=== PATIENT | male | born 1945 | race Caucasian/White ===

== ENCOUNTER → 2017-06-12 08:53 | Outpatient (POV) | payer MEDICARE, BC, SELFPAY | PROVIDERS: Family Provider Nurse Practitioner Family; Visit Provider Internal Medicine | DX: Z00.00 Encounter for general adult medical examination without abnormal findings (principal) ==

== ENCOUNTER → 2017-06-21 14:01 | Outpatient (CLI) | payer MEDICARE, BC, SELFPAY ==
--- NOTE | 2017-06-21 14:13 | CT_ITS ---
CT lung screening EXAM: CT LUNG LOW DOSE WO CONTRAST COMPARISON: 05/31/2016 HISTORY: 72-year-old male with 100 pack-year smoking history asymptomatic ITS.REASON: FORMER SMOKER ORDERING PHYSICIAN: Johnny Hernadez MD PATIENT AGE: 72 years TECHNIQUE: The exam was performed on a GE Light Speed [address] scanner using 2.9 mGy CTDI. A low dose helical CT CHEST was performed on a multi-detector scanner. All CT scans at the facility use one or more dose reduction, viz: automated exposure control; ma/kV adjustment per patient size (including targeted exams where dose is matched to indication; i.e. head); or iterative reconstruction technique. The LDCT was performed in a facility that meets the criteria for the screening program. Data regarding this exam was submitted to ACR which is an approved registry. The order for this exam indicates that it came as a result of a lung cancer screening counseling shard decision-making visit that included all the elements required of such a visit including smoking cessation. The radiologist interpreting this exam meets the CMS criteria for the LDCT lung cancer screening program. The exam is reported using the Lung-RADS classification scale and reported to the ACR registry. NOTE: This study was performed for the specific purposes of lung cancer screening and is not an alternative to diagnostic chest CT. RADIATION DOSE: CTDI vol(CT dose Index-volume) = 2.9mG DLP (Dose Length Product) = 114.11 mGcm FINDINGS: Moderate centrilobular emphysematous changes with scattered fibrotic changes. 6 mm irregular opacity in the right mid lung linear in nature and may be due to areas of scarring stable. It is at or near the minor fissure. Calcified granuloma right middle lobe. Scarring in the lung bases. 5 mm noncalcified nodule right upper lobe laterally unchanged. Mild bronchial thickening with hyperinflation. 7 mm noncalcified nodule left lower lobe centrally unchanged. No new nodules are evident. OTHER FINDINGS: Coronary artery calcifications IMPRESSION: 1. Lung RADS Category: 2, benign. Pulmonary nodules are stable and less than 8 mm. 2. Other findings: Old granulomatous disease. Centrilobular emphysema with COPD Coronary artery disease RECOMMENDATIONS: 12 month LDCT follow-up
== END ==
PROVIDERS: Family Provider Nurse Practitioner Family; PCP Family Medicine; Visit Provider Internal Medicine
DX: Z87.891 Personal history of nicotine dependence (principal); Z12.2 Encounter for screening for malignant neoplasm of respiratory organs

== ENCOUNTER → 2017-11-07 12:51 | Outpatient (CLI) | payer MEDICARE, BC, SELFPAY ==
[2017-11-07 14:00] VITALS: PULSE 74; PULSE 79
== END ==
PROVIDERS: Family Provider Nurse Practitioner Family; PCP Family Medicine; Visit Provider Internal Medicine
DX: J43.9 Emphysema, unspecified (principal)
CPT/HCPCS: 94060; 94640; 94726; 94729

== ENCOUNTER → 2017-12-18 11:28 | Outpatient (POV) | payer MEDICARE, BC, SELFPAY | PROVIDERS: Family Provider Nurse Practitioner Family; PCP Family Medicine; Visit Provider Internal Medicine | DX: Z00.00 Encounter for general adult medical examination without abnormal findings (principal) ==

== ENCOUNTER → 2018-05-21 13:47 | Outpatient (POV) | payer MEDICARE, BC, SELFPAY | PROVIDERS: Visit Provider Dermatology | DX: Z00.00 Encounter for general adult medical examination without abnormal findings (principal) ==

== ENCOUNTER → 2018-06-12 12:38 | Outpatient (CLI) | payer MEDICARE, BC, SELFPAY ==
--- NOTE | 2018-06-12 12:40 | CT_ITS ---
CT lung screening EXAM: CT LUNG LOW DOSE WO CONTRAST HISTORY: 80 pack-year smoking history, asymptomatic for lung cancer ITS.REASON: COPD, FORMER SMOKER ORDERING PHYSICIAN: Johnny Hernadez MD PATIENT AGE: 73 years COMPARISON: 06/21/2017 TECHNIQUE: The exam was performed on a GE Light Speed [address] scanner using 2.90 mGy CTDI. A low dose helical CT CHEST was performed on a multi-detector scanner. All CT scans at the facility use one or more dose reduction, viz: automated exposure control, ma/kV adjustment per patient size (including targeted exams where dose is matched to indication, i.e. head), or iterative reconstruction technique. The LDCT was performed in a facility that meets the criteria for the screening program. Data regarding this exam was submitted to ACR which is an approved registry. The order for this exam indicates that it came as a result of a lung cancer screening counseling shard decision-making visit that included all the elements required of such a visit including smoking cessation. The radiologist interpreting this exam meets the CMS criteria for the LDCT lung cancer screening program. The exam is reported using the Lung-RADS classification scale and reported to the ACR registry. NOTE: This study was performed for the specific purposes of lung cancer screening and is not an alternative to diagnostic chest CT. RADIATION DOSE: CTDI vol(CT dose Index-volume) = 2.90mG DLP (Dose Length Product) = 119.59 mGcm FINDINGS: Changes of COPD and centrilobular emphysema 7 mm parenchymal opacity in the right middle lobe unchanged and may be due to an area of scarring. There is a calcified granuloma in the right middle lobe medially and inferiorly. Chronic interstitial changes are present. Calcified nodule left lower lobe unchanged. There is a subpleural nodular opacity in the right upper lobe anteriorly approximately 4 mm. Coronary artery calcifications IMPRESSION: 1. Lung RADS Category: 2, benign 2. Other findings: COPD, centrilobular emphysema, interstitial disease, coronary artery calcification RECOMMENDATIONS: 12 month LDCT follow-up
== END ==
PROVIDERS: PCP Internal Medicine; Visit Provider Internal Medicine
DX: Z12.2 Encounter for screening for malignant neoplasm of respiratory organs (principal); Z87.891 Personal history of nicotine dependence; J44.9 Chronic obstructive pulmonary disease, unspecified

== ENCOUNTER → 2018-06-25 08:54 | Outpatient (POV) | payer MEDICARE, BC, SELFPAY | PROVIDERS: Visit Provider Internal Medicine | DX: Z00.00 Encounter for general adult medical examination without abnormal findings (principal) ==

== ENCOUNTER → 2018-07-25 09:13 | Outpatient (CLI) | payer MEDICARE, BC, SELFPAY ==
--- NOTE | 2018-07-25 09:16 | CI_ITS ---
Cerebrovascular Exam Indications: 433.10 Occlusion/stenosis of carotid artery without cerebral infarction. IMPRESSIONS 1. The bilateral vertebral arteries are patent with normal antegrade flow. 2. Study suggests less than 20% stenosis involving the left internal carotid artery. No change from the study of 08-Feb-2015. 3. Study suggests 50-69% stenosis involving the right internal carotid artery. Disease progression from the study of 08-Feb-2015. History: Coronary artery disease. Risk factors: Hypertension. Labs, prior tests, procedures, and surgery: Left endarterectomy (2009). Labs, prior tests, procedures, and surgery: Left endarterectomy (2009). Carotid duplex study. Complete study and Doppler flow study including spectral analysis, color and randolph scale imaging. Location: Vascular laboratory. Patient status: Outpatient. Tables: Arterial flow: + +--------+--------+ Location V sys V ed + +--------+--------+ Right CCA - proximal 114cm/s 23.6cm/s + +--------+--------+ Right CCA - distal 99.8cm/s 22cm/s + +--------+--------+ Right ECA 149cm/s -------- + +--------+--------+ Right ICA - proximal 187cm/s 46.2cm/s + +--------+--------+ Right ICA - mid 173cm/s 29.5cm/s + +--------+--------+ Right ICA - distal 80.1cm/s 24.4cm/s + +--------+--------+ Right vertebral 66cm/s -------- + +--------+--------+ Left CCA - proximal 127cm/s 33cm/s + +--------+--------+ Left CCA - distal 95.1cm/s 22.8cm/s + +--------+--------+ Left ECA 126cm/s -------- + +--------+--------+ Left ICA - proximal 79.6cm/s 25.1cm/s + +--------+--------+ Left ICA - mid 99.2cm/s 34.2cm/s + +--------+--------+ Left ICA - distal 93.6cm/s 30cm/s + +--------+--------+ Left vertebral 48.2cm/s -------- + +--------+--------+ Velocity ratios: + + + + + + Right, V sys Right, V ed Left, V sys Left, V ed + + + + + + Max ICA/dist CCA 1.87 2.1 1.04 1.5 + + + + + + (Report amended ) Electronically signed by: Cassius Morrow [id number]
== END ==
PROVIDERS: PCP Family Medicine; Visit Provider Family Medicine
DX: I65.21 Occlusion and stenosis of right carotid artery (principal); R51 Headache; H53.9 Unspecified visual disturbance; Z98.890 Other specified postprocedural states
CPT/HCPCS: 93880

== ENCOUNTER → 2018-11-01 09:38 | Outpatient (CLI) | payer MEDICARE, BC, SELFPAY ==
[2018-11-01 09:54] LABS: Blood Urea Nitrogen 17 mg/dL (7-18); Creatinine,Serum 0.85 mg/dL (0.70-1.30); Estimated Glomerular Filt Rate 88 ml/min (>60); GFR (African American) 107 ML/MIN (>60)
--- NOTE | 2018-11-01 10:13 | MR_ITS ---
PROCEDURE: MR HEAD/BRAIN WO/W CON CLINICAL INDICATION: CHRONIC INTRACTABLE HEADACHE Headache with dizziness, blurred vision COMPARISON: No exams were available for comparison TECHNIQUE: Routine multiplanar multi echo sequences are performed without and with gadolinium enhancement. FINDINGS: No midline shift mass effect intracranial hemorrhage or acute infarction is evident. There are some nonspecific T2 white matter hyperintensities within the central aspect of the stiven and the periventricular region. There is a small area of increased T2 signal in the left superior cerebellar hemispheres centrally. This shows contrast enhancement measuring approximately 6 mm. No other enhancing abnormalities are evident. The cerebellopontine angle, cerebellum, and brainstem are unremarkable. The pituitary, optic chiasm and craniocervical junction are unremarkable. No mastoid effusion or sinus air-fluid level. IMPRESSION: There is a small enhancing lesion in the superior cerebellar area on the left. This is nonspecific. No other enhancing lesions are evident. This does show some increased T2 signal. Etiology is indeterminate. One cannot exclude the possibility of a small neoplasm such as a metastatic focus. 6-8 week follow-up is suggested to confirm short term stability. Does the patient have primary neoplasm? No other lesions are evident and there is no edema or other significant anomaly apparent. Periventricular ischemic gliotic changes are noted. Dictated by: Cassius Morrow MD 11/02/2018 19:32 Signed by: <Electronically signed by Cassius Morrow MD in [place]> 11/02/2018 19:32
== END ==
PROVIDERS: PCP Family Medicine; Visit Provider Family Medicine
DX: R51 Headache (principal)
CPT/HCPCS: 36415; 70553; 82565; 84520; A9576

== ENCOUNTER → 2019-01-13 09:47 | Outpatient (CLI) | payer MEDICARE, BC, SELFPAY ==
--- NOTE | 2019-01-13 09:59 | MR_ITS ---
PROCEDURE: MR HEAD/BRAIN WO/W CON CLINICAL INDICATION: ABNORMAL BRAIN MRI Chronic intractable headache with dizziness and blurred vision, follow-up abnormal MRI with an enhancing lesion in the left cerebellar area COMPARISON: MR HEAD/BRAIN WO/W CON from 11/01/2018 TECHNIQUE: Routine multiplanar multi echo sequences are performed without gadolinium enhancement. Routine multiplanar multi echo sequences are performed without and with gadolinium enhancement. FINDINGS: Previous exam demonstrated a small area of enhancement in the left superior cerebellar region. No midline shift, mass effect, intracranial hemorrhage, or hydrocephalus is evident. The cerebellopontine angle, cerebellum, and brainstem are unremarkable. There is some increased T2 signal within the stiven and periventricular white matter consistent with ischemic gliotic change from microvascular disease. The previously noted small focus of enhancement in the left superior cerebellar region is no longer apparent. This was present on both the axial and coronal post enhanced images but is not identified on today's study. No enhancing lesions are apparent. The pituitary, optic chiasm, corpus callosum, and craniocervical junction have an unremarkable appearance. No mastoid effusion or sinus air-fluid level. IMPRESSION: 1. Previously noted small area of enhancement in the left superior cerebellar region is not demonstrated on today's exam. No abnormal area of enhancement apparent. 2. Involutional changes of age with mild atrophy and periventricular ischemic gliotic change. 3. No acute intracranial findings Dictated by: Cassius Morrow MD 01/13/2019 15:52 Electronically signed by Cassius Morrow MD in [place] 01/14/2019 10:50
[2019-01-13 10:06] LABS: Blood Urea Nitrogen 12 mg/dL (7-18); Creatinine,Serum 0.79 mg/dL (0.70-1.30); Estimated Glomerular Filt Rate 96 ml/min (>60); GFR (African American) 116 ML/MIN (>60)
--- NOTE | 2019-01-13 10:43 | HMH.ITSHM ---
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 []SIMVASTATIN BABY ASPIRIN
== END ==
PROVIDERS: PCP Family Medicine; Visit Provider Family Medicine
DX: R51 Headache (principal); R90.89 Other abnormal findings on diagnostic imaging of central nervous system
CPT/HCPCS: 36415; 70553; 82565; 84520; A9576

== ENCOUNTER 2019-09-02 20:03 | Observation (INO) | payer MEDICARE, BC, SELFPAY ==
[2019-09-02] VITALS (14 sets, daily range): BP systolic 125–176; BP diastolic 54–83; PULSE 90–107; RESP 18–28; TEMP 36.8–37.2; O2SAT 92–96; BMI 24.4; BMI 25.4
--- NOTE | 2019-09-02 20:00 | ECG_ITS ---
APPROVED REPORT Exam: Resting ECG HR:108 bpm ECG Measurements Heart Rate 108 AXES LA 162 P QRSd 64 QRS 74 QT 306 T 83 QTc 410 <Conclusion> Sinus tachycardia Nonspecific ST abnormality Abnormal ECG Electronically signed by : Loc Martinez, 09/08/2019 17:16:29
--- NOTE | 2019-09-02 20:19 | XR_ITS ---
PROCEDURE: XR CHEST PORTABLE CLINICAL HISTORY: SOA Shortness of breath COMPARISON: CXR CHEST(2 VIEWS-NOT PORTABLE) from 02/17/[address] [facility] [address] CHEST W/O CONTRAST from 05/31/2016 CXR CHEST(2 VIEWS-NOT PORTABLE) from 01/08/2017 CXR2V XR chest 2V from 07/12/2017 FINDINGS: Mild cardiomegaly without failure. Changes of COPD with eventration of the hemidiaphragm on the right. No lobar consolidation or collapse. No acute bony abnormalities. IMPRESSION: Cardiomegaly with COPD. No change Dictated by: Cassius Morrow MD 09/03/2019 07:55 Electronically signed by Cassius Morrow MD in [place] 09/03/2019 07:55
[2019-09-02 20:23] LABS: ABG Base Excess 5.5 mmol/L (-2.4-2.3); ABG HCO3 29.6 mmhg (22.0-26.0); ABG Oxygen Saturation 91 % (90-100); ABG PCO2 43.6 mmhg (35.0-45.0); ABG PH 7.45 mmol/L (7.35-7.45); ABG TCO2 30.9 mmhg (23-27); Allen's Test Y; Oxygen 2 %
[2019-09-02 20:24] LABS: Source R/R
[2019-09-02 20:27] LABS: Basophils % 0.4 % (0.1-2.0); Eosinophils # 0.3 K/mm3 (0.0-0.4); Eosinophils % 2.4 % (0.1-12.0); Hematocrit 45.8 % (42.0-52.0); Hemoglobin 14.9 g/dL (14.1-18.0); Lymphocytes % 9.6 % (10-50); Mean Corpuscular HGB Conc 32.4 g/dL (31.8-35.4); Mean Corpuscular Hemoglobin 31.3 pg (27.0-31.2); Mean Corpuscular Volume 96.4 fl (80-94); Mean Platelet Volume 7.1 fl (7.4-10.4); Monocytes # 0.6 K/mm3 (0.1-1.0); Neutrophils % 82.6 % (37.0-80.0); Platelet Count 228 K/mm3 (142-424); Red Blood Count 4.75 M/mm3 (4.60-6.20); White Blood Count 10.9 K/mm3 (4.8-10.8)
[2019-09-02 20:29] LABS: Chloride 97 mmol/L (98-107); Potassium 4.3 mmoL/L (3.5-5.1); Sodium 139 mmol/L (136-145)
[2019-09-02 20:31] LABS: Alanine Aminotransferase 21 U/L (12-78); Alkaline Phosphatase 80 U/L (38-126); Aspartate Amino Transferase 38 U/L (17-59); Bilirubin,Total 0.6 mg/dl (0.2-1.3); Blood Urea Nitrogen 22 mg/dl (9-20); Creatinine Clearance Estimated 72 mL/min (50-200); Estimated Glomerular Filt Rate 110 ml/min (>60); GFR (African American) 133 ML/MIN (>60)
[2019-09-02 20:32] LABS: Albumin Level 4.3 g/dl (3.5-5.0); Albumin/Globulin Ratio 1.3 (1.1-1.8); Anion Gap 9.3 mEq/L (5-15); Calcium 9.3 mg/dl (8.4-10.2); Carbon Dioxide 37 mmol/L (22.0-30.0); Globulin 3.4 g/dL (1.3-3.2); Glucose 110 mg/dl (74-100); Total Protein,Serum 7.7 g/dl (6.3-8.2)
[2019-09-02 20:39] LABS: C-Reactive Protein 12.9 mg/L (0-4)
--- NOTE | 2019-09-02 20:46 | HMH.EDSOB ---
ED Disposition Clinical Impression: Acute exacerbation of chronic obstructive airways disease, SIRS (systemic inflammatory response syndrome) Disposition: Admitted as Observation Condition on Discharge: Good Referrals: Loc Sandoval MD [Primary Care Provider] - - Critical Care Critical Care Time: No Attestation: On 09/02/19, the high probability of a clinically significant, sudden or life threatening deterioration of the following system(s) required my full and direct attention, intervention and personal management. The time I documented below is in addition to time spent performing reported procedures but includes the following listed in this critical care notation. Medical Decision Making - Medical Records Medical records reviewed: Yes: I reviewed the patient's medical records. - [place] Inquiry Pt receiving controlled substance: No Vital Signs: 09/02/19 20:09 09/02/19 20:16 09/02/19 20:38 Temperature 99.0 F Temperature Source Oral Pulse Rate 90 Pulse Rate [Left Radial] 103 H Pulse Rate [Left] 107 H Respiratory Rate 28 H 28 H Blood Pressure [Right Arm] 176/63 H 176/83 H Blood Pressure Mean [Right Arm] 100 114 02 Sat by Pulse Oximetry 95 94 L Oxygen Delivery Method Nasal Cannula Nasal Cannula Oxygen Flow Rate (LPM) 2 2 09/02/19 20:39 09/02/19 20:42 09/02/19 21:05 Temperature Temperature Source Pulse Rate 91 H Pulse Rate [Left Radial] 107 H 101 H Pulse Rate [Left] Respiratory Rate 22 24 Blood Pressure [Right Arm] 167/78 H 158/62 H Blood Pressure Mean [Right Arm] 107 94 02 Sat by Pulse Oximetry 92 L 95 Oxygen Delivery Method Nasal Cannula Nasal Cannula Oxygen Flow Rate (LPM) 3 3 09/02/19 21:17 09/02/19 21:44 09/02/19 22:07 Temperature Temperature Source Pulse Rate Pulse Rate [Left Radial] 102 H 105 H 104 H Pulse Rate [Left] Respiratory Rate 22 20 18 Blood Pressure [Right Arm] 133/58 L 144/70 H 148/69 H Blood Pressure Mean [Right Arm] 83 94 95 02 Sat by Pulse Oximetry 94 L 93 L 94 L Oxygen Delivery Method Nasal Cannula Nasal Cannula Nasal Cannula Oxygen Flow Rate (LPM) 3 3 2 09/02/19 22:31 Temperature Temperature Source Pulse Rate Pulse Rate [Left Radial] 101 H Pulse Rate [Left] Respiratory Rate 18 Blood Pressure [Right Arm] 125/54 L Blood Pressure Mean [Right Arm] 77 02 Sat by Pulse Oximetry 93 L Oxygen Delivery Method Nasal Cannula Oxygen Flow Rate (LPM) 3 - Lab Data Lab results reviewed: Yes: I reviewed the patient's lab results. Lab Results 09/02/19 19:40: WBC 10.9 H, RBC 4.75, Hgb 14.9, Hct 45.8, MCV 96.4 H, MCH 31.3 H, MCHC 32.4, RDW 14.0, Plt Count 228, MPV 7.1 L, Neut % (Auto) 82.6 H, Lymph % (Auto) 9.6 L, [place] % (Auto) 5.0, Eos % (Auto) 2.4, Baso % (Auto) 0.4, Neut # (Auto) 9.0 H, Lymph # (Auto) 1.0, [place] # (Auto) 0.6, Eos # (Auto) 0.3, Baso # (Auto) 0.0 09/02/19 19:40: Sodium 139, Potassium 4.3, Chloride 97 L, Carbon Dioxide 37 H, Anion Gap 9.3, BUN 22 H, Creatinine 0.70, Estimated Creat Clear 72, Estimated GFR 110, Est GFR ( Amer) 133, Glucose 110 H, Calcium 9.3, Total Bilirubin 0.6, AST 38, ALT 21, Alkaline Phosphatase 80, Troponin I < 0.01, C-Reactive Protein 12.9 H, Total Protein 7.7, Albumin 4.3, Globulin 3.4 H, Albumin/Globulin Ratio 1.3 09/02/19 19:40: ESR 40 H 09/02/19 19:40: SARS-CoV-2 IgG Ab (Rapid) Negative, SARS-CoV-2 IgM Ab (Rapid) Negative 09/02/19 20:22: Specimen Source R/r, O2 % 2, ABG pH 7.45, ABG pCO2 43.6, ABG pO2 56.0 L, ABG HCO3 29.6 H, ABG Total CO2 30.9 H, ABG O2 Saturation 91, ABG Base Excess 5.5 H, Cassius Test Y 09/02/19 20:34: Lactate 1.3 09/02/19 20:53: Chlamy pneumoniae PCR Not detected, Adenovirus (PCR) Not detected, B. pertussis DNA (PCR) Not detected, Coronavirus OC43 (PCR) Not detected, Coronavirus HKU1 (PCR) Not detected, Coronavirus 229E (PCR) Not detected, COVID-19 PCR Not detected, Coronavirus NL63 (PCR) Not detected, Human Metapneumovir PCR Not detected, Influenza A (H1) PCR Not detected,
[2019-09-02 20:52] LABS: Lactic Acid 1.3 mmol/L (0.7-2.1)
[2019-09-02 20:53] LABS: Troponin I < 0.01 ng/ml (0.00-0.034)
[2019-09-02 20:56] LABS: Erythrocyte Sedimentation Rate 40 mm/hr (0-20)
--- NOTE | 2019-09-02 20:56 | PC.NURSE ---
lab at the bedside for covid swab
[2019-09-02 21:02] LABS: Adenovirus,PCR Not Detected (NotDetected); Bordetella Pertussis Not Detected (NotDetected); Chlamydophila Pneumoniae, PCR Not Detected (NotDetected); Coronavirus 19, PCR Not Detected (NotDetected); Coronavirus 229E Not Detected (NotDetected); Coronavirus NL63 Not Detected (NotDetected); Coronavirus OC43 Not Detected (NotDetected); Coronovirus HKU1,PCR Not Detected (NotDetected); Human Metapneumovirus Not Detected (NotDetected); Influenza A, PCR Not Detected (NotDetected); Influenza AH1, 2009 Not Detected (NotDetected); Influenza AH1, PCR Not Detected (NotDetected); Influenza AH3,PCR Not Detected (NotDetected); Influenza B, PCR Not Detected (NotDetected); Mycoplasma Pneumoniae, PCR Not Detected (NotDected); Parainfluenza 1, PCR Not Detected (NotDetected); Parainfluenza 2, PCR Not Detected (NotDetected); Parainfluenza 3, PCR Not Detected (NotDetected); Parainfluenza 4, PCR Not Detected (NotDetected); Respiratory Syncytial Virus Not Detected (NotDetected); Rhinovirus/Enterovirus Not Detected (NotDetected)
[2019-09-02 21:24] LABS: Coronavirus 19 IgG Antibody Negative (Negative); Coronavirus 19 IgM Antibody Negative (Negative)
--- NOTE | 2019-09-02 23:42 | PC.NURSE ---
PT ARRIVED TO THE FLOOR VIA STRETCHER FROM ED @ [phone].
[2019-09-02 23:53] LABS: Troponin I 0.02 ng/ml (0.00-0.034)
[2019-09-03 00:03] VITALS: PULSE 100
[2019-09-03 03:32] LABS: Troponin I 0.01 ng/ml (0.00-0.034)
[2019-09-03 04:00] VITALS: BP 130/69; PULSE 70; RESP 18; TEMP 36.6; O2SAT 97
[2019-09-03 05:10] VITALS: BMI 25.4
--- NOTE | 2019-09-03 05:20 | PC.NURSE ---
Pt is A&Ox4 and has ambulated to the BR 1x and tolerated well. Pt has denied any pain, N/V/D, or dyspnea. Pt does still c/o a little SOB that worsens with activity. NSR noted on tele. Pt troponins were <0.01, 0.02, and 0.01. Pt denies any chest pain, numbness/tingling. Pt is on 3LMP of O2 via NC, sats 94-97% thus far. Pt is home dependent on O2 at 2LMP. Dressing and luer tubing changed this shift, 20g peripheral IV to LAC. VSS, call light within reach and will continue to monitor pt condition.
[2019-09-03 06:59] LABS: Chloride 105 mmol/L (98-107); Potassium 4.4 mmoL/L (3.5-5.1); Sodium 138 mmol/L (136-145)
[2019-09-03 07:02] LABS: Anion Gap 8.4 mEq/L (5-15); Blood Urea Nitrogen 15 mg/dl (9-20); Carbon Dioxide 29 mmol/L (22.0-30.0); Creatinine Clearance Estimated 74 mL/min (50-200); Estimated Glomerular Filt Rate 131 ml/min (>60); GFR (African American) 159 ML/MIN (>60); Glucose 195 mg/dl (74-100)
[2019-09-03 07:06] LABS: Basophils % 0.1 % (0.1-2.0); Hematocrit 39.9 % (42.0-52.0); Lymphocytes # 0.4 K/mm3 (0.7-4.5); Lymphocytes % 4.3 % (10-50); Mean Corpuscular HGB Conc 32.3 g/dL (31.8-35.4); Mean Corpuscular Hemoglobin 31.6 pg (27.0-31.2); Mean Corpuscular Volume 97.7 fl (80-94); Monocytes # 0.2 K/mm3 (0.1-1.0); Monocytes % 1.7 % (1.7-9.3); Neutrophils # 9.6 K/mm3 (1.8-7.8); Neutrophils % 93.9 % (37.0-80.0); Platelet Count 165 K/mm3 (142-424); Red Blood Count 4.08 M/mm3 (4.60-6.20); Red Cell Distribution Width 13.8 % (11.5-17.5); White Blood Count 10.2 K/mm3 (4.8-10.8)
[2019-09-03 07:08] LABS: MANUAL DIFFERENTIAL MANUAL DIFFERENTIAL (MANUAL DIFF)
--- NOTE | 2019-09-03 07:21 | P.CONPHA_ITS ---
[facility] Pharmacy VTE Monitoring - Patient Demographics Admission date: 09/02/19 Report Date: 09/03/19 Time: 07:21 Allergies/Adverse Reactions: Patient Allergies No Known Allergies Allergy (Verified 07/12/17 10:35) Height: 1.8 m Weight: 82.355 kg Patient Problems: Current Active Problems Acute exacerbation of chronic obstructive airways disease (Acute) SIRS (systemic inflammatory response syndrome) (Acute) - VTE Risk Labs: VTE Related Lab Results Hgb 14.9 g/dL (14.1-18.0) 09/02/19 19:40 Hct 39.9 % (42.0-52.0) L 09/03/19 06:12 Plt Count 165 K/mm3 (142-424) D 09/03/19 06:12 BUN 15 mg/dl (9-20) D 09/03/19 06:12 Creatinine 0.60 mg/dl (0.66-1.25) L 09/03/19 06:12 Estimated Creat Clear 74 mL/min (50-200) 09/03/19 06:12 VTE Score: 4 VTE Risk Level: Low Risk Clinical Trial Participant: No - Prophylaxis VTE Prophylaxis Ordered?: Yes Types of VTE Prophylaxis: TEDS Knee High
--- NOTE | 2019-09-03 07:25 | HMH.HPDC ---
General - General Admission date:: 09/02/19 Discharge date: 09/03/19 *Admission Date: 09/02/19 *Chief complaint: Shortness of breath *History of present illness: 74-year-old male with 2-day history of progressively increasing shortness of breath, low-grade fevers, cough with yellow sputum production presented to the emergency department due to his worsening symptoms. Patient has medical history significant for COPD and atrial fibrillation status post cardiac ablation. Work-up in the emergency department revealed hypoxemia with mild tachycardia. Patient's breath sounds are distant at baseline but patient was having increasing difficulty breathing. Patient uses oxygen at home when needed and required increased use of supplemental oxygen and increase in flow rate. Patient was given aerosols and steroids in the emergency department and admitted overnight for observation. [facility] History I have reviewed the patient's past medical history: Yes Medical History: Reports:: Atrial Fibrillation, Cancer (Skin cancer), Hyperlipidemia Denies:: Diabetes Mellitus Type 1, Diabetes Mellitus Type 2, Internal Pacemaker *Have you ever received a pneumonia vaccine?: Yes *Have you received a flu vaccine this season?: Yes Other Medical History: Reports: Cataracts Laterality Cases: Bilateral: Cataract Other Surgeries: No: Pacemaker Amputation: No Fractures: Yes (Fingers and Rib) - *Social History Smoking Status: Former smoker Tobacco Type: cigarettes # Packs/Day (cigarettes): 2 #Yrs smoked (if former smoker): 40 Smoking End Date: 03/05/2008 Alcohol Intake: former *Occupational Status:: retired Housing: house Household Members: spouse, caregiver *Travel in the last 8 weeks: None Family Hx:: No significant family history Review of Systems - Constitutional Reports lack of energy, Denies body ache(s), Denies chills - *Cardiovascular Denies chest pain, Denies chest pain at rest - *Respiratory Reports change in phlegm color, Reports chest congestion, Reports cough, Reports shortness of breath, Reports shortness of breath with activity - *Gastrointestinal Denies abdominal pain, Denies belching - *Genitourinary Denies difficulty urinating - *Neurologic Denies localized weakness, Denies seizure-like activity Exam Vital signs and Labs for Last 24 Hours: Temp Pulse Resp BP Pulse Ox 97.8 F 70 18 130/69 97 09/03/19 04:00 09/03/19 04:00 09/03/19 04:00 09/03/19 04:00 09/03/19 04:00 Laboratory Results - last 24 hr 09/02/19 19:40: WBC 10.9 H, RBC 4.75, Hgb 14.9, Hct 45.8, MCV 96.4 H, MCH 31.3 H, MCHC 32.4, RDW 14.0, Plt Count 228, MPV 7.1 L, Neut % (Auto) 82.6 H, Lymph % (Auto) 9.6 L, [place] % (Auto) 5.0, Eos % (Auto) 2.4, Baso % (Auto) 0.4, Neut # (Auto) 9.0 H, Lymph # (Auto) 1.0, [place] # (Auto) 0.6, Eos # (Auto) 0.3, Baso # (Auto) 0.0 09/02/19 19:40: Sodium 139, Potassium 4.3, Chloride 97 L, Carbon Dioxide 37 H, Anion Gap 9.3, BUN 22 H, Creatinine 0.70, Estimated Creat Clear 72, Estimated GFR 110, Est GFR ( Amer) 133, Glucose 110 H, Calcium 9.3, Total Bilirubin 0.6, AST 38, ALT 21, Alkaline Phosphatase 80, Troponin I < 0.01, C-Reactive Protein 12.9 H, Total Protein 7.7, Albumin 4.3, Globulin 3.4 H, Albumin/Globulin Ratio 1.3 09/02/19 19:40: ESR 40 H 09/02/19 19:40: SARS-CoV-2 IgG Ab (Rapid) Negative, SARS-CoV-2 IgM Ab (Rapid) Negative 09/02/19 20:22: Specimen Source R/r, O2 % 2, ABG pH 7.45, ABG pCO2 43.6, ABG pO2 56.0 L, ABG HCO3 29.6 H, ABG Total CO2 30.9 H, ABG O2 Saturation 91, ABG Base Excess 5.5 H, Cassius Test Y 09/02/19 20:34: Lactate 1.3 09/02/19 20:53: Chlamy pneumoniae PCR Not detected, Adenovirus (PCR) Not detected, B. pertussis DNA (PCR) Not detected, Coronavirus OC43 (PCR) Not detected, Coronavirus HKU1 (PCR) Not detected, Coronavirus 229E (PCR) Not detected, COVID-19 PCR Not detected, Coronavirus NL63 (PCR) Not detected, Human Metapneumovir PCR Not detected, Influenza A (H1) PCR Not detected, Influ A (H1N1/09) PCR Not detected,
[2019-09-03 07:59] LABS: Calcium 8.3 mg/dl (8.4-10.2)
[2019-09-03 08:00] VITALS: BP 158/82; PULSE 60; PULSE 73; RESP 18; TEMP 36.6; O2SAT 96
--- NOTE | 2019-09-03 09:25 | HMH.PHAINT ---
PATIENT WAS COUNSELED ON NEW MEDICATIONS: AUGMENTIN AND PREDNISONE. ALL NORMAL HOME MEDICATIONS WILL BE CONTINUED. THE PATIENT DID NOT HAVE ANY QUESTIONS.
[2019-09-03 09:53] VITALS: PULSE 72; PULSE 75
[2019-09-03 09:59] LABS: Lymphocytes % 1 % (10-50); Monocytes % 2 % (2-9); Neutrophils % 97 % (42-76); Platelet Estimate Normal; RBC Morphology Normal; Total Cells Counted 100
== END 2019-09-03 15:59 | disposition home or self-care (01) ==
LOC: ER 21:06 → 2ND 23:09
PROVIDERS: Admitting Provider Internal Medicine Adolescent Medicine; Emergency Provider Emergency Medicine; PCP Family Medicine; Visit Provider Family Medicine
DX: J44.1 Chronic obstructive pulmonary disease with (acute) exacerbation (principal); Z99.81 Dependence on supplemental oxygen; R65.10 Systemic inflammatory response syndrome (SIRS) of non-infectious origin without acute organ dysfunction; I10 Essential (primary) hypertension; Z87.891 Personal history of nicotine dependence; Z79.899 Other long term (current) drug therapy
CPT/HCPCS: 36415; 71045; 80048; 80053; 82803; 83605; 83735; 84484; 85007; 85025; 85651; 86140; 86328; 87040; 87070; 87205; 87581; 87633; 87798; 93005; 94640; 96365; 96366; 96367; 96375; 99285; G0378; J0456; J2405

== ENCOUNTER → 2019-09-30 14:17 | Outpatient (POV) | payer MEDICARE, BC, SELFPAY | PROVIDERS: PCP Family Medicine; Visit Provider Dermatology | DX: Z00.00 Encounter for general adult medical examination without abnormal findings (principal) ==

== ENCOUNTER → 2019-11-10 09:55 | Outpatient (CLI) | payer MEDICARE, BC, SELFPAY ==
[2019-11-10 12:11] LABS: Coronavirus 19 IgG Antibody Negative (Negative); Coronavirus 19 IgM Antibody Negative (Negative)
== END ==
PROVIDERS: Visit Provider Ophthalmology
DX: Z01.818 Encounter for other preprocedural examination (principal)
CPT/HCPCS: 36415; 86328

== ENCOUNTER 2019-11-11 08:51 | Day surgery (SDC) | payer MEDICARE, BC, SELFPAY ==
[2019-11-05 12:49] VITALS: BMI 24.4
[2019-11-11 09:07] VITALS: BP 146/64; PULSE 66; RESP 18; TEMP 36.1; O2SAT 94
[2019-11-11 10:04] VITALS: BP 155/74; PULSE 54; RESP 20; TEMP 36.1; O2SAT 100
== END 2019-11-11 10:20 | disposition home or self-care (01) ==
LOC: OUTP 08:53
PROVIDERS: PCP Family Medicine; Visit Provider Ophthalmology
PROC: (CPT 66821; principal; 2019-11-11 09:00)
DX: H26.493 Other secondary cataract, bilateral (principal); H02.839 Dermatochalasis of unspecified eye, unspecified eyelid; Z96.1 Presence of intraocular lens; J44.9 Chronic obstructive pulmonary disease, unspecified; K21.9 Gastro-esophageal reflux disease without esophagitis; Z79.82 Long term (current) use of aspirin; Z79.899 Other long term (current) drug therapy; Z86.79 Personal history of other diseases of the circulatory system; I10 Essential (primary) hypertension; I27.81 Cor pulmonale (chronic)
CPT/HCPCS: 66821

== ENCOUNTER → 2020-07-28 10:13 | Outpatient (CLI) | payer MEDICARE, BC, SELFPAY ==
--- NOTE | 2020-07-28 10:19 | XR_ITS ---
PROCEDURE: XR CERVICAL SPINE 5V CLINICAL INDICATION: CERVICALGIA COMPARISON: No exams were available for comparison FINDINGS: There is normal alignment. No acute fracture or dislocation is evident. The disc spaces are well preserved. C7 is not well delineated on the lateral view. There is a faint outline of the body of C7 on the swimmer's view which is normal and alignment. Surgical clips are present in the left neck. Carotid artery calcifications noted right. IMPRESSION: Unremarkable cervical spine Dictated by: Cassius Morrow MD 07/28/2020 12:17 Cassius Morrow MD in [place] 07/28/2020 12:17
== END ==
PROVIDERS: PCP Family Medicine; Visit Provider Nurse Practitioner Family
DX: M54.2 Cervicalgia (principal)
CPT/HCPCS: 72050

== ENCOUNTER → 2020-08-17 08:08 | Outpatient (POV) | payer MEDICARE, BC, SELFPAY | PROVIDERS: Visit Provider Dermatology | DX: Z00.00 Encounter for general adult medical examination without abnormal findings (principal) ==

== ENCOUNTER → 2020-09-24 10:14 | Outpatient (CLI) | payer MEDICARE, BC, SELFPAY | PROVIDERS: Visit Provider Internal Medicine Gastroenterology | DX: Z01.812 Encounter for preprocedural laboratory examination (principal); Z20.822 Contact with and (suspected) exposure to COVID-19; Z12.11 Encounter for screening for malignant neoplasm of colon | CPT/HCPCS: U0003 ==

== ENCOUNTER 2020-09-27 07:33 | Day surgery (SDC) | payer MEDICARE, BC, SELFPAY ==
[2020-09-22 09:17] VITALS: BMI 24.4
[2020-09-27 07:54] VITALS: BP 159/79; PULSE 80; RESP 18; TEMP 36.2; O2SAT 96
--- NOTE | 2020-09-27 08:08 | P.PN_ITS ---
[facility] Anesthesia Checklist - Patient Identification Patient Identification: Arm Band - Structural Data Admitted From: Home Planned Operative Procedure/s: colonoscopy Consent for Planned Operative Procedure(s) Verified: Yes Verified Documents: Surgical Consent, History and Physical - NPO Status Verified Time NPO: 00:00 - Additional verifications Anesthesia Reactions: No - Airway Assessment C-Spine Mobility Assessed: Yes (mp2) TMJ Mobility Assessed: Yes Dentition: Dentures-good fit - Neurological Assessment Level of Consciousness: Awake, Alert - Anesthesia Plan Anesthesia Risk discussed: Yes Anesthesia Plan: Verified ASA Class: III Anesthesia Type: MAC [facility] History I have reviewed the patient's past medical history: Yes Medical History: Reports:: Atrial Fibrillation, Chronic Obstructive Pulmonary Disease (COPD), Hyperlipidemia, Hypertension Denies:: Cancer, Diabetes Mellitus Type 1, Diabetes Mellitus Type 2, Internal Pacemaker, MRSA, Seizures *Have you ever received a pneumonia vaccine?: Yes *Have you received a flu vaccine this season?: Yes Other Medical History: Reports: Cataracts Anesthesia experience/problems:: nac Other Surgeries: Yes: Other. No: Pacemaker Amputation: No Fractures: Yes (Fingers and Rib) - *Social History Last grade of school completed: High school graduate Smoking Status: Never smoker Tobacco Type: cigarettes # Packs/Day (cigarettes): 2 #Yrs smoked (if former smoker): 40 Alcohol Intake: never Substance Use Type: denies use *Occupational Status:: retired Housing: house Household Members: spouse, caregiver *Travel in the last 8 weeks: None Family Hx:: No significant family history
--- NOTE | 2020-09-27 08:18 | HMH.PROC ---
[facility] Procedure Note Procedure Note:: Colonoscopy Procedure Report: Colonoscopy with cold snare polypectomy Endoscopist: Salinas Sanchez II, MD Referring physician: ENRIQUE Messina Date of Procedure: September 27, 2020 Equipment: Olympus 190 variable stiffness pediatric colonoscope Sedation: MAC sedation Indication: Mr. Miller is a 75-year-old gentleman who is here for follow-up surveillance colonoscopy secondary to a personal history of colon polyps and a family history of colon cancer. His last colonoscopy was in 2013 at which time adenomatous colon polyps were removed. He does state that his sister had colon cancer in her late 70s and had a colostomy. The patient does get some occasional lower abdominal discomfort and occasional constipation. He reports no rectal bleeding or weight loss. Procedure: Prior to the procedure, a history and physical exam was performed, and patient's medications and allergies were reviewed. The risks, benefits and alternatives of the sedation and procedure were discussed with the patient. All questions were answered and informed consent was obtained. The patient was brought to the procedure room. Patient identification and proposed procedure were verified by the physician and the nurse. The patient was placed in a left lateral decubitus position and the scope was passed under direct vision. Throughout the procedure, the patient's blood pressure, pulse, and oxygen saturations were monitored continuously. The colonoscopy was accomplished without difficulty. The patient tolerated the procedure well. Findings: On digital rectal examination there was normal rectal tone. There were no external hemorrhoids. The colonoscope was introduced through the anal canal to the rectum and advanced to the cecum. The ileocecal valve and appendiceal orifice were identified. The scope was advanced a short distance into the ileum which appeared grossly normal. The scope was then withdrawn into the colon. There were a total of 5 colon polyps (cecum x1 (14 mm), ileocecal valve x1 (25 mm), transverse x1 (5 mm), descending x1 (6 mm) and rectosigmoid x1 (22 mm)). The 2 larger polyps were removed in piecemeal and were large flat granular adenomatous polyps. The 2 largest appeared to be advanced adenomatous polyps. At the hepatic flexure there appeared to be a submucosal large 3 cm lesion that was submucosal and possible lipoma. There were scattered diverticuli throughout the descending and sigmoid colon (LEFT colon). The rectum itself was normal. Upon retroflexion within the rectum there were grade 2 internal hemorrhoids. The preparation was excellent throughout with [place] Preparation Score of 9. The cecal time was 12 minutes. Impression: 1. Colonic polyps x5 and 2 of these polyps were large and advanced adenomatous polyps 2. Hepatic flexure submucosal lesion?probable lipoma 3. Left-sided diverticulosis 4. Grade 2 internal hemorrhoids Plan: Based upon the size and advanced adenomatous nature of these polyps, I would recommend repeat surveillance colonoscopy again in 3-6 months to ensure that there is complete excision and removal and no residual or recurrence. I will follow up the polyp histology to ensure no high-grade dysplasia or advancement into adenocarcinoma. I would encourage a fiber bowel regimen.
[2020-09-27 08:53] VITALS: BP 93/48; PULSE 66; RESP 18; TEMP 36.2; O2SAT 94
[2020-09-27 09:03] VITALS: BP 108/59; PULSE 69; RESP 18; O2SAT 96
[2020-09-27 09:13] VITALS: BP 132/90; PULSE 61; RESP 18; O2SAT 98
[2020-09-27 09:32] VITALS: BP 151/67; PULSE 64; RESP 18; O2SAT 97; O2SAT 99
--- NOTE | 2020-09-27 09:50 | SUR.PHASEII ---
UPON REACHING CAR AND HELPING PT IN IT, THIS RN NOTED THAT PT'S BACK OF R HAND WAS BRUISED AND SLIGHTLY SWOLLEN. 2X2'S AND COBAN APPLIED FIRMLY AT THE TIME IV WAS REMOVED. INSTRUCTED PT TO APPLY PRESSURE ON THE WAY HOME. PT STATED THAT HE BRUISES VERY EASILY AND IT SPREADS UNDER SKIN. HE SAYS THIS HAPPENS OFTEN. PT WAS PLEASANT WITH NO C/O AT THIS TIME.
== END 2020-09-27 09:38 | disposition home or self-care (01) ==
LOC: OUTP 07:40
PROVIDERS: PCP Family Medicine; Visit Provider Internal Medicine Gastroenterology
PROC: 0DJD8ZZ Inspection of Lower Intestinal Tract, Via Natural or Artificial Opening Endoscopic (ICD-10-PCS; CPT 45378; principal; 2020-09-27 08:30)
DX: Z12.11 Encounter for screening for malignant neoplasm of colon (principal); Z86.010 Personal history of colon polyps; K57.30 Diverticulosis of large intestine without perforation or abscess without bleeding; K64.1 Second degree hemorrhoids; K63.5 Polyp of colon; E78.5 Hyperlipidemia, unspecified; I48.91 Unspecified atrial fibrillation; J44.9 Chronic obstructive pulmonary disease, unspecified; I10 Essential (primary) hypertension; Z79.82 Long term (current) use of aspirin; Z79.899 Other long term (current) drug therapy
CPT/HCPCS: 45385; 88305

== ENCOUNTER → 2020-11-22 12:53 | Outpatient (CLI) | payer MEDICARE, BC, SELFPAY ==
--- NOTE | 2020-11-22 13:40 | PC.NURSE ---
Addendum entered by Luzmaria Orozco, RT 11/22/20 14:18: Pt currently wears 2 LPM continuously and needed to wear it in between breathing maneuvers during PFT. SPO2 96% while on 2 LPM. Original Note: Pt seen for PFT and 6Minute Walk Test. Pt was able to complete FVC and SVC, attempted DLCO Pt became dizzy, lightheaded and very anxious. Also SPO2 dropped to 79% without oxygen for approximately 60 seconds. Albuterol treatment given via HHN and post FVC completed, Pt tolerated tx well. Pt arrived in a wheel chair and states he is unable to walk for any amount of time due to oxygen dropping and becoming very dizzy. 6 minute walk test not attempted.
--- NOTE | 2020-11-22 14:12 | CT_ITS ---
PROCEDURE: CT LUNG SCREENING CLINICAL INDICATION: lung cancer screening COMPARISON: CT LUNGSCREEN CT lung screening from 06/12/2018 TECHNIQUE: The exam was performed on a GE Light Speed [address] scanner using 2.90 mGy CTDI. A low dose helical CT CHEST was performed on a multi-detector scanner. All CT scans at the facility use one or more dose reduction, viz: automated exposure control, ma/kV adjustment per patient size (including targeted exams where dose is matched to indication, i.e. head), or iterative reconstruction technique. The LDCT was performed in a facility that meets the criteria for the screening program. Data regarding this exam was submitted to ACR which is an approved registry. The order for this exam indicates that it came as a result of a lung cancer screening counseling shard decision-making visit that included all the elements required of such a visit including smoking cessation. The radiologist interpreting this exam meets the [facility] criteria for the LDCT lung cancer screening program. The exam is reported using the Lung-RADS classification scale and reported to the ACR registry. NOTE: This study was performed for the specific purposes of lung cancer screening and is not an alternative to diagnostic chest CT. RADIATION DOSE: CTDI vol(CT dose Index-volume) = 2.90mG DLP (Dose Length Product) = 109.42 mGcm FINDINGS: COPD changes with centrilobular emphysema and scattered areas of scarring with prominence of the interstitium there is a 6 mm nodule along the minor fissure which is stable. No new nodules are evident. There is evidence of old granulomatous disease. OTHER FINDINGS: Coronary artery calcification noted. IMPRESSION: Lung-RADS Category 2 Benign Appearance or Behavior Follow-up: Continue annual screening with LDCT in 12 months Dictated by: Cassius Morrow MD 12/04/2020 15:19 Cassius Morrow MD in [place] 12/04/2020 15:19
== END ==
PROVIDERS: PCP Family Medicine; Visit Provider Internal Medicine Pulmonary Disease
DX: Z87.891 Personal history of nicotine dependence (principal); Z12.2 Encounter for screening for malignant neoplasm of respiratory organs; R06.02 Shortness of breath
CPT/HCPCS: 71271; 94060

== ENCOUNTER → 2021-01-28 10:58 | Outpatient (CLI) | payer MEDICARE, BC, SELFPAY ==
--- NOTE | 2021-01-28 11:03 | CA_ITS ---
APPROVED REPORT Computer Numeric Control Setter: Marge Hoang RVT Laterality: Bilateral Study Quality: Good Indications: RAHUL Risk Factors Hypertension: Surgery/Intervention Endarterectomy: left Doppler Spectral Velocity Analysis ECA (R) 149.00/13.90 cm/s ECA (L) 120.00/12.00 cm/s dICA (R) 126.70/25.10 cm/s dICA (L) 99.00/25.50 cm/s Tonny (R) 221.50/36.20 cm/s [place] (L) 81.00/12.00 cm/s pICA (R) 279.10/61.50 cm/s pICA (L) 91.50/19.50 cm/s dCCA (R) 92.00/21.40 cm/s dCCA (L) 91.50/18.00 cm/s pCCA (R) 69.50/11.80 cm/s pCCA (L) 88.50/12.00 cm/s Vert (R) 71.00/12.50 cm/s Vert (L) 357.10/79.10 cm/s ICA/CCA 3.04 ICA/CCA 1.08 Findings 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 Study suggests less than 20% stenosis of the left internal cartoid artery. Antegrade flow seen bilateral vertebral arteries. Evidence of stenosis of the left verterbal artery. 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 Study suggests less than 20% stenosis of the left internal cartoid artery. Antegrade flow seen bilateral vertebral arteries. Evidence of stenosis of the left verterbal artery. Electronically signed by : Cassius Morrow MD 01/28/2021 14:42:39
== END ==
PROVIDERS: PCP Family Medicine; Visit Provider Family Medicine
DX: I65.22 Occlusion and stenosis of left carotid artery (principal); R42 Dizziness and giddiness; E78.00 Pure hypercholesterolemia, unspecified
CPT/HCPCS: 93880

== ENCOUNTER 2021-02-22 22:28 | Observation (INO) | payer MEDICARE, BC, SELFPAY ==
[2021-02-22 22:29] VITALS: BP 154/82; PULSE 115; RESP 20; TEMP 39.7; O2SAT 90; BMI 23.7
[2021-02-22 22:32] LABS: ABG Base Excess 3.6 mmol/L (-2.4-2.3); ABG HCO3 28.1 mmhg (22.0-26.0); ABG Oxygen Saturation 92 % (90-100); ABG PH 7.41 mmol/L (7.35-7.45); ABG PO2 58.4 mmhg (80-100); ABG TCO2 29.5 mmhg (23-27)
[2021-02-22 22:33] LABS: Allen's Test Acceptable; Oxygen 3LPM %; Source Right Radial
--- NOTE | 2021-02-22 22:36 | ECG_ITS ---
APPROVED REPORT Exam: Resting ECG HR:112 bpm ECG Measurements Heart Rate 112 AXES LA 136 P 71 QRSd 70 QRS 57 QT 316 T 79 QTc 431 Conclusion Sinus tachycardia Nonspecific ST abnormality Abnormal ECG Electronically signed by : Loc Martinez MD 02/23/2021 20:37:09
--- NOTE | 2021-02-22 22:42 | XR_ITS ---
PROCEDURE INFORMATION: Exam: XR Chest Exam date and time: 02/22/2021 10:42 PM Age: 76 years old Clinical indication: Cough and shortness of breath; Additional info: Shortness of air, cough TECHNIQUE: Imaging protocol: XR of the chest. Views: 1 view. COMPARISON: CR XR CHEST PORTABLE 09/02/2019 8:33 PM FINDINGS: Lungs: COPD. Coarse interstitial lung markings likely chronic. No consolidation. Granulomatous change. Pleural spaces: Pleural scarring in the lung bases. No pleural effusion. No pneumothorax. Heart/Mediastinum: Cardiomegaly. Bones/joints: Unremarkable. IMPRESSION: No acute findings.
[2021-02-22 22:56] LABS: Coronavirus 19, PCR Not Detected (NotDetected); Influenza A, PCR Not Detected (NotDetected); Influenza B, PCR Not Detected (NotDetected)
[2021-02-22 23:00] VITALS: BP 125/62; PULSE 117; RESP 12; O2SAT 93
[2021-02-22 23:00] LABS: Basophils % 0.3 % (0.1-2.0); Eosinophils # 0.2 K/mm3 (0.0-0.4); Eosinophils % 1.3 % (0.1-12.0); Hematocrit 43.2 % (42.0-52.0); Hemoglobin 14.1 g/dL (14.1-18.0); Lymphocytes # 0.9 K/mm3 (0.7-4.5); Lymphocytes % 6.5 % (10-50); Mean Corpuscular HGB Conc 32.6 g/dL (31.8-35.4); Mean Corpuscular Hemoglobin 31.4 pg (27.0-31.2); Mean Corpuscular Volume 96.1 fl (80-94); Mean Platelet Volume 6.6 fl (7.4-10.4); Monocytes # 0.6 K/mm3 (0.1-1.0); Monocytes % 4.3 % (1.7-9.3); Neutrophils # 11.9 K/mm3 (1.8-7.8); Neutrophils % 87.6 % (37.0-80.0); Platelet Count 295 K/mm3 (142-424); Red Blood Count 4.49 M/mm3 (4.60-6.20); Red Cell Distribution Width 13.2 % (11.5-17.5); White Blood Count 13.6 K/mm3 (4.8-10.8)
[2021-02-22 23:04] LABS: Alanine Aminotransferase 20 U/L (12-78); Albumin Level 4.1 g/dl (3.5-5.0); Albumin/Globulin Ratio 1.4 (1.1-1.8); Alkaline Phosphatase 89 U/L (38-126); Anion Gap 8.3 mEq/L (5-15); Aspartate Amino Transferase 32 U/L (17-59); Bilirubin,Total 0.4 mg/dl (0.2-1.3); Blood Urea Nitrogen 17 mg/dl (9-20); Calcium 9.1 mg/dl (8.4-10.2); Carbon Dioxide 36 mmol/L (22.0-30.0); Chloride 98 mmol/L (98-107); Creatinine Clearance Estimated 67 mL/min (50-200); Estimated Glomerular Filt Rate 131 ml/min (>60); GFR (African American) 158 ML/MIN (>60); Globulin 2.9 g/dL (1.3-3.2); Glucose 117 mg/dl (74-100); Potassium 4.3 mmoL/L (3.5-5.1); Sodium 138 mmol/L (136-145)
[2021-02-22 23:05] LABS: MANUAL DIFFERENTIAL MANUAL DIFFERENTIAL (MANUAL DIFF)
[2021-02-22 23:06] LABS: Lactic Acid 1.3 mmol/L (0.7-2.1)
--- NOTE | 2021-02-22 23:06 | HMH.EDSOB ---
ED Disposition Clinical Impression: Acute exacerbation of chronic obstructive airways disease, SIRS (systemic inflammatory response syndrome) Disposition: Admitted As Inpatient Condition on Discharge: Good Instructions: DI for Chronic Obstructive Pulmonary Disease Referrals: Loc Sandoval MD [Primary Care Provider] - - Critical Care Critical Care Time: No Attestation: On 02/22/21, the high probability of a clinically significant, sudden or life threatening deterioration of the following system(s) required my full and direct attention, intervention and personal management. The time I documented below is in addition to time spent performing reported procedures but includes the following listed in this critical care notation. Medical Decision Making - Medical Records Medical records reviewed: Yes: I reviewed the patient's medical records. - Tonny Inquiry Pt receiving controlled substance: No Vital Signs: 02/22/21 22:29 Temperature 103.5 F H Temperature Source Rectal Pulse Rate [Apical] 115 H Respiratory Rate 20 Blood Pressure [Right Arm] 154/82 H Blood Pressure Mean [Right Arm] 106 Blood Pressure Source [Right Arm] Automatic Cuff Blood Pressure Position [Right Arm] Sitting 02 Sat by Pulse Oximetry 90 L Oxygen Delivery Method Nasal Cannula Oxygen Flow Rate (LPM) 3 - Lab Data Lab results reviewed: Yes: I reviewed the patient's lab results. Lab Results 02/22/21 22:31: Specimen Source Right radial, O2 % 3lpm, ABG pH 7.41, ABG pCO2 45.0, ABG pO2 58.4 L, ABG HCO3 28.1 H, ABG Total CO2 29.5 H, ABG O2 Saturation 92, ABG Base Excess 3.6 H, Cassius Test Acceptable 02/22/21 22:33: WBC 13.6 H, RBC 4.49 L, Hgb 14.1, Hct 43.2, MCV 96.1 H, MCH 31.4 H, MCHC 32.6, RDW 13.2, Plt Count 295, MPV 6.6 L, Neut % (Auto) 87.6 H, Lymph % (Auto) 6.5 L, [place] % (Auto) 4.3, Eos % (Auto) 1.3, Baso % (Auto) 0.3, Neut # (Auto) 11.9 H, Lymph # (Auto) 0.9, [place] # (Auto) 0.6, Eos # (Auto) 0.2, Baso # (Auto) 0.0 02/22/21 22:33: Sodium 138, Potassium 4.3, Chloride 98, Carbon Dioxide 36 H, Anion Gap 8.3, BUN 17, Creatinine 0.60 L, Estimated Creat Clear 67, Estimated GFR 131, Est GFR ( Amer) 158, Glucose 117 H, Calcium 9.1, Total Bilirubin 0.4, AST 32, ALT 20, Alkaline Phosphatase 89, Troponin I < 0.01, C-Reactive Protein 38.7 H, Total Protein 7.0, Albumin 4.1, Globulin 2.9, Albumin/Globulin Ratio 1.4, Procalcitonin 0.087 02/22/21 22:33: SARS-CoV-2 (PCR) Not detected, Influenza A Untype (PCR) Not detected, Influenza Type B (PCR) Not detected 02/22/21 22:33: Lactate 1.3 Result diagrams: 02/22/21 22:33 02/22/21 22:33 Orders (Tests/Meds): ED MEDICATIONS Generic Name Dose Route Start Last Admin Trade Name Freq PRN Reason Stop Dose Admin Sodium Chloride 1,000 mls @ 999 mls/hr 02/22/21 23:00 02/22/21 22:54 Sod Chlor 0.9% 1000ml Bag IV 02/23/21 00:00 999 mls/hr .Q1H1M OCTAVIANO Administration Ceftriaxone Sodium 1 gm/ 50 mls @ 100 mls/hr 02/22/21 23:45 Sodium Chloride IV 03/08/21 23:44 Q24H OCTAVIANO Azithromycin 500 mg/ Sodium 250 mls @ 250 mls/hr 02/22/21 23:45 Chloride IV 03/08/21 23:44 Q24H OCTAVIANO Discontinued Medications Generic Name Dose Route Start Last Admin Trade Name Freq PRN Reason Stop Dose Admin Acetaminophen 1,000 mg 02/22/21 22:56 02/22/21 22:58 Acetaminophen 500mg Tab PO 02/22/21 22:57 1,000 mg ONCE ONE Administration Dexamethasone Sodium Phosphate 4 mg 02/22/21 22:43 02/22/21 23:04 Dexamethasone 4mg/Ml 1ml Vial IV 02/22/21 22:44 Not Given ONCE ONE Methylprednisolone Sodium Succinate 125 mg 02/22/21 22:52 02/22/21 22:54 Methylprednisolone Sod Succ 125mg Vial IV 02/22/21 22:53 125 mg ONCE ONE Administration Ondansetron HCl 4 mg 02/22/21 23:30 02/22/21 23:50 Ondansetron 4mg/2ml Vial IV 02/22/21 23:31 4 mg ONCE ONE Administration ORDERS Category Date Time Status Complete Blood Count Auto Diff Stat Lab 02/22/21 22:33 Results Erythrocyte Sediment
[2021-02-22 23:09] LABS: C-Reactive Protein 38.7 mg/L (0-4)
[2021-02-22 23:23] LABS: Procalcitonin 0.087 ng/mL (0.0-2.0)
[2021-02-22 23:30] LABS: Troponin I < 0.01 ng/ml (0.00-0.034)
[2021-02-22 23:31] VITALS: BP 190/72; PULSE 116; RESP 12; O2SAT 93
[2021-02-23] VITALS (10 sets, daily range): BP systolic 110–146; BP diastolic 53–76; PULSE 64–103; RESP 16–18; TEMP 36.6–38.5; O2SAT 2–98; BMI 24.3
[2021-02-23] LABS: Lymphocytes % 8 % (10-50); Neutrophils % 90 % (42-76); Total Cells Counted 100
[2021-02-23 00:01] LABS: Platelet Estimate Normal; Stomatocytes 1+
[2021-02-23 00:22] LABS: NT Pro Brain Natriuretic Pep. 87.8 pg/mL (0-450)
[2021-02-23 01:16] LABS: Erythrocyte Sedimentation Rate 19 mm/hr (0-20)
--- NOTE | 2021-02-23 01:51 | PC.NURSE ---
Pt arrived to the floor at this time.
--- NOTE | 2021-02-23 05:42 | PC.NURSE ---
Patient rested in room this shift. VSS, temp max 101.3. Treated with tylenol. Denies pain. Alert, oriented x4, cooperative and able to make needs known. On 3L per NC, reports improvement to shortness of breath. Adequate intake and output, voids per urinal. IVF infusing per order.
--- NOTE | 2021-02-23 05:54 | PC.NURSE ---
Patient arrives to floor from ER. Received antibiotics in ER. Assisted to bed, vitals, assessment and admission completed Oriented to room and plan of care. Denies needs at this time.
--- NOTE | 2021-02-23 07:25 | HMH.HP ---
*Admission Date: 02/23/21 *Chief complaint: Shortness of breath *History of present illness: 76-year-old male with COPD and chronic respiratory failure presented to the emergency department with increased malaise, weakness, shortness of breath and cough with chest congestion. Patient reports fever at home but when pressed for specifics states his fever was under 99 . However in the emergency department he had a temperature of 103.5. Additional work-up revealed decreased breath sounds with no focal rales or rhonchi. White blood cell count was elevated to 13,000. Patient had mild increased oxygen requirement of 3 L/min compared to his baseline use of 2 L/min at home. Due to patient's symptoms and weakness he was admitted for observation. Chest x-ray was negative for pneumonia. Patient was started on Rocephin and azithromycin. Patient's been seen in the office multiple times over the last several months and treated with various antibiotics including azithromycin, doxycycline, and amoxicillin. [facility] History I have reviewed the patient's past medical history: Yes Medical History: Reports:: Atrial Fibrillation, Cancer, Chronic Obstructive Pulmonary Disease (COPD), Hyperlipidemia, Hypertension Denies:: Diabetes Mellitus Type 1, Diabetes Mellitus Type 2, Internal Pacemaker, MRSA, Seizures *Have you ever received a pneumonia vaccine?: Yes *Have you received a flu vaccine this season?: Yes Other Medical History: Reports: Cataracts Other Surgeries: Yes: Other. No: Pacemaker Amputation: No Fractures: Yes (Fingers and Rib) - *Social History Smoking Status: Former smoker Tobacco Type: cigarettes # Packs/Day (cigarettes): 2 #Yrs smoked (if former smoker): 40 Alcohol Intake: former Substance Use Type: denies use *Occupational Status:: retired Housing: house Household Members: spouse *Travel in the last 8 weeks: None Family Hx:: No significant family history Review of Systems - Constitutional Reports body ache(s), Reports chills, Reports fever(s), Reports lack of energy, Reports malaise, Denies night sweats - *Cardiovascular Denies chest pain, Denies chest pain at rest - *Respiratory Reports change in phlegm color, Reports chest congestion, Reports cough - *Gastrointestinal Denies abdominal pain - *Genitourinary Denies difficulty urinating - *Musculoskeletal Denies abnormal walking - *Neurologic Reports abnormal hearing, Denies abnormal walking, Denies seizure-like activity - Psychiatric Denies abnormal sleep pattern Meds Home Medications Medication Instructions Recorded Confirmed Type Simvastatin 20 mg PO DAILY 07/12/17 02/23/21 History bisoproloL fumarate [Zebeta 5mg 2.5 mg PO DAILY 07/12/17 02/23/21 History tablet] Aspirin [Aspir 81] 81 mg PO DAILY 09/02/19 02/23/21 History albuterol sulfate 90 mcg/actuation 1 inh INHALATION QID PRN #8.5 g 08/18/20 02/23/21 Rx aerosol inhaler ipratropium 0.5 mg-albuterol 3 mg 3 ml INHALATION QID PRN #90 neb 08/18/20 02/23/21 Rx (2.5 mg base)/3 mL nebulization soln omeprazole 20 mg capsule,delayed 20 mg PO DAILY cap 08/18/20 02/23/21 History release Budesonide/Formoterol Fumarate 2 puff INHALATION BID 09/22/20 02/23/21 History [Budesonide-Formoterol 160-4.5] Tiotropium [place] [Spiriva 2 inh INHALATION DAILY 09/22/20 02/23/21 History Respimat] Allergies Allergy/AdvReac Type Severity Reaction Status Date / Time No Known Allergies Allergy Verified 02/23/21 02:28 Exam Vital signs and Labs for Last 24 Hours: Temp Pulse Resp BP Pulse Ox 97.8 F 70 18 112/55 L 94 L 02/23/21 03:19 02/23/21 06:05 02/23/21 03:19 02/23/21 03:19 02/23/21 06:05 Laboratory Results - last 24 hr 02/22/21 22:31: Specimen Source Right radial, O2 % 3lpm, ABG pH 7.41, ABG pCO2 45.0, ABG pO2 58.4 L, ABG HCO3 28.1 H, ABG Total CO2 29.5 H, ABG O2 Saturation 92, ABG Base Excess 3.6 H, Cassius Test Acceptable 02/22/21 22:33: WBC 13.6 H, RBC 4.49 L, Hgb 14.1, Hct 43.
--- NOTE | 2021-02-23 10:22 | P.CONPHA_ITS ---
[facility] Pharmacy VTE Monitoring - Patient Demographics Admission date: 02/23/21 Report Date: 02/23/21 Time: : Allergies/Adverse Reactions: Patient Allergies No Known Allergies Allergy (Verified 02/23/21 02:28) Height: 1.8 m Weight: 78.613 kg Patient Problems: Current Active Problems Acute exacerbation of chronic obstructive airways disease (Acute) SIRS (systemic inflammatory response syndrome) (Acute) Chronic respiratory failure (Acute) - VTE Risk Labs: VTE Related Lab Results Hgb 14.1 g/dL (14.1-18.0) 02/22/21 22:33 Hct 43.2 % (42.0-52.0) 02/22/21 22:33 Plt Count 295 K/mm3 (142-424) 02/22/21 22:33 BUN 17 mg/dl (9-20) 02/22/21 22:33 Creatinine 0.60 mg/dl (0.66-1.25) L 02/22/21 22:33 Estimated Creat Clear 67 mL/min (50-200) 02/22/21 22:33 Was VTE Risk Assessment Performed: Yes VTE Score: 5 VTE Risk Level: Low Risk Clinical Trial Participant: No - Prophylaxis VTE Prophylaxis Ordered?: Yes Types of VTE Prophylaxis: TEDS Knee High
--- NOTE | 2021-02-23 10:28 | HMH.PHAINT ---
VERIFIED HOME MEDICATION LIST USING LIST FROM DR SILVA'S OFFICE AND OUTPATIENT PHARM[facility]
[2021-02-24 04:00] VITALS: BP 156/75; PULSE 85; RESP 16; TEMP 36.6; O2SAT 97
[2021-02-24 05:06] VITALS: BMI 24.3
[2021-02-24 06:19] VITALS: PULSE 85; PULSE 89; O2SAT 95
--- NOTE | 2021-02-24 06:33 | PC.NURSE ---
No acute changes. No complaints voiced to staff t/o shift. Pt states he is eager to go home.
--- NOTE | 2021-02-24 07:54 | HMH.DCSUM ---
General - General Admission date:: 02/23/21 Discharge date: 02/24/21 HPI HPI: 76-year-old male with COPD and chronic respiratory failure presented to the emergency department with increased malaise, weakness, shortness of breath and cough with chest congestion. Patient reports fever at home but when pressed for specifics states his fever was under 99 . However in the emergency department he had a temperature of 103.5. Additional work-up revealed decreased breath sounds with no focal rales or rhonchi. White blood cell count was elevated to 13,000. Patient had mild increased oxygen requirement of 3 L/min compared to his baseline use of 2 L/min at home. Due to patient's symptoms and weakness he was admitted for observation. Chest x-ray was negative for pneumonia. Patient was started on Rocephin and azithromycin. Patient's been seen in the office multiple times over the last several months and treated with various antibiotics including azithromycin, doxycycline, and amoxicillin. Hospital Course Hospital Course: Patient was admitted for treatment of acute COPD exacerbation. He was febrile in the emergency department but quickly [facility] He remained afebrile. Patient was started on Rocephin and azithromycin. Patient's cough improved shortly after admission. Cough is productive of only small amounts of sputum which was collected. Patient was placed on Levaquin. On the morning of the patient was back at his baseline in regards to supplemental oxygen need of 2 L/min and his cough is significantly improved. Patient was discharged home. He will continue steroids and antibiotics and follow-up in the office in 1 week. Objective Vital signs: Temp Pulse Resp BP Pulse Ox 97.8 F 85 16 156/75 H 95 02/24/21 04:00 02/24/21 06:19 02/24/21 04:00 02/24/21 04:00 02/24/21 06:19 no acute distress - *Routine Respiratory Exam Present: distant breath sounds - *Routine Cardiovascular Exam Present: RRR - *Routine Abdominal Exam Present: soft, normoactive bowel sounds. Absent: tenderness DS: Diagnosis - Discharge Diagnosis (1) Acute exacerbation of chronic obstructive airways disease Status: Acute (2) Chronic respiratory failure Status: Acute (3) SIRS (systemic inflammatory response syndrome) Status: Resolved Discharge Plan - Patient Discharge Instructions ACTIVITY: Continue current activity DIET: continue same diet Patient Instructions: DI for Chronic Obstructive Pulmonary Disease - Follow up Plan Follow up with: Loc Sandoval MD [Primary Care Provider] - 1 week Disposition: Home, Self-Care Condition at discharge:: Improved Home Medications: Home Medications Medication Instructions Recorded Confirmed Type Simvastatin 20 mg PO HS 07/12/17 02/23/21 History bisoproloL fumarate [Zebeta 5mg 2.5 mg PO DAILY 07/12/17 02/23/21 History tablet] Aspirin [Aspir 81] 81 mg PO DAILY 09/02/19 02/23/21 History albuterol sulfate 90 mcg/actuation 1 inh INHALATION QID PRN #8.5 g 08/18/20 02/23/21 Rx aerosol inhaler ipratropium 0.5 mg-albuterol 3 mg 3 ml INHALATION QID PRN #90 neb 08/18/20 02/23/21 Rx (2.5 mg base)/3 mL nebulization soln omeprazole 20 mg capsule,delayed 20 mg PO DAILY cap 08/18/20 02/23/21 History release Budesonide/Formoterol Fumarate 2 puff INHALATION BID 09/22/20 02/23/21 History [Budesonide-Formoterol 160-4.5] Tiotropium [place] [Spiriva 2 inh INHALATION DAILY 09/22/20 02/23/21 History Respimat] levoFLOXacin [Levaquin 500mg 500 mg PO DAILY #5 tab 02/24/21 Rx tab] predniSONE [Prednisone 20mg 20 mg PO DAILY #14 tab 02/24/21 Rx Tab] Prescriptions/Medication Reconciliation: New levoFLOXacin [Levaquin 500mg tab] 500 mg PO DAILY #5 tab predniSONE [Prednisone 20mg Tab] 20 mg PO DAILY #14 tab Continued omeprazole 20 mg capsule,delayed release 20 mg PO DAILY cap
[2021-02-24 08:00] VITALS: BP 158/74; PULSE 91; RESP 20; TEMP 36.6; O2SAT 97
== END 2021-02-24 09:50 | disposition home or self-care (01) ==
LOC: ER 22:55 → 2ND 02-23 00:23
PROVIDERS: Admitting Provider Emergency Medicine; Emergency Provider Emergency Medicine; PCP Family Medicine; Visit Provider Family Medicine
DX: J44.1 Chronic obstructive pulmonary disease with (acute) exacerbation (principal); Z79.899 Other long term (current) drug therapy; J96.10 Chronic respiratory failure, unspecified whether with hypoxia or hypercapnia; I48.91 Unspecified atrial fibrillation; I10 Essential (primary) hypertension; Z79.51 Long term (current) use of inhaled steroids; Z20.822 Contact with and (suspected) exposure to COVID-19; R06.9 Unspecified abnormalities of breathing
CPT/HCPCS: G0378; 71045; 80053; 82803; 83605; 83880; 84145; 84484; 85007; 85025; 85651; 86140; 87040; 87070; 87077; 87186; 87205; 93005; 94640; 96375; 99284; C9803; J0456; J1956; J2405; U0003; U0005

== ENCOUNTER → 2021-03-26 11:18 | Outpatient (CLI) | payer MEDICARE, BC, SELFPAY | PROVIDERS: PCP Family Medicine; Visit Provider Surgery | DX: Z01.812 Encounter for preprocedural laboratory examination (principal); Z11.52 Encounter for screening for COVID-19; Z12.11 Encounter for screening for malignant neoplasm of colon | CPT/HCPCS: C9803; U0003; U0005 ==

== ENCOUNTER 2021-03-29 09:17 | Day surgery (SDC) | payer MEDICARE, BC, SELFPAY ==
[2021-03-24 14:12] VITALS: BMI 23.7
[2021-03-29 09:31] VITALS: PULSE 98; RESP 18; TEMP 36.9; O2SAT 97
--- NOTE | 2021-03-29 09:50 | P.PN_ITS ---
[facility] Anesthesia Checklist - Patient Identification Patient Identification: Arm Band - Structural Data Admitted From: Home Planned Operative Procedure/s: colonoscopy Consent for Planned Operative Procedure(s) Verified: Yes Verified Documents: Surgical Consent, History and Physical - NPO Status Verified Time NPO: 00:00 - Additional verifications Anesthesia Reactions: No - Airway Assessment C-Spine Mobility Assessed: Yes (mp2) TMJ Mobility Assessed: Yes Dentition: Edentulous - Neurological Assessment Level of Consciousness: Awake, Alert - Anesthesia Plan Anesthesia Risk discussed: Yes Anesthesia Plan: Verified ASA Class: III Anesthesia Type: MAC [facility] History I have reviewed the patient's past medical history: Yes Medical History: Reports:: Atrial Fibrillation, Cancer (skin), Chronic Obstructive Pulmonary Disease (COPD), Hyperlipidemia, Hypertension Denies:: Diabetes Mellitus Type 1, Diabetes Mellitus Type 2, Internal Pacemaker, MRSA, Seizures *Have you ever received a pneumonia vaccine?: Yes *Have you received a flu vaccine this season?: No Other Medical History: Reports: Cataracts Anesthesia experience/problems:: nac Laterality Cases: Bilateral: Cataract Other Surgeries: Yes: Other. No: Pacemaker Amputation: No Fractures: Yes (Fingers and Rib) - *Social History Last grade of school completed: 7th or 8th Smoking Status: Former smoker Tobacco Type: cigarettes # Packs/Day (cigarettes): 2 #Yrs smoked (if former smoker): 40 Alcohol Intake: former Substance Use Type: denies use *Occupational Status:: retired Housing: house Household Members: spouse *Travel in the last 8 weeks: None Family Hx:: Non-contributory
[2021-03-29 10:22] VITALS: O2SAT 98
--- NOTE | 2021-03-29 10:48 | P.PCN_ITS ---
- Procedure: Date: 03/29/21 Patient Date of :: 1945 Procedure Performed:: Colonoscopy Indications:: History of large complex colon polyps noted in September [address] Salinas Sanchez. Performing Provider:: Gerry Justice MD Referring Provider:: . Sedation:: Monitored anesthesia care Procedure:: After informed consent was obtained the patient was taken to the endoscopy suite. Sedation ensued after the patient was transferred to the left lateral decubitus position. Pulse, blood pressure, and oxygen saturation were monitored throughout the procedure. Digital rectal exam revealed no significant abnormality. The colonoscope was placed in position. The entire colon was evaluated. The colonoscope was carefully removed and the patient was trans ferred to recovery in stable condition. Please see findings and specimens below for detail. Findings:: Bowel preparation relatively fair Hemorrhoidal tag/cushions Sigmoid diverticulosis Moderate spasticity Moderate tortuosity Benign-appearing 3 cm hepatic flexure lesion (possible lipoma) unchanged Specimens:: None Recommendations:: Repeat colonoscopy in 1-2 years secondary to history of large complex polyps and mild to moderate difficulty in visualization. Complications:: No immediate Estimated blood obtained (mL): 0
[2021-03-29 10:50] VITALS: BP 105/54; PULSE 73; RESP 18; TEMP 36.6; O2SAT 97
[2021-03-29 11:00] VITALS: BP 115/55; PULSE 68; RESP 18; O2SAT 97
[2021-03-29 11:12] VITALS: BP 135/74; PULSE 68; RESP 18; O2SAT 98
== END 2021-03-29 11:15 | disposition home or self-care (01) ==
LOC: OUTP 09:19
PROVIDERS: PCP Family Medicine; Visit Provider Surgery
PROC: 0DJD8ZZ Inspection of Lower Intestinal Tract, Via Natural or Artificial Opening Endoscopic (ICD-10-PCS; principal; 2021-03-29 10:00)
DX: Z12.11 Encounter for screening for malignant neoplasm of colon (principal); K64.9 Unspecified hemorrhoids; K58.9 Irritable bowel syndrome, unspecified; K57.32 Diverticulitis of large intestine without perforation or abscess without bleeding; K56.2 Volvulus; K63.5 Polyp of colon; Z86.010 Personal history of colon polyps; I48.91 Unspecified atrial fibrillation; J44.9 Chronic obstructive pulmonary disease, unspecified; E78.5 Hyperlipidemia, unspecified; I10 Essential (primary) hypertension; Z85.828 Personal history of other malignant neoplasm of skin
CPT/HCPCS: G0105

== ENCOUNTER → 2021-09-12 13:41 | Outpatient (CLI) | payer MEDICARE, BC, SELFPAY ==
--- NOTE | 2021-09-12 13:46 | XR_ITS ---
FINAL REPORT CLINICAL HISTORY: RT LEG PAIN FINDINGS: RIGHT HIP Two views of the right hip including AP pelvis demonstrate no acute fracture or dislocation. The joint spaces appear normal. The visualized bony structures are well aligned. No soft tissue abnormality is seen. IMPRESSION: No acute bony abnormality. Reviewed, Interpreted and Dictated by Elias aLw MD Transcribed by Shawna Hargrove Authenticated and [facility]
--- NOTE | 2021-09-12 13:46 | XR_ITS ---
FINAL REPORT CLINICAL HISTORY: RT SIDE SCIATICA FINDINGS: LUMBAR SPINE Five views were obtained. There is no acute fracture. There is no malalignment. There are mild hypertrophic changes of degenerative disc disease at L3-4. There is moderate disc space narrowing at L5-S1. There is moderate facet arthropathy of the lower lumbar spine. There is no soft tissue abnormality. IMPRESSION: Degenerative change with no acute bony abnormality. Reviewed, Interpreted and Dictated by Elias Law MD Transcribed by Shawna Hargrove Authenticated and [facility] [place] [place]
== END ==
PROVIDERS: PCP Family Medicine; Visit Provider Nurse Practitioner Family
DX: M79.604 Pain in right leg (principal); M54.31 Sciatica, right side; M54.50 Low back pain, unspecified; M25.551 Pain in right hip
CPT/HCPCS: 72110; 73502

== ENCOUNTER → 2021-11-28 15:18 | Outpatient (CLI) | payer MEDICARE, BC, SELFPAY ==
--- NOTE | 2021-11-28 15:19 | CT_ITS ---
FINAL REPORT CLINICAL HISTORY: lung cancer screening, former smoker quit 13 years ago. copd, emphysema, pulmonary fibrosis family hx of lung cancer COMPARISON: 11/22/2020 FINDINGS: CTDI vol (mGy): 2.[address] images of the chest were obtained using the low-dose protocol for screening. There is no evidence of mediastinal or hilar mass or adenopathy. No axillary mass or adenopathy is identified. On the lung window images, a 4 mm nodule is in the lateral periphery of the right upper lobe. There are emphysematous changes. Chronic interstitial changes are also seen. IMPRESSION: 4 mm nodule in the lateral periphery of the right lower lobe. Lung RADS category 2. Recommend 12 month followup low-dose CT for further evaluation. Reviewed, Interpreted and Dictated by Luis Alberto Adame MD Transcribed by Amy Santiago Authenticated and [facility]
== END ==
PROVIDERS: PCP Family Medicine; Visit Provider Internal Medicine Pulmonary Disease
DX: Z87.891 Personal history of nicotine dependence (principal); Z12.2 Encounter for screening for malignant neoplasm of respiratory organs
CPT/HCPCS: 71271

== ENCOUNTER 2022-05-02 09:21 | Day surgery (SDC) | payer MEDICARE, BC, SELFPAY ==
[2022-05-01 11:59] VITALS: BMI 24.4
[2022-05-02 09:56] VITALS: BP 144/60; PULSE 69; RESP 18; TEMP 36.4; O2SAT 96
--- NOTE | 2022-05-02 10:15 | EXP.ANES.CKL ---
[facility] Disclaimer: The information contained in this section may have been updated after the patient was seen, as this information can be updated by other users. Medical History A-fib Acute exacerbation of chronic obstructive airways disease Acute respiratory failure with hypoxia Chronic hypoxemic respiratory failure COPD (chronic obstructive pulmonary disease) Dyspnea on exertion Encounter for screening for malignant neoplasm of lung in former smoker who quit in past 15 years with 30 pack year history or greater Ex-smoker GERD (gastroesophageal reflux disease) HLD (hyperlipidemia) HTN (hypertension) Lung nodule Pulmonary emphysema Stopped smoking with greater than 30 pack year history Surgical History History of carotid endarterectomy History of nasal surgery Hx of local excision of skin lesion Hx of prior ablation treatment Family History Other Family history non-contributory Social History Smoking Status: Former smoker pack-years: 40 second hand exposure: No alcohol intake: never substance use type: denies use current occupational status: retired Travel in the last 8 weeks: None household members: spouse housing: house current occupational exposures/hazards: No caffeine: No [facility] Anesthesia Checklist Patient Identification Patient Identification: Arm Band Structural Data Admitted From: Home Planned Operative Procedure/s: colonoscopy Consent for Planned Operative Procedure(s) Verified: Yes Verified Documents: Surgical Consent and History and Physical NPO Status Verified Time NPO: 00:00 Additional verifications Anesthesia Reactions: No Airway Assessment C-Spine Mobility Assessed: Yes TMJ Mobility Assessed: Yes Dentition: Edentulous Neurological Assessment Level of Consciousness: Awake and Alert Anesthesia Plan Anesthesia Risk discussed: Yes Anesthesia Plan: Verified ASA Class: III Anesthesia Type: MAC
[2022-05-02 10:41] VITALS: O2SAT 96
--- NOTE | 2022-05-02 11:20 | HMH.SCOPE ---
Procedure: Date: 05/02/22 Patient Date of :: 1945 Procedure Performed:: Colonoscopy with polypectomy Indications:: History of multiple complex polyps Note: Colonoscopy in September [address] Salinas Sanchez revealed multiple large complex polyps, submucosal lesion along the hepatic flexure felt to most likely be a lipoma, left-sided diverticulosis, and internal hemorrhoids. A short-term colonoscopy in March 2021 was somewhat complicated by spasticity and tortuosity. Performing Provider:: Gerry Justice MD Referring Provider:: . Sedation:: Monitored anesthesia care Procedure:: After informed consent was obtained the patient was taken to the endoscopy suite. Sedation ensued after the patient was transferred to the left lateral decubitus position. Pulse, blood pressure, and oxygen saturation were monitored throughout the procedure. Digital rectal exam revealed no significant abnormality. The colonoscope was placed in position. The entire colon was evaluated. The colonoscope was carefully removed and the patient was transferred to recovery in stable condition. Please see findings and specimens below for detail. Findings:: Bowel preparation moderate Fairly severe spasticity/lack of relaxation Hemorrhoidal tag/cushions (unchanged) Unchanged benign-appearing hepatic flexure lesion Polyps (see specimens) Specimens:: Small cecal polyp (cold biopsy forceps) 8 mm lobulated sessile cecal polyp (cold snare) Recommendations:: Timing of repeat colonoscopy is pending pathology will likely be around 1-2 years with extended bowel preparation. Complications:: No immediate Estimated blood obtained (mL): 1
[2022-05-02 11:22] VITALS: BP 108/51; PULSE 70; RESP 12; TEMP 36.4; O2SAT 92
[2022-05-02 11:32] VITALS: BP 132/76; PULSE 66; RESP 16; O2SAT 99
[2022-05-02 11:42] VITALS: BP 141/85; PULSE 66; RESP 16; O2SAT 98
[2022-05-02 11:52] VITALS: BP 141/85; PULSE 65; RESP 16; TEMP 36.4; O2SAT 98
== END 2022-05-02 11:55 | disposition home or self-care (01) ==
PROVIDERS: PCP Family Medicine; Visit Provider Surgery
PROC: 0DJD8ZZ Inspection of Lower Intestinal Tract, Via Natural or Artificial Opening Endoscopic (ICD-10-PCS; principal; 2022-05-02 10:30)
DX: Z86.010 Personal history of colon polyps; D12.0 Benign neoplasm of cecum
CPT/HCPCS: 45380; 45385; 88305

== ENCOUNTER → 2022-05-12 14:51 | Outpatient (CLI) | payer MEDICARE, BC, SELFPAY | PROVIDERS: PCP Family Medicine; Visit Provider Nurse Practitioner Family | DX: R60.0 Localized edema (principal); M79.661 Pain in right lower leg; M79.662 Pain in left lower leg; M79.89 Other specified soft tissue disorders | CPT/HCPCS: 93970 ==

== ENCOUNTER → 2022-05-22 10:57 | Outpatient (CLI) | payer MEDICARE, BC, SELFPAY ==
--- NOTE | 2022-05-22 10:59 | MR_ITS ---
FINAL REPORT CLINICAL HISTORY: DIZZINESS, BLURRED VISION COMPARISON: 01/13/2019 FINDINGS: Multi planar MR imaging was obtained through the brain without contrast. The midline structures appear intact. There is no evidence of Chiari malformation. There is mild abnormal signal in the deep white matter bilaterally which is similar to previous, may represent mild chronic ischemia. On diffusion-weighted images there is no evidence of restricted diffusion. The visualized paranasal sinuses demonstrate normal signal voids. The seventh and eighth nerve root complexes are intact. IMPRESSION: Mild chronic ischemic changes. Reviewed, Interpreted and Dictated by Elias Law MD Transcribed by Oneyda Otto Authenticated and . [facility]
== END ==
PROVIDERS: PCP Family Medicine; Visit Provider Nurse Practitioner Family
DX: R42 Dizziness and giddiness (principal); H53.8 Other visual disturbances
CPT/HCPCS: 70551

== ENCOUNTER → 2022-11-14 14:16 | Outpatient (CLI) | payer MEDICARE, BC, SELFPAY ==
--- NOTE | 2022-11-14 14:16 | CT_ITS ---
FINAL REPORT CLINICAL HISTORY: lung cancer screening FORMER SMOKER, QUIT 14 YRS AGO, SMOKED 3 PKS PER DAY X 50 YRS COPD, EMPYSEMA HX OF MELANOMA, FAMILY HX OF LUNG CA COMPARISON: November 2021 FINDINGS: Low-Dose Chest CT CTDI vol (mGy): 2.90 DLP (mGy-cm): 121.94 Axial images were obtained from the lung apex to the mid abdomen by computed tomography. Low-dose protocol was utilized. FINDINGS: CHEST: There is no axillary adenopathy. There is no hilar or mediastinal adenopathy. The heart is proper size. There is no pericardial or pleural effusion. Limited images of the upper abdomen are unremarkable. Lung window images demonstrate moderate changes of emphysema with mild scarring. There is a stable 4 mm nodule in the lateral right upper lobe on image 31. There is a new 4 mm nodule in the anterolateral right upper lobe. A calcified granuloma is seen in the left lower lobe. IMPRESSION: Lung RADS category 2. Recommend 12 month follow-up low-dose chest CT. Reviewed, Interpreted and Dictated by Zion Wellington III, MD Transcribed by Justin Faria Authenticated and [facility]
[2022-11-14 15:30] VITALS: PULSE 71; PULSE 75
== END ==
LOC: RAD 14:16
PROVIDERS: PCP Family Medicine; Visit Provider Internal Medicine Pulmonary Disease
DX: Z87.891 Personal history of nicotine dependence (principal); Z12.2 Encounter for screening for malignant neoplasm of respiratory organs; R06.02 Shortness of breath
CPT/HCPCS: 71271; 94060; 94640; 94727; 94729

== ENCOUNTER → 2023-01-16 13:36 | Outpatient (CLI) | payer MEDICARE, BC, SELFPAY ==
[2023-01-16 13:48] LABS: Chloride 96 mmol/L (98-107); Sodium 141 mmol/L (136-145)
[2023-01-16 13:50] LABS: Alanine Aminotransferase 24 U/L (12-78); Aspartate Amino Transferase 38 U/L (17-59); Blood Urea Nitrogen 28 mg/dl (9-20); Estimated Glomerular Filt Rate 109 ml/min (>60); GFR (African American) 132 ML/MIN (>60)
[2023-01-16 13:51] LABS: Albumin Level 4.3 g/dl (3.5-5.0); Albumin/Globulin Ratio 1.5 (1.1-1.8); Alkaline Phosphatase 80 U/L (38-126); Bilirubin,Total 0.4 mg/dl (0.2-1.3); Calcium 8.8 mg/dl (8.4-10.2); Carbon Dioxide 40 mmol/L (22.0-30.0); Chol/HDL Ratio 3.8 (1-3.5); Cholesterol 184 mg/dl (140-200); Globulin 2.8 g/dL (1.3-3.2); Glucose 109 mg/dl (74-100); HDL Cholesterol 49 mg/dl (40-60); Total Protein,Serum 7.1 g/dl (6.3-8.2); Triglycerides 176 mg/dl (30-150); VLDL Cholesterol 35 mg/dL (0-40)
[2023-01-16 14:23] LABS: Thyroid Stimulating Hormone 2.92 uIU/mL (0.465-4.68)
[2023-01-16 15:30] LABS: Hemoglobin A1C 5.5 % (4.0-6.0)
== END ==
PROVIDERS: PCP Nurse Practitioner Family; Visit Provider Nurse Practitioner Family
DX: I10 Essential (primary) hypertension (principal); E78.5 Hyperlipidemia, unspecified; R73.9 Hyperglycemia, unspecified; Z87.891 Personal history of nicotine dependence
CPT/HCPCS: 80053; 80061; 83036; 84443

== ENCOUNTER 2023-04-30 12:50 | Outpatient (CLI) | payer MEDICARE, BC, SELFPAY ==
--- NOTE | 2023-04-30 13:06 | XR_ITS ---
FINAL REPORT CLINICAL HISTORY: Foot pain COMPARISON: None FINDINGS: AP, oblique and lateral views of the right foot were obtained. There is no prior exam for comparison. There is no acute fracture or dislocation. Mild degenerative changes present. Soft tissue swelling is noted over the dorsum of the foot. IMPRESSION: Mild degenerative change with soft tissue swelling noted over the dorsum of the foot. No acute bony abnormality is identified. Reviewed, Interpreted and Dictated by Cammy Merida MD Transcribed by Mireille Lopez Authenticated and [facility]
--- NOTE | 2023-04-30 13:06 | XR_ITS ---
FINAL REPORT CLINICAL HISTORY: foot pain mainly in 5th digit COMPARISON: None FINDINGS: AP, oblique and lateral views of the left foot were obtained. There is no prior exam for comparison. There is no acute fracture or dislocation. The joint spaces are preserved. Prominent dorsal soft tissue swelling is noted overlying the foot. IMPRESSION: No acute osseous abnormality of the left foot. Prominent dorsal soft tissue swelling. Reviewed, Interpreted and Dictated by Cammy Merida MD Transcribed by Mireille Lopez Authenticated and . [facility]
== END 2023-04-30 23:59 ==
PROVIDERS: PCP Nurse Practitioner Family; Visit Provider Nurse Practitioner
DX: M79.671 Pain in right foot (principal); M79.672 Pain in left foot
CPT/HCPCS: 73630

== ENCOUNTER 2023-05-11 14:54 | Outpatient (CLI) | payer MEDICARE, BC, SELFPAY ==
--- NOTE | 2023-05-11 14:55 | US_ITS ---
FINAL REPORT CLINICAL HISTORY: decreased sensation b/l lower extremity COMPARISON: None FINDINGS: LOWER EXTREMITY SEGMENTAL PRESSURE MEASUREMENTS FINDINGS: Pressure indices are as follows: RIGHT LOWER EXTREMITY: Upper thigh: 101 Calf: 106 Ankle, posterior tibial artery: 121 Ankle, dorsalis pedis: 119 Toe: 65 Ankle-brachial index is 0.89, which is borderline. LEFT LOWER EXTREMITY: Upper thigh: 121 Calf: 134 Ankle, posterior tibial artery: 132 Ankle, dorsalis pedis: 127 Toe: 83 Normal ABIs IMPRESSION: Borderline right ankle-brachial index, normal left ankle-brachial index. Reviewed, Interpreted and Dictated by Zion Wellington III, MD Transcribed by Mireille Lopez Authenticated and . [facility]
== END 2023-05-11 23:59 ==
PROVIDERS: PCP Nurse Practitioner Family; Visit Provider Nurse Practitioner
DX: R09.89 Other specified symptoms and signs involving the circulatory and respiratory systems (principal)
CPT/HCPCS: 93923

== ENCOUNTER 2023-05-15 19:05 | Inpatient (IN) | payer MEDICARE, BC, SELFPAY ==
[2023-05-15] VITALS (14 sets, daily range): BP systolic 152–211; BP diastolic 81–137; PULSE 79–96; RESP 12–24; TEMP 36.7–36.9; O2SAT 93–100; BMI 24.4; BMI 24.9
--- NOTE | 2023-05-15 19:05 | ECG_ITS ---
APPROVED REPORT Exam: Resting ECG HR:80 bpm ECG Measurements Heart Rate 80 AXES AR 163 P 82 QRSd 77 QRS 72 QT 362 T 70 QTc 398 Conclusion SINUS RHYTHM NORMAL ECG UNCONFIRMED REPORT Electronically signed by : TANIKA MARIA, 05/15/2023 23:47:44
--- NOTE | 2023-05-15 19:30 | XR_ITS ---
PROCEDURE INFORMATION: Exam: XR Chest Exam date and time: 05/15/2023 7:35 PM Age: 78 years old Clinical indication: Shortness of breath; Additional info: SOB TECHNIQUE: Imaging protocol: Radiologic exam of the chest. Views: 1 view. COMPARISON: CT LUNG SCREENING 11/14/2022 2:23 PM FINDINGS: Lungs: Emphysema. Stable bilateral lower lobe predominant reticular opacities. No consolidation. Pleural spaces: No pleural effusion. No pneumothorax. Heart/Mediastinum: Cardiomegaly. Calcified prevascular mediastinal lymph node. Bones/joints: Unremarkable. IMPRESSION: No acute pulmonary findings.
--- NOTE | 2023-05-15 19:35 | ED_ITS ---
Discharge Plan Disposition Patient Disposition: Admitted Condition: Fair Chief Complaint: Shortness of Breath/Dyspnea Prescriptions Prescriptions: No Action azithromycin 250 mg tablet 250 mg PO QMWF Qty: 36 3RF budesonide 0.5 mg/2 mL suspension for nebulization 0.5 mg inhalation Q12H 30 Days Qty: 60 0RF formoterol fumarate [Perforomist] 20 mcg/2 mL solution for nebulization 2 ml inhalation BID 30 Days Qty: 60 0RF ipratropium-albuterol 0.5 mg-3 mg(2.5 mg base)/3 mL solution for nebulization 3 ml INHALATION QID PRN (Reason: shortness of breath or wheezing) Qty: 360 3RF potassium chloride 10 mEq capsule, extended release 10 meq PO PRN Patient Comments: takes when he takes a water pill mupirocin 2 % ointment 1 applic topical TID 10 Days Qty: 50 0RF bisoprolol fumarate 5 mg tablet 2.5 mg PO DAILY 90 Days Qty: 45 3RF furosemide 40 mg tablet PO hydrocortisone valerate 0.2 % cream 1 applic topical BID 10 Days Qty: 60 2RF budesonide-formoterol 160-4.5 mcg/actuation HFA aerosol inhaler 2 puff INHALATION BID 90 Days Qty: 10.2 3RF Breztri Aerosphere 160-9-4.8 mcg/actuation HFA aerosol inhaler 2 inh inhalation BID Qty: 10.7 3RF simvastatin 20 mg tablet 20 mg PO HS 90 Days Qty: 90 1RF omeprazole 20 mg capsule,delayed release(DR/EC) 20 mg PO DAILY 90 Days Qty: 90 1RF aspirin 81 MG tablet,delayed release (DR/EC) 81 mg PO DAILY Referrals Follow up/Referrals: Carmen Lomas APRN [Primary Care Provider] - See instructions Clinical Impressions Clinical Impression: COPD exacerbation Discharge ED Provider: Kirill Rust Adult HPI General Chief complaint: Shortness of Breath/Dyspnea Stated complaint: SOA Time Seen by Provider: 05/15/23 19:25 Mode of Arrival: EMS Source of Information: Patient and Spouse Limitations: No Limitations History of Present Illness HPI narrative: 78-year-old male with past medical history significant for GERD, atrial fibrillation s/p ablation, HLD, HTN, COPD/emphysema, presents today for evaluation concerning shortness of breath and left-sided chest pain that has been intermittent over the past couple of days. He states that he has been using his breathing treatments at home with no relief. States he has a cough at baseline however denies any fevers, chills, abdominal pain. Denies pain or any recent sick contacts. No other complaints. Related Data Home Medications Medication Instructions Recorded Confirmed aspirin 81 mg tablet,delayed 81 mg PO DAILY heart health 09/02/19 04/30/23 release potassium chloride 10 mEq 10 meq PO PRN 12/01/22 04/30/23 capsule,extended release furosemide 40 mg tablet mg PO 04/30/23 04/30/23 Previous Rx's Medication Instructions Recorded azithromycin 250 mg tablet 250 mg PO QMWF #36 tabs 06/07/22 ipratropium 0.5 mg-albuterol 3 mg 3 ml inhalation QID PRN shortness 12/01/22 (2.5 mg base)/3 mL nebulization of breath or wheezing #360 mL soln hydrocortisone valerate 0.2 % 1 applic topical BID 10 days #60 12/05/22 topical cream grams budesonide-formoterol HFA 160 2 puff inhalation BID 90 days 01/03/23 mcg-4.5 mcg/actuation aerosol #10.2 grams inhaler mupirocin 2 % topical ointment 1 applic topical TID 10 days #50 01/16/23 grams budesonide 0.5 mg/2 mL suspension 0.5 mg (2 mL) inhalation Q12H 30 02/20/23 for nebulization days #60 mL formoterol fumarate 20 mcg/2 mL 2 ml inhalation BID 30 days #60 mL 02/20/23 solution for nebulization (Perforomist) budesonide 160 mcg-glycopyr 9 2 inh inhalation BID #10.7 grams 03/28/23 mcg-formot 4.8 mcg/actuation HFA inhaler (Breztri Aerosphere) omeprazole 20 mg capsule,delayed 20 mg PO DAILY acid reflux 90 days 04/11/23 release #90 caps simvastatin 20 mg tablet 20 mg PO HS Cholesterol 90 days 04/11/23 #90 tabs bisoprolol fumarate 5 mg tablet 2.5 mg (1/2 x 5 mg) PO DAILY 05/04/23 Hypertension 90 days #45 tabs Allergies Allergy/AdvReac Type Severity Reaction Status Date / Time No Known Allergies Allergy Verified 04/30/23 13:50 [facility] Disclaimer: The information contained in this section may have been updated after the patient was seen, as this information can be updated by other users. Medical History A-fib Acute exacerbation of chronic obstructive airways disease Acute respiratory failure with hypoxia Chronic hypoxemic respiratory failure COPD (chronic obstructive pulmonary disease) Dyspnea on exertion Encounter for screening for malignant neoplasm of lung in former smoker who quit in past 15 years with 30 pack year history or greater Ex-smoker GERD (gastroesophageal reflux disease) HLD (hyperlipidemia) HTN (hypertension) Lung nodule Pulmonary emphysema Stopped smoking with greater than 30 pack year history Surgical History History of carotid endarterectomy History of colonoscopy History of nasal surgery Hx of local excision of skin lesion Hx of prior ablation treatment Family History Other Family history non-contributory Social History Smoking Status: Never smoker second hand exposure: No alcohol intake: never substance use type: denies use current occupational status: retired Travel in the last 8 weeks: None household members: spouse housing: house current occupational exposures/hazards: No caffeine: No ROS Obtained: Yes All systems reviewed & no additional complaints except as documented Physical Exam General General appearance: alert and in no apparent distress Head Head exam: atraumatic and normocephalic Eye Eye exam: Present normal appearance, PERRL and EOMI ENT ENT exam: Present normal oropharynx and mucous membranes moist Neck Neck exam: Present full ROM; Absent meningismus Respiratory Respiratory exam: Present wheezes and other (Patient with decreased air movement throughout. Expiratory wheezes auscultated.); Absent respiratory distress, stridor or accessory muscle use Cardiovascular Cardiovascular exam: Present normal rhythm Abdominal Exam Abdominal exam: Present soft; Absent distention, tenderness, guarding, rebound or rigidity Extremities Exam Extremities exam: Present full ROM and edema (2+ pitting edema in bilateral lower extremities.); Absent tenderness Neurological Exam Neurological exam: Present alert, oriented X3 and CN II-XII intact; Absent motor sensory deficit Psychiatric Psychiatric exam: Present normal affect and normal mood Skin Skin exam: Present warm and dry Medical Decision Making Medical Records Medical records reviewed: Yes I reviewed the patient's medical records. Tonny Inquiry Pt receiving controlled substance: No Tonny was queried for this patient: No Vital Signs: 05/15/23 19:05 05/15/23 20:54 Temperature 98.4 F Temperature Source Oral Pulse Rate 88 Pulse Rate [Right] 83 Respiratory Rate 16 Blood Pressure [Right Arm] 194/98 H Blood Pressure Mean [Right Arm] 130 02 Sat by Pulse Oximetry 93 L Oxygen Delivery Method Room Air Lab Data Lab Results 05/15/23 19:10: WBC 7.5, RBC 4.62, Hgb 15.0, Hct 46.4, MCV 100.6 H, MCH 32.5 H, MCHC 32.3, RDW 13.2, Plt Count 226, MPV 7.4, Neut % (Auto) 70.6, Lymph % (Auto) 18.8, Rains % (Auto) 5.8, Eos % (Auto) 4.1, Baso % (Auto) 0.6, Neut # (Auto) 5.3, Lymph # (Auto) 1.4, Rains # (Auto) 0.4, Eos # (Auto) 0.3, Baso # (Auto) 0.1, Sodium 137, Potassium 4.8, Chloride 100, Carbon Dioxide 35 H, Anion Gap 6.8, BUN 20, Creatinine 0.80, Estimated GFR 93, Est GFR ( Amer) 113, Glucose 116 H , Calcium 9.3, Magnesium 2.1, Total Bilirubin 0.6, AST 45, ALT 21, Alkaline Phosphatase 96, Troponin I < 0.01, NT-Pro-B Natriuret Pep 190, Total Protein 7.1, Albumin 4.2, Globulin 2.9, Albumin/Globulin Ratio 1.4 05/15/23 20:12: SARS-CoV-2 (PCR) Not detected, Influenza A Untype (PCR) Not detected, Influenza Type B (PCR) Not detected 05/15/23 20:37: VBG pH 7.33, VBG pCO2 59.4 H, VBG pO2 30.9, VBG HCO3 30.3 H, VBG Total CO2 32.2 H, VBG O2 Saturation 60.3, VBG Base Excess 4.3 H, VBG Lactic Acid 1.9 05/15/23 21:49: VBG pH 7.35, VBG pCO2 57.5 H, VBG pO2 50.9 H, VBG HCO3 31.0 H, V BG Total CO2 32.8 H, VBG O2 Saturation 86.7 H, VBG Base Excess 5.4 H 05/15/23 19:10 05/15/23 19:10 Orders (Tests/Meds): ED MEDICATIONS Generic Name Dose Route Start Last Admin Trade Name Freq PRN Reason Stop Dose Admin Sodium Chloride 10 ml 05/15/23 21:49 Sodium Chloride 0.9% 10ml Vial IV 06/14/23 21:48 NEEDED PRN to Dilute Lorazepam inj Discontinued Medications Generic Name Dose Route Start Last Admin Trade Name Freq PRN Reason Stop Dose Admin Albuterol/Ipratropium 9 ml 05/15/23 19:33 05/15/23 20:00 Ipratropium/Albuterol 3 Ml Neb IH 05/15/23 19:34 9 ml ONCE ONE Administration Magnesium Sulfate 2 gm in 50 mls @ 50 mls/hr 05/15/23 20:01 05/15/23 20:04 Magnesium Sulfate 2gm/50ml Premix IV 05/15/23 21:00 50 mls/hr ONCE ONE Administration Lorazepam 1 mg 05/15/23 21:49 05/15/23 21:57 Lorazepam 2mg/Ml Vial IV 05/15/23 21:50 1 mg ONCE ONE Administration Methylprednisolone Sodium Succinate 125 mg 05/15/23 19:33 05/15/23 19:59 Methylprednisolone Sod Succ 125mg Vial IV 05/15/23 19:34 Not Given ONCE ONE ORDERS Category Date Time Status CXR --portable [XR chest portable] Stat Exams 05/15/23 19:30 Completed BNP [Brain Natriuretic Peptide] Stat Lab 05/15/23 19:10 Completed CBC w/Auto Diff [Complete Blood Count Auto Diff] Stat Lab 05/15/23 19:10 Completed CMP [Comprehensive Metabolic Panel] Stat Lab 05/15/23 19:10 Completed Lactate Venous Stat Lab 05/15/23 20:37 Completed MAG [Magnesium] Stat Lab 05/15/23 19:10 Completed Rapid PCR Covid and Flu A/B Stat Lab 05/15/23 20:12 Completed Trop I [Troponin I] Stat Lab 05/15/23 19:10 Completed Troponin I Q3H Lab 05/15/23 22:45 Ordered Troponin I Q3H Lab 05/16/23 01:45 Ordered VBG [Venous Blood Gas] Stat RT 05/15/23 20:37 Completed VBG [Venous Blood Gas] Stat RT 05/15/23 21:49 Completed ECG Data Tracing #1: I reviewed this ECG and interpreted as documented below: EKG personally interpreted by me. Sinus rhythm with a rate of 80 bpm. No ischemic changes. HEART Score History (anamnesis): Slightly suspicious ECG: Normal Age: >65 years Risk factors: 3 or more risk factors Troponin: </= normal limit HEART Score: 4 Medical Decision Narrative: 78-year-old male with past medical history significant for GERD, atrial fibrillation s/p ablation, HLD, HTN, COPD/emphysema on 2.5 L of oxygen at baseline, presents today for evaluation concerning shortness of breath and left- sided chest pain that has been intermittent over the past couple of days. He states that he has been using his breathing treatments at home with no relief. On assessment, the patient was hemodynamically stable and in no acute distress. Afebrile. He had decreased air movement throughout. Expiratory wheezing auscultated. 2+ pitting edema in bilateral lower extremities. Abdomen soft nondistended and nontender to palpation. Other physical exam vitals unremarkable. Differential diagnosis includes not limited to COPD exacerbation, ACS, pleural effusion, pneumonia, electrolyte disturbance, among others. Of note, patient did receive 1 and 25 mg of Solu-Medrol en route to ED with EMS. Chest x-ray on my informal interpretation did not show any acute cardiopulmonary disease process. Radiology report confirmed. His lab workup today has been remarkable for a VBG with initial pCO2 of 59.4. pH of 7.3. Initial troponin less than 0.01. BNP 190. Negative COVID and influenza swab. Patient was given 3 DuoNeb treatments while in the ED and was also given IV magnesium to assist. He was also placed on BiPAP to assist with his breathing and his hypercarbia. On reassessment the patient remains stable on BiPAP with somewhat improved work of breathing however he is continues to have decreased air movement throughout. Repeat VBG showed a pH of 7.35 and a pCO2 of 57.5. Given that patient has not made much improvement in the setting of his COPD exacerbation, I did consult with hospital medicine and discussed management and they have agreed to admit for continued care. Plan discussed with patient and family who are agreeable. Critical Care Critical Care Time Critical Care Time: No
[2023-05-15 19:40] LABS: Basophils # 0.1 K/mm3 (0-0.2); Basophils % 0.6 % (0.1-2.0); Eosinophils # 0.3 K/mm3 (0.0-0.4); Eosinophils % 4.1 % (0.1-12.0); Hematocrit 46.4 % (42.0-52.0); Lymphocytes # 1.4 K/mm3 (0.7-4.5); Lymphocytes % 18.8 % (10-50); Mean Corpuscular HGB Conc 32.3 g/dL (31.8-35.4); Mean Corpuscular Hemoglobin 32.5 pg (27.0-31.2); Mean Corpuscular Volume 100.6 fl (80-94); Mean Platelet Volume 7.4 fl (7.4-10.4); Monocytes # 0.4 K/mm3 (0.1-1.0); Monocytes % 5.8 % (1.7-9.3); Neutrophils # 5.3 K/mm3 (1.8-7.8); Neutrophils % 70.6 % (37.0-80.0); Platelet Count 226 K/mm3 (142-424); Red Blood Count 4.62 M/mm3 (4.60-6.20); Red Cell Distribution Width 13.2 % (11.5-17.5); White Blood Count 7.5 K/mm3 (4.8-10.8)
[2023-05-15 19:42] LABS: Chloride 100 mmol/L (98-107); Potassium 4.8 mmoL/L (3.5-5.1); Sodium 137 mmol/L (136-145)
[2023-05-15 19:45] LABS: Alanine Aminotransferase 21 U/L (12-78); Albumin Level 4.2 g/dl (3.5-5.0); Albumin/Globulin Ratio 1.4 (1.1-1.8); Alkaline Phosphatase 96 U/L (38-126); Anion Gap 6.8 mEq/L (5-15); Aspartate Amino Transferase 45 U/L (17-59); Bilirubin,Total 0.6 mg/dl (0.2-1.3); Blood Urea Nitrogen 20 mg/dl (9-20); Calcium 9.3 mg/dl (8.4-10.2); Carbon Dioxide 35 mmol/L (22.0-30.0); Estimated Glomerular Filt Rate 93 ml/min (>60); GFR (African American) 113 ML/MIN (>60); Globulin 2.9 g/dL (1.3-3.2); Glucose 116 mg/dl (74-100); Magnesium 2.1 mg/dl (1.6-2.3); Total Protein,Serum 7.1 g/dl (6.3-8.2)
[2023-05-15 19:55] LABS: NT Pro Brain Natriuretic Pep. 190 pg/mL (0-450)
[2023-05-15] MEDS: IPRATROPIUM/ALBUTEROL 3 ML NEB 9 ML IH (20:00)
[2023-05-15] MEDS: MAGNESIUM SULFATE IN WATER 2 GM/50 ML PIGGYBACK IV (20:04)
[2023-05-15 20:15] LABS: Troponin I < 0.01 ng/ml (0.00-0.034)
[2023-05-15 20:17] LABS: Coronavirus 19, PCR Not Detected (NotDetected); Influenza A, PCR Not Detected (NotDetected); Influenza B, PCR Not Detected (NotDetected)
--- NOTE | 2023-05-15 20:30 | PC.NURSE ---
Respiratory at bedside finishing nebulizer treatment. Patient has increased work of breathing and oxygen saturation dropped to 81%. Patient has increased accessory muscle usage and very diminished breath sounds bilaterally. Notified Dr. Rust, who came to bedside. Orders received, patient to go on BiPap.
[2023-05-15 20:40] LABS: Lactate Venous 1.9 mmol/L (0.4-2.0); VBG Base Excess 4.3 mmol/L (-2.4-2.3); VBG HCO3 30.3 mmol/L (23-30); VBG Oxygen Saturation 60.3 % (50-70); VBG PCO2 59.4 mmol/L (35-51); VBG PH 7.33 mmol/L (7.31-7.41); VBG PO2 30.9 mmol/L (28-40); VBG Total CO2 32.2 mmol/L (23-27)
--- NOTE | 2023-05-15 20:49 | PC.NURSE ---
Pt placed in gown, warm blanket provided, 2nd line inserted, no other needs a this time, at bedside.
[2023-05-15] MEDS: LORazepam 2MG/ML VIAL 1 MG IV (21:57)
[2023-05-15 22:06] LABS: VBG Base Excess 5.4 mmol/L (-2.4-2.3); VBG Oxygen Saturation 86.7 % (50-70); VBG PCO2 57.5 mmol/L (35-51); VBG PH 7.35 mmol/L (7.31-7.41); VBG PO2 50.9 mmol/L (28-40); VBG Total CO2 32.8 mmol/L (23-27)
--- NOTE | 2023-05-15 22:16 | PC.NURSE ---
Dr. Kirill Rust spoke with hospitalist for admission for COPD exacerbation. Notified house systems administrator for bed request.
--- NOTE | 2023-05-15 22:19 | EXP.HP ---
History of Present Illness *Admission Date: 05/15/23 *Reason for visit:: SOB *History of present illness: This is a 78-year-old male with PMHx significant for GERD, atrial fibrillation s/p ablation, HLD, HTN, COPD/emphysema, presents today for evaluation concerning shortness of breath and left-sided chest pain that has been intermittent over the past couple of days. He states that he has been using his breathing treatments at home with no relief. States he has a cough at baseline however denies any fevers, chills, abdominal pain. Denies pain or any recent sick contacts. No other complaints. Admitted for further treatment. Attending attestation Patient was seen and evaluated at the bedside myself, agree with JIAN note. [facility] Disclaimer: The information contained in this section may have been updated after the patient was seen, as this information can be updated by other users. Medical History (Updated 05/16/23 @ 13:25 by Elvin Dickinson MD) Acute and chronic respiratory failure with hypoxia GERD (gastroesophageal reflux disease) A-fib HLD (hyperlipidemia) HTN (hypertension) Lung nodule Ex-smoker Chronic hypoxemic respiratory failure Dyspnea on exertion Encounter for screening for malignant neoplasm of lung in former smoker who quit in past 15 years with 30 pack year history or greater Stopped smoking with greater than 30 pack year history Pulmonary emphysema Acute respiratory failure with hypoxia Acute exacerbation of chronic obstructive airways disease COPD (chronic obstructive pulmonary disease) Surgical History History of colonoscopy Hx of local excision of skin lesion History of carotid endarterectomy Hx of prior ablation treatment History of nasal surgery Family History Other Family history non-contributory Social History (Updated 05/15/23 @ 23:41 by Yin Valdes RN) Smoking Status: Never smoker second hand exposure: No alcohol intake: never substance use type: denies use current occupational status: retired Travel in the last 8 weeks: None household members: spouse housing: house current occupational exposures/hazards: No caffeine: No Review of Systems Review of Systems Review of systems:: pertinent systems reviewed and negative unless documented below Meds Home Medications and Allergies Home Medications Medication Instructions Recorded Confirmed Type aspirin 81 mg tablet,delayed 81 mg PO DAILY 09/02/19 05/15/23 History release hydrocortisone valerate 0.2 % 1 applic topical BID 10 days #60 12/05/22 05/15/23 Rx topical cream grams budesonide-formoterol HFA 160 2 puff inhalation BID 90 days 01/03/23 05/15/23 Rx mcg-4.5 mcg/actuation aerosol #10.2 grams inhaler bisoprolol fumarate 5 mg tablet 2.5 mg PO DAILY 05/15/23 05/15/23 History azithromycin 250 mg tablet 250 mg PO MOWEFR 05/16/23 05/16/23 History furosemide 40 mg tablet 40 mg PO DAILY 05/16/23 05/16/23 History omeprazole 20 mg capsule,delayed 20 mg PO DAILY 05/16/23 05/15/23 History release potassium chloride 10 mEq 10 meq PO DAILY 05/16/23 05/16/23 History capsule,extended release simvastatin 20 mg tablet 20 mg PO HS 05/16/23 05/15/23 History New Prescriptions to Start Prescriptions: Allergies Allergy/AdvReac Type Severity Reaction Status Date / Time No Known Allergies Allergy Verified 04/30/23 13:50 Exam Data for Last 24 hours Vital signs and Labs for Last 24 Hours: Temp Pulse Resp BP Pulse Ox O2 Del Method FiO2 98.4 F 86 13 154/81 H 100 BiPAP 50 05/15/23 19:05 05/15/23 22:00 05/15/23 22:00 05/15/23 22:00 05/15/23 22:00 05/15/23 22:00 05/15/23 20:57 Laboratory Results - last 24 hr 05/15/23 19:10: WBC 7.5, RBC 4.62, Hgb 15.0, Hct 46.4, MCV 100.6 H, MCH 32.5 H, MCHC 32.3, RDW 13.2, Plt Count 226, MPV 7.4, Neut % (Auto) 70.6, Lymph % (Auto) 18.8, Kingfisher % (Auto) 5.8, Eos % (Auto) 4.1, Baso % (Auto) 0.6, Neut # (Auto) 5.3, Lymph # (Auto) 1.4, Kingfisher # (Auto) 0.4, Eos # (Auto) 0.3, Baso # (Auto) 0.1, Sodium 137, Potassium 4.8, Chloride 100, Carbon Dioxide 35 H, Anion Gap 6.8, BUN 20, Creatinine 0.80, Estimated GFR 93, Est GFR ( Amer) 113, Glucose 116 H, Calcium 9.3, Magnesium 2.1, Total Bilirubin 0.6, AST 45, ALT 21, Alkaline Phosphatase 96, Troponin I < 0.01, NT-Pro-B Natriuret Pep 190, Total Protein 7.1, Albumin 4.2, Globulin 2.9, Albumin/Globulin Ratio 1.4 05/15/23 20:12: SARS-CoV-2 (PCR) Not detected, Influenza A Untype (PCR) Not detected, Influenza Type B (PCR) Not detected 05/15/23 20:37: VBG pH 7.33, VBG pCO2 59.4 H, VBG pO2 30.9, VBG HCO3 30.3 H, VBG Total CO2 32.2 H, VBG O2 Saturation 60.3, VBG Base Excess 4.3 H, VBG Lactic Acid 1.9 05/15/23 21:49: VBG pH 7.35, VBG pCO2 57.5 H, VBG pO2 50.9 H, VBG HCO3 31.0 H, VBG Total CO2 32.8 H, VBG O2 Saturation 86.7 H, VBG Base Excess 5.4 H I & O for Last 24 hours: Intake & Output 05/12/23 05/13/23 05/14/23 05/15/23 22:59 23:59 23:59 23:59 Weight 81.647 kg Constitutional Constitutional: moderate distress and cooperative *Routine HEENT Exam Head: Present normocephalic and atraumatic Eye: Present EOMI, PERRL and normal accommodation ENT: Present mucous membranes dry *Routine Neck Exam Neck: Present supple, full ROM and trachea midline *Routine Respiratory Exam Respiratory: Present CTA bilaterally, prolonged expiratory phase, respiratory distress, wheezes, diminished air movement and symmetric chest movement *Routine Cardiovascular Exam Cardiovascular: Present RRR, Normal S1 and tachycardia *Routine Abdominal Exam Abdominal: Present soft and normoactive bowel sounds; Absent tenderness or distended *Routine Rectal Exam Rectal:: deferred *Routine Genitalia Exam Genitalia:: deferred *Routine Extremities Exam Extremities: Present full ROM and pulses intact; Absent cyanosis, clubbing or edema *Routine Skin Exam Skin: Present intact; Absent cyanosis, erythema or rash *Routine Neurological Exam Neurological: Present alert, normal reflexes, moving all extremities and normal speech Routine Psychiatric Exam Psychiatric: Present cooperative and anxious H&P: Result Imaging and Cardiology EKG: Status: image reviewed by me, Preliminary report and final report Chest x-ray: Status: image reviewed by me, Preliminary report and final report Assessment and Plan *Assessment and plan (1) Acute exacerbation of chronic obstructive airways disease: Status: Chronic Category: Medical Code(s): J44.1 - Chronic obstructive pulmonary disease with (acute) exacerbation (2) Acute respiratory failure with hypoxia: Status: Chronic Category: Medical Code(s): J96.01 - Acute respiratory failure with hypoxia (3) Pulmonary emphysema: Status: Chronic Qualifiers: Emphysema type: unspecified Qualified Code(s): J43.9 - Emphysema, unspecified Category: Medical Code(s): J43.9 - Emphysema, unspecified (4) History of atrial fibrillation: Status: Acute Category: Medical Code(s): Z86.79 - Personal history of other diseases of the circulatory system (5) Hypertension: Status: Acute Qualifiers: Hypertension type: unspecified Qualified Code(s): I10 - Essential (primary) hypertension Category: Medical Code(s): I10 - Essential (primary) hypertension (6) HLD (hyperlipidemia): Status: Acute Qualifiers: Hyperlipidemia type: unspecified Qualified Code(s): E78.5 - Hyperlipidemia, unspecified Category: Medical Code(s): E78.5 - Hyperlipidemia, unspecified (7) Ex-smoker: Status: Chronic Category: Social Hx Code(s): Z87.891 - Personal history of nicotine dependence Plan 78-year-old male with PMHx significant for GERD, atrial fibrillation s/p ablation, HLD, HTN, COPD/emphysema, presents today for evaluation concerning shortness of breath and left-sided chest pain that has been intermittent over the past couple of days. on arrival Chest x-ray did not show any acute cardiopulmonary disease process. Imaging reviewed. Radiology report confirmed. His lab workup today has been remarkable for a VBG with initial pCO2 of 59.4. pH of 7.3. Negative troponin and BNP. Negative COVID and influenza swab. Patient was given 3 DuoNeb treatments while in the ED and was also given IV magnesium to assist. He was also placed on BiPAP to assist with his breathing. Findings discussed with ED for admission. Plan as follow: -Acute on chronic hypoxic and hypercapnic respiratory failure: Admit patient. Pulm will consult On continuous BiPAP. Weaning off Repeat ABG in the morning Monitor O2 sat. respiratory to assist Started on Levaquin DuoNeb every 6h -Other chronic conditions: History of A-fib, currently on sinus rhythm. 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 recent quitting. presented with anxiety 1mg ativan given IV to help tolerated BIpap. cont 05mg q6h for agitation nicotine PRN Lovenox for DVT ppx. on Protonix Full code
[2023-05-15 22:26] LABS: Lactate Venous 2.1 mmol/L (0.4-2.0)
--- NOTE | 2023-05-15 22:31 | PC.NURSE ---
Patient's family came to nurses station to inform staff that patient is having trouble breathing again . Patient continues to have increased work of breathing. Oxygen saturation is 97% while on BiPap. Notified Dr. Rust who assessed patient at bedside. Respiratory at bedside.
--- NOTE | 2023-05-15 22:38 | PC.NURSE ---
Nurse to nurse report given to Yin RIVAS
[2023-05-15] MEDS: LEVOFLOXACIN/D5W 750 MG/150 ML 750 MG/150 ML PIGGYBACK 100 MG IV (23:23)
[2023-05-15] MEDS: 0.9 % SODIUM CHLORIDE 1000ML 1,000 ML 50 ML IV (23:23)
[2023-05-15 23:52] LABS: Troponin I 0.04 ng/ml (0.00-0.034)
[2023-05-16] VITALS (19 sets, daily range): BP systolic 142–180; BP diastolic 76–113; PULSE 75–102; RESP 13–25; TEMP 36.4–37; O2SAT 93–100; BMI 24.9
[2023-05-16 02:23] LABS: Troponin I 0.08 ng/ml (0.00-0.034)
[2023-05-16 02:26] LABS: Reflex Lactic Add Lactic Reflex
[2023-05-16 03:05] LABS: Lactate Venous 1.9 mmol/L (0.4-2.0)
[2023-05-16] MEDS: IPRATROPIUM/ALBUTEROL 3 ML NEB IH ×5 (06:08→21:22)
[2023-05-16] MEDS: LORazepam 2MG/ML VIAL 0.5 MG IV ×3 (06:29→20:07)
[2023-05-16 06:36] LABS: ABG Base Excess 5.2 mmol/L (-2.4-2.3); ABG HCO3 30.5 mmhg (22.0-26.0); ABG Oxygen Saturation 99 % (90-100); ABG PH 7.37 mmol/L (7.35-7.45); ABG PO2 123.6 mmhg (80-100); ABG TCO2 32.2 mmhg (23-27)
[2023-05-16 06:40] LABS: Oxygen 50% %; Source R BRACHIAL; Tidal Volume 13/6
[2023-05-16 06:42] LABS: ABG PCO2 54.2 mmhg (35.0-45.0)
[2023-05-16 06:45] LABS: Basophils % 0.2 % (0.1-2.0); Eosinophils % 0.1 % (0.1-12.0); Hematocrit 46.2 % (42.0-52.0); Hemoglobin 14.5 g/dL (14.1-18.0); Lymphocytes # 0.4 K/mm3 (0.7-4.5); Lymphocytes % 6.4 % (10-50); Mean Corpuscular HGB Conc 31.5 g/dL (31.8-35.4); Mean Corpuscular Volume 101.8 fl (80-94); Mean Platelet Volume 7.6 fl (7.4-10.4); Monocytes # 0.1 K/mm3 (0.1-1.0); Monocytes % 1.7 % (1.7-9.3); Neutrophils % 91.6 % (37.0-80.0); Platelet Count 204 K/mm3 (142-424); Red Blood Count 4.54 M/mm3 (4.60-6.20); Red Cell Distribution Width 13.2 % (11.5-17.5); White Blood Count 5.5 K/mm3 (4.8-10.8)
[2023-05-16 06:47] LABS: MANUAL DIFFERENTIAL MANUAL DIFFERENTIAL (MANUAL DIFF)
[2023-05-16 07:22] LABS: Alanine Aminotransferase 27 U/L (12-78); Albumin Level 4.3 g/dl (3.5-5.0); Albumin/Globulin Ratio 1.5 (1.1-1.8); Alkaline Phosphatase 81 U/L (38-126); Anion Gap 9.6 mEq/L (5-15); Aspartate Amino Transferase 41 U/L (17-59); Bilirubin,Total 0.5 mg/dl (0.2-1.3); Blood Urea Nitrogen 19 mg/dl (9-20); Calcium 9.3 mg/dl (8.4-10.2); Carbon Dioxide 36 mmol/L (22.0-30.0); Chloride 97 mmol/L (98-107); Creatinine Clearance Estimated 71 mL/min (50-200); Estimated Glomerular Filt Rate 109 ml/min (>60); GFR (African American) 132 ML/MIN (>60); Globulin 2.9 g/dL (1.3-3.2); Glucose 157 mg/dl (74-100); Lymphocytes % 12 % (10-50); Magnesium 2.5 mg/dl (1.6-2.3); Monocytes % 1 % (2-9); Neutrophils % 87 % (42-76); Potassium 4.6 mmoL/L (3.5-5.1); Sodium 138 mmol/L (136-145); Total Cells Counted 100; Total Protein,Serum 7.2 g/dl (6.3-8.2)
[2023-05-16 07:23] LABS: Macrocytosis 1+; Platelet Estimate Normal
[2023-05-16] MEDS: PANTOPRAZOLE 40MG TABLET 40 MG PO (08:40)
[2023-05-16] MEDS: ENOXAPARIN 40MG/0.4ML SYRINGE 40 MG SQ (08:40)
--- NOTE | 2023-05-16 09:48 | P.CONS_ITS ---
History of Present Illness History of present illness: Mr. Miller is a 78-year-old male greater than [id number] smoking history, COPD, chronic hypoxic respiratory failure presented today with worsening respiratory distress increasing oxygen commands and pulmonary was called for further evaluation and management. Patient admits worsening respiratory status yesterday and called EMS. He denies any associated worsening subjective cough or worsening productive phlegm. [facility] Disclaimer: The information contained in this section may have been updated after the patient was seen, as this information can be updated by other users. Medical History (Updated 05/16/23 @ 13:25 by Elvin Dickinson MD) Acute and chronic respiratory failure with hypoxia GERD (gastroesophageal reflux disease) A-fib HLD (hyperlipidemia) HTN (hypertension) Lung nodule Ex-smoker Chronic hypoxemic respiratory failure Dyspnea on exertion Encounter for screening for malignant neoplasm of lung in former smoker who quit in past 15 years with 30 pack year history or greater Stopped smoking with greater than 30 pack year history Pulmonary emphysema Acute respiratory failure with hypoxia Acute exacerbation of chronic obstructive airways disease COPD (chronic obstructive pulmonary disease) Surgical History History of colonoscopy Hx of local excision of skin lesion History of carotid endarterectomy Hx of prior ablation treatment History of nasal surgery Family History Other Family history non-contributory Social History (Updated 05/15/23 @ 23:41 by Yin Valdes RN) Smoking Status: Never smoker second hand exposure: No alcohol intake: never substance use type: denies use current occupational status: retired Travel in the last 8 weeks: None household members: spouse housing: house current occupational exposures/hazards: No caffeine: No Review of Systems Constitutional Constitutional: Reports anorexia and Reports fatigue Eyes Eyes: Denies eye discharge, Denies dry eyes, Denies irritation and Denies itchy eyes ENT Ears, Nose, Mouth, and Throat: Denies epistaxis, Denies facial pain, Denies lip swelling and Denies throat swelling *Cardiovascular Cardiovascular: Reports dyspnea and Reports dyspnea on exertion *Respiratory Respiratory: Denies change in phlegm color, Reports chest congestion, Reports cough, Reports dyspnea, Reports dyspnea on exertion, Denies excessive phlegm production, Denies hemoptysis, Denies pain on inspiration, Denies pain with cough and Reports wheezing *Gastrointestinal Gastrointestinal: Denies abdominal pain, Denies belching and Denies cramping *Musculoskeletal Musculoskeletal: Reports back pain, Reports myalgias and Reports other (No small joint swelling or Pain) Psychiatric Psychiatric: Denies homicidal ideation and Denies suicidal ideation Endocrine Endocrine: Reports fatigue and Denies heat intolerance Hematologic/Lymphatic Hematologic/Lymphatic: Denies easy bleeding and Denies lymphadenopathy Allergic/Immunologic Allergic/Immunologic: Denies itchy eyes, Denies lip swelling, Denies throat swelling and Reports wheezing Pulmonology Exam Inpatient Vital signs and Labs for Last 24 Hours: Temp Pulse Resp BP Pulse Ox O2 Del Method FiO2 98.5 F 93 H 20 178/94 H 100 BiPAP 50 05/16/23 08:00 05/16/23 06:08 05/16/23 06:00 05/16/23 06:00 05/16/23 06:00 05/16/23 08:40 05/16/23 06:08 Laboratory Results - last 24 hr 05/15/23 19:10: WBC 7.5, RBC 4.62, Hgb 15.0, Hct 46.4, MCV 100.6 H, MCH 32.5 H, MCHC 32.3, RDW 13.2, Plt Count 226, MPV 7.4, Neut % (Auto) 70.6, Lymph % (Auto) 18.8, Dent % (Auto) 5.8, Eos % (Auto) 4.1, Baso % (Auto) 0.6, Neut # (Auto) 5.3, Lymph # (Auto) 1.4, Dent # (Auto) 0.4, Eos # (Auto) 0.3, Baso # (Auto) 0.1, Sodium 137, Potassium 4.8, Chloride 100, Carbon Dioxide 35 H, Anion Gap 6.8, BUN 20, Creatinine 0.80, Estimated GFR 93, Est GFR ( Amer) 113, Glucose 116 H , Calcium 9.3, Magnesium 2.1, Total Bilirubin 0.6, AST 45, ALT 21, Alkaline Phosphatase 96, Troponin I < 0.01, NT-Pro-B Natriuret Pep 190, Total Protein 7.1, Albumin 4.2, Globulin 2.9, Albumin/Globulin Ratio 1.4 05/15/23 20:12: SARS-CoV-2 (PCR) Not detected, Influenza A Untype (PCR) Not detected, Influenza Type B (PCR) Not detected 05/15/23 20:37: VBG pH 7.33, VBG pCO2 59.4 H, VBG pO2 30.9, VBG HCO3 30.3 H, VBG Total CO2 32.2 H, VBG O2 Saturation 60.3, VBG Base Excess 4.3 H, VBG Lactic Acid 1.9 05/15/23 21:49: VBG pH 7.35, VBG pCO2 57.5 H, VBG pO2 50.9 H, VBG HCO3 31.0 H, V BG Total CO2 32.8 H, VBG O2 Saturation 86.7 H, VBG Base Excess 5.4 H 05/15/23 22:25: VBG Lactic Acid 2.1 H 05/15/23 23:00: Troponin I 0.04 H 05/16/23 01:55: Troponin I 0.08 H 05/16/23 03:02: VBG Lactic Acid 1.9 05/16/23 05:47: WBC 5.5 D, RBC 4.54 L, Hgb 14.5, Hct 46.2, MCV 101.8 H, MCH 32.0 H, MCHC 31.5 L, RDW 13.2, Plt Count 204, MPV 7.6, Neut % (Auto) 91.6 H, L ymph % (Auto) 6.4 L, Dent % (Auto) 1.7, Eos % (Auto) 0.1, Baso % (Auto) 0.2, Neut # (Auto) 5.0, Lymph # (Auto) 0.4 L, Dent # (Auto) 0.1, Eos # (Auto) 0.0, Baso # (Auto) 0.0, Total Counted 100, Neutrophils % (Manual) 87 H, Lymphocytes % (Manual) 12, Monocytes % (Manual) 1 L, Platelet Estimate Normal, Macrocytosis 1+, Sodium 138, Potassium 4.6, Chloride 97 L, Carbon Dioxide 36 H, Anion Gap 9.6, BUN 19, Creatinine 0.70, Estimated Creat Clear 71, Estimated GFR 109, Est GFR ( Amer) 132, Glucose 157 H D, Calcium 9.3, Magnesium 2.5 H D, Total Bilirubin 0.5, AST 41, ALT 27 D, Alkaline Phosphatase 81, Total Protein 7.2, Albumin 4.3, Globulin 2.9, Albumin/Globulin Ratio 1.5 05/16/23 06:00: Specimen Source R brachial, O2 % 50%, ABG pH 7.37, ABG pCO2 54.2 H, ABG pO2 123.6 H, ABG HCO3 30.5 H, ABG Total CO2 32.2 H, ABG O2 Saturation 99, ABG Base Excess 5.2 H, Tidal Volume 13/6 I & O for Labs for Last 24 Hours: Intake & Output 05/13/23 05/14/23 05/15/23 05/16/23 23:59 23:59 23:59 23:59 Intake Total 150 / 150 Output Total 0 / 0 Balance 150 / 150 Weight 184 lb 1.376 oz 184 lb 1.376 oz Constitutional: Present severe distress Head: Present normocephalic and atraumatic ENT: Present normal exam, normal oropharynx and mucous membranes moist Neck: Present normal inspection and full ROM Respiratory: Present respiratory distress, wheezes and diminished air movement; Absent able to speak in complete sentences Cardiac: Present S1/S2, Tachycardia and radial pulses present GI: Present soft and distention; Absent tenderness or guarding Skin: Present intact; Absent cyanosis or jaundice Neuro: Present alert, awake and oriented x 3 Extremities: Present normal inspection; Absent clubbing or cyanosis Psychiatric: Present normal affect and cooperative Meds Home Medications and Allergies Home Medications Medication Instructions Recorded Confirmed Type aspirin 81 mg tablet,delayed 81 mg PO DAILY 09/02/19 05/15/23 History release hydrocortisone valerate 0.2 % 1 applic topical BID 10 days #60 12/05/22 05/15/23 Rx topical cream grams budesonide-formoterol HFA 160 2 puff inhalation BID 90 days 01/03/23 05/15/23 Rx mcg-4.5 mcg/actuation aerosol #10.2 grams inhaler bisoprolol fumarate 5 mg tablet 2.5 mg PO DAILY 05/15/23 05/15/23 History azithromycin 250 mg tablet 250 mg PO MOWEFR 05/16/23 05/16/23 History furosemide 40 mg tablet 40 mg PO DAILY 05/16/23 05/16/23 History omeprazole 20 mg capsule,delayed 20 mg PO DAILY 05/16/23 05/15/23 History release potassium chloride 10 mEq 10 meq PO DAILY 05/16/23 05/16/23 History capsule,extended release simvastatin 20 mg tablet 20 mg PO HS 05/16/23 05/15/23 History New Prescriptions to Start Prescriptions: Allergies Allergy/AdvReac Type Severity Reaction Status Date / Time No Known Allergies Allergy Verified 04/30/23 13:50 Results Laboratory Findings 05/16/23 05:47 05/16/23 05:47 ABG ABG pH 7.37 mmol/L (7.35-7.45) 05/16/23 06:00 ABG pCO2 54.2 mmhg (35.0-45.0) H 05/16/23 06:00 ABG pO2 123.6 mmhg (80-100) H 05/16/23 06:00 ABG O2 Saturation 99 % (90-100) 05/16/23 06:00 Abnormal lab findings: Abnormal Labs 05/15/23 05/15/23 05/15/23 19:10 20:37 21:49 RBC MCV 100.6 H MCH 32.5 H MCHC Neut % (Auto) Lymph % (Auto) Lymph # (Auto) Neutrophils % (Manual) Monocytes % (Manual) ABG pCO2 ABG pO2 ABG HCO3 ABG Total CO2 ABG Base Excess VBG pCO2 59.4 H 57.5 H VBG pO2 50.9 H VBG HCO3 30.3 H 31.0 H VBG Total CO2 32.2 H 32.8 H VBG O2 Saturation 86.7 H VBG Base Excess 4.3 H 5.4 H VBG Lactic Acid Chloride Carbon Dioxide 35 H Glucose 116 H Magnesium Troponin I 05/15/23 05/15/23 05/16/23 22:25 23:00 01:55 RBC MCV MCH MCHC Neut % (Auto) Lymph % (Auto) Lymph # (Auto) Neutrophils % (Manual) Monocytes % (Manual) ABG pCO2 ABG pO2 ABG HCO3 ABG Total CO2 ABG Base Excess VBG pCO2 VBG pO2 VBG HCO3 VBG Total CO2 VBG O2 Saturation VBG Base Excess VBG Lactic Acid 2.1 H Chloride Carbon Dioxide Glucose Magnesium Troponin I 0.04 H 0.08 H 05/16/23 05/16/23 05:47 06:00 RBC 4.54 L MCV 101.8 H MCH 32.0 H MCHC 31.5 L Neut % (Auto) 91.6 H Lymph % (Auto) 6.4 L Lymph # (Auto) 0.4 L Neutrophils % (Manual) 87 H Monocytes % (Manual) 1 L ABG pCO2 54.2 H ABG pO2 123.6 H ABG HCO3 30.5 H ABG Total CO2 32.2 H ABG Base Excess 5.2 H VBG pCO2 VBG pO2 VBG HCO3 VBG Total CO2 VBG O2 Saturation VBG Base Excess VBG Lactic Acid Chloride 97 L Carbon Dioxide 36 H Glucose 157 H D Magnesium 2.5 H D Troponin I Assessment and Plan *Assessment and plan (1) COPD exacerbation: Status: Acute Category: Medical Code(s): J44.1 - Chronic obstructive pulmonary disease with (acute) exacerbation (2) Acute and chronic respiratory failure with hypoxia: Status: Acute Category: Medical Code(s): J96.21 - Acute and chronic respiratory failure with hypoxia Plan Mr. Miller is a 78-year-old male greater than 70-[id number]-uzrg smoking history, COPD, chronic hypoxic respiratory failure presented today with worsening respiratory distress increasing oxygen commands and pulmonary was called for further evaluation and management. Patient admits worsening respiratory status yesterday and called EMS. He denies any associated worsening subjective cough or worsening productive phlegm. Afebrile. No evidence of neutrophilic leukocytosis. VBG upon admission on 50% FiO2 did not show any significant evidence of hypoxic/hypercarbic respiratory failure. Chest x-ray upon admission hyperinflated lungs. Vascular congestion. No significant dense groundglass/airspace disease except for opacity in the right lower lobe pleural surface. Patient on admission was initiated on levofloxacin and nebulization therapies. On examination patient appeared to be in severe 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 On BiPAP. Weaned to nasal cannula. Decreased breath sounds in bilateral lung oleary. Plan: DuoNebs every 4 hours scheduled and Pulmicort every 12 scheduled Continue levofloxacin 750 mg daily x 5 days pending culture results Prednisone 40 mg daily x 5 days # Thank you for involving pulmonary in this patient care. Will continue to follow.
--- NOTE | 2023-05-16 10:56 | CA_ITS ---
APPROVED REPORT EXAM: Comprehensive 2D, Doppler, and color-flow Echocardiogram Plate Slitter And Inspector: Bridgett Raines, RCS, RVS Ht: 6 ft 0 in Wt: 184lbs BSA: 2.06 BP: 178/94 mmHg Rhythm: Atrial Fibrillation Indications: COPD exacerbation, Afib, HTN, HLD Echo Enhancing Agent Comments: TDS: Extremely limited acoustic windows due to body habitus unaided by lung impedence. 2D Dimensions Left Atrium 2.74 cm EF AP4 46.70 % GL Strain -14.9 % M-Mode Dimensions RVDd 2.56 cm (0.9-2.6) LA Diam 3.03 cm (1.9-4.0) LVDd 5.45 cm (3.5-5.7) LVDs 3.79 cm (3.5-5.7) IVSd 0.94 cm (0.6-1.1) PWd 0.85 cm (0.6-1.1) EF (Teich) 57.30% EPSs 0.38 cm FS 30.50% EDV (Teich) 144.40 mL TAPSE 2.38 (<1.7) ESV (Teich) 61.60 mL LV Diastology E Decel Time 170 (160-240 msec) E/A Ratio 0.71 MED A' 7.30 cm/s Aortic Valve SAM Index 0.58 cm2/m2 AoV Peak Vinnie. 131.0 (50-130 cm/s) AO Peak GR. 6.90 mmHg AO Mean GR. 3.40 (<5 mmHg) AO VTI 21.5 (18-25 cm) SAM (VTI) 1.22 (2.5-4.5 cm2) Mitral Valve MV A Velocity 94.0 (40-130 cm/s) E/A Ratio 0.71 Pulmonary Valve PV Peak Velocity 110.0 (50-150 cm/s) Tricuspid Valve TR P. Velocity 218.00 cm/s RAP Estimate 15.00 mmHg RVSP 33.90 mmHg Left Ventricle The left ventricle is normal size. The left ventricular systolic function is normal. The left ventricular ejection fraction is within the normal range. There is increased LV wall thickness. The septum is asynchronous. Diastolic function is indeterminate. LVEF is 55%. Right Ventricle Right ventricle is moderately dilated. Right ventricle is mildly hypokinetic. Atria Left atrium is mildly dilated. Right atrium is mildly dilated. The interatrial septum is not well visualized. Aortic Valve The aortic valve opens well. There is no aortic valvular stenosis. No aortic regurgitation is present. Mitral Valve The mitral valve is normal in structure. No evidence of mitral valve stenosis. Trace mitral valve regurgitation. Tricuspid Valve The tricuspid valve leaflets are thin and pliable. Trace tricuspid regurgitation. There is insufficient TR jet to estimate RVSP. Pulmonic Valve The pulmonary valve is normal in structure. Trace pulmonic regurgitation. Great Vessels The aortic root is normal in size. The ascending aorta is normal in size. IVC is normal in size and collapses >50% with inspiration. Pericardium There is a small sized, anterior pericardial effusion present. The largest pocket measures 0.8 cm in diastole. The effusion is heterogeneous and is possibly partially loculated. No clear echo indications of tamponade. No evidence of chamber collapse. Other Information Study Quality: Technically Difficult Conclusion Technically difficult study due to poor accoustic windows. Normal LV systolic function. Moderate RV dilation with mild reduction in RV function. Mild biatrial dilation. No significant valvular stenosis or regurgitation. Small sized, anterior pericardial effusion present. The largest pocket measures 0.8 cm in diastole. The effusion is heterogeneous and is possibly partially loculated. No clear echo indications of tamponade. No evidence of chamber collapse. No other studies are available for comparison. Serial limited TTE assessment for the pericardial effusion is recommended. Electronically signed by : Racheal Ontiveros MD 05/19/2023 17:36:56
--- NOTE | 2023-05-16 11:09 | P.CONCA_ITS ---
History of Present Illness History of Present Illness Consult date: 05/16/23 Requesting physician: Johny Ontiveros Consult reason: chest pain and shortness of breath Chief complaint: Chest pain, shortness of breath History of present illness: This is a 78-year-old white male with past medical history of COPD for which she is on 2 to 3 L of oxygen at home, GERD, atrial fibrillation status post ablation maintained on aspirin, hyperlipidemia, hypertension, former smoker for 40 to 50 years presented to emergency department with complaints of shortness of breath and left-sided chest pain. Patient reports he was in his usual state of health until yesterday when he developed left-sided chest pressure radiating into back associated with shortness of breath worse than usual. Initial EKG shows sinus rhythm at a rate of 80 with no acute ischemic changes noted. Labs are as follow: WBC 5.5, hemoglobin 14.5, sodium 138, potassium 4.6, creatinine 0.7, initial troponin 0.01 trending up to 0.08. Arterial blood gas shows a pH of 7.37, pCO2 of 54.2 PaO2 123.6. Chest x-ray showed no acute cardiopulmonary findings noted. Patient was admitted for COPD exacerbation and NSTEMI. On exam patient is complaining of shortness of breath and reports lower extremity edema is at baseline for him. Denies any current chest pain. [facility] Disclaimer: The information contained in this section may have been updated after the patient was seen, as this information can be updated by other users. Medical History (Updated 05/16/23 @ 13:25 by Elvin Dickinson MD) Acute and chronic respiratory failure with hypoxia GERD (gastroesophageal reflux disease) A-fib HLD (hyperlipidemia) HTN (hypertension) Lung nodule Ex-smoker Chronic hypoxemic respiratory failure Dyspnea on exertion Encounter for screening for malignant neoplasm of lung in former smoker who quit in past 15 years with 30 pack year history or greater Stopped smoking with greater than 30 pack year history Pulmonary emphysema Acute respiratory failure with hypoxia Acute exacerbation of chronic obstructive airways disease COPD (chronic obstructive pulmonary disease) Surgical History History of colonoscopy Hx of local excision of skin lesion History of carotid endarterectomy Hx of prior ablation treatment History of nasal surgery Family History Other Family history non-contributory Social History (Updated 05/15/23 @ 23:41 by Yin Valdes RN) Smoking Status: Never smoker second hand exposure: No alcohol intake: never substance use type: denies use current occupational status: retired Travel in the last 8 weeks: None household members: spouse housing: house current occupational exposures/hazards: No caffeine: No Review of Systems *Cardiovascular Cardiovascular: Reports chest pain and Reports dyspnea *Respiratory Respiratory: Reports dyspnea Exam Data for Last 24 hours Vital signs and Labs for Last 24 Hours: Temp Pulse Resp BP Pulse Ox O2 Del Method FiO2 98.5 F 77 25 H 142/113 H 99 BiPAP 50 05/16/23 08:00 05/16/23 10:00 05/16/23 10:00 05/16/23 10:00 05/16/23 10:00 05/16/23 11:00 05/16/23 06:08 Laboratory Results - last 24 hr 05/15/23 19:10: WBC 7.5, RBC 4.62, Hgb 15.0, Hct 46.4, MCV 100.6 H, MCH 32.5 H, MCHC 32.3, RDW 13.2, Plt Count 226, MPV 7.4, Neut % (Auto) 70.6, Lymph % (Auto) 18.8, [place] % (Auto) 5.8, Eos % (Auto) 4.1, Baso % (Auto) 0.6, Neut # (Auto) 5.3, Lymph # (Auto) 1.4, [place] # (Auto) 0.4, Eos # (Auto) 0.3, Baso # (Auto) 0.1, Sodium 137, Potassium 4.8, Chloride 100, Carbon Dioxide 35 H, Anion Gap 6.8, BUN 20, Creatinine 0.80, Estimated GFR 93, Est GFR ( Amer) 113, Glucose 116 H , Calcium 9.3, Magnesium 2.1, Total Bilirubin 0.6, AST 45, ALT 21, Alkaline Phosphatase 96, Troponin I < 0.01, NT-Pro-B Natriuret Pep 190, Total Protein 7.1, Albumin 4.2, Globulin 2.9, Albumin/Globulin Ratio 1.4 05/15/23 20:12: SARS-CoV-2 (PCR) Not detected, Influenza A Untype (PCR) Not detected, Influenza Type B (PCR) Not detected 05/15/23 20:37: VBG pH 7.33, VBG pCO2 59.4 H, VBG pO2 30.9, VBG HCO3 30.3 H, VBG Total CO2 32.2 H, VBG O2 Saturation 60.3, VBG Base Excess 4.3 H, VBG Lactic Acid 1.9 05/15/23 21:49: VBG pH 7.35, VBG pCO2 57.5 H, VBG pO2 50.9 H, VBG HCO3 31.0 H, VBG Total CO2 32.8 H, VBG O2 Saturation 86.7 H, VBG Base Excess 5.4 H 05/15/23 22:25: VBG Lactic Acid 2.1 H 05/15/23 23:00: Troponin I 0.04 H 05/16/23 01:55: Troponin I 0.08 H 05/16/23 03:02: VBG Lactic Acid 1.9 05/16/23 05:47: WBC 5.5 D, RBC 4.54 L, Hgb 14.5, Hct 46.2, MCV 101.8 H, MCH 32.0 H, MCHC 31.5 L, RDW 13.2, Plt Count 204, MPV 7.6, Neut % (Auto) 91.6 H, Lymph % (Auto) 6.4 L, [place] % (Auto) 1.7, Eos % (Auto) 0.1, Baso % (Auto) 0.2, Neut # (Auto) 5.0, Lymph # (Auto) 0.4 L, [place] # (Auto) 0.1, Eos # (Auto) 0.0, Baso # (Auto) 0.0, Total Counted 100, Neutrophils % (Manual) 87 H, Lymphocytes % (Manual) 12, Monocytes % (Manual) 1 L, Platelet Estimate Normal, Macrocytosis 1+, Sodium 138, Potassium 4.6, Chloride 97 L, Carbon Dioxide 36 H, Anion Gap 9.6, BUN 19, Creatinine 0.70, Estimated Creat Clear 71, Estimated GFR 109, Est GFR ( Amer) 132, Glucose 157 H D, Calcium 9.3, Magnesium 2.5 H D, Total B ilirubin 0.5, AST 41, ALT 27 D, Alkaline Phosphatase 81, Total Protein 7.2, Albumin 4.3, Globulin 2.9, Albumin/Globulin Ratio 1.5 05/16/23 06:00: Specimen Source R brachial, O2 % 50%, ABG pH 7.37, ABG pCO2 54.2 H, ABG pO2 123.6 H, ABG HCO3 30.5 H, ABG Total CO2 32.2 H, ABG O2 Saturation 99, ABG Base Excess 5.2 H, Tidal Volume 13/6 I & O for Last 24 hours: Intake & Output 05/13/23 05/14/23 05/15/23 05/16/23 23:59 23:59 23:59 23:59 Intake Total 150 / 150 Output Total 0 / 0 Balance 150 / 150 Weight 184 lb 1.376 oz 184 lb 1.376 oz Constitutional Constitutional: no acute distress *Routine Respiratory Exam Respiratory: Present wheezes, diminished air movement and symmetric chest movement *Routine Cardiovascular Exam Cardiovascular: Present RRR, Normal S1 and Normal S2 *Routine Abdominal Exam Abdominal: Present soft and normoactive bowel sounds; Absent tenderness *Routine Extremities Exam Extremities: Present edema, full ROM and normal capillary refill *Routine Skin Exam Skin: Present intact, dry and warm Detailed Neck Exam: Thyroids Thyroid: Absent bruit Meds Home Medications and Allergies Home Medications Medication Instructions Recorded Confirmed Type aspirin 81 mg tablet,delayed 81 mg PO DAILY 09/02/19 05/15/23 History release hydrocortisone valerate 0.2 % 1 applic topical BID 10 days #60 12/05/22 05/15/23 Rx topical cream grams budesonide-formoterol HFA 160 2 puff inhalation BID 90 days 01/03/23 05/15/23 Rx mcg-4.5 mcg/actuation aerosol #10.2 grams inhaler bisoprolol fumarate 5 mg tablet 2.5 mg PO DAILY 05/15/23 05/15/23 History azithromycin 250 mg tablet 250 mg PO MOWEFR 05/16/23 05/16/23 History furosemide 40 mg tablet 40 mg PO DAILY 05/16/23 05/16/23 History omeprazole 20 mg capsule,delayed 20 mg PO DAILY 05/16/23 05/15/23 History release potassium chloride 10 mEq 10 meq PO DAILY 05/16/23 05/16/23 History capsule,extended release simvastatin 20 mg tablet 20 mg PO HS 05/16/23 05/15/23 History New Prescriptions to Start Prescriptions: Allergies Allergy/AdvReac Type Severity Reaction Status Date / Time No Known Allergies Allergy Verified 04/30/23 13:50 Assessment and Plan *Assessment and plan (1) COPD exacerbation: Status: Acute Category: Medical Code(s): J44.1 - Chronic obstructive pulmonary disease with (acute) exacerbation (2) Hypertension: Status: Acute Qualifiers: Hypertension type: unspecified Qualified Code(s): I10 - Essential (primary) hypertension Category: Medical Code(s): I10 - Essential (primary) hypertension (3) NSTEMI (non-ST elevated myocardial infarction): Status: Acute Category: Medical Code(s): I21.4 - Non-ST elevation (NSTEMI) myocardial infarction Plan NSTEMI -Elevated troponin noted in the setting of acute COPD exacerbation. -Patient does endorse chest pain and worsening shortness of breath since yesterday -EKG is negative for acute ischemic changes -Troponin 0.02, 0.04, 0.08 -Echocardiogram shows a normal ejection fraction with no wall motion abnormalities -Given patient's elevated troponin, chest pain and multiple risk factors we will proceed with left heart catheterization for further evaluation of coronary artery disease once patient is stable from a respiratory standpoint. Anticipate left heart catheterization tomorrow. -Start Lovenox 1 mg/kg twice daily -Will load with Plavix 300 mg x 1 and then 75 mg daily -Will load patient with aspirin 324 x 1 and then 81 mg daily -Increase bisoprolol to 5 mg p.o. daily -Continue statin COPD exacerbation Dyspnea -Pulmonology is following, concern for COPD exacerbation -Chest x-ray is negative for acute cardiopulmonary process. -Pulmonology is following History of A-fib status post ablation Chadsvasc score 3 -Patient reports he had an ablation 2 to 3 years ago at [facility] and has been in normal sinus since to his knowledge. -Currently normal sinus rhythm -Patient reports he only takes an aspirin. will discuss DOAC with patient. -Increase bisoprolol to 5 mg daily Hypertension -Continue bisoprolol 5 mg mg p.o. daily DVT summary 05/16/2023: We will proceed with left heart catheterization after respiratory status has improved. Anticipate left heart catheterization tomorrow.
[2023-05-16] MEDS: BISOPROLOL 5MG TABLET 5 MG PO (14:42)
[2023-05-16] MEDS: predniSONE 20MG TAB 40 MG PO (14:43)
[2023-05-16] MEDS: ASPIRIN 81MG CHEWABLE TABLET 324 MG PO (14:44)
[2023-05-16] MEDS: ENOXAPARIN 100MG/ML SYRINGE 85 MG SQ (14:44)
[2023-05-16] MEDS: CLOPIDOGREL 300MG TABLET 300 MG PO (14:47)
--- NOTE | 2023-05-16 17:22 | PC.NURSE ---
Patient on 2LNC, stated he couldn't breath and oxygen was 86%. Patient stated he wanted his bipap back on. Respiratory in the room and stated he could have it for a minute to recover. Patient educated later why he needed to use nasal cannula instead of bipap. Ativan given for anxiety with relief noted. VS stable.
--- NOTE | 2023-05-16 17:29 | EXP.PN ---
Subjective *Date: 05/16/23 *Time: 17:29 Interval history: patient is seen at bedside, he is on BIPAP, he is in respiratory distress, family is at bedside, patient is responding to questions appropriately Exam Data for Last 24 hours Vital signs and Labs for Last 24 Hours: Temp Pulse Resp BP Pulse Ox O2 Del Method O2 Flow Rate 97.5 F L 99 H 23 165/86 H 93 L Nasal Cannula 2 05/16/23 16:00 05/16/23 16:00 05/16/23 16:00 05/16/23 16:00 05/16/23 16:00 05/16/23 17:05 05/16/23 17:05 FiO2 50 05/16/23 06:08 Laboratory Results - last 24 hr 05/15/23 19:10: WBC 7.5, RBC 4.62, Hgb 15.0, Hct 46.4, MCV 100.6 H, MCH 32.5 H, MCHC 32.3, RDW 13.2, Plt Count 226, MPV 7.4, Neut % (Auto) 70.6, Lymph % (Auto) 18.8, [place] % (Auto) 5.8, Eos % (Auto) 4.1, Baso % (Auto) 0.6, Neut # (Auto) 5.3, Lymph # (Auto) 1.4, [place] # (Auto) 0.4, Eos # (Auto) 0.3, Baso # (Auto) 0.1, Sodium 137, Potassium 4.8, Chloride 100, Carbon Dioxide 35 H, Anion Gap 6.8, BUN 20, Creatinine 0.80, Estimated GFR 93, Est GFR ( Amer) 113, Glucose 116 H, Calcium 9.3, Magnesium 2.1, Total Bilirubin 0.6, AST 45, ALT 21, Alkaline Phosphatase 96, Troponin I < 0.01, NT-Pro-B Natriuret Pep 190, Total Protein 7.1, Albumin 4.2, Globulin 2.9, Albumin/Globulin Ratio 1.4 05/15/23 20:12: SARS-CoV-2 (PCR) Not detected, Influenza A Untype (PCR) Not detected, Influenza Type B (PCR) Not detected 05/15/23 20:37: VBG pH 7.33, VBG pCO2 59.4 H, VBG pO2 30.9, VBG HCO3 30.3 H, VBG Total CO2 32.2 H, VBG O2 Saturation 60.3, VBG Base Excess 4.3 H, VBG Lactic Acid 1.9 05/15/23 21:49: VBG pH 7.35, VBG pCO2 57.5 H, VBG pO2 50.9 H, VBG HCO3 31.0 H, VBG Total CO2 32.8 H, VBG O2 Saturation 86.7 H, VBG Base Excess 5.4 H 05/15/23 22:25: VBG Lactic Acid 2.1 H 05/15/23 23:00: Troponin I 0.04 H 05/16/23 01:55: Troponin I 0.08 H 05/16/23 03:02: VBG Lactic Acid 1.9 05/16/23 05:47: WBC 5.5 D, RBC 4.54 L, Hgb 14.5, Hct 46.2, MCV 101.8 H, MCH 32.0 H, MCHC 31.5 L, RDW 13.2, Plt Count 204, MPV 7.6, Neut % (Auto) 91.6 H, Lymph % (Auto) 6.4 L, [place] % (Auto) 1.7, Eos % (Auto) 0.1, Baso % (Auto) 0.2, Neut # (Auto) 5.0, Lymph # (Auto) 0.4 L, [place] # (Auto) 0.1, Eos # (Auto) 0.0, Baso # (Auto) 0.0, Total Counted 100, Neutrophils % (Manual) 87 H, Lymphocytes % (Manual) 12, Monocytes % (Manual) 1 L, Platelet Estimate Normal, Macrocytosis 1+, Sodium 138, Potassium 4.6, Chloride 97 L, Carbon Dioxide 36 H, Anion Gap 9.6, BUN 19, Creatinine 0.70, Estimated Creat Clear 71, Estimated GFR 109, Est GFR ( Amer) 132, Glucose 157 H D, Calcium 9.3, Magnesium 2.5 H D, Total Bilirubin 0.5, AST 41, ALT 27 D, Alkaline Phosphatase 81, Total Protein 7.2, Albumin 4.3, Globulin 2.9, Albumin/Globulin Ratio 1.5 05/16/23 06:00: Specimen Source R brachial, O2 % 50%, ABG pH 7.37, ABG pCO2 54.2 H, ABG pO2 123.6 H, ABG HCO3 30.5 H, ABG Total CO2 32.2 H, ABG O2 Saturation 99, ABG Base Excess 5.2 H, Tidal Volume 13/6 I & O for Last 24 hours: Intake & Output 05/13/23 05/14/23 05/15/23 05/16/23 23:59 23:59 23:59 23:59 Intake Total 150 / 150 Output Total 0 / 0 Balance 150 / 150 Weight 83.5 kg 83.5 kg Constitutional Constitutional: no acute distress *Routine HEENT Exam Head: Present normocephalic Eye: Present EOMI and PERRL ENT: Present mucous membranes moist *Routine Neck Exam Neck: Present supple; Absent lymphadenopathy *Routine Respiratory Exam Respiratory: Present prolonged expiratory phase, wheezes, distant breath sounds and diminished air movement *Routine Cardiovascular Exam Cardiovascular: Present RRR *Routine Abdominal Exam Abdominal: Present soft and normoactive bowel sounds; Absent tenderness *Routine Extremities Exam Extremities: Absent cyanosis, clubbing or edema *Routine Skin Exam Skin: Present warm; Absent rash *Routine Neurological Exam Neurological: Present alert and oriented X3 Assessment and Plan *Assessment and plan (1) Acute exacerbation of chronic obstructive airways disease: Status: Chronic Category: Medical Code(s): J44.1 - Chronic obstructive pulmonary disease with (acute) exacerbation (2) Acute respiratory failure with hypoxia: Status: Chronic Category: Medical Code(s): J96.01 - Acute respiratory failure with hypoxia (3) Pulmonary emphysema: Status: Chronic Qualifiers: Emphysema type: unspecified Qualified Code(s): J43.9 - Emphysema, unspecified Category: Medical Code(s): J43.9 - Emphysema, unspecified (4) History of atrial fibrillation: Status: Acute Category: Medical Code(s): Z86.79 - Personal history of other diseases of the circulatory system (5) Hypertension: Status: Acute Qualifiers: Hypertension type: unspecified Qualified Code(s): I10 - Essential (primary) hypertension Category: Medical Code(s): I10 - Essential (primary) hypertension (6) HLD (hyperlipidemia): Status: Acute Qualifiers: Hyperlipidemia type: unspecified Qualified Code(s): E78.5 - Hyperlipidemia, unspecified Category: Medical Code(s): E78.5 - Hyperlipidemia, unspecified (7) Ex-smoker: Status: Chronic Category: Social Hx Code(s): Z87.891 - Personal history of nicotine dependence Plan 78-year-old male with PMHx significant for GERD, atrial fibrillation s/p ablation, HLD, HTN, COPD/emphysema, presents today for evaluation concerning shortness of breath and left-sided chest pain that has been intermittent over the past couple of days. on arrival Chest x-ray did not show any acute cardiopulmonary disease process. Imaging reviewed. Radiology report confirmed. His lab workup today has been remarkable for a VBG with initial pCO2 of 59.4. pH of 7.3. Negative troponin and BNP. Negative COVID and influenza swab. Patient was given 3 DuoNeb treatments while in the ED and was also given IV magnesium to assist. He was also placed on BiPAP to assist with his breathing. Acute on chronic hypoxic and hypercapnic respiratory failure: continue Duonebs, wean BIPAP continue Levaquin DuoNeb every 6h Pulmonary following Chest pain, elevated troponin - monitor troponin - consulted cardiology, plan for cath tomorrow, started on lovenox Other chronic conditions: History of A-fib, currently on sinus rhythm. Continue panel monitor On aspirin Hypertension hyperlipidemia Resume home meds -former smoker. recent quitting. presented with anxiety 1mg ativan given IV to help tolerated BIPAP. cont 05mg q6h for agitation nicotine PRN Lovenox for DVT ppx. on Protonix Full code Plan for cath potentially tomorrow, continue to wean down o2 needs
[2023-05-16] MEDS: BUDESONIDE 0.5MG/2ML NEB 0.5 MG IH (18:50)
[2023-05-16] MEDS: LEVOFLOXACIN/D5W 750 MG/150 ML 750 MG/150 ML PIGGYBACK 100 MG IV (20:06)
[2023-05-16] MEDS: ATORVASTATIN 40MG TABLET 40 MG PO (20:07)
[2023-05-16] MEDS: 0.9 % SODIUM CHLORIDE 1000ML 1,000 ML 50 ML IV (20:13)
--- NOTE | 2023-05-16 21:04 | PC.NURSE ---
ROOM AIR SAT 84% Pt placed back on 2LNC and sat was 87%. Pt was then placed on 4LNC sat was 91%
[2023-05-17] VITALS (27 sets, daily range): BP systolic 92–204; BP diastolic 53–104; PULSE 56–96; RESP 14–26; TEMP 36.3–36.9; O2SAT 90–100; BMI 24.9
[2023-05-17] MEDS: LORazepam 2MG/ML VIAL 0.5 MG IV (00:02)
[2023-05-17] MEDS: IPRATROPIUM/ALBUTEROL 3 ML NEB IH ×4 (01:16→10:11)
[2023-05-17] MEDS: HYDRALAZINE 20MG/ML VIAL 10 MG IV (01:18)
[2023-05-17] MEDS: ENOXAPARIN 100MG/ML SYRINGE 85 MG SQ ×2 (01:19→14:03)
--- NOTE | 2023-05-17 01:38 | XR_ITS ---
PROCEDURE INFORMATION: Exam: XR Chest Exam date and time: 05/17/2023 1:45 AM Age: 78 years old Clinical indication: Other: Low sat TECHNIQUE: Imaging protocol: Radiologic exam of the chest. Views: 1 view. COMPARISON: CR XR CHEST PORTABLE 02/05/2024 19:35 FINDINGS: Lungs: Portions of the left lung are collapsed. Patchy peripheral bilateral ground-glass pulmonary opacities are either new or more conspicuous than on prior studies. Bibasilar atelectasis. Stigmata of old granulomatous disease. Pleural spaces: There is a left pneumothorax that is at least moderate in size, possibly large. Heart/Mediastinum: Unremarkable. No cardiomegaly. Vasculature: Vascular calcifications. Bones/joints: Unremarkable. IMPRESSION: 1. There is a left pneumothorax that is at least moderate in size, possibly large. There is a follow-up chest radiograph demonstrating left chest tube placement at time of dictation. 2. Patchy peripheral bilateral ground-glass pulmonary opacities are either new or more conspicuous than on prior studies. This could be chronic scarring, however, atypical infection is possible in the appropriate clinical setting.
[2023-05-17] MEDS: FUROSEMIDE 100MG/10ML VIAL 80 MG IV (01:44)
[2023-05-17] MEDS: METHYLPREDNISOLONE SOD SUCC 125MG VIAL 80 MG IV (02:07)
--- NOTE | 2023-05-17 02:23 | PC.NURSE ---
SPOKE WITH PHARMACY REGARDING MAG 4 GRAM OVER 20 MINUTES. STATES 4 GM TO BE GIVEN OVER 2 HOURS.
--- NOTE | 2023-05-17 02:39 | XR_ITS ---
PROCEDURE INFORMATION: Exam: XR Chest Exam date and time: 05/17/2023 2:45 AM Age: 78 years old Clinical indication: Device placement; Chest tube; Additional info: Ches tube placment TECHNIQUE: Imaging protocol: Radiologic exam of the chest. Views: 1 view. COMPARISON: CR XR CHEST PORTABLE 17/05/2023 01:45 FINDINGS: Tubes, catheters and devices: Left chest tube pigtail projects over the left mid hemithorax. Lungs: Bibasilar atelectasis. Peripheral pulmonary opacities seen on prior study are resolved and likely represented artifact. Stigmata of old granulomatous disease. Pleural spaces: Significant interval decrease in size of the left pneumothorax, which is now small. Heart/Mediastinum: Unremarkable. No cardiomegaly. Vasculature: Vascular calcifications. Bones/joints: Unremarkable. IMPRESSION: 1. Left chest tube pigtail projects over the left mid hemithorax. 2. Significant interval decrease in size of the left pneumothorax, which is now small. 3. Peripheral pulmonary opacities seen on prior study are resolved and likely represented artifact.
--- NOTE | 2023-05-17 02:41 | EXP.RR ---
Acute Rapid Response Note Subjective Date Responded: 05/24/23 Time Responded: 02:00 Provider Note: patient on severe 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 low sat in the 80's. little alter on and off. Objective Findings: Vital Signs - Last 4 Hours Temperature 98.4 F 05/17/23 00:00 Temperature Source Axillary 05/17/23 00:00 Pulse Rate 89 05/17/23 00:00 Respiratory Rate 19 05/17/23 00:00 Blood Pressure 178/74 H 05/17/23 00:00 Blood Pressure Mean 108 05/17/23 00:00 Blood Pressure Source Automatic Cuff 05/17/23 00:00 Blood Pressure Position Supine 05/16/23 16:00 02 Sat by Pulse Oximetry 91 L 05/17/23 00:00 Oxygen Delivery Method Nasal Cannula 05/17/23 00:00 Oxygen Flow Rate (LPM) 4 05/17/23 00:00 My Orders Category Date Time Status CXR --portable [XR chest portable] Stat Exams 05/17/23 01:38 Taken CXR --portable [XR chest portable] Stat Exams 05/17/23 02:39 Ordered Calcium Gluconate [Calcium Gluconate 1gm/10mL (10%) Med 05/17/23 02:00 Ordered Vial] 1,000 mg IVP ONCE PRN Furosemide [Lasix 100mg/10mL vial] Med 05/17/23 01:38 Once 80 mg IV ONCE ONE Furosemide [Lasix 40mg tablet] Med 05/17/23 09:00 Ordered 40 mg PO DAILY Hydralazine HCl [Apresoline 20mg/mL 1mL vial] Med 05/17/23 01:14 Ordered 10 mg IV Q6HP PRN LORazepam [Ativan 2mg/mL vial] Med 05/16/23 23:58 Ordered 0.5 mg IV Q4HP PRN Levofloxacin/D5w 750 mg/150 ml [Levofloxacin 750mg/ Med 05/16/23 21:00 Active 150mL premix] 750 mg in 150 ml IV Q24H Magnesium Sulfate in Water [Magnesium Sulfate 4gm/50mL Med 05/17/23 02:01 Ordered Premix] 4 gm in 50 ml IV ONCE Methylprednisolone Sod Succ/Pf [Solu-Medrol 125mg/2mL Med 05/17/23 02:00 Once vial] 80 mg IV ONCE ONE VBG [Venous Blood Gas] Stat RT 05/17/23 02:05 Ordered Radiology Findings #1: Xray Reviewed: Chest Image Reviewed: Yes I reviewed the patient's radiology image w/the ED provider ED XR Results: Abnormal XR Narrative: left side pneumothorax Rapid Response Exam General General appearance: alert, anxious, obtunded and in distress Head Head exam: atraumatic and normocephalic Eye Eye exam: Present normal appearance, PERRL and EOMI ENT ENT exam: Present normal exam Neck Neck exam: Present normal inspection Chest Chest inspection: Absent symmetric chest wall rise Respiratory Respiratory exam: Present respiratory distress; Absent normal lung sounds bilaterally Cardiovascular Cardiovascular exam: Present regular rate, normal rhythm and tachycardia Abdominal Exam Abdominal exam: Present soft and normal bowel sounds exam: Present other Extremities Exam Extremities exam: Present other Neurological Exam Neurological exam: Present alert Expanded Neurological Exam Patient oriented to: Present person Coma scale eye opening: Spontaneous Coma scale motor response: Obeys commands Coma scale verbal response: Incomprehensible Coma scale total: 12 Psychiatric Psychiatric exam: Present agitated Skin Skin exam: Present warm and dry RR Procedures/Assess/Plan Additional Bedside Procedures NG tube insertion: No Montoya catheter insert: Yes Arterial blood draw: Yes Other: VBG chest tube insertion (1) Pneumothorax on left: Status: Acute (2) Acute exacerbation of chronic obstructive airways disease: Status: Chronic (3) Acute respiratory failure with hypoxia: Status: Chronic (4) Pulmonary emphysema: Status: Chronic Qualifiers: Emphysema type: unspecified Qualified Code(s): J43.9 - Emphysema, unspecified (5) History of atrial fibrillation: Status: Acute (6) Hypertension: Status: Acute Qualifiers: Hypertension type: unspecified Qualified Code(s): I10 - Essential (primary) hypertension (7) HLD (hyperlipidemia): Status: Acute Qualifiers: Hyperlipidemia type: unspecified Qualified Code(s): E78.5 - Hyperlipidemia, unspecified (8) Ex-smoker: Status: Chronic Assessment and plan all Dx Assessment and Plan for all problems:: 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 hyperventilating. VBG ordered CO2 74. CXR ordered . concerning for left side pneumothorax. ED provider to insert chest tube. water sealed pulmo consulted. repeat blood gas at 06:00 family expressed concern about Entubation and mechanical vent. patient currently hemodynamically stable. on 50% Fio2 venti mask.
--- NOTE | 2023-05-17 03:00 | PC.NURSE ---
03:00- per ERNESTINE Mckeon hold Mag 4gm and give 2mg over 1 hr. Order for Mag 4gm cancelled and provider ordered Mag 2gm per MAY.
--- NOTE | 2023-05-17 03:03 | HMH.PROCNOTE ---
[facility] Procedure Note Date: 05/17/23 Time: 02:00 Procedure Note:: I was consulted by the hospitalist just before 2:00 in the morning 05/17/23 with concern for spontaneous left-sided pneumothorax in a patient admitted for respiratory failure in the setting of COPD exacerbation. I independently interpreted x-ray prior to radiology read and noted that he had a moderate to large left-sided pneumothorax. Upon my initial assessment, the patient was in respiratory distress with increased work of breathing and oxygen saturation in the low 90s on a nonrebreather. He was hemodynamically stable with heart rate in the 90s and hypertension. Decision was made at that time to place a pigtail catheter in the patient's left chest after informed consent was obtained from the patient's . Operation/Procedure: left chest tube thoracostomy Consent for operation or procedure: The risks, benefits, indications, potential complications, and alternatives were explained to the patient and informed consent obtained. Anesthesia: 10cc of Lidocaine Indications: pneumothorax The chest from the nipple to the posterior axillary line was prepped in a sterile fashion. The field was draped with sterile towels. Lidocaine was administered at the site. An 11 blade scalpel was used to make a small horizontal incision at the mid-axillary line nipple. Safety centesis catheter was then introduced into the left chest wall until air was drawn into the syringe. At this point, catheter was advanced over the needle using Seldinger technique. Chest tube was connected to wall suction at 20 centimeters via a Pleur-evac system. Complications: The patient tolerated the procedure well and no complications were noted. Estimated Blood Loss: <20cc Plan: Chest Tube to suction After the procedure, he had improvement in his oxygenation and respiratory efforts. Placement was confirmed with stat chest x-ray, which was independently interpreted by myself. Patient had reexpansion of his left lung with catheter in place. Catheter was sutured in place and sterile dressing with Vaseline gauze, 4 x 4's, and tape was applied. Patient was in stable condition with overall improvement in his clinical condition at my time of departure.
[2023-05-17] MEDS: MAGNESIUM SULFATE IN WATER 2 GM/50 ML PIGGYBACK IV (03:35)
[2023-05-17 03:54] LABS: VBG Base Excess 2.2 mmol/L (-2.4-2.3); VBG Oxygen Saturation 71.2 % (50-70); VBG PCO2 74.9 mmol/L (35-51); VBG PH 7.22 mmol/L (7.31-7.41); VBG PO2 40.1 mmol/L (28-40); VBG Total CO2 32.3 mmol/L (23-27)
[2023-05-17 03:54] LABS: Basophils % 0.2 % (0.1-2.0); Eosinophils % 0.2 % (0.1-12.0); Hematocrit 49.2 % (42.0-52.0); Hemoglobin 15.3 g/dL (14.1-18.0); Lymphocytes # 0.3 K/mm3 (0.7-4.5); Lymphocytes % 2.3 % (10-50); Mean Corpuscular Hemoglobin 31.9 pg (27.0-31.2); Mean Corpuscular Volume 102.8 fl (80-94); Mean Platelet Volume 7.8 fl (7.4-10.4); Monocytes # 0.6 K/mm3 (0.1-1.0); Monocytes % 5.1 % (1.7-9.3); Neutrophils # 10.9 K/mm3 (1.8-7.8); Neutrophils % 92.1 % (37.0-80.0); Platelet Count 249 K/mm3 (142-424); Red Blood Count 4.79 M/mm3 (4.60-6.20); White Blood Count 11.8 K/mm3 (4.8-10.8)
[2023-05-17 03:56] LABS: MANUAL DIFFERENTIAL MANUAL DIFFERENTIAL (MANUAL DIFF)
[2023-05-17 03:58] LABS: Lactate Venous 3.3 mmol/L (0.4-2.0)
[2023-05-17 03:59] LABS: Chloride 96 mmol/L (98-107); Potassium 4.3 mmoL/L (3.5-5.1); Sodium 136 mmol/L (136-145)
[2023-05-17 03:59] LABS: Lactate Venous 1.7 mmol/L (0.4-2.0); VBG Base Excess 3.6 mmol/L (-2.4-2.3); VBG Oxygen Saturation 91.2 % (50-70); VBG PCO2 74.1 mmol/L (35-51); VBG PH 7.24 mmol/L (7.31-7.41); VBG PO2 68.3 mmol/L (28-40); VBG Total CO2 33.2 mmol/L (23-27)
[2023-05-17 04:01] LABS: Alanine Aminotransferase 39 U/L (12-78); Aspartate Amino Transferase 52 U/L (17-59); Blood Urea Nitrogen 19 mg/dl (9-20); Creatinine Clearance Estimated 71 mL/min (50-200); Estimated Glomerular Filt Rate 109 ml/min (>60); GFR (African American) 132 ML/MIN (>60)
[2023-05-17 04:02] LABS: Albumin Level 4.3 g/dl (3.5-5.0); Albumin/Globulin Ratio 1.5 (1.1-1.8); Alkaline Phosphatase 90 U/L (38-126); Anion Gap 8.3 mEq/L (5-15); Bilirubin,Total 0.6 mg/dl (0.2-1.3); Calcium 8.9 mg/dl (8.4-10.2); Carbon Dioxide 36 mmol/L (22.0-30.0); Globulin 2.9 g/dL (1.3-3.2); Glucose 165 mg/dl (74-100); Total Protein,Serum 7.2 g/dl (6.3-8.2)
[2023-05-17 04:10] LABS: Lymphocytes % 3 % (10-50); Macrocytosis 3+; Monocytes % 3 % (2-9); Neutrophils % 94 % (42-76); Platelet Estimate Normal; Total Cells Counted 100
--- NOTE | 2023-05-17 05:15 | XR_ITS ---
PROCEDURE INFORMATION: Exam: XR Chest Exam date and time: 05/17/2023 5:10 AM Age: 78 years old Clinical indication: Device placement; Chest tube; Additional info: 1 hour after bipap placed on patient -per annangi TECHNIQUE: Imaging protocol: Radiologic exam of the chest. Views: 1 view. COMPARISON: CR XR CHEST PORTABLE 05/17/2023 2:45 AM FINDINGS: Tubes, catheters and devices: There is a left-sided chest tube again seen. Lungs: There is minimal bibasilar scarring/atelectasis. Pleural spaces: There is a small stable left apical pneumothorax. Heart/Mediastinum: Unremarkable. No cardiomegaly. Bones/joints: Unremarkable. IMPRESSION: Small stable left apical pneumothorax.
[2023-05-17] MEDS: MORPHINE 2MG/ML SYRINGE 2 MG IV ×5 (05:33→21:19)
--- NOTE | 2023-05-17 05:48 | PC.NURSE ---
02:00- patient started to shows signs of confusion and restlessness. B/P was increased and O2 was dropping into low 80's on 4L NC. RT placed patient on Venti mask 15L and 50% and patient was tolerating O2. Patient started to show more signs of confusion and respiratory distress called ERNESTINE Mckeon and he came to bedside. Ordered chest x-ray that showed portions of left lung collapsed. , Vicky signed consent form. , ED physician came to bedside and placed left chest tube. Patient's O2 maintained 97-99%, B/P improved. Montoya was inserted at this time. RT notified that ordered blood gas to be collected, and ordered patient to be placed on bi-pap. 06:00-At this time patient is resting comfortably in bed. Left chest tube in place to low wall suction. Montoya draining clear urine. Bi-pap on patient with O2 sat 98-100%. Spouse remains at bedside. Call light within reach.
[2023-05-17] MEDS: BUDESONIDE 0.5MG/2ML NEB 0.5 MG IH ×2 (06:39→18:25)
[2023-05-17 08:00] LABS: Reflex Lactic Add Lactic Reflex
[2023-05-17 08:31] LABS: Lactic Acid Follow Up (RFLX 1) 1.9 mmol/L (0.7-2.1)
--- NOTE | 2023-05-17 09:59 | P.PN_ITS ---
Subjective *Date: 05/17/23 *Time: 13:30 Interval history: Significant respiratory events overnight. Worsening hypercarbic respiratory failure pneumothorax status post pigtail catheter placement. Pulmonology Exam Inpatient Vital signs and Labs for Last 24 Hours: Temp Pulse Resp BP Pulse Ox O2 Del Method O2 Flow Rate 97.6 F 68 26 H 107/53 L 100 BiPAP 15 05/17/23 08:00 05/17/23 08:00 05/17/23 08:00 05/17/23 08:00 05/17/23 08:00 05/17/23 08:59 05/17/23 03:00 FiO2 50 05/17/23 04:17 Laboratory Results - last 24 hr 05/17/23 02:05: VBG pH 7.24 L, VBG pCO2 74.1 H, VBG pO2 68.3 H, VBG HCO3 31.0 H, VBG Total CO2 33.2 H, VBG O2 Saturation 91.2 H, VBG Base Excess 3.6 H, VBG Lactic Acid 1.7 05/17/23 03:45: WBC 11.8 H D, RBC 4.79, Hgb 15.3, Hct 49.2, MCV 102.8 H, MCH 31.9 H, MCHC 31.0 L, RDW 13.0, Plt Count 249, MPV 7.8, Neut % (Auto) 92.1 H, Lymph % (Auto) 2.3 L, [place] % (Auto) 5.1, Eos % (Auto) 0.2, Baso % (Auto) 0.2, Neut # (Auto) 10.9 H, Lymph # (Auto) 0.3 L, [place] # (Auto) 0.6, Eos # (Auto) 0.0, Baso # (Auto) 0.0, Total Counted 100, Neutrophils % (Manual) 94 H, Lymphocytes % (Manual) 3 L, Monocytes % (Manual) 3, Platelet Estimate Normal, Macrocytosis 3+, Sodium 136, Potassium 4.3, Chloride 96 L, Carbon Dioxide 36 H, Anion Gap 8.3, BUN 19, Creatinine 0.70, Estimated Creat Clear 71, Estimated GFR 109, Est GFR ( Amer) 132, Glucose 165 H, Calcium 8.9, Total Bilirubin 0.6, AST 52 D, ALT 39 D, Alkaline Phosphatase 90, Total Protein 7.2, Albumin 4.3, Globulin 2.9, Albumin/Globulin Ratio 1.5 05/17/23 04:00: VBG pH 7.22 L, VBG pCO2 74.9 H, VBG pO2 40.1 H, VBG HCO3 30.0, VBG Total CO2 32.3 H, VBG O2 Saturation 71.2 H, VBG Base Excess 2.2, VBG Lactic Acid 3.3 H 05/17/23 08:14: Lactate 1.9 I & O for Labs for Last 24 Hours: Intake & Output 05/14/23 05/15/23 05/16/23 05/17/23 23:59 23:59 23:59 23:59 Intake Total 150 / 300 150 / 150 Output Total 0 / 0 800 / 800 Balance 150 / 300 -650 / -650 Weight 184 lb 1.376 oz 184 lb 1.376 oz 184 lb 1.376 oz Constitutional: Present severe distress Head: Present normocephalic and atraumatic ENT: Present normal exam, normal oropharynx and mucous membranes moist Neck: Present normal inspection and full ROM Respiratory: Present respiratory distress, wheezes and diminished air movement; Absent able to speak in complete sentences Comment:: Left pigtail catheter in place connected to suction Cardiac: Present S1/S2, Tachycardia and radial pulses present GI: Present soft and distention; Absent tenderness or guarding Skin: Present intact; Absent cyanosis or jaundice Neuro: Present alert, awake and oriented x 3 Extremities: Present normal inspection; Absent clubbing or cyanosis Psychiatric: Present normal affect and cooperative Assessment and Plan *Assessment and plan (1) COPD exacerbation: Status: Acute Category: Medical Code(s): J44.1 - Chronic obstructive pulmonary disease with (acute) exacerbation (2) Acute and chronic respiratory failure with hypoxia: Status: Acute Category: Medical Code(s): J96.21 - Acute and chronic respiratory failure with hypoxia (3) Pneumothorax on left: Status: Acute Category: Medical Code(s): J93.9 - Pneumothorax, unspecified (4) Acute hypercapnic respiratory failure: Status: Acute Category: Medical Code(s): J96.02 - Acute respiratory failure with hypercapnia Plan Mr. Miller is a 78-year-old male greater than [id number] smoking history, COPD, chronic hypoxic respiratory failure presented today with worsening respiratory distress increasing oxygen commands and pulmonary was called for further evaluation and management. Patient admits worsening respiratory status yesterday and called EMS. He denies any associated worsening subjective cough or worsening productive phlegm. Afebrile. No evidence of neutrophilic leukocytosis. VBG upon admission on 50% FiO2 did not show any significant evidence of hypoxic/hypercarbic respiratory failure. Chest x-ray upon admission hyperinflated lungs. Vascular congestion. No significant dense groundglass/airspace disease except for opacity in the right lower lobe pleural surface. Patient on admission was initiated on levofloxacin and nebulization therapies. On initial examination patient appeared to be in severe 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 On BiPAP. Weaned to nasal cannula. Decreased breath sounds in bilateral lung oleary. Interval update: Acute respiratory vents overnight. Worsening hypoxia and hypercarbic respiratory failure. Chest x-ray for pneumothorax status post pigtail catheter placement with reexpansion lung. Patient was also initiated BiPAP secondary to worsening hypercarbic respiratory failure. Patient clinical status is very critical in the setting of pneumothorax and worsening hypercarbic respiratory failure needing positive pressure ventilatory support. Will closely monitor. Plan: Continue left pigtail catheter to suction at -40. Repeat chest x-ray in 2 hours. Continue BiPAP therapy at 20/10 and a rate of 22 on FiO2 40%. Repeat ABG in 4 hours. DuoNebs every 4 hours scheduled and Pulmicort every 12 scheduled Continue levofloxacin 750 mg daily x 5 days pending culture results Prednisone 40 mg daily x 5 days Total critical care time spent on this patient is 35 minutes managing acute hypoxic respiratory failure needing NIV therapy BIPAP. This time spent include reviewing test results including interpreting chest x-rays, labs and arterial blood gas, optimizing the BIPAP settings ,formulating plan of care, discussing the plan of care with the team and the nursing staff.
[2023-05-17] MEDS: ASPIRIN EC 81MG TABLET 81 MG PO (10:00)
[2023-05-17] MEDS: predniSONE 20MG TAB 40 MG PO (10:00)
[2023-05-17] MEDS: FUROSEMIDE 40 MG TABLET PO (10:00)
[2023-05-17] MEDS: CLOPIDOGREL 75MG TAB 75 MG PO (10:01)
[2023-05-17] MEDS: PANTOPRAZOLE 40MG TABLET 40 MG PO (10:01)
[2023-05-17] MEDS: BISOPROLOL 5MG TABLET 5 MG PO (10:02)
[2023-05-17 10:22] LABS: VBG Base Excess 5.8 mmol/L (-2.4-2.3); VBG HCO3 32.5 mmol/L (23-30); VBG Oxygen Saturation 61.8 % (50-70); VBG PCO2 70.2 mmol/L (35-51); VBG PH 7.28 mmol/L (7.31-7.41); VBG PO2 32.1 mmol/L (28-40); VBG Total CO2 34.6 mmol/L (23-27)
[2023-05-17 10:23] LABS: Lactate Venous 2.5 mmol/L (0.4-2.0)
--- NOTE | 2023-05-17 11:52 | EXP.CARD.PN ---
Subjective Subjective Date: 05/17/23 Time: 08:00 Principal diagnosis: Acute on chronic hypoxic respiratory failure, COPD exacerbation Interval history: Acute respiratory events overnight with worsening hypoxic and hypercarbic respiratory failure. Chest x-ray showed a pneumothorax and patient is status post pigtail catheter placement with 3 reexpansion of the lung. Patient is currently on BiPAP. Morning labs reviewed Exam Data for Last 24 hours Vital signs and Labs for Last 24 Hours: Temp Pulse Resp BP Pulse Ox O2 Del Method O2 Flow Rate 97.4 F L 81 26 H 92/70 L 97 BiPAP 15 05/17/23 11:46 05/17/23 10:52 05/17/23 10:52 05/17/23 10:52 05/17/23 10:52 05/17/23 11:05 05/17/23 03:00 FiO2 50 05/17/23 10:14 Laboratory Results - last 24 hr 05/17/23 02:05: VBG pH 7.24 L, VBG pCO2 74.1 H, VBG pO2 68.3 H, VBG HCO3 31.0 H, VBG Total CO2 33.2 H, VBG O2 Saturation 91.2 H, VBG Base Excess 3.6 H, VBG Lactic Acid 1.7 05/17/23 03:45: WBC 11.8 H D, RBC 4.79, Hgb 15.3, Hct 49.2, MCV 102.8 H, MCH 31.9 H, MCHC 31.0 L, RDW 13.0, Plt Count 249, MPV 7.8, Neut % (Auto) 92.1 H, Lymph % (Auto) 2.3 L, [place] % (Auto) 5.1, Eos % (Auto) 0.2, Baso % (Auto) 0.2, Neut # (Auto) 10.9 H, Lymph # (Auto) 0.3 L, [place] # (Auto) 0.6, Eos # (Auto) 0.0, Baso # (Auto) 0.0, Total Counted 100, Neutrophils % (Manual) 94 H, Lymphocytes % (Manual) 3 L, Monocytes % (Manual) 3, Platelet Estimate Normal, Macrocytosis 3+, Sodium 136, Potassium 4.3, Chloride 96 L, Carbon Dioxide 36 H, Anion Gap 8.3, BUN 19, Creatinine 0.70, Estimated Creat Clear 71, Estimated GFR 109, Est GFR ( Amer) 132, Glucose 165 H, Calcium 8.9, Total Bilirubin 0.6, AST 52 D, ALT 39 D, Alkaline Phosphatase 90, Total Protein 7.2, Albumin 4.3, Globulin 2.9, Albumin/Globulin Ratio 1.5 05/17/23 04:00: VBG pH 7.22 L, VBG pCO2 74.9 H, VBG pO2 40.1 H, VBG HCO3 30.0, VBG Total CO2 32.3 H, VBG O2 Saturation 71.2 H, VBG Base Excess 2.2, VBG Lactic Acid 3.3 H 05/17/23 08:14: Lactate 1.9 05/17/23 10:01: VBG pH 7.28 L, VBG pCO2 70.2 H, VBG pO2 32.1, VBG HCO3 32.5 H, VBG Total CO2 34.6 H, VBG O2 Saturation 61.8, VBG Base Excess 5.8 H, VBG Lactic Acid 2.5 H I & O for Last 24 hours: Intake & Output 05/14/23 05/15/23 05/16/23 05/17/23 23:59 23:59 23:59 23:59 Intake Total 150 / 300 150 / 150 Output Total 0 / 0 800 / 800 Balance 150 / 300 -650 / -650 Weight 184 lb 1.376 oz 184 lb 1.376 oz 184 lb 1.376 oz Constitutional Constitutional: no acute distress *Routine HEENT Exam Head: Present normocephalic Eye: Present EOMI and PERRL ENT: Present mucous membranes moist *Routine Neck Exam Neck: Present supple; Absent lymphadenopathy *Routine Respiratory Exam Respiratory: Present prolonged expiratory phase, distant breath sounds and diminished air movement *Routine Cardiovascular Exam Cardiovascular: Present RRR *Routine Abdominal Exam Abdominal: Present soft and normoactive bowel sounds; Absent tenderness *Routine Extremities Exam Extremities: Absent cyanosis, clubbing or edema *Routine Skin Exam Skin: Present warm; Absent rash *Routine Neurological Exam Neurological: Present alert and oriented X3 Progress Note: A&P Assessment and plan (1) COPD exacerbation: Status: Acute (2) Acute and chronic respiratory failure with hypoxia: Status: Acute Assessment and Plan Assessment and Plan for All Diagnoses:: NSTEMI -Elevated troponin noted in the setting of acute COPD exacerbation. -Patient does endorse chest pain and worsening shortness of breath since yesterday -EKG is negative for acute ischemic changes -Troponin 0.02, 0.04, 0.08 -Echocardiogram shows a normal ejection fraction with no wall motion abnormalities -Continue Lovenox 1 mg/kg twice daily -Continue Plavix 75 mg daily -Continue aspirin 81 mg daily -Continue bisoprolol to 5 mg p.o. daily -Continue statin -Given patients worsening respiratory status he is not a candidate for LHC during this admission. Will consider further ischemic evaluation on an outpatient basis. COPD exacerbation Dyspnea -Patient is status post left pneumothorax last night with a pigtail catheter in place -Pulmonology is following History of A-fib status post ablation Chadsvasc score 3 -Patient reports he had an ablation 2 to 3 years ago at [facility] and has been in normal sinus since to his knowledge. -Currently normal sinus rhythm -Patient reports he only takes an aspirin. will discuss DOAC with patient. -Continue bisoprolol to 5 mg daily Hypertension -Continue bisoprolol 5 mg mg p.o. daily CV summary: cardiology will sign off. Please have patient follow up in cardiology office in one week after dc home to further evaluate for ischemic disease. please contact service as needed.
--- NOTE | 2023-05-17 13:31 | XR_ITS ---
FINAL REPORT CLINICAL HISTORY: Pneumothorax COMPARISON: 05/17/2023 FINDINGS: SINGLE-VIEW CHEST The heart size is normal. The mediastinum is normal. Left pleural catheter is identified. There are worsening right base opacities, favor atelectasis. There is no pneumothorax. IMPRESSION: Worsening right base atelectasis. Reviewed, Interpreted and Dictated by Zion Wellington III, MD Transcribed by Oneyda Otto Authenticated and [facility]
[2023-05-17] MEDS: IPRATROPIUM BROMIDE 0.5 MG/2.5ML SOLUTION IH ×3 (14:25→22:13)
[2023-05-17] MEDS: LEVALBUTEROL 1.25MG/3ML NEB 1.25 MG IH ×3 (14:25→22:13)
--- NOTE | 2023-05-17 16:52 | P.PN_ITS ---
Subjective *Date: 05/17/23 *Time: 17:06 Interval history: patient is seen at bedside, patient is on BIPAP and has bedside chest tube Exam Data for Last 24 hours Vital signs and Labs for Last 24 Hours: Temp Pulse Resp BP Pulse Ox O2 Del Method O2 Flow Rate 97.4 F L 66 14 121/63 94 L BiPAP 15 05/17/23 11:46 05/17/23 16:00 05/17/23 16:00 05/17/23 16:00 05/17/23 16:00 05/17/23 16:00 05/17/23 03:00 FiO2 30 05/17/23 14:26 Laboratory Results - last 24 hr 05/17/23 02:05: VBG pH 7.24 L, VBG pCO2 74.1 H, VBG pO2 68.3 H, VBG HCO3 31.0 H, VBG Total CO2 33.2 H, VBG O2 Saturation 91.2 H, VBG Base Excess 3.6 H, VBG Lactic Acid 1.7 05/17/23 03:45: WBC 11.8 H D, RBC 4.79, Hgb 15.3, Hct 49.2, MCV 102.8 H, MCH 31.9 H, MCHC 31.0 L, RDW 13.0, Plt Count 249, MPV 7.8, Neut % (Auto) 92.1 H, Lymph % (Auto) 2.3 L, [place] % (Auto) 5.1, Eos % (Auto) 0.2, Baso % (Auto) 0.2, Neut # (Auto) 10.9 H, Lymph # (Auto) 0.3 L, [place] # (Auto) 0.6, Eos # (Auto) 0.0, Baso # (Auto) 0.0, Total Counted 100, Neutrophils % (Manual) 94 H, Lymphocytes % (Manual) 3 L, Monocytes % (Manual) 3, Platelet Estimate Normal, Macrocytosis 3+, Sodium 136, Potassium 4.3, Chloride 96 L, Carbon Dioxide 36 H, Anion Gap 8.3, BUN 19, Creatinine 0.70, Estimated Creat Clear 71, Estimated GFR 109, Est GFR ( Amer) 132, Glucose 165 H, Calcium 8.9, Total Bilirubin 0.6, AST 52 D, ALT 39 D, Alkaline Phosphatase 90, Total Protein 7.2, Albumin 4.3, Globulin 2.9, Albumin/Globulin Ratio 1.5 05/17/23 04:00: VBG pH 7.22 L, VBG pCO2 74.9 H, VBG pO2 40.1 H, VBG HCO3 30.0, VBG Total CO2 32.3 H, VBG O2 Saturation 71.2 H, VBG Base Excess 2.2, VBG Lactic Acid 3.3 H 05/17/23 08:14: Lactate 1.9 05/17/23 10:01: VBG pH 7.28 L, VBG pCO2 70.2 H, VBG pO2 32.1, VBG HCO3 32.5 H, VBG Total CO2 34.6 H, VBG O2 Saturation 61.8, VBG Base Excess 5.8 H, VBG Lactic Acid 2.5 H I & O for Last 24 hours: Intake & Output 05/14/23 05/15/23 05/16/23 05/17/23 23:59 23:59 23:59 23:59 Intake Total 150 / 300 150 / 150 Output Total 0 / 0 800 / 800 Balance 150 / 300 -650 / -650 Weight 83.5 kg 83.5 kg 83.5 kg Assessment and Plan *Assessment and plan (1) Acute exacerbation of chronic obstructive airways disease: Status: Chronic Category: Medical Code(s): J44.1 - Chronic obstructive pulmonary disease with (acute) exacerbation (2) Acute respiratory failure with hypoxia: Status: Chronic Category: Medical Code(s): J96.01 - Acute respiratory failure with hypoxia (3) Pulmonary emphysema: Status: Chronic Qualifiers: Emphysema type: unspecified Qualified Code(s): J43.9 - Emphysema, unspecified Category: Medical Code(s): J43.9 - Emphysema, unspecified (4) History of atrial fibrillation: Status: Acute Category: Medical Code(s): Z86.79 - Personal history of other diseases of the circulatory system (5) Hypertension: Status: Acute Qualifiers: Hypertension type: unspecified Qualified Code(s): I10 - Essential (primary) hypertension Category: Medical Code(s): I10 - Essential (primary) hypertension (6) HLD (hyperlipidemia): Status: Acute Qualifiers: Hyperlipidemia type: unspecified Qualified Code(s): E78.5 - Hyper lipidemia, unspecified Category: Medical Code(s): E78.5 - Hyperlipidemia, unspecified (7) Ex-smoker: Status: Chronic Category: Social Hx Code(s): Z87.891 - Personal history of nicotine dependence Plan 78-year-old male with PMHx significant for GERD, atrial fibrillation s/p ablation, HLD, HTN, COPD/emphysema, presents today for evaluation concerning shortness of breath and left-sided chest pain that has been intermittent over the past couple of days. on arrival Chest x-ray did not show any acute cardiopulmonary disease process. Imaging reviewed. Radiology report confirmed. His lab workup today has been remarkable for a VBG with initial pCO2 of 59.4. pH of 7.3. Negative troponin and BNP. Negative COVID and influenza swab. Patient was given 3 DuoNeb treatments while in the ED and was also given IV magnesium to assist. He was also placed on BiPAP to assist with his breathing. Acute on chronic hypoxic and hypercapnic respiratory failure: spontaneous pneumothorax continue Duonebs, wean BIPAP continue Levaquin DuoNeb every 6h Pulmonary following - Chest pain, elevated troponin - monitor troponin - consulted cardiology, per cardiology Given patients worsening respiratory status he is not a candidate for LHC during this admission. Will consider further ischemic evaluation on an outpatient basis Other chronic conditions: History of A-fib, currently on sinus rhythm. 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 recent quitting. presented with anxiety 1mg ativan given IV to help tolerated BIPAP. cont 05mg q6h for agitation nicotine PRN Lovenox for DVT ppx. on Protonix Full code continue on BIPAP
[2023-05-17 17:13] LABS: VBG Base Excess 9.1 mmol/L (-2.4-2.3); VBG HCO3 34.9 mmol/L (23-30); VBG PCO2 66.5 mmol/L (35-51); VBG PH 7.34 mmol/L (7.31-7.41); VBG PO2 41.1 mmol/L (28-40)
[2023-05-17 17:18] LABS: Lactate Venous 2.1 mmol/L (0.4-2.0)
--- NOTE | 2023-05-17 17:44 | PC.NURSE ---
Patient remained on bipap, vs stable and patient alert and oriented times 4. Lung sounds diminished bilaterally. Pain at chest tube site, relieved with morphine. No crepitus around chest tube site.
[2023-05-17] MEDS: ATORVASTATIN 40MG TABLET 40 MG PO (20:29)
[2023-05-17] MEDS: LEVOFLOXACIN/D5W 750 MG/150 ML 750 MG/150 ML PIGGYBACK 100 MG IV (20:29)
[2023-05-17 21:18] LABS: Reflex Lactic Add Lactic Reflex
[2023-05-17 22:01] LABS: Lactic Acid Follow Up (RFLX 1) 1.3 mmol/L (0.7-2.1)
[2023-05-18] VITALS (21 sets, daily range): BP systolic 113–157; BP diastolic 54–78; PULSE 54–92; RESP 18–26; TEMP 36.8–37.2; O2SAT 92–100; BMI 24.5; BMI 25.9
[2023-05-18] MEDS: MORPHINE 2MG/ML SYRINGE 2 MG IV ×2 (00:03→06:25)
[2023-05-18] MEDS: LEVALBUTEROL 1.25MG/3ML NEB 1.25 MG IH ×5 (01:33→22:36)
[2023-05-18] MEDS: IPRATROPIUM BROMIDE 0.5 MG/2.5ML SOLUTION IH ×6 (01:33→22:36)
[2023-05-18] MEDS: ENOXAPARIN 100MG/ML SYRINGE 85 MG SQ ×2 (01:35→15:12)
--- NOTE | 2023-05-18 05:13 | PC.NURSE ---
Patient has had a decent shift. Has been in pain alot this shift but the medication has helped with that. Patient was readjusted in the bed and found a comfortable position which help as well. Patient has tolerated the bipap but is eager to get it off soon. Patient has had family at the bedside at all times this shift. Patient is AxO and has a le cath in place for I&O. Chest tube is in place but has not had any drainage from it. No other issues noted this shift
[2023-05-18] MEDS: BUDESONIDE 0.5MG/2ML NEB 0.5 MG IH ×2 (06:24→18:05)
[2023-05-18] MEDS: SODIUM CHLORIDE 0.9% 25ML BAG 25 ML IV (06:33)
[2023-05-18] MEDS: PROMETHAZINE HCL 25MG/ML 1ML VIAL 25 MG IV (06:33)
[2023-05-18] MEDS: ASPIRIN EC 81MG TABLET 81 MG PO (09:42)
[2023-05-18] MEDS: PANTOPRAZOLE 40MG TABLET 40 MG PO (09:42)
[2023-05-18] MEDS: BISOPROLOL 5MG TABLET 5 MG PO (09:42)
[2023-05-18] MEDS: CLOPIDOGREL 75MG TAB 75 MG PO (09:42)
[2023-05-18] MEDS: FUROSEMIDE 40 MG TABLET PO (09:42)
[2023-05-18] MEDS: predniSONE 20MG TAB 40 MG PO (09:43)
--- NOTE | 2023-05-18 09:58 | XR_ITS ---
FINAL REPORT CLINICAL HISTORY: Pneumothorax COMPARISON: 05/17/2023 FINDINGS: SINGLE-VIEW CHEST The heart size is normal. The mediastinum is normal. Left pleural catheter is identified. There is mild bibasilar atelectasis. There is no pneumothorax. IMPRESSION: Mild bibasilar atelectasis. Reviewed, Interpreted and Dictated by Zion Wellington III, MD Transcribed by Oneyda Otto Authenticated and [facility]
--- NOTE | 2023-05-18 09:59 | EXP.PULM.PN ---
Subjective *Date: 05/18/23 *Time: 13:08 Interval history: No acute respiratory events overnight. Pulmonology Exam Inpatient Vital signs and Labs for Last 24 Hours: Temp Pulse Resp BP Pulse Ox O2 Del Method O2 Flow Rate 98.8 F 61 21 117/72 96 BiPAP 15 05/18/23 08:00 05/18/23 09:42 05/18/23 08:00 05/18/23 08:00 05/18/23 08:00 05/18/23 08:20 05/17/23 03:00 FiO2 30 05/18/23 06:20 Laboratory Results - last 24 hr 05/17/23 10:01: VBG pH 7.28 L, VBG pCO2 70.2 H, VBG pO2 32.1, VBG HCO3 32.5 H, VBG Total CO2 34.6 H, VBG O2 Saturation 61.8, VBG Base Excess 5.8 H, VBG Lactic Acid 2.5 H 05/17/23 16:14: VBG pH 7.34, VBG pCO2 66.5 H, VBG pO2 41.1 H, VBG HCO3 34.9 H, VBG Total CO2 37.0 H, VBG O2 Saturation 77.0 H, VBG Base Excess 9.1 H, VBG Lactic Acid 2.1 H 05/17/23 21:35: Lactate 1.3 I & O for Labs for Last 24 Hours: Intake & Output 05/15/23 05/16/23 05/17/23 05/18/23 23:59 23:59 23:59 23:59 Intake Total 150 / 300 150 / 150 Output Total 0 / 0 1100 / 1150 250 / 250 Balance 150 / 300 -950 / -1000 -250 / -250 Weight 184 lb 1.376 oz 184 lb 1.376 oz 184 lb 1.376 oz 191 lb 1 oz Constitutional: Present severe distress Head: Present normocephalic and atraumatic ENT: Present normal exam, normal oropharynx and mucous membranes moist Neck: Present normal inspection and full ROM Respiratory: Present respiratory distress, wheezes and diminished air movement; Absent able to speak in complete sentences Comment:: Left pigtail catheter in place connected to suction Cardiac: Present S1/S2, Tachycardia and radial pulses present GI: Present soft and distention; Absent tenderness or guarding Skin: Present intact; Absent cyanosis or jaundice Neuro: Present alert, awake and oriented x 3 Extremities: Present normal inspection; Absent clubbing or cyanosis Psychiatric: Present normal affect and cooperative Assessment and Plan *Assessment and plan (1) COPD exacerbation: Status: Acute Category: Medical Code(s): J44.1 - Chronic obstructive pulmonary disease with (acute) exacerbation (2) Acute and chronic respiratory failure with hypoxia: Status: Acute Category: Medical Code(s): J96.21 - Acute and chronic respiratory failure with hypoxia (3) Pneumothorax on left: Status: Acute Category: Medical Code(s): J93.9 - Pneumothorax, unspecified (4) Acute hypercapnic respiratory failure: Status: Acute Category: Medical Code(s): J96.02 - Acute respiratory failure with hypercapnia Plan Mr. Miller is a 78-year-old male greater than [id number] smoking history, COPD, chronic hypoxic respiratory failure presented today with worsening respiratory distress increasing oxygen commands and pulmonary was called for further evaluation and management. Patient admits worsening respiratory status yesterday and called EMS. He denies any associated worsening subjective cough or worsening productive phlegm. Afebrile. No evidence of neutrophilic leukocytosis. VBG upon admission on 50% FiO2 did not show any significant evidence of hypoxic/hypercarbic respiratory failure. Chest x-ray upon admission hyperinflated lungs. Vascular congestion. No significant dense groundglass/airspace disease except for opacity in the right lower lobe pleural surface. Patient on admission was initiated on levofloxacin and nebulization therapies. On initial examination patient appeared to be in severe 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 On BiPAP. Weaned to nasal cannula. Decreased breath sounds in bilateral lung oleary. During his hospital stay, he had pneumothorax status post left pigtail catheter placement. Also found to worsening respiratory failure needing noninvasive ventilator therapy. Chest x-rays after initiating noninvasive ventilator therapy did not show any significant worsening pneumothorax. Will closely monitoring. No acute respiratory events overnight. Admits compliance with his NIV. No significant worsening pneumothorax on chest x-ray but experienced significant bleeding from the pigtail insertion site this morning, relieved after applying pressure by bedside nursing staff for greater than 20 minutes. Repeat INR at 1.0. Within normal limits. Hemoglobin stable. Platelets within normal limits. Will closely monitor. Patient was initiated on Lovenox by cardiology for NSTEMI. Will follow. Chest x-ray from this morning did not show any significant evidence of pneumothorax. Plan: Continue left pigtail catheter to suction at -40. Continue nasal cannula oxygen supplementation to maintain O2 saturation goal of 90 to 95%. Will wean patient off noninvasive ventilator therapy at this point of time. Patient clinical status remained stable then will consider adding chest tube to waterseal/clamping before removing. DuoNebs every 4 hours scheduled and Pulmicort every 12 scheduled Continue levofloxacin 750 mg daily x 5 days pending culture results Prednisone 40 mg daily x 5 days Thank you for involving pulmonary in this patient care. Will continue to follow.
[2023-05-18 11:17] LABS: Activated Partial Thrombo Time 30.7 seconds (22.8-30.6); INR 1.03 (0.9-1.1); Prothrombin Time 11.1 seconds (10.1-12.5)
--- NOTE | 2023-05-18 12:57 | PC.NURSE ---
RESP CARE NOTE: Serge in lab called to confirm someone from lab needed to stick patient for VBG ordered for 1400. Confirmed the lab stick for a green top.
--- NOTE | 2023-05-18 15:18 | PC.NURSE ---
RESP CARE NOTE: Lab was called by Georgina Chinchilla RN at 1530 on 05/18/2023,to determine if green top was obtained at 1400, per Dr Dickinson order. Lab personnel determined that specimen is in the collection rack, and Respiratory Care was never notified of available specimen.
[2023-05-18 15:25] LABS: VBG Base Excess 9.3 mmol/L (-2.4-2.3); VBG HCO3 33.7 mmol/L (23-30); VBG Oxygen Saturation 75.8 % (50-70); VBG PH 7.43 mmol/L (7.31-7.41); VBG PO2 35.2 mmol/L (28-40); VBG Total CO2 35.3 mmol/L (23-27)
[2023-05-18 15:34] LABS: Lactate Venous 2.2 mmol/L (0.4-2.0)
--- NOTE | 2023-05-18 17:44 | EXP.PN ---
Subjective *Date: 05/18/23 *Time: 17:44 Interval history: patient is seen at bedside, he looks better than yesterday, he denied nausea vomiting fever chills. He had bleeding from site of his chest tube last night Exam Data for Last 24 hours Vital signs and Labs for Last 24 Hours: Temp Pulse Resp BP Pulse Ox O2 Del Method O2 Flow Rate 98.2 F 78 18 157/74 H 94 L Nasal Cannula 3 05/18/23 12:46 05/18/23 16:00 05/18/23 16:00 05/18/23 16:00 05/18/23 16:00 05/18/23 17:00 05/18/23 17:00 FiO2 30 05/18/23 06:20 Laboratory Results - last 24 hr 05/17/23 21:35: Lactate 1.3 05/18/23 10:42: PT 11.1, INR 1.03, APTT 30.7 H 05/18/23 14:00: VBG pH 7.43 H, VBG pCO2 52.0 H, VBG pO2 35.2, VBG HCO3 33.7 H, VBG Total CO2 35.3 H, VBG O2 Saturation 75.8 H, VBG Base Excess 9.3 H, VBG Lactic Acid 2.2 H I & O for Last 24 hours: Intake & Output 05/15/23 05/16/23 05/17/23 05/18/23 23:59 23:59 23:59 23:59 Intake Total 150 / 300 150 / 150 510 / 510 Output Total 0 / 0 1100 / 1150 250 / 250 Balance 150 / 300 -950 / -1000 260 / 260 Weight 83.5 kg 83.5 kg 83.5 kg 86.66 kg Constitutional Constitutional: no acute distress *Routine HEENT Exam Head: Present normocephalic Eye: Present EOMI and PERRL ENT: Present mucous membranes moist *Routine Neck Exam Neck: Present supple; Absent lymphadenopathy *Routine Respiratory Exam Respiratory: Present CTA bilaterally *Routine Cardiovascular Exam Cardiovascular: Present RRR *Routine Abdominal Exam Abdominal: Present soft and normoactive bowel sounds; Absent tenderness *Routine Extremities Exam Extremities: Absent cyanosis, clubbing or edema *Routine Skin Exam Skin: Present warm; Absent rash *Routine Neurological Exam Neurological: Present alert and oriented X3 Assessment and Plan *Assessment and plan (1) Acute exacerbation of chronic obstructive airways disease: Status: Chronic Category: Medical Code(s): J44.1 - Chronic obstructive pulmonary disease with (acute) exacerbation (2) Acute respiratory failure with hypoxia: Status: Chronic Category: Medical Code(s): J96.01 - Acute respiratory failure with hypoxia (3) Pulmonary emphysema: Status: Chronic Qualifiers: Emphysema type: unspecified Qualified Code(s): J43.9 - Emphysema, unspecified Category: Medical Code(s): J43.9 - Emphysema, unspecified (4) History of atrial fibrillation: Status: Acute Category: Medical Code(s): Z86.79 - Personal history of other diseases of the circulatory system (5) Hypertension: Status: Acute Qualifiers: Hypertension type: unspecified Qualified Code(s): I10 - Essential (primary) hypertension Category: Medical Code(s): I10 - Essential (primary) hypertension (6) HLD (hyperlipidemia): Status: Acute Qualifiers: Hyperlipidemia type: unspecified Qualified Code(s): E78.5 - Hyperlipidemia, unspecified Category: Medical Code(s): E78.5 - Hyperlipidemia, unspecified (7) Ex-smoker: Status: Chronic Category: Social Hx Code(s): Z87.891 - Personal history of nicotine dependence Plan 78-year-old male with PMHx significant for GERD, atrial fibrillation s/p ablation, HLD, HTN, COPD/emphysema, presents today for evaluation concerning shortness of breath and left-sided chest pain that has been intermittent over the past couple of days. on arrival Chest x-ray did not show any acute cardiopulmonary disease process. Imaging reviewed. Radiology report confirmed. Acute on chronic hypoxic and hypercapnic respiratory failure: spontaneous pneumothorax continue Duonebs, weaned off BIPAP has chst tube - management per pulmonary continue Levaquin DuoNeb every 6h Pulmonary following Chest pain, elevated troponin - monitor troponin - consulted cardiology, per cardiology Given patients worsening respiratory status he is not a candidate for [facility] during this admission. Will consider further ischemic evaluation on an outpatient basis continue therapeutic lovenox for now, will dc lovenox likely 1-2 days Other chronic conditions: History of A-fib, currently on sinus rhythm. Continue cardiac sonographer On aspirin Hypertension hyperlipidemia Resume home meds -former smoker. recent quitting. presented with anxiety 1mg ativan given IV to help tolerated BIPAP. cont 05mg q6h for agitation nicotine PRN Lovenox for DVT ppx. on Protonix Full code CXR tomorrow, continue chest tube, dc sunday or sunday
--- NOTE | 2023-05-18 17:50 | PC.NURSE ---
Addendum entered by Georgina Chinchilla RN 05/18/23 18:20: NEW DRESSING APPLIED TO CHEST TUBE SITE. Original Note: PT IS RESTING IN BED. ALERT AND ORIENTED X4. THIS MORNING PT WAS NOTED TO HAVE A SIGNIFICANT AMOUNT OF BLOODY DRAINAGE AROUND CHEST TUBE INSERTION SITE. DRESSING WAS REMOVED AND PRESSURE WAS HELD UNTIL ARRIVED AT BEDSIDE. NEW 4X4'S AND TEGADERM WAS APPLIED. SITE HAS CONTINUED TO BLEED. INITIALLY WANTED TO CONTINUE THE LOVENOX AND THEN NOTICED HE WAS ON PLAVIX AND ASPIRIN SO HE DECIDED IT WOULD BE OKAY TO HOLD THE LOVENOX FOR NOW TO SEE IF THE BLEEDING STOPS. LUNG SOUNDS DIMINISHED. ABDOMEN SOFT/NON TENDER WITH ACTIVE BOWEL SOUNDS. O2 SATURATION HAS MAINTAINED 90-95% ON 3 L NC. WILL CONTINUE TO MONITOR.
[2023-05-18 19:35] LABS: Reflex Lactic Add Lactic Reflex
[2023-05-18] MEDS: LEVOFLOXACIN/D5W 750 MG/150 ML 750 MG/150 ML PIGGYBACK 100 MG IV (20:05)
[2023-05-18] MEDS: ATORVASTATIN 40MG TABLET 40 MG PO (20:05)
[2023-05-18 20:25] LABS: Lactic Acid Follow Up (RFLX 1) 1.5 mmol/L (0.7-2.1)
[2023-05-18 21:00] LABS: Basophils % 0.1 % (0.1-2.0); Eosinophils # 0.1 K/mm3 (0.0-0.4); Eosinophils % 1.2 % (0.1-12.0); Hematocrit 41.2 % (42.0-52.0); Hemoglobin 13.5 g/dL (14.1-18.0); Lymphocytes # 0.3 K/mm3 (0.7-4.5); Lymphocytes % 2.1 % (10-50); Mean Corpuscular HGB Conc 32.8 g/dL (31.8-35.4); Mean Corpuscular Hemoglobin 32.7 pg (27.0-31.2); Mean Corpuscular Volume 99.8 fl (80-94); Mean Platelet Volume 7.8 fl (7.4-10.4); Monocytes # 0.4 K/mm3 (0.1-1.0); Monocytes % 3.2 % (1.7-9.3); Neutrophils # 10.8 K/mm3 (1.8-7.8); Neutrophils % 93.4 % (37.0-80.0); Platelet Count 220 K/mm3 (142-424); Red Blood Count 4.13 M/mm3 (4.60-6.20); Red Cell Distribution Width 13.1 % (11.5-17.5); White Blood Count 11.6 K/mm3 (4.8-10.8)
[2023-05-18 21:03] LABS: MANUAL DIFFERENTIAL MANUAL DIFFERENTIAL (MANUAL DIFF)
[2023-05-18 21:17] LABS: Eosinophils % 1 % (0-3); Lymphocytes % 2 % (10-50); Monocytes % 4 % (2-9); Neutrophils % 93 % (42-76); Total Cells Counted 100
[2023-05-18 21:18] LABS: Hypochromasia 1+; Macrocytosis 1+; Platelet Estimate Normal
[2023-05-19] VITALS (21 sets, daily range): BP systolic 103–164; BP diastolic 56–87; PULSE 70–90; RESP 16–22; TEMP 36.6–37.2; O2SAT 91–99; BMI 24.1
[2023-05-19] MEDS: CALCIUM CARBONATE 500MG CHEWTAB 500 MG PO (00:03)
[2023-05-19] MEDS: LEVALBUTEROL 1.25MG/3ML NEB 1.25 MG IH ×6 (01:40→21:24)
[2023-05-19] MEDS: IPRATROPIUM BROMIDE 0.5 MG/2.5ML SOLUTION IH ×6 (01:40→21:24)
--- NOTE | 2023-05-19 05:11 | PC.NURSE ---
Patient has had a good shift. Has been stable on 2.5 and 2L NC. Has not complained of shortness of breath. Patient has not complained of pain and has not required pain medication. The issue this shift was the chest tube site. As we had to change the dressing twice as it was saturated with blood. RN notified [employer] auto transmission specialist and labs were ordered to make sure H&H was stable. no other issues this shift were noted. Family remains at bedside
[2023-05-19] MEDS: BUDESONIDE 0.5MG/2ML NEB 0.5 MG IH ×2 (06:39→18:03)
--- NOTE | 2023-05-19 07:06 | XR_ITS ---
PROCEDURE INFORMATION: Exam: XR Chest Exam date and time: 05/19/2023 7:16 AM Age: 78 years old Clinical indication: Other: Pneumothorax TECHNIQUE: Imaging protocol: Radiologic exam of the chest. Views: 1 view. COMPARISON: CR XR CHEST PORTABLE 05/18/2023 10:37 AM FINDINGS: Tubes, catheters and devices: There is a left-sided chest tube again seen. There is no pneumothorax identified. Lungs: Unremarkable. No consolidation. Pleural spaces: See Tubes, catheters and devices finding. Heart/Mediastinum: Unremarkable. No cardiomegaly. Bones/joints: Unremarkable. IMPRESSION: No pneumothorax.
[2023-05-19 07:59] LABS: VBG Base Excess 6.3 mmol/L (-2.4-2.3); VBG HCO3 31.6 mmol/L (23-30); VBG Oxygen Saturation 78.4 % (50-70); VBG PCO2 56.6 mmol/L (35-51); VBG PH 7.37 mmol/L (7.31-7.41); VBG PO2 43.5 mmol/L (28-40); VBG Total CO2 33.4 mmol/L (23-27)
[2023-05-19 08:02] LABS: Lactate Venous 3.5 mmol/L (0.4-2.0)
[2023-05-19 08:02] LABS: Basophils % 0.1 % (0.1-2.0); Eosinophils % 0.4 % (0.1-12.0); Hematocrit 43.8 % (42.0-52.0); Hemoglobin 13.7 g/dL (14.1-18.0); Lymphocytes # 0.6 K/mm3 (0.7-4.5); Lymphocytes % 6.6 % (10-50); Mean Corpuscular HGB Conc 31.3 g/dL (31.8-35.4); Mean Corpuscular Hemoglobin 31.8 pg (27.0-31.2); Mean Corpuscular Volume 101.6 fl (80-94); Mean Platelet Volume 7.8 fl (7.4-10.4); Monocytes # 0.7 K/mm3 (0.1-1.0); Monocytes % 7.2 % (1.7-9.3); Neutrophils # 8.1 K/mm3 (1.8-7.8); Neutrophils % 85.7 % (37.0-80.0); Platelet Count 233 K/mm3 (142-424); Red Blood Count 4.32 M/mm3 (4.60-6.20); Red Cell Distribution Width 13.1 % (11.5-17.5); White Blood Count 9.4 K/mm3 (4.8-10.8)
[2023-05-19 08:11] LABS: Anion Gap 9.7 mEq/L (5-15); Calcium 9.4 mg/dl (8.4-10.2); Carbon Dioxide 36 mmol/L (22.0-30.0); Chloride 95 mmol/L (98-107); Glucose 152 mg/dl (74-100); MANUAL DIFFERENTIAL MANUAL DIFFERENTIAL (MANUAL DIFF); Potassium 4.7 mmoL/L (3.5-5.1); Sodium 136 mmol/L (136-145)
[2023-05-19 08:29] LABS: Blood Urea Nitrogen 26 mg/dl (9-20); Creatinine Clearance Estimated 69 mL/min (50-200); Estimated Glomerular Filt Rate 81 ml/min (>60); GFR (African American) 98 ML/MIN (>60)
[2023-05-19] MEDS: PANTOPRAZOLE 40MG TABLET 40 MG PO (08:32)
[2023-05-19] MEDS: CLOPIDOGREL 75MG TAB 75 MG PO (08:32)
[2023-05-19] MEDS: ASPIRIN EC 81MG TABLET 81 MG PO (08:32)
[2023-05-19] MEDS: FUROSEMIDE 40 MG TABLET PO (08:32)
[2023-05-19] MEDS: BISOPROLOL 5MG TABLET 5 MG PO (08:32)
[2023-05-19] MEDS: predniSONE 20MG TAB 40 MG PO (08:33)
--- NOTE | 2023-05-19 11:33 | PC.NURSE ---
called and ordered to place chest tube on water seal and repeat cxr at 1700.
--- NOTE | 2023-05-19 11:43 | EXP.PHA.PN ---
Subjective *Date: 05/19/23 *Time: 11:43 Medical Exam Vital signs and Labs for Last 24 Hours: Vital Signs Temp Pulse Pulse Resp BP Pulse Ox O2 Del Method 05/19/23 11:30 98.9 F 05/19/23 11:00 Nasal Cannula 05/19/23 10:05 73 05/19/23 10:05 86 05/19/23 10:05 96 Nasal Cannula 05/19/23 10:00 74 20 134/82 95 Nasal Cannula 05/19/23 08:00 85 05/19/23 08:00 Nasal Cannula 05/19/23 08:00 97.9 F 85 20 144/79 H 93 L Nasal Cannula 05/19/23 07:27 Nasal Cannula 05/19/23 07:25 Nasal Cannula 05/19/23 06:56 Nasal Cannula 05/19/23 06:40 84 05/19/23 06:40 88 05/19/23 06:40 92 L Nasal Cannula 05/19/23 06:00 88 20 144/74 H 91 L Nasal Cannula 05/19/23 05:00 Nasal Cannula 05/19/23 04:00 70 05/19/23 04:00 Nasal Cannula 05/19/23 04:00 76 20 137/64 94 L Nasal Cannula 05/19/23 03:00 Nasal Cannula 05/19/23 02:00 77 22 133/56 L 98 Nasal Cannula 05/19/23 01:40 81 05/19/23 01:40 85 05/19/23 01:00 Nasal Cannula 05/19/23 00:00 94 L Nasal Cannula 05/19/23 00:00 80 05/19/23 00:00 98.1 F 79 22 144/65 H 93 L Non-Rebreather 05/18/23 23:00 Nasal Cannula 05/18/23 22:38 80 05/18/23 22:38 79 05/18/23 22:00 82 22 129/54 L 100 Nasal Cannula 05/18/23 21:00 Nasal Cannula 05/18/23 20:00 99.0 F 92 H 20 142/67 H 93 L Nasal Cannula 05/18/23 20:00 Nasal Cannula 05/18/23 20:00 80 05/18/23 18:19 Nasal Cannula 05/18/23 18:10 92 L Nasal Cannula 05/18/23 18:06 83 05/18/23 18:06 86 03/15/24 18:06 92 L Nasal Cannula 05/18/23 18:00 89 20 156/78 H 95 Nasal Cannula 05/18/23 17:00 Nasal Cannula 05/18/23 16:00 Nasal Cannula 05/18/23 16:00 78 05/18/23 16:00 Nasal Cannula 05/18/23 16:00 78 18 157/74 H 94 L Nasal Cannula 05/18/23 15:00 Nasal Cannula 05/18/23 14:53 68 05/18/23 14:53 70 05/18/23 14:00 72 19 137/62 93 L Nasal Cannula 05/18/23 13:00 Nasal Cannula 05/18/23 12:46 98.2 F 05/18/23 12:00 69 05/18/23 12:00 75 20 134/67 95 Nasal Cannula O2 Flow Rate 05/19/23 11:30 05/19/23 11:00 2 05/19/23 10:05 05/19/23 10:05 05/19/23 10:05 2 05/19/23 10:00 2 05/19/23 08:00 05/19/23 08:00 2 05/19/23 08:00 2 05/19/23 07:27 05/19/23 07:25 2 05/19/23 06:56 2 05/19/23 06:40 05/19/23 06:40 05/19/23 06:40 2 05/19/23 06:00 2 05/19/23 05:00 2 05/19/23 04:00 05/19/23 04:00 2 05/19/23 04:00 2 05/19/23 03:00 2 05/19/23 02:00 2.5 05/19/23 01:40 05/19/23 01:40 05/19/23 01:00 2.5 05/19/23 00:00 2 05/19/23 00:00 05/19/23 00:00 2.5 05/18/23 23:00 2.5 05/18/23 22:38 05/18/23 22:38 05/18/23 22:00 2.5 05/18/23 21:00 2.5 05/18/23 20:00 2.5 05/18/23 20:00 2.5 05/18/23 20:00 05/18/23 18:19 3 05/18/23 18:10 3 05/18/23 18:06 05/18/23 18:06 05/18/23 18:06 3 05/18/23 18:00 3 05/18/23 17:00 3 05/18/23 16:00 3 05/18/23 16:00 05/18/23 16:00 3 05/18/23 16:00 3 05/18/23 15:00 3 05/18/23 14:53 05/18/23 14:53 05/18/23 14:00 05/18/23 13:00 4 05/18/23 12:46 05/18/23 12:00 05/18/23 12:00 4 Intake and Output 05/18/23 05/19/23 05/19/23 23:59 07:59 15:59 Intake Total 240 / 710 200 / 200 0 / 200 Output Total 0 / 1250 1750 / 3550 1800 / 3550 Balance 240 / -540 -1550 / -3350 -1800 / -3350 Intake: Intake, Oral Amount 240 / 710 200 / 200 0 / 200 Output: Output, Urine Amount 0 / 150 0 / 1800 1800 / 1800 Output, Urine Amount (Catheter) 1750 / 1750 Montoya 1750 / 1750 Other: Number of Unmeasured Voids 0 0 0 Weight 80.921 kg Patient Weight 05/19/23 23:59 Weight 80.921 kg Laboratory Results - last 24 hr 05/18/23 14:00: VBG pH 7.43 H, VBG pCO2 52.0 H, VBG pO2 35.2, VBG HCO3 33.7 H, VBG Total CO2 35.3 H, VBG O2 Saturation 75.8 H, VBG Base Excess 9.3 H, VBG Lactic Acid 2.2 H 05/18/23 19:40: Lactate 1.5 05/18/23 20:51: WBC 11.6 H, RBC 4.13 L, Hgb 13.5 L, Hct 41.2 L, MCV 99.8 H, MCH 32.7 H, MCHC 32.8, RDW 13.1, Plt Count 220, MPV 7.8, Neut % (Auto) 93.4 H, Lymph % (Auto) 2.1 L, [place] % (Auto) 3.2, Eos % (Auto) 1.2, Baso % (Auto) 0.1, Neut # (Auto) 10.8 H, Lymph # (Auto) 0.3 L, [place] # (Auto) 0.4, Eos # (Auto) 0.1, Baso # (Auto) 0.0, Total Counted 100, Neutrophils % (Manual) 93 H, Lymphocytes % (Manual) 2 L, Monocytes % (Manual) 4, Eosinophils % (Manual) 1, Platelet Estimate Normal, Hypochromasia 1+, Macrocytosis 1+ 05/19/23 07:06: VBG pH 7.37, VBG pCO2 56.6 H, VBG pO2 43.5 H, VBG HCO3 31.6 H, VBG Total CO2 33.4 H, VBG O2 Saturation 78.4 H, VBG Base Excess 6.3 H, VBG Lactic Acid 3.5 H 05/19/23 07:41: WBC 9.4, RBC 4.32 L, Hgb 13.7 L, Hct 43.8, MCV 101.6 H, MCH 31.8 H, MCHC 31.3 L, RDW 13.1, Plt Count 233, MPV 7.8, Neut % (Auto) 85.7 H, Lymph % (Auto) 6.6 L, [place] % (Auto) 7.2, Eos % (Auto) 0.4, Baso % (Auto) 0.1, Neut # (Auto) 8.1 H, Lymph # (Auto) 0.6 L, [place] # (Auto) 0.7, Eos # (Auto) 0.0, Baso # (Auto) 0.0, Sodium 136, Potassium 4.7, Chloride 95 L, Carbon Dioxide 36 H, Anion Gap 9.7, BUN 26 H D, Creatinine 0.90 D, Estimated Creat Clear 69, Estimated GFR 81, Est GFR ( Amer) 98 D, Glucose 152 H, Calcium 9.4 I & O for Labs for Last 24 Hours: Intake & Output 05/16/23 05/17/23 05/18/23 05/19/23 23:59 23:59 23:59 23:59 Intake Total 150 / 300 150 / 150 510 / 710 200 / 200 Output Total 0 / 0 1100 / 1150 250 / 1250 3550 / 3550 Balance 150 / 300 -950 / -1000 260 / -540 -3350 / -3350 Weight 83.5 kg 83.5 kg 86.66 kg 80.921 kg The patient's infection will respond to the chosen ABx?: Yes Is the patient receiving the right drug, dose, and route?: Yes Could a more targeted ABx be ordered?: No
[2023-05-19 12:03] LABS: Reflex Lactic Add Lactic Reflex
[2023-05-19 12:21] LABS: Lymphocytes % 8 % (10-50); Monocytes % 7 % (2-9); Neutrophils % 85 % (42-76); Total Cells Counted 100
[2023-05-19 12:22] LABS: Macrocytosis 1+; Platelet Estimate Normal
[2023-05-19 13:16] LABS: Lactic Acid Follow Up (RFLX 1) 1.8 mmol/L (0.7-2.1)
--- NOTE | 2023-05-19 16:26 | P.PN_ITS ---
Subjective *Date: 05/20/23 *Time: 14:20 Interval history: patient is seen at bedside, he is alert awake, holding conversation, he is on nasal canula, he denied acute events overnight, no bleeding from Chest tube site, he denied nausea vomiting fever chills. Exam Data for Last 24 hours Vital signs and Labs for Last 24 Hours: Temp Pulse Resp BP Pulse Ox O2 Del Method O2 Flow Rate 98.8 F 87 20 143/66 H 94 L Nasal Cannula 2 05/19/23 15:41 05/19/23 14:30 05/19/23 14:00 05/19/23 14:00 05/19/23 14:30 05/19/23 15:00 05/19/23 15:00 FiO2 30 05/18/23 06:20 Laboratory Results - last 24 hr 05/18/23 19:40: Lactate 1.5 05/18/23 20:51: WBC 11.6 H, RBC 4.13 L, Hgb 13.5 L, Hct 41.2 L, MCV 99.8 H, MCH 32.7 H, MCHC 32.8, RDW 13.1, Plt Count 220, MPV 7.8, Neut % (Auto) 93.4 H, Lymph % (Auto) 2.1 L, [place] % (Auto) 3.2, Eos % (Auto) 1.2, Baso % (Auto) 0.1, Neut # (Auto) 10.8 H, Lymph # (Auto) 0.3 L, [place] # (Auto) 0.4, Eos # (Auto) 0.1, Baso # (Auto) 0.0, Total Counted 100, Neutrophils % (Manual) 93 H, Lymphocytes % (Manual) 2 L, Monocytes % (Manual) 4, Eosinophils % (Manual) 1, Platelet Estimate Normal, Hypochromasia 1+, Macrocytosis 1+ 05/19/23 07:06: VBG pH 7.37, VBG pCO2 56.6 H, VBG pO2 43.5 H, VBG HCO3 31.6 H, VBG Total CO2 33.4 H, VBG O2 Saturation 78.4 H, VBG Base Excess 6.3 H, VBG Lactic Acid 3.5 H 05/19/23 07:41: WBC 9.4, RBC 4.32 L, Hgb 13.7 L, Hct 43.8, MCV 101.6 H, MCH 31.8 H, MCHC 31.3 L, RDW 13.1, Plt Count 233, MPV 7.8, Neut % (Auto) 85.7 H, Lymph % (Auto) 6.6 L, [place] % (Auto) 7.2, Eos % (Auto) 0.4, Baso % (Auto) 0.1, Neut # (Auto) 8.1 H, Lymph # (Auto) 0.6 L, [place] # (Auto) 0.7, Eos # (Auto) 0.0, Baso # (Auto) 0.0, Total Counted 100, Neutrophils % (Manual) 85 H, Lymphocytes % (Manual) 8 L, Monocytes % (Manual) 7, Platelet Estimate Normal, Macrocytosis 1+, Sodium 136, Potassium 4.7, Chloride 95 L, Carbon Dioxide 36 H, Anion Gap 9.7, BUN 26 H D, Creatinine 0.90 D, Estimated Creat Clear 69, Estimated GFR 81, Est GFR ( Amer) 98 D, Glucose 152 H, Calcium 9.4 05/19/23 12:32: Lactate 1.8 I & O for Last 24 hours: Intake & Output 05/16/23 05/17/23 05/18/23 05/19/23 23:59 23:59 23:59 23:59 Intake Total 150 / 300 150 / 150 510 / 710 440 / 440 Output Total 0 / 0 1100 / 1150 250 / 1250 4050 / 4050 Balance 150 / 300 -950 / -1000 260 / -540 -3610 / -3610 Weight 83.5 kg 83.5 kg 86.66 kg 80.921 kg Constitutional Constitutional: no acute distress *Routine HEENT Exam Head: Present normocephalic Eye: Present EOMI and PERRL ENT: Present mucous membranes moist *Routine Neck Exam Neck: Present supple; Absent lymphadenopathy *Routine Respiratory Exam Respiratory: Present CTA bilaterally *Routine Cardiovascular Exam Cardiovascular: Present RRR *Routine Abdominal Exam Abdominal: Present soft and normoactive bowel sounds; Absent tenderness *Routine Extremities Exam Extremities: Absent cyanosis, clubbing or edema *Routine Skin Exam Skin: Present warm; Absent rash *Routine Neurological Exam Neurological: Present alert and oriented X3 Assessment and Plan *Assessment and plan (1) Acute exacerbation of chronic obstructive airways disease: Status: Chronic Category: Medical Code(s): J44.1 - Chronic obstructive pulmonary disease with (acute) exacerbation (2) Acute respiratory failure with hypoxia: Status: Chronic Category: Medical Code(s): J96.01 - Acute respiratory failure with hypoxia (3) Pulmonary emphysema: Status: Chronic Qualifiers: Emphysema type: unspecified Qualified Code(s): J43.9 - Emphysema, unspecified Category: Medical Code(s): J43.9 - Emphysema, unspecified (4) History of atrial fibrillation: Status: Acute Category: Medical Code(s): Z86.79 - Personal history of other diseases of the circulatory system (5) Hypertension: Status: Acute Qualifiers: Hypertension type: unspecified Qualified Code(s): I10 - Essential (primary) hypertension Category: Medical Code(s): I10 - Essential (primary) hypertension (6) HLD (hyperlipidemia): Status: Acute Qualifiers: Hyperlipidemia type: unspecified Qualified Code(s): E78.5 - Hyperlipidemia, unspecified Category: Medical Code(s): E78.5 - Hyperlipidemia, unspecified (7) Ex-smoker: Status: Chronic Category: Social Hx Code(s): Z87.891 - Personal history of nicotine dependence Plan 78-year-old male with PMHx significant for GERD, atrial fibrillation s/p ablation, HLD, HTN, COPD/emphysema, presents today for evaluation concerning shortness of breath and left-sided chest pain that has been intermittent over the past couple of days. on arrival Chest x-ray did not show any acute cardiopulmonary disease process. Imaging reviewed. Radiology report confirmed. Acute on chronic hypoxic and hypercapnic respiratory failure: spontaneous pneumothorax continue Duonebs, weaned off BIPAP has chest tube - management per pulmonary continue Levaquin DuoNeb every 6h Pulmonary following Chest pain, elevated troponin - monitor troponin - consulted cardiology, per cardiology Given patients worsening respiratory status he is not a candidate for [facility] during this admission. Will consider further ischemic evaluation on an outpatient basis DC lovenox Other chronic conditions: History of A-fib, currently on sinus rhythm. Continue quality assurance monitor body On aspirin Hypertension hyperlipidemia Resume home meds Lovenox for DVT ppx. on Protonix Full code DVT PPx - lovenox serial CXR, continue chest tube, dc sunday or sunday, wean off O2 as tolerated
--- NOTE | 2023-05-19 17:00 | XR_ITS ---
PROCEDURE INFORMATION: Exam: XR Chest Exam date and time: 05/19/2023 4:48 PM Age: 78 years old Clinical indication: Device placement; Chest tube TECHNIQUE: Imaging protocol: Radiologic exam of the chest. Views: 1 view. COMPARISON: CR XR CHEST PORTABLE 05/19/2023 7:16 AM FINDINGS: Tubes, catheters and devices: Left thoracostomy pigtail catheter remains in place. Lungs: No evidence of pneumonia or interstitial edema. Pleural spaces: No detectable pneumothorax. Heart/Mediastinum: Unremarkable. No cardiomegaly. Bones/joints: Unremarkable. IMPRESSION: 1. No evidence of pneumonia or interstitial edema. 2. No detectable pneumothorax.
--- NOTE | 2023-05-19 17:33 | PC.NURSE ---
PT IS SITTING UP IN THE CHAIR VISITING WITH FAMILY. PT STATES HE FEELS SOMEWHAT BETTER. PT DID GET SOA WHEN GETTING UP TO THE CHAIR. O2 SATURATION HAS MAINTAINED 90-95% ON 2 L NC. LUNG SOUNDS DIMINISHED. ABDOMEN SOFT/NON TENDER WITH ACTIVE BOWEL SOUNDS. VSS. DRESSING TO CHEST TUBE SITE C/D/I. WILL CONTINUE TO MONITOR.
[2023-05-19] MEDS: APIXABAN 5MG TABLET 5 MG PO (20:17)
[2023-05-19] MEDS: LEVOFLOXACIN/D5W 750 MG/150 ML 750 MG/150 ML PIGGYBACK 100 MG IV (20:18)
[2023-05-19] MEDS: ATORVASTATIN 40MG TABLET 40 MG PO (20:18)
[2023-05-20] VITALS (17 sets, daily range): BP systolic 114–152; BP diastolic 52–82; PULSE 62–92; RESP 16–20; TEMP 36.6–37.1; O2SAT 95–99; BMI 24.1
[2023-05-20] MEDS: IPRATROPIUM BROMIDE 0.5 MG/2.5ML SOLUTION IH ×5 (01:31→23:18)
[2023-05-20] MEDS: LEVALBUTEROL 1.25MG/3ML NEB 1.25 MG IH ×5 (01:31→23:19)
--- NOTE | 2023-05-20 04:23 | PC.NURSE ---
Pt has rested well throughout the night. A&Ox4. Pigtail chest tube to waterseal on left side; dsg c/d/i with no drainage and no output in chest tube. Lung sounds diminished throughout; O2 sats mid 90s on 3L/NC. [place] catheter draining clear yellow urine with adequate output. Pt sat up in chair for 2 hours the beginning of shift and was able to stand and pivot to bed from chair with assistance x 1. 1+ edema to bilateral ankles. at bedside.
[2023-05-20] MEDS: BUDESONIDE 0.5MG/2ML NEB 0.5 MG IH ×2 (06:13→17:51)
[2023-05-20] MEDS: predniSONE 20MG TAB 40 MG PO (08:36)
[2023-05-20] MEDS: PANTOPRAZOLE 40MG TABLET 40 MG PO (08:36)
[2023-05-20] MEDS: APIXABAN 5MG TABLET 5 MG PO ×2 (08:36→21:00)
[2023-05-20] MEDS: FUROSEMIDE 40 MG TABLET PO (08:36)
[2023-05-20] MEDS: ASPIRIN EC 81MG TABLET 81 MG PO (08:36)
[2023-05-20] MEDS: CLOPIDOGREL 75MG TAB 75 MG PO (08:36)
[2023-05-20] MEDS: BISOPROLOL 5MG TABLET 5 MG PO (08:36)
[2023-05-20] MEDS: levoFLOXacin 750 MG TABLET PO (13:51)
--- NOTE | 2023-05-20 14:21 | P.PN_ITS ---
Subjective *Date: 05/20/23 *Time: 14:21 Interval history: patient is seen at bedside, he is alert awake, holding conversation, he is on nasal canula, no further bleeding from Chest tube site, he denied nausea vomiting fever chills. no acute events overnight Exam Data for Last 24 hours Vital signs and Labs for Last 24 Hours: Temp Pulse Resp BP Pulse Ox O2 Del Method O2 Flow Rate 98.2 F 85 20 152/82 H 96 Nasal Cannula 2 05/20/23 11:47 05/20/23 12:00 05/20/23 11:47 05/20/23 11:47 05/20/23 11:47 05/20/23 13:00 05/20/23 13:00 FiO2 99 05/20/23 08:57 I & O for Last 24 hours: Intake & Output 05/17/23 05/18/23 05/19/23 05/20/23 23:59 23:59 23:59 23:59 Intake Total 150 / 150 510 / 710 680 / 680 480 / 480 Output Total 1100 / 1150 250 / 1250 4050 / 4050 2250 / 2250 Balance -950 / -1000 260 / -540 -3370 / -3370 -1770 / -1770 Weight 83.5 kg 86.66 kg 80.921 kg 80.921 kg Constitutional Constitutional: no acute distress *Routine HEENT Exam Head: Present normocephalic Eye: Present EOMI and PERRL ENT: Present mucous membranes moist *Routine Neck Exam Neck: Present supple; Absent lymphadenopathy *Routine Respiratory Exam Respiratory: Present CTA bilaterally *Routine Cardiovascular Exam Cardiovascular: Present RRR *Routine Abdominal Exam Abdominal: Present soft and normoactive bowel sounds; Absent tenderness *Routine Extremities Exam Extremities: Absent cyanosis, clubbing or edema *Routine Skin Exam Skin: Present warm; Absent rash *Routine Neurological Exam Neurological: Present alert and oriented X3 Assessment and Plan *Assessment and plan (1) Acute exacerbation of chronic obstructive airways disease: Status: Chronic Category: Medical Code(s): J44.1 - Chronic obstructive pulmonary disease with (acute) exacerbation (2) Acute respiratory failure with hypoxia: Status: Chronic Category: Medical Code(s): J96.01 - Acute respiratory failure with hypoxia (3) Pulmonary emphysema: Status: Chronic Qualifiers: Emphysema type: unspecified Qualified Code(s): J43.9 - Emphysema, unspecified Category: Medical Code(s): J43.9 - Emphysema, unspecified (4) History of atrial fibrillation: Status: Acute Category: Medical Code(s): Z86.79 - Personal history of other diseases of the circulatory system (5) Hypertension: Status: Acute Qualifiers: Hypertension type: unspecified Qualified Code(s): I10 - Essential (primary) hypertension Category: Medical Code(s): I10 - Essential (primary) hypertension (6) HLD (hyperlipidemia): Status: Acute Qualifiers: Hyperlipidemia type: unspecified Qualified Code(s): E78.5 - Hyperlipidemia, unspecified Category: Medical Code(s): E78.5 - Hyperlipidemia, unspecified (7) Ex-smoker: Status: Chronic Category: Social Hx Code(s): Z87.891 - Personal history of nicotine dependence Plan 78-year-old male with PMHx significant for GERD, atrial fibrillation s/p ablation, HLD, HTN, COPD/emphysema, presents today for evaluation concerning shortness of breath and left-sided chest pain that has been intermittent over the past couple of days. on arrival Chest x-ray did not show any acute cardiopulmonary disease process. Imaging reviewed. Radiology report confirmed. Acute on chronic hypoxic and hypercapnic respiratory failure: spontaneous pneumothorax continue Duonebs, weaned off of BIPAP has chest tube - management per pulmonary, likely to come out tomorrow continue Levaquin DuoNeb every 6h Pulmonary following Chest pain, elevated troponin - monitor troponin - consulted cardiology, per cardiology Given patients worsening respiratory status he is not a candidate for C during this admission. Will consider further ischemic evaluation on an outpatient basis DC lovenox Other chronic conditions: History of A-fib, currently on sinus rhythm. 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 on Protonix Full code DVT PPx - lovenox serial CXR, continue chest tube, dc likely on sunday, wean off O2 as tolerated
--- NOTE | 2023-05-20 17:12 | PC.NURSE ---
PT IS RESTING IN BED WITH FAMILY AT BEDSIDE. ALERT AND ORIENTED X4. EATING AND DRINKING WELL. CHEST TUBE TO WATER SEAL. DRESSING TO CHEST TUBE SITE C/D/I. LUNG SOUNDS DIMINISHED. ABDOMEN SOFT/NON TENDER WITH ACTIVE BOWEL SOUNDS. VSS. WILL CONTINUE TO MONITOR.
[2023-05-20] MEDS: ATORVASTATIN 40MG TABLET 40 MG PO (20:59)
[2023-05-20] MEDS: CALCIUM CARBONATE 500MG CHEWTAB 500 MG PO (21:03)
[2023-05-21] VITALS (15 sets, daily range): BP systolic 140–149; BP diastolic 65–80; PULSE 70–87; RESP 17–20; TEMP 36.6–36.9; O2SAT 85–98; BMI 23.0
[2023-05-21] MEDS: BUDESONIDE 0.5MG/2ML NEB 0.5 MG IH ×2 (06:21→18:53)
[2023-05-21] MEDS: LEVALBUTEROL 1.25MG/3ML NEB 1.25 MG IH ×3 (06:21→18:53)
[2023-05-21] MEDS: IPRATROPIUM BROMIDE 0.5 MG/2.5ML SOLUTION IH ×3 (06:21→18:53)
[2023-05-21] MEDS: CLOPIDOGREL 75MG TAB 75 MG PO (09:56)
[2023-05-21] MEDS: FUROSEMIDE 40 MG TABLET PO (09:57)
[2023-05-21] MEDS: BISOPROLOL 5MG TABLET 5 MG PO (09:57)
[2023-05-21] MEDS: PANTOPRAZOLE 40MG TABLET 40 MG PO (09:57)
[2023-05-21] MEDS: ASPIRIN EC 81MG TABLET 81 MG PO (09:57)
[2023-05-21] MEDS: APIXABAN 5MG TABLET 5 MG PO ×2 (09:57→21:35)
[2023-05-21] MEDS: predniSONE 20MG TAB 40 MG PO (09:57)
--- NOTE | 2023-05-21 10:01 | PC.NURSE ---
Room Air was obtained. Pt noted to drop to 85%. @l O2 NC placed back on pt.
--- NOTE | 2023-05-21 10:02 | XR_ITS ---
FINAL REPORT CLINICAL HISTORY: Pneumothorax COMPARISON: 05/19/2023 FINDINGS: A single portable view of the chest was obtained. The heart size and pulmonary vascularity are within normal limits. A left chest catheter remains in place. There is no pneumothorax identified. Lungs are hyperinflated consistent with COPD. IMPRESSION: No active cardiopulmonary disease. Reviewed, Interpreted and Dictated by Zion Wellington III, MD Transcribed by Rebeca Pompa Authenticated and [facility]
--- NOTE | 2023-05-21 10:05 | EXP.PULM.PN ---
Subjective *Date: 05/21/23 *Time: 11:17 Interval history: No acute respiratory events over the weekend. Pulmonology Exam Inpatient Vital signs and Labs for Last 24 Hours: Temp Pulse Resp BP Pulse Ox O2 Del Method O2 Flow Rate 97.8 F 86 20 143/78 H 90 L Nasal Cannula 2 05/21/23 08:00 05/21/23 08:00 05/21/23 08:00 05/21/23 08:00 05/21/23 10:02 05/21/23 10:02 05/21/23 10:02 FiO2 99 05/20/23 08:57 I & O for Labs for Last 24 Hours: Intake & Output 05/18/23 05/19/23 05/20/23 05/21/23 23:59 23:59 23:59 23:59 Intake Total 510 / 710 680 / 680 720 / 960 480 / 480 Output Total 250 / 1250 4050 / 4050 2250 / 2250 300 / 300 Balance 260 / -540 -3370 / -3370 -1530 / -1290 180 / 180 Weight 191 lb 0.841 oz 178 lb 6.4 oz 178 lb 6.404 oz 169 lb 12.095 oz Constitutional: Present severe distress Head: Present normocephalic and atraumatic ENT: Present normal exam, normal oropharynx and mucous membranes moist Neck: Present normal inspection and full ROM Respiratory: Present respiratory distress, wheezes and diminished air movement; Absent able to speak in complete sentences Comment:: Left pigtail catheter in place. Cardiac: Present S1/S2, Tachycardia and radial pulses present GI: Present soft and distention; Absent tenderness or guarding Skin: Present intact; Absent cyanosis or jaundice Neuro: Present alert, awake and oriented x 3 Extremities: Present normal inspection; Absent clubbing or cyanosis Psychiatric: Present normal affect and cooperative Assessment and Plan *Assessment and plan (1) COPD exacerbation: Status: Acute Category: Medical Code(s): J44.1 - Chronic obstructive pulmonary disease with (acute) exacerbation (2) Acute and chronic respiratory failure with hypoxia: Status: Acute Category: Medical Code(s): J96.21 - Acute and chronic respiratory failure with hypoxia (3) Pneumothorax on left: Status: Acute Category: Medical Code(s): J93.9 - Pneumothorax, unspecified (4) Acute hypercapnic respiratory failure: Status: Acute Category: Medical Code(s): J96.02 - Acute respiratory failure with hypercapnia Plan Mr. Miller is a 78-year-old male greater than [id number] smoking history, COPD, chronic hypoxic respiratory failure presented today with worsening respiratory distress increasing oxygen commands and pulmonary was called for further evaluation and management. Patient admits worsening respiratory status yesterday and called EMS. He denies any associated worsening subjective cough or worsening productive phlegm. Afebrile. No evidence of neutrophilic leukocytosis. VBG upon admission on 50% FiO2 did not show any significant evidence of hypoxic/hypercarbic respiratory failure. Chest x-ray upon admission hyperinflated lungs. Vascular congestion. No significant dense groundglass/airspace disease except for opacity in the right lower lobe pleural surface. Patient on admission was initiated on levofloxacin and nebulization therapies. On initial examination patient appeared to be in severe 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 On BiPAP. Weaned to nasal cannula. Decreased breath sounds in bilateral lung oleary. During his hospital stay, he had pneumothorax status post left pigtail catheter placement. Also found to worsening respiratory failure needing noninvasive ventilator therapy. Chest x-rays after initiating noninvasive ventilator therapy did not show any significant worsening pneumothorax. Will closely monitoring. Interval update: Chest tube site bleeding improved. No swelling of dressing noted this morning. Has been on waterseal for the last 24 hours. No significant pneumothorax. Completed 5-day course of levofloxacin and prednisone. Plan: Plan: -Clamp the chest tube and repeat chest x-ray in 4 hours.- Continue nasal cannula oxygen supplementation to maintain O2 saturation goal of 90 to 95%. Xopenex ipratropium every 6 hours along with Pulmicort every 12 scheduled Thank you for involving pulmonary in this patient care. Will continue to follow.
--- NOTE | 2023-05-21 10:52 | HMH.OTEV ---
OT Inpatient Evaluation Rehab OT IP Evaluation Start: 05/21/23 09:29 Freq: ONCE Status: Active Protocol: Document 05/21/23 10:46 [facility] (Rec: 05/21/23 10:51 [facility] [id number]) Rehab OT IP Assessment Subjective History Pt oriented x3 on arrival. Pt agreeable to engage in therapy session. Pt admitted on 05/14 due to COPD exacerbation. Per H&P: This is a 78-year-old male with PMHx significant for GERD , atrial fibrillation s/p ablation, HLD, HTN, COPD/ emphysema, presents today for evaluation concerning shortness of breath and left- sided chest pain that has been intermittent over the past couple of days. He states that he has been using his breathing treatments at home with no relief. States he has a cough at baseline however denies any fevers, chills, abdominal pain. Denies pain or any recent sick contacts. No other complaints. Admitted for further treatment. Subjective PLOF per pt report: IND with functional mobility without AD use. Using O2 prior to admission. Lives with in a single story home with 1STE. Pt claims he is normally independent with ADLs. Pt dependent upon for completion of IADLS. Objective Patient Orientation Person,Place,Birthday Right Upper Extremity Gross ROM WFL Left Upper Extremity Gross ROM WFL Bed Mobility bed mobility-scooting,bed mobility - supine/sit Assist Level Minimal x 1 (25% assist) Transfer Training Sit/Stand Transfer,Sit/Stand/ Step Transfer Assist Level Minimal x 2 (25% assist) Rehab OT IP prob,goals,plan Problems Date of Evaluation: 05/21/23 OT IP Problems Bed Mobility,Transfers,Balance ,Self care,Safety Rehab Potential Rehab Potential Good Equipment Needs Assistive Devices Rolling / Wheeled Walker Plan OT intervention Plan Bed Mobility,Transfers,Balance ,Self care,Safety,Therapeutic Exercise OT Plan Frequency Daily Duration LOS Discharge Goals Bed Mobility Ability Assistance x1 Sit to Stand Chair Transfer Ability Contact Guard/Hand Hold, Minimal x 1 (25% assist) Chair Transfer Ability Contact Guard/Hand Hold, Minimal x 1 (25% assist) Chair Transfer Technique Sit to/from Ambulatory Chair Transfer Assistive Devices Rolling Walker Feeding Ability Assist with Tray Set Up Lower Body Dressing Ability Minimal Assistance Upper Body Dressing Ability Contact Guard Bathing Ability Moderate Assistance Performing Toilet Hygiene Ability Minimal Assistance Overall Commode/Toilet Transfer Ability Moderate Assistance Commode/Toilet Transfer Technique Sit to/from Ambulatory Commode/Toilet Transfer Assistive Grab Bars Devices Oral Care Assist Standby Assistance Decrease in Endurance Yes Discharge Plan OT Discharge Plan Pt will continue to be seen for OT services while at [facility]. Pt would benefit most from short term rehab at SNF following discharge. Continued skilled therapy would improve strength, safety , endurance, ADL independence, and functional transfers to reach PLOF. Eval Complexity Eval Charge Codes 12592 - Moderate Complexity PHYSICIAN CERTIFICATION: I certify the specified therapy services for Brian Miller are required, authorized, and reviewed every 30 days.
[2023-05-21] MEDS: POLYETHYLENE GLYCOL 3350 17 GM PACKET PO (11:54)
[2023-05-21] MEDS: levoFLOXacin 750 MG TABLET PO (11:55)
[2023-05-21] MEDS: SENNOSIDES 8.6MG/DOCUSATE 50MG TABLET 2 TAB PO ×2 (12:03→21:35)
--- NOTE | 2023-05-21 12:06 | SW/DCPLANNER ---
Addendum entered by Evelyn Kwan 05/22/23 10:13: [facility]/ [facility] stated that she can accept this patient once medically stable for discharge. Addendum entered by Evelyn Kwan 05/21/23 13:38: [facility]/ [facility] will be onsite to evaluate patient today. Original Note: I spoke w/ this patient and his regarding plans once medically stable for discharge. PT/OT evaluated patient and recommended SNF at time of discharge. Patient is agreeable to placement and prefers [facility]. [facility]/ [facility] stated that she does have open beds. Patient information has been faxed to Ies[facility] this AM. I will follow up w/ [facility] and patient once information is reviewed. Discharge date is unknown at this time.
--- NOTE | 2023-05-21 12:12 | HMH.PTEV ---
Physical Therapy Evaluation Rehab PT IP Evaluation Start: 05/21/23 09:29 Freq: ONCE Status: Active Protocol: Document 05/21/23 10:36 [facility] (Rec: 05/21/23 10:39 [facility] [email or web address]) Subjective/History History History Per H&P: This is a 78-year-old male with PMHx significant for GERD , atrial fibrillation s/p ablation, HLD, HTN, COPD/ emphysema, presents today for evaluation concerning shortness of breath and left- sided chest pain that has been intermittent over the past couple of days. He states that he has been using his breathing treatments at home with no relief. States he has a cough at baseline however denies any fevers, chills, abdominal pain. Denies pain or any recent sick contacts. No other complaints. Admitted for further treatment. Subjective Subjective PLOF per pt report: IND with functional mobility without AD use. Using O2 prior to admission. Lives with in a single story home with 1STE. New diagnosis of cancer in past 12 No months? Rehab PT IP Eval Objective Appearance Patient Behavior Appropriate,Cooperative Patient Orientation Person,Place Difficulty following instructions none Speech Pattern Clear Ambulation Patient Able to Ambulate Yes Ambulation Observation IP General Gait Pattern Observation Wide Based Gait Ambulation Distance (feet) 3 Ambulation Assistive Device None Ambulation Ability Minimal x 2 (25% assist) Transfers Bed Transfer Ability Minimal x 1 (25% assist) Sit to Stand Bed Transfer Ability Minimal x 2 (25% assist) Rehab PT IP prob,goals,plan Problems Date of Evaluation: 05/21/23 PT IP Problems Bed Mobility,Transfers,Gait, Balance,Self care,Safety Rehab Potential Rehab Potential Good Equipment Needs Assistive Devices Rolling / Wheeled Walker Plan PT Intervention Plan Bed Mobility,Transfers,Gait, Balance,Safety,Therapeutic Exercise Other Intervention Plan 1-2 times PT Plan Frequency Daily Duration LOS Discharge Goals Bed Transfer Ability Supervision/Stand by Sit to Stand Chair Transfer Ability Contact Guard/Hand Hold Ambulation Assistive Device Rolling Walker Ambulation Distance (feet) 20 Discharge Plan PT Discharge Plan Pt not safe to return home at this time d/t current level of functional mobility. PT recommending short-term rehabilitation stay upon d/c from [facility]. Pt would benefit from skilled PT while at [facility] to prevent further functional decline and maximize safety with mobility. Eval Complexity Eval Charge Codes 21714 - High Complexity PHYSICIAN CERTIFICATION: I certify the specified therapy services for Brian Miller are required, authorized, and reviewed every 30 days.
--- NOTE | 2023-05-21 13:08 | DIET.NUTRFU ---
During rounds reviewed no BM since admit on 05/14, bowel regimen added today, plan is to have BM prior to discharge to [facility]. Meal intake noted good at 75%.
--- NOTE | 2023-05-21 14:28 | XR_ITS ---
FINAL REPORT CLINICAL HISTORY: Pneumothorax COMPARISON: Earlier same day FINDINGS: A single portable view of the chest was obtained. A left pleural catheter is again noted. The heart size and pulmonary vascularity are within normal limits. The mediastinum is within normal limits. The lungs are hyperinflated consistent with COPD. There is mild bibasilar atelectasis or scarring. No pneumothorax is identified. IMPRESSION: No pneumothorax. Bibasilar atelectasis or scarring. Reviewed, Interpreted and Dictated by Zion Wellington III, MD Transcribed by Rebeca Pompa Authenticated and [facility]
[2023-05-21] MEDS: MORPHINE 2MG/ML SYRINGE 2 MG IV (15:48)
--- NOTE | 2023-05-21 16:00 | P.PN_ITS ---
Subjective *Date: 05/21/23 *Time: 16:00 Interval history: Patient feeling quite weak. Denies nausea, vomiting, chest pain. Montoya catheter taken out this morning. Afebrile overnight. Stable on 2 L nasal cannula oxygen. Minimal output from chest tube. Medical Exam Vital signs and Labs for Last 24 Hours: Vital Signs Temp Pulse Pulse Resp BP Pulse Ox O2 Del Method 05/21/23 15:40 98.4 F 77 19 140/80 98 Nasal Cannula 05/21/23 15:00 Nasal Cannula 05/21/23 13:00 Nasal Cannula 05/21/23 12:00 70 05/21/23 12:00 80 19 142/65 H 97 Nasal Cannula 05/21/23 11:01 78 05/21/23 11:01 78 05/21/23 11:01 98 Nasal Cannula 05/21/23 11:00 Nasal Cannula 05/21/23 10:02 90 L Nasal Cannula 05/21/23 10:00 85 L Room Air 05/21/23 09:00 Nasal Cannula 05/21/23 08:00 80 05/21/23 08:00 Nasal Cannula 05/21/23 08:00 97.8 F 86 20 143/78 H 94 L Nasal Cannula 05/21/23 07:00 Nasal Cannula 05/21/23 06:22 82 05/21/23 06:22 85 05/21/23 06:22 94 L Nasal Cannula 05/21/23 05:00 Nasal Cannula 05/21/23 04:00 80 05/21/23 04:00 98 F 82 17 149/75 H 97 05/21/23 03:00 Nasal Cannula 05/21/23 01:00 Nasal Cannula 05/21/23 00:03 82 05/21/23 00:02 83 05/21/23 00:00 80 05/20/23 23:00 Nasal Cannula 05/20/23 21:00 Nasal Cannula 05/20/23 20:00 80 05/20/23 20:00 Nasal Cannula 05/20/23 18:37 Nasal Cannula 05/20/23 17:55 Nasal Cannula 05/20/23 17:53 80 05/20/23 17:53 83 05/20/23 16:37 Nasal Cannula O2 Flow Rate 05/21/23 15:40 2 05/21/23 15:00 2 05/21/23 13:00 2 05/21/23 12:00 05/21/23 12:00 05/21/23 11:01 05/21/23 11:01 05/21/23 11:01 2 05/21/23 11:00 2 05/21/23 10:02 2 05/21/23 10:00 05/21/23 09:00 2 05/21/23 08:00 05/21/23 08:00 2 05/21/23 08:00 05/21/23 07:00 2 05/21/23 06:22 05/21/23 06:22 05/21/23 06:22 2 05/21/23 05:00 2 05/21/23 04:00 05/21/23 04:00 05/21/23 03:00 2 05/21/23 01:00 2 05/21/23 00:03 05/21/23 00:02 05/21/23 00:00 05/20/23 23:00 2 05/20/23 21:00 2 05/20/23 20:00 05/20/23 20:00 2 05/20/23 18:37 2 05/20/23 17:55 2 05/20/23 17:53 05/20/23 17:53 05/20/23 16:37 2 Intake and Output 05/21/23 05/21/23 05/21/23 07:59 15:59 23:59 Intake Total 480 / 720 240 / 720 Output Total 300 / 700 400 / 700 Balance 180 / 20 -160 / 20 Intake: Intake, Oral Amount 480 / 720 240 / 720 Output: Output, Urine Amount 300 / 300 0 / 300 Output, Urine Amount (Catheter) 400 / 400 Montoya 400 / 400 Other: Number of Voids 0 Number of Unmeasured Voids 1 0 Weight 77 kg Patient Weight 05/21/23 23:59 Weight 77 kg I & O for Labs for Last 24 Hours: Intake & Output 05/18/23 05/19/23 05/20/23 05/21/23 23:59 23:59 23:59 23:59 Intake Total 510 / 710 680 / 680 720 / 960 720 / 720 Output Total 250 / 1250 4050 / 4050 2250 / 2250 700 / 700 Balance 260 / -540 -3370 / -3370 -1530 / -1290 20 / 20 Weight 86.66 kg 80.921 kg 80.921 kg 77 kg Constitutional: Present no acute distress, average body habitus, chronically ill appearing and cooperative Head: Present atraumatic and normocephalic ENT: Present normal exam Respiratory: Present prolonged expiratory phase, rhonchi, wheezes, diminished air movement and normal respiratory effort; Absent crackles Cardiac: Present Reg Rate and Rhythm GI: Present soft and normal bowel sounds; Absent distention or tenderness Extremities: Present normal inspection, full ROM and edema (Bilateral ankle edema) Skin: Present intact; Absent erythema Neuro: Present Grossly Intact, alert, awake, oriented x 3 and moves all extremities Assessment and Plan *Assessment and plan (1) Acute exacerbation of chronic obstructive airways disease: Status: Chronic Category: Medical Code(s): J44.1 - Chronic obstructive pulmonary disease with (acute) exacerbation (2) Acute respiratory failure with hypoxia: Status: Chronic Category: Medical Code(s): J96.01 - Acute respiratory failure with hypoxia (3) Pneumothorax on left: Status: Acute Category: Medical Code(s): J93.9 - Pneumothorax, unspecified (4) Pulmonary emphysema: Status: Chronic Qualifiers: Emphysema type: unspecified Qualified Code(s): J43.9 - Emphysema, unspecified Category: Medical Code(s): J43.9 - Emphysema, unspecified (5) History of atrial fibrillation: Status: Acute Category: Medical Code(s): Z86.79 - Personal history of other diseases of the circulatory system (6) Hypertension: Status: Acute Qualifiers: Hypertension type: unspecified Qualified Code(s): I10 - Essential (primary) hypertension Category: Medical Code(s): I10 - Essential (primary) hypertension (7) HLD (hyperlipidemia): Status: Acute Qualifiers: Hyperlipidemia type: unspecified Qualified Code(s): E78.5 - Hyperlipidemia, unspecified Category: Medical Code(s): E78.5 - Hyperlipidemia, unspecified (8) Ex-smoker: Status: Chronic Category: Social Hx Code(s): Z87.891 - Personal history of nicotine dependence Plan 78-year-old male with PMHx significant for GERD, atrial fibrillation s/p ablation, HLD, HTN, COPD/emphysema, presents today for evaluation concerning shortness of breath and left-sided chest pain that has been intermittent over few days prior to admission. Chest tube has been in place for spontaneous pneumothorax. Pulmonology assisting with care. Showing improvement in sympto ms, pneumothorax resolved. Chest tube out today. Chest x-ray personally reviewed, no pneumothorax present. Continues to require inpatient management. PT and OT consulted and evaluating today. Problems addressed as follows: Acute on chronic hypoxic and hypercapnic respiratory failure: spontaneous pneumothorax -Pulmonology consulted, appreciate their recommendations. Discussed case today, plan to take chest tube out after being clamped for 4 hours if no recollection. -Patient has completed 5 days of antibiotics. -Continue Xopenex/ipratropium scheduled every 6 hours and Pulmicort twice daily -Continue supplemental oxygen for goal sats greater 90%. Currently on 2 L. Room air saturation of 85% at rest today. -CBC, CMP, magnesium ordered for the morning. Chest pain, elevated troponin Atrial fibrillation Hypertension Hyperlipidemia - monitor troponin - consulted cardiology, recommend outpatient eval. - Currently in sinus rhythm. Continue aspirin 81 mg daily. - Continue Eliquis 5 mg twice daily. Continue bisoprolol 5 mg daily. Continue Plavix 75 mg daily. Continue Lasix 40 mg daily. - Continue Lipitor 40 mg nightly Weakness and debility: PT and OT evaluating, may necessitate placement versus home with home health Full code Mohamud
--- NOTE | 2023-05-21 17:19 | PC.NURSE ---
Pt A&O x4. Resting in bed. No complaints stated. Chest tube was removed this afternoon by Alok ANDREWS. Pt was premedicated with Morphine. He tolerated procedure well. Has been up to BSC this shift. Has had a BM. Declined to get up to chair. Wants to take a nap. Call light within reach.
[2023-05-21] MEDS: ATORVASTATIN 40MG TABLET 40 MG PO (21:35)
[2023-05-22] VITALS: BP 127/73; PULSE 55; PULSE 82; RESP 18; TEMP 36.6; O2SAT 94
[2023-05-22 00:05] VITALS: PULSE 83; PULSE 86
[2023-05-22] MEDS: LEVALBUTEROL 1.25MG/3ML NEB 1.25 MG IH ×3 (00:05→11:03)
[2023-05-22] MEDS: IPRATROPIUM BROMIDE 0.5 MG/2.5ML SOLUTION IH ×3 (00:05→11:03)
[2023-05-22 04:00] VITALS: BP 135/61; PULSE 60; PULSE 81; RESP 18; TEMP 36.4; O2SAT 97; BMI 22.9
--- NOTE | 2023-05-22 05:51 | PC.NURSE ---
Pt is alert and oriented. Dressing to left side CDI. Pt has had no complaints throughout shift. Pt uses urinal. Remains 2L NC, O2 sat >90%, lung sounds diminished. Call light in reach.
[2023-05-22 06:19] VITALS: PULSE 73; PULSE 75; O2SAT 93
[2023-05-22] MEDS: BUDESONIDE 0.5MG/2ML NEB 0.5 MG IH (06:19)
--- NOTE | 2023-05-22 06:26 | XR_ITS ---
FINAL REPORT CLINICAL HISTORY: Pneumothorax post chest tube removal COMPARISON: 05/21/2023 FINDINGS: SINGLE-VIEW CHEST The heart size is normal. The mediastinum is normal. The lungs are hyperinflated consistent with COPD. Left pleural catheter has been removed. There is mild atelectasis at the lung bases. There is no pneumothorax. IMPRESSION: Left base atelectasis. No pneumothorax. Reviewed, Interpreted and Dictated by Zion Wellington III, MD Transcribed by Oneyda Otto Authenticated and [facility]
[2023-05-22 07:43] LABS: Basophils % 0.4 % (0.1-2.0); Eosinophils # 0.3 K/mm3 (0.0-0.4); Eosinophils % 2.8 % (0.1-12.0); Hemoglobin 14.4 g/dL (14.1-18.0); Lymphocytes # 1.4 K/mm3 (0.7-4.5); Lymphocytes % 12.1 % (10-50); Mean Corpuscular HGB Conc 31.3 g/dL (31.8-35.4); Mean Corpuscular Hemoglobin 31.7 pg (27.0-31.2); Mean Corpuscular Volume 101.4 fl (80-94); Mean Platelet Volume 7.8 fl (7.4-10.4); Monocytes % 8.5 % (1.7-9.3); Neutrophils # 8.7 K/mm3 (1.8-7.8); Neutrophils % 76.2 % (37.0-80.0); Platelet Count 236 K/mm3 (142-424); Red Blood Count 4.54 M/mm3 (4.60-6.20); Red Cell Distribution Width 13.1 % (11.5-17.5); White Blood Count 11.4 K/mm3 (4.8-10.8)
[2023-05-22 07:58] LABS: Alanine Aminotransferase 34 U/L (12-78); Albumin Level 3.7 g/dl (3.5-5.0); Albumin/Globulin Ratio 1.5 (1.1-1.8); Alkaline Phosphatase 66 U/L (38-126); Aspartate Amino Transferase 51 U/L (17-59); Bilirubin,Total 0.6 mg/dl (0.2-1.3); Calcium 9.1 mg/dl (8.4-10.2); Chloride 90 mmol/L (98-107); Globulin 2.5 g/dL (1.3-3.2); Glucose 110 mg/dl (74-100); Magnesium 2.2 mg/dl (1.6-2.3); Potassium 3.4 mmoL/L (3.5-5.1); Sodium 135 mmol/L (136-145); Total Protein,Serum 6.2 g/dl (6.3-8.2)
[2023-05-22 08:00] VITALS: BP 134/69; PULSE 88; RESP 18; TEMP 37.2; O2SAT 94
[2023-05-22] MEDS: POLYETHYLENE GLYCOL 3350 17 GM PACKET PO (08:23)
[2023-05-22] MEDS: PANTOPRAZOLE 40MG TABLET 40 MG PO (08:23)
[2023-05-22] MEDS: SENNOSIDES 8.6MG/DOCUSATE 50MG TABLET 2 TAB PO (08:24)
[2023-05-22] MEDS: ASPIRIN EC 81MG TABLET 81 MG PO (08:25)
[2023-05-22] MEDS: BISOPROLOL 5MG TABLET 5 MG PO (08:25)
[2023-05-22] MEDS: FUROSEMIDE 40 MG TABLET PO (08:25)
[2023-05-22] MEDS: CLOPIDOGREL 75MG TAB 75 MG PO (08:25)
[2023-05-22] MEDS: APIXABAN 5MG TABLET 5 MG PO (08:25)
[2023-05-22 09:06] LABS: Blood Urea Nitrogen 32 mg/dl (9-20); Creatinine Clearance Estimated 65 mL/min (50-200); Estimated Glomerular Filt Rate 81 ml/min (>60); GFR (African American) 98 ML/MIN (>60)
[2023-05-22 09:12] LABS: Anion Gap 8.4 mEq/L (5-15)
[2023-05-22 09:13] LABS: Carbon Dioxide 39 mmol/L (22.0-30.0)
--- NOTE | 2023-05-22 10:22 | EXP.DC.SUM ---
General Admission date:: 05/15/23 Discharge date: 05/22/23 HPI HPI HPI: This is a 78-year-old male with PMHx significant for GERD, atrial fibrillation s/p ablation, HLD, HTN, COPD/emphysema, presents today for evaluation concerning shortness of breath and left-sided chest pain that has been intermittent over the past couple of days. He states that he has been using his breathing treatments at home with no relief. States he has a cough at baseline however denies any fevers, chills, abdominal pain. Denies pain or any recent sick contacts. No other complaints. Admitted for further treatment. Hospital Course Hospital Course Hospital Course: 78-year-old male with PMHx significant for GERD, atrial fibrillation s/p ablation, HLD, HTN, COPD/emphysema, presents today for evaluation concerning shortness of breath and left-sided chest pain that has been intermittent over few days prior to admission. Chest tube has been in place for spontaneous pneumothorax. Pulmonology assisting with care. Showing improvement in symptoms, pneumothorax resolved. Chest tube out 05/20. Serial images of showed no recurrence of pneumothorax. Chest x-ray on day of discharge personally reviewed, stable finding with no pneumo. PT and OT recommended placement for weakness. Patient accepted by [facility]. Stable to discharge. Problems addressed as follows: Acute on chronic hypoxic and hypercapnic respiratory failure: Spontaneous pneumothorax - Pulmonology consulted during admission. Patient had chest tube placed on admission. Pulmonology assisted with care during admission. Patient overall did well with resolution of pneumothorax. Chest tube was removed on 05/20. Has had no recurrence of pneumothorax. Was treated with 5 days of antibiotics and steroids including Levaquin and prednisone. Will continue Xopenex/ipratropium scheduled at discharge. Continue supplemental oxygen for goal saturation greater 90%. On 2 L at this time with room air saturation of 85% at rest on 05/20. Would benefit from repeat labs including CBC, CMP in 1 week. Chest pain, elevated troponin Atrial fibrillation Hypertension Hyperlipidemia -Cardiology consulted during admission. Patient overall doing well. Adjustments made to medication for improved heart rate control. Will need follow-up with cardiology as an outpatient for further evaluation. Currently in sinus rhythm. Continue medications as follows: - Continue aspirin 81 mg daily. - Continue Eliquis 5 mg twice daily. Continue bisoprolol 5 mg daily. Continue Plavix 75 mg daily. Continue Lasix 40 mg daily. - Continue Lipitor 40 mg nightly Weakness and debility: PT and OT evaluated for placement, would benefit from rehab. Discharging to [facility] for further management. Labs on day of discharge's are normal white count of 11.4, and hemoglobin of 14. Kidney function acceptable with BUN of 32 and creatinine of 0.9. Exam Data for Last 24 hours Vital signs and Labs for Last 24 Hours: Temp Pulse Resp BP Pulse Ox O2 Del Method O2 Flow Rate 98.9 F 88 18 134/69 94 L Nasal Cannula 2 05/22/23 08:00 05/22/23 08:00 05/22/23 08:00 05/22/23 08:00 05/22/23 08:00 05/22/23 08:00 05/22/23 08:00 FiO2 99 05/20/23 08:57 Laboratory Results - last 24 hr 05/22/23 07:23: WBC 11.4 H, RBC 4.54 L, Hgb 14.4, Hct 46.0, MCV 101.4 H, MCH 31.7 H, MCHC 31.3 L, RDW 13.1, Plt Count 236, MPV 7.8, Neut % (Auto) 76.2, Lymph % (Auto) 12.1, [place] % (Auto) 8.5, Eos % (Auto) 2.8, Baso % (Auto) 0.4, Neut # (Auto) 8.7 H, Lymph # (Auto) 1.4, [place] # (Auto) 1.0, Eos # (Auto) 0.3, Baso # (Auto) 0.0, Sodium 135 L, Potassium 3.4 L D, Chloride 90 L, Carbon Dioxide 39 H, Anion Gap 8.4, BUN 32 H, Creatinine 0.90, Estimated Creat Clear 65, Estimated GFR 81, Est GFR ( Amer) 98, Glucose 110 H, Calcium 9.1, Magnesium 2.2, Total Bilirubin 0.6, AST 51, ALT 34, Alkaline Phosphatase 66, Total Protein 6.2 L, Albumin 3.7, Globulin 2.5, Albumin/Globulin Ratio 1.5 I & O for Last 24 hours: Intake & Output 05/19/23 05/20/23 05/21/23 05/22/23 23:59 23:59 23:59 23:59 Intake Total 680 / 680 720 / 960 960 / 960 240 / 240 Output Total 4050 / 4050 2250 / 2250 700 / 900 600 / 600 Balance -3370 / -3370 -1530 / -1290 260 / 60 -360 / -360 Weight 80.921 kg 80.921 kg 77 kg 76.8 kg Constitutional Constitutional: no acute distress, average body habitus, chronically ill appearing and cooperative *Routine HEENT Exam Head: Present normocephalic Eye: Present EOMI and PERRL ENT: Present mucous membranes moist *Routine Neck Exam Neck: Present supple; Absent lymphadenopathy *Routine Respiratory Exam Respiratory: Present prolonged expiratory phase, wheezes, crackles and diminished air movement; Absent rhonchi *Routine Cardiovascular Exam Cardiovascular: Present RRR *Routine Abdominal Exam Abdominal: Present soft and normoactive bowel sounds; Absent tenderness *Routine Rectal Exam Patient deferred: visual exam *Routine Exam Patient deferred: penile exam *Routine Extremities Exam Extremities: Absent cyanosis, clubbing or edema *Routine Skin Exam Skin: Present warm; Absent rash *Routine Neurological Exam Neurological: Present alert, oriented X3 and moving all extremities; Absent altered mental status Results Data Completed and Pending Labs on day of discharge: Labs from last 24 hours 05/22/23 07:23 WBC 11.4 H RBC 4.54 L Hgb 14.4 Hct 46.0 MCV 101.4 H MCH 31.7 H MCHC 31.3 L RDW 13.1 Plt Count 236 MPV 7.8 Neut % (Auto) 76.2 Lymph % (Auto) 12.1 [place] % (Auto) 8.5 Eos % (Auto) 2.8 Baso % (Auto) 0.4 Neut # (Auto) 8.7 H Lymph # (Auto) 1.4 [place] # (Auto) 1.0 Eos # (Auto) 0.3 Baso # (Auto) 0.0 Sodium 135 L Potassium 3.4 L D Chloride 90 L Carbon Dioxide 39 H Anion Gap 8.4 BUN 32 H Creatinine 0.90 Estimated Creat Clear 65 Estimated GFR 81 Est GFR ( Amer) 98 Glucose 110 H Calcium 9.1 Magnesium 2.2 Total Bilirubin 0.6 AST 51 ALT 34 Alkaline Phosphatase 66 Total Protein 6.2 L Albumin 3.7 Globulin 2.5 Albumin/Globulin Ratio 1.5 DS: Diagnosis Discharge Diagnosis (1) Acute exacerbation of chronic obstructive airways disease: Status: Chronic Code(s): J44.1 - Chronic obstructive pulmonary disease with (acute) exacerbation (2) Acute respiratory failure with hypoxia: Status: Chronic Code(s): J96.01 - Acute respiratory failure with hypoxia (3) Pneumothorax on left: Status: Acute Code(s): J93.9 - Pneumothorax, unspecified (4) Pulmonary emphysema: Status: Chronic Code(s): J43.9 - Emphysema, unspecified Qualifiers: Emphysema type: unspecified Qualified Code(s): J43.9 - Emphysema, unspecified (5) History of atrial fibrillation: Status: Acute Code(s): Z86.79 - Personal history of other diseases of the circulatory system (6) Hypertension: Status: Acute Code(s): I10 - Essential (primary) hypertension Qualifiers: Hypertension type: unspecified Qualified Code(s): I10 - Essential (primary) hypertension (7) HLD (hyperlipidemia): Status: Acute Code(s): E78.5 - Hyperlipidemia, unspecified Qualifiers: Hyperlipidemia type: unspecified Qualified Code(s): E78.5 - Hyperlipidemia, unspecified (8) Ex-smoker: Status: Chronic Code(s): Z87.891 - Personal history of nicotine dependence Meds Home Medications and Allergies Home Medications Medication Instructions Recorded Confirmed Type aspirin 81 mg tablet,delayed 81 mg PO DAILY 09/02/19 05/15/23 History release hydrocortisone valerate 0.2 % 1 applic topical BID 10 days #60 12/05/22 05/15/23 Rx topical cream grams budesonide-formoterol HFA 160 2 puff inhalation BID 90 days 01/03/23 05/15/23 Rx mcg-4.5 mcg/actuation aerosol #10.2 grams inhaler azithromycin 250 mg tablet 250 mg PO MOWEFR 05/16/23 05/16/23 History furosemide 40 mg tablet 40 mg PO DAILY 05/16/23 05/16/23 History potassium chloride 10 mEq 10 meq PO DAILY 05/16/23 05/16/23 History capsule,extended release apixaban 5 mg tablet (Eliquis) 5 mg PO BID 30 days #60 tabs 05/22/23 Rx aspirin 81 mg tablet,delayed 81 mg PO DAILY 30 days #30 tabs 05/22/23 Rx release atorvastatin 40 mg tablet 40 mg PO HS 30 days #30 tabs 05/22/23 Rx bisoprolol fumarate 5 mg tablet 5 mg PO DAILY 30 days #30 tabs 05/22/23 Rx calcium carbonate 200 mg calcium 500 mg (2.5 x 200 mg calcium (500 05/22/23 Rx (500 mg) chewable tablet (Tums) mg)) PO QIDP PRN Heartburn 30 days #120 tabs clopidogrel 75 mg tablet 75 mg PO DAILY 30 days #30 tabs 05/22/23 Rx ipratropium bromide 0.02 % 0.5 mg (2.5 mL) inhalation Q6RT 30 05/22/23 Rx solution for inhalation days #300 mL levalbuterol HCl 1.25 mg/3 mL 1.25 mg (3 mL) inhalation Q6RT 30 05/22/23 Rx solution for nebulization days #360 mL nicotine 21 mg/24 hr daily 21 mg transdermal DAILYP PRN 05/22/23 Rx transdermal patch Nicotine Cravings 30 days #30 ea pantoprazole 40 mg tablet,delayed 40 mg PO DAILY 30 days #30 tabs 05/22/23 Rx release sennosides 8.6 mg-docusate sodium 1 tab PO BID PRN Constipation 30 05/22/23 Rx 50 mg tablet (Stimulant Laxative days #60 tabs Plus) New Prescriptions to Start Prescriptions: apixaban [Eliquis] Johnny Stewart aspirin Terry,Johnny atorvastatin Terry,Johnny bisoprolol fumarate Johnny Stewart calcium carbonate [Tums] Johnny Stewart clopidogrel Terry,Johnny ipratropium bromide Terry,Johnny levalbuterol HCl Terry,Johnny nicotine Terry,Johnny pantoprazole Terry,Johnny sennosides-docusate sodium [Stimulant Laxative Plus] Johnny Stewart Allergies Allergy/AdvReac Type Severity Reaction Status Date / Time No Known Allergies Allergy Verified 04/30/23 13:50 Discharge Plan Disposition Patient Disposition: [facility] Condition: Fair Discharge Order Discharge Orders: Discharge Order (Routine); Ordered 05/22/23 Ordered By: Johnny Stewart Follow up Plan Follow up with: Elvin Dickinson MD [Physician] - Enter time for follow up (5 days) Johny Ontiveros MD [Staff Physician] - Enter time for follow up Prescriptions/Medication Reconciliation: New Eliquis 5 mg Tablet 5 mg PO BID 30 Days Qty: 60 0RF atorvastatin 40 mg Tablet 40 mg PO HS 30 Days Qty: 30 0RF clopidogrel 75 mg Tablet 75 mg PO DAILY 30 Days Qty: 30 0RF aspirin 81 mg Tablet,Delayed Release (Dr/Ec) 81 mg PO DAILY 30 Days Qty: 30 0RF bisoprolol fumarate 5 mg Tablet 5 mg PO DAILY 30 Days Qty: 30 0RF calcium carbonate [Tums] 200 mg calcium (500 mg) Tablet,Chewable 500 mg PO QIDP PRN (Reason: Heartburn) 30 Days Qty: 120 0RF levalbuterol HCl 1.25 mg/3 mL Solution For Nebulization 1.25 mg inhalation Q6RT 30 Days Qty: 360 0RF ipratropium bromide 0.02 % Solution 0.5 mg inhalation Q6RT 30 Days Qty: 300 0RF sennosides-docusate sodium [Stimulant Laxative Plus] 8.6-50 mg Tablet 1 tab PO BID PRN (Reason: Constipation) 30 Days Qty: 60 0RF pantoprazole 40 mg Tablet,Delayed Release (Dr/Ec) 40 mg PO DAILY 30 Days Qty: 30 0RF nicotine 21 mg/24 hr Patch 24 Hour 21 mg transdermal DAILYP PRN (Reason: Nicotine Cravings) 30 Days Qty: 30 0RF Continued hydrocortisone valerate 0.2 % cream 1 applic topical BID 10 Days Qty: 60 2RF budesonide-formoterol 160-4.5 mcg/actuation HFA aerosol inhaler 2 puff INHALATION BID 90 Days Qty: 10.2 3RF furosemide 40 mg tablet 40 mg PO DAILY Patient Comments: TAKE 1 TABLET BY MOUTH EVERY DAY potassium chloride 10 mEq capsule, extended release 10 meq PO DAILY Patient Comments: TAKE 1 CAPSULE BY MOUTH EVERY DAY WITH FOOD azithromycin 250 mg tablet 250 mg PO MOWEFR aspirin 81 MG tablet,delayed release (DR/EC) 81 mg PO DAILY Discontinued bisoprolol fumarate 5 mg tablet 2.5 mg PO DAILY Patient Comments: TAKE 1/2 TABLET BY MOUTH DAILY FOR HIGH BLOOD PRESSURE simvastatin 20 mg tablet 20 mg PO HS omeprazole 20 mg capsule,delayed release(DR/EC) 20 mg PO DAILY Problem Reconciliation Problems Reviewed?: Yes Patient Discharge Instructions ACTIVITY: Continue current activity DIET: continue same diet Patient Instructions: DI for Heart Attack, DI for Pneumothorax, DI for Surgical Site Infection, DI for Chest Tube Insertion, Catheter-Associated Urinary Tract Infection Providers Primary Care Provider: Carmen Lomas Admit Provider: Melissa Hough Attending Provider: Melissa Hough
[2023-05-22 11:05] VITALS: PULSE 87; PULSE 88; O2SAT 94
[2023-05-22] MEDS: CALCIUM CARBONATE 500MG CHEWTAB 500 MG PO (11:23)
--- NOTE | 2023-05-22 13:33 | PC.NURSE ---
gave report to kunal at [facility]. 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
== END 2023-05-22 14:18 | DRG 189 ==
LOC: ER 22:20 → ICU 05-16 02:35 → 2ND 05-18 16:27
PROVIDERS: Internal Medicine Adolescent Medicine; Internal Medicine Pulmonary Disease; Nurse Practitioner Critical Care Medicine; Nurse Practitioner Family; Admitting Provider Internal Medicine; Emergency Provider Emergency Medicine; PCP Nurse Practitioner Family; Visit Provider Internal Medicine
DX: J96.21 Acute and chronic respiratory failure with hypoxia (principal); J44.1 Chronic obstructive pulmonary disease with (acute) exacerbation; J93.83 Other pneumothorax; I48.20 Chronic atrial fibrillation, unspecified; I10 Essential (primary) hypertension; K21.9 Gastro-esophageal reflux disease without esophagitis; E78.5 Hyperlipidemia, unspecified; J43.9 Emphysema, unspecified; Z99.81 Dependence on supplemental oxygen; I11.0 Hypertensive heart disease with heart failure; Z87.891 Personal history of nicotine dependence; R79.9 Abnormal finding of blood chemistry, unspecified
CPT/HCPCS: 32551; 36415; 71045; 80048; 80053; 82803; 83605; 83735; 83880; 84484; 85007; 85025; 85610; 85730; 87636; 93005; 93306; 94640; 94660; 94761; 97163; 97166; 97530; 99285; C1725; J1956; J3475

== ENCOUNTER 2023-05-23 16:53 | Inpatient (IN) | payer MEDICARE, BC, SELFPAY ==
[2023-05-23] VITALS (9 sets, daily range): BP systolic 102–147; BP diastolic 58–75; PULSE 61–89; RESP 15–18; TEMP 36.5–36.9; O2SAT 93–99; BMI 20.9; BMI 23.4
--- NOTE | 2023-05-23 16:54 | XR_ITS ---
PROCEDURE INFORMATION: Exam: XR Chest Exam date and time: 05/23/2023 5:04 PM Age: 78 years old Clinical indication: Device placement; Chest tube; Shortness of breath; Additional info: SOA, chest tube removal TECHNIQUE: Imaging protocol: Radiologic exam of the chest. Views: 1 view. COMPARISON: CR XR CHEST PORTABLE 05/22/2023 6:36 AM FINDINGS: Lungs: Hyperinflated lungs. Increasing left lung base atelectasis. Interval development of diffuse chest wall emphysema. Pleural spaces: Interval development of a moderate left pneumothorax. Heart/Mediastinum: Interval development of pneumomediastinum. Unchanged calcified mediastinal lymph nodes. Bones/joints: Unremarkable. IMPRESSION: 1. Interval development of a moderate left pneumothorax. 2. Interval development of diffuse chest wall emphysema. 3. Interval development of pneumomediastinum.
--- NOTE | 2023-05-23 16:54 | ED_ITS ---
Discharge Plan Disposition Patient Disposition: Admitted Clinical Impressions Clinical Impression: Pneumothorax on left, Chronic respiratory failure, Subcutaneous emphysema Discharge ED Provider: Nimo Trujillo General Adult HPI General Chief complaint: Shortness of Breath/Dyspnea Stated complaint: SOA Time Seen by Provider: 05/23/23 16:54 History of Present Illness HPI narrative: This patient is a 78-year-old male with a history of COPD chronically on 3 L nasal cannula, pulmonary emphysema, recent admission for respiratory failure with spontaneous pneumothorax requiring left chest tube placement presenting with concern for shortness of breath. Patient had the chest tube pulled 2 days ago, was found to have no pneumothorax on chest x-ray yesterday, and was discharged home to nursing facility per medical record review. Today, he became more short of air and started having pain in the left side of his chest and up into his neck. He also felt short of air. Given this, EMS was contacted by his nursing facility and the patient was brought back in. EMS noted the patient was hemodynamically stable en route. Related Data Home Medications Medication Instructions Recorded Confirmed aspirin 81 mg tablet,delayed 81 mg PO DAILY 09/02/19 05/23/23 release azithromycin 250 mg tablet 250 mg PO MOWEFR 05/16/23 05/23/23 furosemide 40 mg tablet 40 mg PO DAILY 05/16/23 05/23/23 potassium chloride 10 mEq 10 meq PO DAILY 05/16/23 05/23/23 capsule,extended release Previous Rx's Medication Instructions Recorded hydrocortisone valerate 0.2 % 1 applic topical BID 10 days #60 12/05/22 topical cream grams budesonide-formoterol HFA 160 2 puff inhalation BID 90 days 01/03/23 mcg-4.5 mcg/actuation aerosol #10.2 grams inhaler apixaban 5 mg tablet (Eliquis) 5 mg PO BID 30 days #60 tabs 05/22/23 aspirin 81 mg tablet,delayed 81 mg PO DAILY 30 days #30 tabs 05/22/23 release atorvastatin 40 mg tablet 40 mg PO HS 30 days #30 tabs 05/22/23 bisoprolol fumarate 5 mg tablet 5 mg PO DAILY 30 days #30 tabs 05/22/23 calcium carbonate 200 mg calcium 500 mg (2.5 x 200 mg calcium (500 05/22/23 (500 mg) chewable tablet (Tums) mg)) PO QIDP PRN Heartburn 30 days #120 tabs clopidogrel 75 mg tablet 75 mg PO DAILY 30 days #30 tabs 05/22/23 ipratropium bromide 0.02 % 0.5 mg (2.5 mL) inhalation Q6RT 30 05/22/23 solution for inhalation days #300 mL levalbuterol HCl 1.25 mg/3 mL 1.25 mg (3 mL) inhalation Q6RT 30 05/22/23 solution for nebulization days #360 mL nicotine 21 mg/24 hr daily 21 mg transdermal DAILYP PRN 05/22/23 transdermal patch Nicotine Cravings 30 days #30 ea pantoprazole 40 mg tablet,delayed 40 mg PO DAILY 30 days #30 tabs 05/22/23 release sennosides 8.6 mg-docusate sodium 1 tab PO BID PRN Constipation 30 05/22/23 50 mg tablet (Stimulant Laxative days #60 tabs Plus) Allergies Allergy/AdvReac Type Severity Reaction Status Date / Time No Known Allergies Allergy Verified 04/30/23 13:50 [facility] Disclaimer: The information contained in this section may have been updated after the patient was seen, as this information can be updated by other users. Medical History Acute hypercapnic respiratory failure Acute and chronic respiratory failure with hypoxia GERD (gastroesophageal reflux disease) A-fib HLD (hyperlipidemia) HTN (hypertension) Lung nodule Ex-smoker Chronic hypoxemic respiratory failure Dyspnea on exertion Encounter for screening for malignant neoplasm of lung in former smoker who quit in past 15 years with 30 pack year history or greater Stopped smoking with greater than 30 pack year history Pulmonary emphysema Acute respiratory failure with hypoxia Acute exacerbation of chronic obstructive airways disease COPD (chronic obstructive pulmonary disease) Surgical History History of colonoscopy Hx of local excision of skin lesion History of carotid endarterectomy Hx of prior ablation treatment History of nasal surgery Family History Other Family history non-contributory Social History Smoking Status: Former smoker tobacco type: cigarettes packs per day: 2 second hand exposure: No alcohol intake: never substance use type: denies use current occupational status: retired Travel in the last 8 weeks: None household members: spouse housing: house current occupational exposures/hazards: No caffeine: No ROS Obtained: Yes All systems reviewed & no additional complaints except as documented Physical Exam General General appearance: alert and in no apparent distress Head Head exam: atraumatic and normocephalic Eye Eye exam: Present normal appearance, PERRL and EOMI ENT ENT exam: Present normal exam, normal oropharynx, mucous membranes moist and normal external ear exam Neck Neck exam: Present full ROM, trachea midline and other (Subcutaneous emphysema in the neck); Absent tenderness Chest Chest inspection: Present symmetric chest wall rise and other (Subcutaneous emphysema with diminished breath sounds on the left); Absent tenderness Respiratory Respiratory exam: Present other (Diminished breath sounds on the left); Absent respiratory distress, wheezes, stridor or accessory muscle use Cardiovascular Cardiovascular exam: Present regular rate and normal rhythm Abdominal Exam Abdominal exam: Present soft; Absent distention, tenderness or guarding Extremities Exam Extremities exam: Present normal inspection, full ROM and normal capillary refill; Absent tenderness or edema Back Exam Back exam: Present normal inspection and full ROM; Absent tenderness Neurological Exam Neurological exam: Present alert, oriented X3, CN II-XII intact and normal gait; Absent motor sensory deficit Psychiatric Psychiatric exam: Present normal affect and normal mood Skin Skin exam: Present warm and dry Medical Decision Making Medical Records Medical records reviewed: Yes I reviewed the patient's medical records. [place] Inquiry Pt receiving controlled substance: No Vital Signs: 05/23/23 16:53 05/23/23 18:06 05/23/23 18:31 Temperature 98.5 F Temperature Source Oral Pulse Rate 63 76 Pulse Rate [Left Radial] 78 Respiratory Rate 15 Blood Pressure 102/69 L 123/67 Blood Pressure [Right Arm] 147/70 H Blood Pressure Mean Blood Pressure Mean [Right Arm] 95 Blood Pressure Source Blood Pressure Position 02 Sat by Pulse Oximetry 96 96 95 Oxygen Delivery Method Nasal Cannula Oxygen Flow Rate (LPM) 3 05/23/23 19:01 05/23/23 19:31 05/23/23 19:32 Temperature Temperature Source Pulse Rate 73 89 61 Pulse Rate [Left Radial] Respiratory Rate Blood Pressure 109/72 L 118/75 126/58 L Blood Pressure [Right Arm] Blood Pressure Mean 84 88 81 Blood Pressure Mean [Right Arm] Blood Pressure Source Blood Pressure Position 02 Sat by Pulse Oximetry 93 L 98 98 Oxygen Delivery Method Oxygen Flow Rate (LPM) 05/23/23 20:26 Temperature 97.7 F Temperature Source Oral Pulse Rate 78 Pulse Rate [Left Radial] Respiratory Rate 17 Blood Pressure 114/67 Blood Pressure [Right Arm] Blood Pressure Mean Blood Pressure Mean [Right Arm] Blood Pressure Source Automatic Cuff Blood Pressure Position Supine 02 Sat by Pulse Oximetry Oxygen Delivery Method Nasal Cannula Oxygen Flow Rate (LPM) 3 Lab Data Lab results reviewed: Yes I reviewed the patient's lab results. Lab Results 05/23/23 16:56: VBG pH 7.40, VBG pCO2 61.9 H, VBG pO2 32.3, VBG HCO3 37.2 H, VBG Total CO2 39.1 H, VBG O2 Saturation 63.4, VBG Base Excess 12.4 H, VBG Lactic Acid 1.7 05/23/23 17:02: SARS-CoV-2 (PCR) Not detected, Influenza A Untype (PCR) Not detected, Influenza Type B (PCR) Not detected 05/23/23 17:11: WBC 13.0 H, RBC 4.72, Hgb 15.0, Hct 46.5, MCV 98.4 H, MCH 31.8 H , MCHC 32.3, RDW 13.1, Plt Count 249, MPV 7.7, Neut % (Auto) 84.7 H, Lymph % (Auto) 7.0 L, [place] % (Auto) 5.6, Eos % (Auto) 2.3, Baso % (Auto) 0.3, Neut # (Auto) 11.0 H, Lymph # (Auto) 0.9, [place] # (Auto) 0.7, Eos # (Auto) 0.3, Baso # (Auto) 0.0, Sodium 131 L, Potassium 3.7, Chloride 90 L, Carbon Dioxide 38 H, Anion Gap 6.7, BUN 29 H, Creatinine 0.90, Estimated Creat Clear 58, Estimated GFR 81, Est GFR ( Amer) 98, Glucose 121 H, Calcium 8.8, Total Bilirubin 0.7, AST 47, ALT 31, Alkaline Phosphatase 81, Troponin I 0.02, NT-Pro-B Natriuret Pep 198, Total Protein 6.2 L, Albumin 3.7, Globulin 2.5, Albumin/Globulin Ratio 1.5 05/23/23 17:11 03/20/24 17:11 Orders (Tests/Meds): ED MEDICATIONS Generic Name Dose Route Start Last Admin Trade Name Freq PRN Reason Stop Dose Admin Acetaminophen 650 mg 05/23/23 20:16 Acetaminophen 325mg Tab PO 06/22/23 20:15 Q4HP PRN Fever or Mild Pain (1-3) Al Hydrox/Mg Hydrox/Simethicone 30 ml 05/23/23 20:16 Aluminum/Magnesium/Simethicone 30ml Udc PO 06/22/23 20:15 QIDP PRN Dyspepsia Morphine Sulfate 2 mg 05/23/23 20:16 Morphine 2mg/Ml Syringe IV 06/22/23 20:15 Q2HP PRN Severe Pain (7-10) Nicotine 21 mg 05/23/23 20:16 Nicotine 21mg/24hr Patch TD 06/22/23 20:15 DAILYP PRN Nicotine Cravings Ondansetron HCl 4 mg 05/23/23 20:16 Ondansetron 4mg/2ml Vial IV 06/22/23 20:15 Q8HP PRN Nausea Discontinued Medications Generic Name Dose Route Start Last Admin Trade Name [place] PRN Reason Stop Dose Admin Lidocaine HCl 20 ml 05/23/23 18:22 05/23/23 18:50 Lidocaine 1% 20ml Mdv IJ 05/23/23 18:23 20 ml ONCE ONE Administration Morphine Sulfate 4 mg 05/23/23 18:43 05/23/23 18:50 Morphine 4mg/Ml Syringe IV 05/23/23 18:44 4 mg ONCE ONE Administration Morphine Sulfate 2 mg 05/23/23 19:16 05/23/23 19:17 Morphine 2mg/Ml Syringe IV 05/23/23 19:17 2 mg ONCE ONE Administration Ondansetron HCl 4 mg 05/23/23 18:43 05/23/23 18:49 Ondansetron 4mg/2ml Vial IV 05/23/23 18:44 4 mg ONCE ONE Administration ORDERS Category Date Time Status CXR --portable [XR chest portable] Stat Exams 05/23/23 16:54 Completed Chest XR -- portable [XR chest portable] Stat Exams 05/23/23 19:20 Completed Brain Natriuretic Peptide Stat Lab 05/23/23 17:11 Completed Complete Blood Count Auto Diff Stat Lab 05/23/23 17:11 Completed Comprehensive Metabolic Panel Stat Lab 05/23/23 17:11 Completed Rapid PCR Covid and Flu A/B Stat Lab 05/23/23 17:02 Completed Troponin I Q3H Lab 05/23/23 20:09 Completed Troponin I Q3H Lab 05/23/23 23:00 Ordered Troponin I Stat Lab 05/23/23 17:11 Completed Venous Blood Gas Stat RT 05/23/23 16:56 Completed ECG Data Tracing #1: I reviewed this ECG and interpreted as documented below: Sinus rhythm with a ventricular rate of [address] changes concerning for ischemia. Normal axis and intervals. ECG initial impression date: 05/23/23 ECG initial impression time: 17:00 HEART Score History (anamnesis): Slightly suspicious ECG: Normal Age: >65 years Risk factors: Atherosclerosis history Troponin: </= normal limit HEART Score: 4 Medical Decision Narrative: In summary, this patient is a 78-year-old male presenting to the Emergency Department for evaluation of chest pain and shortness of breath after recent discharge after admission for respiratory failure and spontaneous and with. Differential diagnoses considered include but are not limited to recurrence of pneumothorax, respiratory failure, pneumonia, PE, ACS. Ruling out the most morbid conditions drove assessment. On exam, the patient has subcutaneous emphysema. He is in no acute distress with no hypotension or tachycardia. I do feel that he has recurrence of pneumothorax based on exam and history. Workup included CBC, CMP, troponin, BNP, VBG, and chest x-ray. EKG was obtained and is reassuring. I independently interpreted x-ray prior to the radiologist read and noted to have left-sided pneumothorax as well as extensive subcutaneous emphysema. Please see their read for final interpretation. Given the patient's pneumothorax, I called and had an interactive discussion with the patient's research subject, Dr. Dickinson. He advised placing a left sided Daniel chest tube and admission for monitoring. Patient and family consented to this after risks versus benefit were explained. Patient then underwent left chest tube placement. Please see procedure note for further documentation. Patient tolerated this very well with no complications. I independently interpreted x-ray post chest tube placement and noted appropriate placement with resolution of the patient's pneumothorax. Please see radiology read for final interpretation. Labs were obtained that demonstrated troponin of 0.02. Patient has mild leukocytosis at 13. Patient has elevated CO2, which is compensated with normal pH. No other acute concerning abnormalities noted at this time. Ultimately, patient was deemed be appropriate for admission for further evaluation and management of pneumothorax. Patient was admitted in stable condition after interactive discussion with the hospitalist Procedures Risk/Benefits of Procedure(s) Were Explained: Yes Chest Tube Chest Tube 1: Chest Tube Location: left Chest Tube Prep: Yes betadine prep and sterile drapes applied Local Anesthetic: lidocaine 1% Amount of anesthesia used (mL): 10 Incision Made With: #11 blade Post Procedure: sutured to skin and sterile dressing applied Tube Drainage: other (air) Post Procedure CXR?: Yes Patient Tolerated Procedure: Yes Progress: Patient tolerated the procedure without acute complications. Satisfactory placement on x-ray with resolution of pneumothorax. Critical Care Critical Care Time Critical Care Time: No
--- NOTE | 2023-05-23 16:59 | ECG_ITS ---
APPROVED REPORT Exam: Resting ECG HR:80 bpm ECG Measurements Heart Rate 80 AXES ID 148 P 82 QRSd 81 QRS 74 QT 374 T 79 QTc 411 Conclusion SINUS RHYTHM WITH SINUS ARRHYTHMIA NORMAL ECG Electronically signed by : ERIN CAIN, 05/23/2023 21:20:50
--- NOTE | 2023-05-23 17:10 | PC.NURSE ---
xray at bs
[2023-05-23 17:12] LABS: Coronavirus 19, PCR Not Detected (NotDetected); Influenza A, PCR Not Detected (NotDetected); Influenza B, PCR Not Detected (NotDetected)
[2023-05-23 17:16] LABS: Lactate Venous 1.7 mmol/L (0.4-2.0); VBG Base Excess 12.4 mmol/L (-2.4-2.3); VBG HCO3 37.2 mmol/L (23-30); VBG Oxygen Saturation 63.4 % (50-70); VBG PCO2 61.9 mmol/L (35-51); VBG PO2 32.3 mmol/L (28-40); VBG Total CO2 39.1 mmol/L (23-27)
[2023-05-23 17:21] LABS: Basophils % 0.3 % (0.1-2.0); Eosinophils # 0.3 K/mm3 (0.0-0.4); Eosinophils % 2.3 % (0.1-12.0); Hematocrit 46.5 % (42.0-52.0); Lymphocytes # 0.9 K/mm3 (0.7-4.5); Mean Corpuscular HGB Conc 32.3 g/dL (31.8-35.4); Mean Corpuscular Hemoglobin 31.8 pg (27.0-31.2); Mean Corpuscular Volume 98.4 fl (80-94); Mean Platelet Volume 7.7 fl (7.4-10.4); Monocytes # 0.7 K/mm3 (0.1-1.0); Monocytes % 5.6 % (1.7-9.3); Neutrophils % 84.7 % (37.0-80.0); Platelet Count 249 K/mm3 (142-424); Red Blood Count 4.72 M/mm3 (4.60-6.20); Red Cell Distribution Width 13.1 % (11.5-17.5)
[2023-05-23 17:22] LABS: Chloride 90 mmol/L (98-107); Potassium 3.7 mmoL/L (3.5-5.1); Sodium 131 mmol/L (136-145)
[2023-05-23 17:25] LABS: Alanine Aminotransferase 31 U/L (12-78); Albumin Level 3.7 g/dl (3.5-5.0); Albumin/Globulin Ratio 1.5 (1.1-1.8); Alkaline Phosphatase 81 U/L (38-126); Aspartate Amino Transferase 47 U/L (17-59); Bilirubin,Total 0.7 mg/dl (0.2-1.3); Blood Urea Nitrogen 29 mg/dl (9-20); Creatinine Clearance Estimated 58 mL/min (50-200); Estimated Glomerular Filt Rate 81 ml/min (>60); GFR (African American) 98 ML/MIN (>60); Globulin 2.5 g/dL (1.3-3.2); Total Protein,Serum 6.2 g/dl (6.3-8.2)
[2023-05-23 17:26] LABS: Calcium 8.8 mg/dl (8.4-10.2); Glucose 121 mg/dl (74-100)
[2023-05-23 17:33] LABS: Anion Gap 6.7 mEq/L (5-15); Carbon Dioxide 38 mmol/L (22.0-30.0)
[2023-05-23 17:35] LABS: NT Pro Brain Natriuretic Pep. 198 pg/mL (0-450)
[2023-05-23 17:38] LABS: Troponin I 0.02 ng/ml (0.00-0.034)
[2023-05-23] MEDS: ONDANSETRON 4MG/2ML VIAL 4 MG IV (18:49)
[2023-05-23] MEDS: MORPHINE 4MG/ML SYRINGE 4 MG IV (18:50)
[2023-05-23] MEDS: LIDOCAINE 1% 20ML MDV 20 ML IJ (18:50)
[2023-05-23] MEDS: MORPHINE 2MG/ML SYRINGE 2 MG IV ×3 (19:17→23:04)
--- NOTE | 2023-05-23 19:20 | XR_ITS ---
PROCEDURE INFORMATION: Exam: XR Chest Exam date and time: 05/23/2023 7:25 PM Age: 78 years old Clinical indication: Device placement; Chest tube; Additional info: Chest tube placement TECHNIQUE: Imaging protocol: Radiologic exam of the chest. Views: 1 view. COMPARISON: CR XR CHEST PORTABLE 05/23/2023 5:04 PM FINDINGS: Tubes, catheters and devices: Left chest tube has been placed and appears to be appropriately positioned. Lungs: Increased chest wall emphysema. Mild bibasilar atelectasis. Pleural spaces: Resolved left pneumothorax. Heart/Mediastinum: Calcified AP window lymph node. Bones/joints: Unremarkable. IMPRESSION: 1. Left chest tube has been placed and appears to be appropriately positioned. 2. Resolved left pneumothorax. 3. Increased chest wall emphysema.
--- NOTE | 2023-05-23 20:00 | PC.NURSE ---
House notified for admission
--- NOTE | 2023-05-23 20:18 | P.HP_ITS ---
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 Patient had the chest tube pulled 2 days ago, was found to have no pneumothorax on chest x-ray yesterday, and was discharged home to nursing facility per medical record review. Today, he became more short of air and started having pain in the left side of his chest and up into his neck. He also felt short of air. Given this, EMS was contacted by his nursing facility and the patient was brought back in. EMS noted the patient was hemodynamically stable en route. Admitted for further treatment. [facility] Disclaimer: The information contained in this section may have been updated after the patient was seen, as this information can be updated by other users. Medical History (Updated 05/24/23 @ 12:43 by Elvin Dickinson MD) Fistula, bronchopleural Acute hypercapnic respiratory failure Acute and chronic respiratory failure with hypoxia GERD (gastroesophageal reflux disease) A-fib HLD (hyperlipidemia) HTN (hypertension) Lung nodule Ex-smoker Chronic hypoxemic respiratory failure Dyspnea on exertion Encounter for screening for malignant neoplasm of lung in former smoker who quit in past 15 years with 30 pack year history or greater Stopped smoking with greater than 30 pack year history Pulmonary emphysema Acute respiratory failure with hypoxia Acute exacerbation of chronic obstructive airways disease COPD (chronic obstructive pulmonary disease) Surgical History History of colonoscopy Hx of local excision of skin lesion History of carotid endarterectomy Hx of prior ablation treatment History of nasal surgery Family History Other Family history non-contributory Social History (Updated 05/23/23 @ 21:43 by Yin Valdes RN) Smoking Status: Former smoker tobacco type: cigarettes packs per day: 2 second hand exposure: No alcohol intake: never substance use type: denies use current occupational status: retired Travel in the last 8 weeks: None household members: spouse housing: house current occupational exposures/hazards: No caffeine: No Review of Systems Review of Systems Review of systems:: pertinent systems reviewed and negative unless documented below Meds Home Medications and Allergies Home Medications Medication Instructions Recorded Confirmed Type hydrocortisone valerate 0.2 % 1 applic topical BID 10 days #60 12/05/22 05/23/23 Rx topical cream grams budesonide-formoterol HFA 160 2 puff inhalation BID 90 days 01/03/23 05/23/23 Rx mcg-4.5 mcg/actuation aerosol #10.2 grams inhaler azithromycin 250 mg tablet 250 mg PO MOWEFR 05/16/23 05/23/23 History furosemide 40 mg tablet 40 mg PO DAILY 05/16/23 05/23/23 History potassium chloride 10 mEq 10 meq PO DAILY 05/16/23 05/24/23 History capsule,extended release apixaban 5 mg tablet (Eliquis) 5 mg PO BID 30 days #60 tabs 05/22/23 05/23/23 Rx aspirin 81 mg tablet,delayed 81 mg PO DAILY 30 days #30 tabs 05/22/23 05/23/23 Rx release atorvastatin 40 mg tablet 40 mg PO HS 30 days #30 tabs 05/22/23 05/24/23 Rx bisoprolol fumarate 5 mg tablet 5 mg PO DAILY 30 days #30 tabs 05/22/23 05/24/23 Rx calcium carbonate 200 mg calcium 500 mg (2.5 x 200 mg calcium (500 05/22/23 05/23/23 Rx (500 mg) chewable tablet (Tums) mg)) PO QIDP PRN Heartburn 30 days #120 tabs clopidogrel 75 mg tablet 75 mg PO DAILY 30 days #30 tabs 05/22/23 05/23/23 Rx ipratropium bromide 0.02 % 0.5 mg (2.5 mL) inhalation Q6RT 30 05/22/23 05/23/23 Rx solution for inhalation days #300 mL levalbuterol HCl 1.25 mg/3 mL 1.25 mg (3 mL) inhalation Q6RT 30 05/22/23 05/24/23 Rx solution for nebulization days #360 mL nicotine 21 mg/24 hr daily 21 mg transdermal DAILYP PRN 05/22/23 05/24/23 Rx transdermal patch Nicotine Cravings 30 days #30 ea sennosides 8.6 mg-docusate sodium 1 tab PO BID PRN Constipation 30 05/22/23 05/24/23 Rx 50 mg tablet (Stimulant Laxative days #60 tabs Plus) omeprazole 20 mg capsule,delayed 20 mg PO DAILY 05/24/23 05/24/23 History release New Prescriptions to Start Prescriptions: Allergies Allergy/AdvReac Type Severity Reaction Status Date / Time No Known Allergies Allergy Verified 04/30/23 13:50 Exam Data for Last 24 hours Vital signs and Labs for Last 24 Hours: Temp Pulse Resp BP Pulse Ox O2 Del Method O2 Flow Rate 98.5 F 61 15 126/58 L 98 Nasal Cannula 3 05/23/23 16:53 05/23/23 19:32 05/23/23 16:53 05/23/23 19:32 05/23/23 19:32 05/23/23 16:53 05/23/23 16:53 Laboratory Results - last 24 hr 05/23/23 16:56: VBG pH 7.40, VBG pCO2 61.9 H, VBG pO2 32.3, VBG HCO3 37.2 H, VBG Total CO2 39.1 H, VBG O2 Saturation 63.4, VBG Base Excess 12.4 H, VBG Lactic Acid 1.7 05/23/23 17:02: SARS-CoV-2 (PCR) Not detected, Influenza A Untype (PCR) Not detected, Influenza Type B (PCR) Not detected 05/23/23 17:11: WBC 13.0 H, RBC 4.72, Hgb 15.0, Hct 46.5, MCV 98.4 H, MCH 31.8 H , MCHC 32.3, RDW 13.1, Plt Count 249, MPV 7.7, Neut % (Auto) 84.7 H, Lymph % (Auto) 7.0 L, [place] % (Auto) 5.6, Eos % (Auto) 2.3, Baso % (Auto) 0.3, Neut # (Auto) 11.0 H, Lymph # (Auto) 0.9, [place] # (Auto) 0.7, Eos # (Auto) 0.3, Baso # (Auto) 0.0, Sodium 131 L, Potassium 3.7, Chloride 90 L, Carbon Dioxide 38 H, Anion Gap 6.7, BUN 29 H, Creatinine 0.90, Estimated Creat Clear 58, Estimated GFR 81, Est GFR ( Amer) 98, Glucose 121 H, Calcium 8.8, Total Bilirubin 0.7, AST 47, ALT 31, Alkaline Phosphatase 81, Troponin I 0.02, NT-Pro-B Natriuret Pep 198, Total Protein 6.2 L, Albumin 3.7, Globulin 2.5, Albumin/Globulin Ratio 1.5 I & O for Last 24 hours: Intake & Output 05/20/23 05/21/23 05/22/23 05/23/23 23:59 23:59 23:59 23:59 Weight 68.039 kg Constitutional Constitutional: moderate distress and cooperative *Routine HEENT Exam Head: Present normocephalic and atraumatic Eye: Present EOMI, PERRL and normal accommodation ENT: Present mucous membranes dry *Routine Neck Exam Neck: Present supple, full ROM and trachea midline *Routine Respiratory Exam Respiratory: Present CTA bilaterally, prolonged expiratory phase, respiratory distress, wheezes, diminished air movement and symmetric chest movement *Routine Cardiovascular Exam Cardiovascular: Present RRR, Normal S1 and tachycardia *Routine Abdominal Exam Abdominal: Present soft and normoactive bowel sounds; Absent tenderness or distended *Routine Rectal Exam Rectal:: deferred *Routine Genitalia Exam Genitalia:: deferred *Routine Extremities Exam Extremities: Present full ROM and pulses intact; Absent cyanosis, clubbing or edema *Routine Skin Exam Skin: Present intact; Absent cyanosis, erythema or rash *Routine Neurological Exam Neurological: Present alert, normal reflexes, moving all extremities and normal speech Routine Psychiatric Exam Psychiatric: Present cooperative and anxious H&P: Result Imaging and Cardiology Chest x-ray: Status: image reviewed by me, Preliminary report and final report EKG: Status: image reviewed by me, Preliminary report and final report Assessment and Plan *Assessment and plan (1) Pneumothorax on left: Status: Acute Category: Medical Code(s): J93.9 - Pneumothorax, unspecified (2) Subcutaneous emphysema: Status: Acute Qualifiers: Encounter type: initial encounter Qualified Code(s): T79.7XXA - Traumatic subcutaneous emphysema, initial encounter Category: Medical Code(s): T79.7XXA - Traumatic subcutaneous emphysema, initial encounter (3) Acute hypercapnic respiratory failure: Status: Acute Category: Medical Code(s): J96.02 - Acute respiratory failure with hypercapnia (4) Chronic respiratory failure: Status: Acute Qualifiers: Respiratory failure complication: hypercapnia Qualified Code(s): J96.12 - Chronic respiratory failure with hypercapnia Category: Medical Code(s): J96.10 - Chronic respiratory failure, unspecified whether with hypoxia or hypercapnia (5) Pulmonary emphysema: Status: Chronic Qualifiers: Emphysema type: unspecified Qualified Code(s): J43.9 - Emphysema, unspecified Category: Medical Code(s): J43.9 - Emphysema, unspecified (6) History of atrial fibrillation: Status: Acute Category: Medical Code(s): Z86.79 - Personal history of other diseases of the circulatory system (7) Hypertension: Status: Acute Qualifiers: Hypertension type: unspecified Qualified Code(s): I10 - Essential (primary) hypertension Category: Medical Code(s): I10 - Essential (primary) hypertension (8) HLD (hyperlipidemia): Status: Acute Qualifiers: Hyperlipidemia type: unspecified Qualified Code(s): E78.5 - Hyperlipidemia, unspecified Category: Medical Code(s): E78.5 - Hyperlipidemia, unspecified (9) Ex-smoker: Status: Chronic Category: Social Hx Code(s): Z87.891 - Personal history of nicotine dependence Plan 78-year-old male with PMHx significant for GERD, atrial fibrillation s/p ablation, HLD, HTN, COPD/emphysema, 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 Patient had the chest tube pulled 2 days ago. discharged to SNF. today presented with SOB. Xray obatained. found a recurrence of pneumothorax and subcutaneous emphysema. He is in no acute distress with no hypotension or tachycardia. Workup included CBC, CMP, troponin, BNP, VBG, and chest x-ray. EKG was obtained. Discussed with ER and painter and grader cork for admission and management: Acute hypercapnic respiratory failure: recurrent spontaneous pneumothorax subcutaneous emphysema,. Improved.. -Pulmonology consulted, appreciate their recommendations. He advised placing a left sided Daniel chest tube and admission for monitoring. procedure done at bedside at ER. patient tolerated with no complications. -Patient has completed 5 days of antibiotics. -Continue Xopenex/ipratropium scheduled every 6 hours and Pulmicort twice daily -Continue supplemental oxygen for goal sats greater 90%. Currently on 5L. wean off. respiratory therapy to assist -CBC, CMP, magnesium ordered for the morning. Atrial fibrillation Hypertension Hyperlipidemia - monitor troponin - consulted cardiology, recommend outpatient eval. - Currently in sinus rhythm. Continue aspirin 81 mg daily. - Continue Eliquis 5 mg twice daily. Continue bisoprolol 5 mg daily. Continue Plavix 75 mg daily. Continue Lasix 40 mg daily. - Continue Lipitor 40 mg nightly Full code Eliquis Rounded on patient after nurse practitioner. Personally examined and interviewed patient. Agree with exam findings and care plan as documented.
--- NOTE | 2023-05-23 20:25 | PC.NURSE ---
Report to ROB Esqueda; She will notify transport
[2023-05-23 20:35] LABS: Troponin I 0.02 ng/ml (0.00-0.034)
--- NOTE | 2023-05-23 20:37 | PC.NURSE ---
Patient arrived to floor via stretcher from ED at 20:35.
[2023-05-23] MEDS: ACETAMINOPHEN 325MG TAB 650 MG PO (23:11)
[2023-05-24] VITALS (16 sets, daily range): BP systolic 112–140; BP diastolic 54–71; PULSE 51–86; RESP 16–18; TEMP 36.4–37.2; O2SAT 92–99; BMI 23.4
[2023-05-24 01:29] LABS: Troponin I 0.02 ng/ml (0.00-0.034)
[2023-05-24] MEDS: MORPHINE 2MG/ML SYRINGE 2 MG IV ×10 (01:43→23:27)
--- NOTE | 2023-05-24 04:49 | PC.NURSE ---
Patient has rested well thus far in shift. Patient is A/O x3. Patient has voiced c/o of pain to left side multiple times this shift, per MAR giving pain medication q2H PRN, with relief. Chest tube to left side, dressing is C/D/I. Patient's O2 was dropping into the mid 80's while patient was sleeping, RT placed Venti mask 40% with o2 sats >90%. While patient is awake wears 3-3.5L per NC and was able to maintain O2 sats >90%. remains at bedside, call light within reach.
[2023-05-24] MEDS: IPRATROPIUM/ALBUTEROL 3 ML NEB IH ×2 (06:39→22:07)
[2023-05-24 06:54] LABS: Basophils # 0.1 K/mm3 (0-0.2); Basophils % 0.4 % (0.1-2.0); Eosinophils # 0.6 K/mm3 (0.0-0.4); Eosinophils % 4.3 % (0.1-12.0); Hematocrit 45.4 % (42.0-52.0); Hemoglobin 14.5 g/dL (14.1-18.0); Lymphocytes # 1.6 K/mm3 (0.7-4.5); Lymphocytes % 10.8 % (10-50); Mean Corpuscular HGB Conc 31.9 g/dL (31.8-35.4); Mean Corpuscular Volume 100.5 fl (80-94); Mean Platelet Volume 7.9 fl (7.4-10.4); Monocytes # 0.8 K/mm3 (0.1-1.0); Monocytes % 5.7 % (1.7-9.3); Neutrophils # 11.3 K/mm3 (1.8-7.8); Neutrophils % 78.7 % (37.0-80.0); Platelet Count 252 K/mm3 (142-424); Red Blood Count 4.52 M/mm3 (4.60-6.20); White Blood Count 14.4 K/mm3 (4.8-10.8)
[2023-05-24 07:06] LABS: Albumin Level 3.7 g/dl (3.5-5.0); Albumin/Globulin Ratio 1.4 (1.1-1.8); Alkaline Phosphatase 62 U/L (38-126); Bilirubin,Total 0.7 mg/dl (0.2-1.3); Calcium 8.6 mg/dl (8.4-10.2); Chloride 89 mmol/L (98-107); Globulin 2.6 g/dL (1.3-3.2); Glucose 122 mg/dl (74-100); Magnesium 2.3 mg/dl (1.6-2.3); Potassium 3.6 mmoL/L (3.5-5.1); Sodium 134 mmol/L (136-145); Total Protein,Serum 6.3 g/dl (6.3-8.2)
--- NOTE | 2023-05-24 07:40 | SW/DCPLANNER ---
Addendum entered by Evelyn Kwan 05/24/23 14:08: Per Iesha w/ [facility] patient did NOT do bedhold. I did speak w/ patient this afternoon and he stated that he is medically stable for discharge he would like to return but due to being in hospital over the weekend he opted against paying bedhold. Original Note: Patient currently resides at [facility] level of care. I will continue to follow up w/ patient and Iesha from [facility] until patient is medically stable for discharge. Discharge date is unknown at this time. Updated information will be faxed.
[2023-05-24] MEDS: CLOPIDOGREL 75MG TAB 75 MG PO (08:19)
[2023-05-24] MEDS: APIXABAN 5MG TABLET 5 MG PO ×2 (08:19→20:16)
[2023-05-24] MEDS: BISOPROLOL 5MG TABLET 5 MG PO (08:19)
[2023-05-24] MEDS: FUROSEMIDE 40 MG TABLET PO (08:19)
[2023-05-24] MEDS: POTASSIUM CHLORIDE 10MEQ CAPSULE.ER 10 MEQ PO (08:19)
[2023-05-24] MEDS: ASPIRIN EC 81MG TABLET 81 MG PO (08:19)
--- NOTE | 2023-05-24 08:41 | P.CONPHA_ITS ---
Pharmacy Intervention Comments: Home medication list verified via outside pharmacy and skilled nursing list
--- NOTE | 2023-05-24 08:41 | HMH.PHAINT1 ---
Pharmacy Intervention Comments: Home medication list verified via outside pharmacy and residential list
--- NOTE | 2023-05-24 09:55 | EXP.PULM.CON ---
History of Present Illness History of present illness: Mr. Miller 78-year-old male states for COPD recently admitted to the hospital status post management for COPD exacerbation pneumonia pneumothorax discharged home presented to the hospital again with worsening respiratory status found to have recurrence of pneumothorax on the left side status post chest tube placement pulmonary was called for further evaluation and management. [facility] Disclaimer: The information contained in this section may have been updated after the patient was seen, as this information can be updated by other users. Medical History (Updated 05/24/23 @ 12:43 by Elvin Dickinson MD) Fistula, bronchopleural Acute hypercapnic respiratory failure Acute and chronic respiratory failure with hypoxia GERD (gastroesophageal reflux disease) A-fib HLD (hyperlipidemia) HTN (hypertension) Lung nodule Ex-smoker Chronic hypoxemic respiratory failure Dyspnea on exertion Encounter for screening for malignant neoplasm of lung in former smoker who quit in past 15 years with 30 pack year history or greater Stopped smoking with greater than 30 pack year history Pulmonary emphysema Acute respiratory failure with hypoxia Acute exacerbation of chronic obstructive airways disease COPD (chronic obstructive pulmonary disease) Surgical History History of colonoscopy Hx of local excision of skin lesion History of carotid endarterectomy Hx of prior ablation treatment History of nasal surgery Family History Other Family history non-contributory Social History (Updated 05/23/23 @ 21:43 by Yin Valdes RN) Smoking Status: Former smoker tobacco type: cigarettes packs per day: 2 second hand exposure: No alcohol intake: never substance use type: denies use current occupational status: retired Travel in the last 8 weeks: None household members: spouse housing: house current occupational exposures/hazards: No caffeine: No Review of Systems Eyes Eyes: Denies eye discharge, Denies dry eyes, Denies irritation and Denies itchy eyes ENT Ears, Nose, Mouth, and Throat: Denies epistaxis, Denies facial pain, Denies lip swelling and Denies throat swelling *Cardiovascular Cardiovascular: Reports dyspnea and Reports dyspnea on exertion *Respiratory Respiratory: Denies change in phlegm color, Reports chest congestion, Reports cough, Reports dyspnea, Reports dyspnea on exertion, Denies excessive phlegm production, Denies hemoptysis, Denies pain on inspiration, Denies pain with cough and Denies wheezing *Gastrointestinal Gastrointestinal: Denies abdominal pain, Denies belching and Denies cramping *Musculoskeletal Musculoskeletal: Reports back pain, Reports myalgias and Reports other (No small joint swelling or Pain) Psychiatric Psychiatric: Denies homicidal ideation and Denies suicidal ideation Endocrine Endocrine: Denies heat intolerance Hematologic/Lymphatic Hematologic/Lymphatic: Denies easy bleeding and Denies lymphadenopathy Allergic/Immunologic Allergic/Immunologic: Denies itchy eyes, Denies lip swelling, Denies throat swelling and Denies wheezing Pulmonology Exam Inpatient Vital signs and Labs for Last 24 Hours: Temp Pulse Resp BP Pulse Ox O2 Del Method O2 Flow Rate 97.8 F 86 18 112/64 94 L Nasal Cannula 3 05/24/23 07:39 05/24/23 08:09 05/24/23 08:09 05/24/23 08:09 05/24/23 08:09 05/24/23 09:00 05/24/23 09:00 FiO2 40 05/24/23 04:00 Laboratory Results - last 24 hr 05/23/23 16:56: VBG pH 7.40, VBG pCO2 61.9 H, VBG pO2 32.3, VBG HCO3 37.2 H, VBG Total CO2 39.1 H, VBG O2 Saturation 63.4, VBG Base Excess 12.4 H, VBG Lactic Acid 1.7 05/23/23 17:02: SARS-CoV-2 (PCR) Not detected, Influenza A Untype (PCR) Not detected, Influenza Type B (PCR) Not detected 05/23/23 17:11: WBC 13.0 H, RBC 4.72, Hgb 15.0, Hct 46.5, MCV 98.4 H, MCH 31.8 H, MCHC 32.3, RDW 13.1, Plt Count 249, MPV 7.7, Neut % (Auto) 84.7 H, Lymph % (Auto) 7.0 L, [place] % (Auto) 5.6, Eos % (Auto) 2.3, Baso % (Auto) 0.3, Neut # (Auto) 11.0 H, Lymph # (Auto) 0.9, [place] # (Auto) 0.7, Eos # (Auto) 0.3, Baso # (Auto) 0.0, Sodium 131 L, Potassium 3.7, Chloride 90 L, Carbon Dioxide 38 H, Anion Gap 6.7, BUN 29 H, Creatinine 0.90, Estimated Creat Clear 58, Estimated GFR 81, Est GFR ( Amer) 98, Glucose 121 H, Calcium 8.8, Total Bilirubin 0.7, AST 47, ALT 31, Alkaline Phosphatase 81, Troponin I 0.02, NT-Pro-B Natriuret Pep 198, Total Protein 6.2 L, Albumin 3.7, Globulin 2.5, Albumin/Globulin Ratio 1.5 05/23/23 20:09: Troponin I 0.02 05/23/23 23:20: Troponin I 0.02 05/24/23 06:38: WBC 14.4 H, RBC 4.52 L, Hgb 14.5, Hct 45.4, MCV 100.5 H, MCH 32.0 H, MCHC 31.9, RDW 13.0, Plt Count 252, MPV 7.9, Neut % (Auto) 78.7, Lymph % (Auto) 10.8, [place] % (Auto) 5.7, Eos % (Auto) 4.3, Baso % (Auto) 0.4, Neut # (Auto) 11.3 H, Lymph # (Auto) 1.6, [place] # (Auto) 0.8, Eos # (Auto) 0.6 H, Baso # (Auto) 0.1, Sodium 134 L, Potassium 3.6, Chloride 89 L, Glucose 122 H, Calcium 8.6, Magnesium 2.3, Total Bilirubin 0.7, Alkaline Phosphatase 62, Total Protein 6.3, Albumin 3.7, Globulin 2.6, Albumin/Globulin Ratio 1.4 I & O for Labs for Last 24 Hours: Intake & Output 05/21/23 05/22/23 05/23/23 05/24/23 23:59 23:59 23:59 23:59 Intake Total 335 / 335 Output Total 500 / 500 Balance -165 / -165 Weight 167 lb 8 oz 167 lb 8.01 oz Constitutional: Present moderate distress Head: Present normocephalic and atraumatic ENT: Present normal exam, normal oropharynx and mucous membranes moist Neck: Present normal inspection and full ROM Respiratory: Present respiratory distress, normal respiratory effort and able to speak in complete sentences; Absent prolonged expiratory phase, wheezes or diminished air movement Comment:: Left chest tube in place. Cardiac: Present S1/S2, Tachycardia and radial pulses present GI: Present soft and distention; Absent tenderness or guarding Skin: Present intact; Absent cyanosis or jaundice Neuro: Present alert, awake and oriented x 3 Extremities: Present normal inspection; Absent clubbing or cyanosis Psychiatric: Present normal affect and cooperative Meds Home Medications and Allergies Home Medications Medication Instructions Recorded Confirmed Type hydrocortisone valerate 0.2 % 1 applic topical BID 10 days #60 12/05/22 05/23/23 Rx topical cream grams budesonide-formoterol HFA 160 2 puff inhalation BID 90 days 01/03/23 05/23/23 Rx mcg-4.5 mcg/actuation aerosol #10.2 grams inhaler azithromycin 250 mg tablet 250 mg PO MOWEFR 05/16/23 05/23/23 History furosemide 40 mg tablet 40 mg PO DAILY 05/16/23 05/23/23 History potassium chloride 10 mEq 10 meq PO DAILY 05/16/23 05/24/23 History capsule,extended release apixaban 5 mg tablet (Eliquis) 5 mg PO BID 30 days #60 tabs 05/22/23 05/23/23 Rx aspirin 81 mg tablet,delayed 81 mg PO DAILY 30 days #30 tabs 05/22/23 05/23/23 Rx release atorvastatin 40 mg tablet 40 mg PO HS 30 days #30 tabs 05/22/23 05/24/23 Rx bisoprolol fumarate 5 mg tablet 5 mg PO DAILY 30 days #30 tabs 05/22/23 05/24/23 Rx calcium carbonate 200 mg calcium 500 mg (2.5 x 200 mg calcium (500 05/22/23 05/23/23 Rx (500 mg) chewable tablet (Tums) mg)) PO QIDP PRN Heartburn 30 days #120 tabs clopidogrel 75 mg tablet 75 mg PO DAILY 30 days #30 tabs 05/22/23 05/23/23 Rx ipratropium bromide 0.02 % 0.5 mg (2.5 mL) inhalation Q6RT 30 05/22/23 05/23/23 Rx solution for inhalation days #300 mL levalbuterol HCl 1.25 mg/3 mL 1.25 mg (3 mL) inhalation Q6RT 30 05/22/23 05/24/23 Rx solution for nebulization days #360 mL nicotine 21 mg/24 hr daily 21 mg transdermal DAILYP PRN 05/22/23 05/24/23 Rx transdermal patch Nicotine Cravings 30 days #30 ea sennosides 8.6 mg-docusate sodium 1 tab PO BID PRN Constipation 30 05/22/23 05/24/23 Rx 50 mg tablet (Stimulant Laxative days #60 tabs Plus) omeprazole 20 mg capsule,delayed 20 mg PO DAILY 05/24/23 05/24/23 History release New Prescriptions to Start Prescriptions: Allergies Allergy/AdvReac Type Severity Reaction Status Date / Time No Known Allergies Allergy Verified 04/30/23 13:50 Results Laboratory Findings 05/24/23 06:38 05/24/23 06:38 Abnormal lab findings: Abnormal Labs 05/23/23 05/23/23 05/24/23 16:56 17:11 06:38 WBC 13.0 H 14.4 H RBC 4.52 L MCV 98.4 H 100.5 H MCH 31.8 H 32.0 H Neut % (Auto) 84.7 H Lymph % (Auto) 7.0 L Neut # (Auto) 11.0 H 11.3 H Eos # (Auto) 0.6 H VBG pCO2 61.9 H VBG HCO3 37.2 H VBG Total CO2 39.1 H VBG Base Excess 12.4 H Sodium 131 L 134 L Chloride 90 L 89 L Carbon Dioxide 38 H BUN 29 H Glucose 121 H 122 H Total Protein 6.2 L Assessment and Plan *Assessment and plan (1) Subcutaneous emphysema: Status: Acute Qualifiers: Encounter type: initial encounter Qualified Code(s): T79.7XXA - Traumatic subcutaneous emphysema, initial encounter Category: Medical Code(s): T79.7XXA - Traumatic subcutaneous emphysema, initial encounter (2) Chronic respiratory failure: Status: Acute Qualifiers: Respiratory failure complication: hypercapnia Qualified Code(s): J96.12 - Chronic respiratory failure with hypercapnia Category: Medical Code(s): J96.10 - Chronic respiratory failure, unspecified whether with hypoxia or hypercapnia (3) Pneumothorax on left: Status: Acute Category: Medical Code(s): J93.9 - Pneumothorax, unspecified Plan Mr. Miller 78-year-old male states for COPD recently admitted to the hospital status post management for COPD exacerbation pneumonia pneumothorax discharged home presented to the hospital again with worsening respiratory status found to have recurrence of pneumothorax on the left side status post chest tube placement pulmonary was called for further evaluation and management. Chest ray on admission showed recurrence of left pneumothorax along with subcutaneous emphysema not seen on his discharge chest x-ray recently. No acute airspace disease noted. VBG upon admission showed compensated hypercarbic respiratory failure. Chest x-ray from this morning personally reviewed, resolved pneumothorax. Worsening subcutaneous emphysema. Air leak with coughing concerned for BP fistula. No wheezing on auscultation Plan: -Continue chest tube to suction at -20 cm H20 -Trelegy 100 inhaler along with DuoNebs every 6 hours on as-needed basis -Oxygen supplementation to maintain O2 saturation goal of 90-95
[2023-05-24 11:47] LABS: Alanine Aminotransferase 29 U/L (12-78); Aspartate Amino Transferase 42 U/L (17-59); Blood Urea Nitrogen 28 mg/dl (9-20); Creatinine Clearance Estimated 64 mL/min (50-200); Estimated Glomerular Filt Rate 81 ml/min (>60); GFR (African American) 98 ML/MIN (>60)
[2023-05-24 12:58] LABS: Anion Gap 9.6 mEq/L (5-15); Carbon Dioxide 39 mmol/L (22.0-30.0)
--- NOTE | 2023-05-24 17:36 | PC.NURSE ---
pt has done well this shift. pt sat on side of bed and bathed, tolerating well. weaned o2 to 2l nc with saturation above 90%. if pt is eating or sleeping o2 drops mid 80s. 12ml serosanguineous drainage from chest tube. reinforced tube dsg. multiple c/o pain at chest tube site, treated per mar with relief. family at , no complaints at this time.
--- NOTE | 2023-05-24 18:22 | PC.NURSE ---
Addendum entered by Deepthi Montana RN 05/24/23 18:49: pt sleeping well, sats dropped to 77%. called RT and they placed 40% venti mask on pt. Original Note: pt asleep and o2 @ 80%, increased o2 to 4l nc.
--- NOTE | 2023-05-24 18:38 | EXP.ACUTE.PN ---
Subjective *Date: 05/24/23 *Time: 20:56 Interval history: Stable overnight. Continuing Ventimask. Afebrile. No nausea or vomiting. No significant chest pain. Medical Exam Vital signs and Labs for Last 24 Hours: Vital Signs Temp Pulse Pulse Resp BP BP Pulse Ox 05/24/23 18:08 05/24/23 18:00 78 16 116/64 98 05/24/23 17:00 05/24/23 16:00 97.5 F L 05/24/23 16:00 80 16 136/71 96 05/24/23 16:00 95 05/24/23 15:00 05/24/23 14:00 60 16 131/62 98 05/24/23 13:00 05/24/23 12:00 55 L 05/24/23 12:00 97.5 F L 05/24/23 12:00 68 18 135/58 L 95 05/24/23 11:00 05/24/23 10:00 72 18 126/67 99 05/24/23 09:00 05/24/23 08:09 86 18 112/64 94 L 05/24/23 08:00 80 05/24/23 08:00 96 05/24/23 07:39 97.8 F 05/24/23 07:00 05/24/23 06:41 65 05/24/23 06:41 67 05/24/23 06:41 97 05/24/23 06:00 51 L 16 116/57 L 97 05/24/23 05:00 05/24/23 04:00 97.6 F 05/24/23 04:00 59 L 16 131/65 97 05/24/23 04:00 58 L 05/24/23 04:00 99 05/24/23 03:00 05/24/23 02:00 60 18 130/60 98 05/24/23 01:00 05/24/23 00:00 75 05/24/23 00:00 98.9 F 63 18 120/54 L 92 L 05/23/23 23:00 05/23/23 22:00 77 18 117/70 97 05/23/23 22:00 99 05/23/23 21:00 05/23/23 20:51 98.2 F 76 17 123/68 96 05/23/23 20:26 97.7 F 78 17 114/67 05/23/23 19:32 61 126/58 L 98 05/23/23 19:31 89 118/75 98 05/23/23 19:01 73 109/72 L 93 L O2 Del Method O2 Flow Rate FiO2 05/24/23 18:08 Nasal Cannula 2 05/24/23 18:00 Nasal Cannula 4 05/24/23 17:00 Nasal Cannula 2 05/24/23 16:00 05/24/23 16:00 Nasal Cannula 2 05/24/23 16:00 Nasal Cannula 2 05/24/23 15:00 Nasal Cannula 2 05/24/23 14:00 Nasal Cannula 3 05/24/23 13:00 Nasal Cannula 05/24/23 12:00 05/24/23 12:00 05/24/23 12:00 Nasal Cannula 05/24/23 11:00 Nasal Cannula 3 05/24/23 10:00 Nasal Cannula 3 05/24/23 09:00 Nasal Cannula 3 05/24/23 08:09 Nasal Cannula 3 05/24/23 08:00 05/24/23 08:00 Nasal Cannula 3 05/24/23 07:39 05/24/23 07:00 Nasal Cannula 3.5 05/24/23 06:41 05/24/23 06:41 05/24/23 06:41 Nasal Cannula 3 05/24/23 06:00 Venturi Mask 05/24/23 05:00 Venturi Mask 05/24/23 04:00 05/24/23 04:00 Venturi Mask 40 05/24/23 04:00 05/24/23 04:00 Venturi Mask 40 05/24/23 03:00 Venturi Mask 05/24/23 02:00 Venturi Mask 40 05/24/23 01:00 Nasal Cannula 4 05/24/23 00:00 05/24/23 00:00 Nasal Cannula 4 05/23/23 23:00 Nasal Cannula 4 05/23/23 22:00 Nasal Cannula 3.5 05/23/23 22:00 Nasal Cannula 3.5 05/23/23 21:00 Nasal Cannula 3.5 05/23/23 20:51 Nasal Cannula 3.5 05/23/23 20:26 Nasal Cannula 3 05/23/23 19:32 05/23/23 19:31 05/23/23 19:01 Intake and Output 05/24/23 05/24/23 05/24/23 07:59 15:59 23:59 Intake Total 335 / 725 390 / 725 Output Total 500 / 1150 650 / 1150 Balance -165 / -425 -260 / -425 Intake: Intake, Oral Amount 335 / 725 390 / 725 Output: Output, Urine Amount 500 / 1150 650 / 1150 Other: Number of Voids 1 Number of Unmeasured Voids 1 Weight 75.977 kg Patient Weight 05/24/23 23:59 Weight 75.977 kg Laboratory Results - last 24 hr 05/23/23 20:09: Troponin I 0.02 05/23/23 23:20: Troponin I 0.02 05/24/23 06:38: WBC 14.4 H, RBC 4.52 L, Hgb 14.5, Hct 45.4, MCV 100.5 H, MCH 32.0 H, MCHC 31.9, RDW 13.0, Plt Count 252, MPV 7.9, Neut % (Auto) 78.7, Lymph % (Auto) 10.8, [place] % (Auto) 5.7, Eos % (Auto) 4.3, Baso % (Auto) 0.4, Neut # (Auto) 11.3 H, Lymph # (Auto) 1.6, [place] # (Auto) 0.8, Eos # (Auto) 0.6 H, Baso # (Auto) 0.1, Sodium 134 L, Potassium 3.6, Chloride 89 L, Carbon Dioxide 39 H, Anion Gap 9.6, BUN 28 H, Creatinine 0.90, Estimated Creat Clear 64, Estimated GFR 81, Est GFR ( Amer) 98, Glucose 122 H, Calcium 8.6, Magnesium 2.3, Total Bilirubin 0.7, AST 42, ALT 29, Alkaline Phosphatase 62, Total Protein 6.3, Albumin 3.7, Globulin 2.6, Albumin/Globulin Ratio 1.4 I & O for Labs for Last 24 Hours: Intake & Output 05/21/23 05/22/23 05/23/23 05/24/23 23:59 23:59 23:59 23:59 Intake Total 725 / 725 Output Total 1150 / 1150 Balance -425 / -425 Weight 75.977 kg 75.977 kg Constitutional: Present no acute distress, average body habitus, chronically ill appearing and cooperative Head: Present atraumatic and normocephalic ENT: Present normal exam Respiratory: Present prolonged expiratory phase, rhonchi, wheezes, diminished air movement and normal respiratory effort; Absent crackles Cardiac: Present Reg Rate and Rhythm GI: Present soft and normal bowel sounds; Absent distention or tenderness Extremities: Present normal inspection, full ROM and edema (Bilateral ankle edema) Skin: Present intact; Absent erythema Comment:: Subcutaneous emphysema along chest with palpation Neuro: Present Grossly Intact, alert, awake, oriented x 3 and moves all extremities Assessment and Plan *Assessment and plan (1) Pneumothorax on left: Status: Acute Category: Medical Code(s): J93.9 - Pneumothorax, unspecified (2) Subcutaneous emphysema: Status: Acute Qualifiers: Encounter type: initial encounter Qualified Code(s): T79.7XXA - Traumatic subcutaneous emphysema, initial encounter Category: Medical Code(s): T79.7XXA - Traumatic subcutaneous emphysema, initial encounter (3) Acute hypercapnic respiratory failure: Status: Acute Category: Medical Code(s): J96.02 - Acute respiratory failure with hypercapnia (4) Chronic respiratory failure: Status: Acute Qualifiers: Respiratory failure complication: hypercapnia Qualified Code(s): J96.12 - Chronic respiratory failure with hypercapnia Category: Medical Code(s): J96.10 - Chronic respiratory failure, unspecified whether with hypoxia or hypercapnia (5) Pulmonary emphysema: Status: Chronic Qualifiers: Emphysema type: unspecified Qualified Code(s): J43.9 - Emphysema, unspecified Category: Medical Code(s): J43.9 - Emphysema, unspecified (6) History of atrial fibrillation: Status: Acute Category: Medical Code(s): Z86.79 - Personal history of other diseases of the circulatory system (7) Hypertension: Status: Acute Qualifiers: Hypertension type: unspecified Qualified Code(s): I10 - Essential (primary) hypertension Category: Medical Code(s): I10 - Essential (primary) hypertension (8) HLD (hyperlipidemia): Status: Acute Qualifiers: Hyperlipidemia type: unspecified Qualified Code(s): E78.5 - Hyperlipidemia, unspecified Category: Medical Code(s): E78.5 - Hyperlipidemia, unspecified (9) Ex-smoker: Status: Chronic Category: Social Hx Code(s): Z87.891 - Personal history of nicotine dependence Plan 78-year-old male with PMHx significant for GERD, atrial fibrillation s/p ablation, HLD, HTN, COPD/emphysema, 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 Patient had the chest tube pulled 2 days ag. discharged to SNF. Represented on 05/22 to the ER with worsening shortness of breath. X-ray found recurrence of pneumothorax. Daniel catheter/chest tube placed in the ER. Seeing improvement on imaging today. Pulmonology consulted and assisting with care. Continues to require inpatient management, problems addressed as follows: Acute hypoxemic respiratory failure: recurrent spontaneous pneumothorax subcutaneous emphysema,. Improved.. -Pulmonology consulted, appreciate their recommendations. Assisting with management of chest tube. Continue chest tube to suction at -20 cm water. -Pulmonology recommends continuing Trelegy inhaler along with DuoNebs every 6 hours as needed. - Supplemental oxygen for goal saturation of 90 to 95% -Continue to hold on antibiotics at this time. -CBC, CMP, magnesium ordered for the morning. Atrial fibrillation Hypertension Hyperlipidemia - monitor troponin - consulted cardiology last visit, recommend outpatient eval. - Currently in sinus rhythm. Continue aspirin 81 mg daily. - Continue Eliquis 5 mg twice daily. Continue bisoprolol 5 mg daily. Continue Plavix 75 mg daily. Continue Lasix 40 mg daily, Continue Lipitor 40 mg nightly Full code Eliquis
[2023-05-24] MEDS: ATORVASTATIN 40MG TABLET 40 MG PO (20:16)
[2023-05-25] VITALS (17 sets, daily range): BP systolic 107–161; BP diastolic 50–75; PULSE 50–80; RESP 12–20; TEMP 36.4–36.8; O2SAT 92–99; BMI 23.8; BMI 23.7
[2023-05-25] MEDS: MORPHINE 2MG/ML SYRINGE 2 MG IV ×5 (03:24→23:40)
--- NOTE | 2023-05-25 04:32 | PC.NURSE ---
Patient VSS BP, RR, Temp WNL; Used 3.5L NC from 7p-0430am then had to put on Venti mask r/t O2 decreasing to low 80's. Patient alert and oriented at time of placing Venti mask on. Patient has needed pain medication x 3 doses. States it hurts when moves and sometimes when he breathes. Patient has had minimal output from chest tube <10mL. Patient has clear but diminished lungs sounds. Had 1 treatment this shift. No acute distress noted during this shift. Resting comfortably with eyes closed.
[2023-05-25] MEDS: FLUTICASONE/UMECLIDIN/VILANTER 100/62.5/25MCG INHALER 1 PUFF IH (06:31)
[2023-05-25 07:13] LABS: Alanine Aminotransferase 18 U/L (12-78); Albumin Level 3.2 g/dl (3.5-5.0); Albumin/Globulin Ratio 1.3 (1.1-1.8); Alkaline Phosphatase 68 U/L (38-126); Aspartate Amino Transferase 39 U/L (17-59); Basophils # 0.1 K/mm3 (0-0.2); Basophils % 0.4 % (0.1-2.0); Bilirubin,Total 0.6 mg/dl (0.2-1.3); Calcium 8.1 mg/dl (8.4-10.2); Chloride 90 mmol/L (98-107); Eosinophils # 0.5 K/mm3 (0.0-0.4); Eosinophils % 3.9 % (0.1-12.0); Globulin 2.4 g/dL (1.3-3.2); Glucose 111 mg/dl (74-100); Hematocrit 41.4 % (42.0-52.0); Lymphocytes # 0.9 K/mm3 (0.7-4.5); Lymphocytes % 6.9 % (10-50); Magnesium 2.2 mg/dl (1.6-2.3); Mean Corpuscular HGB Conc 31.5 g/dL (31.8-35.4); Mean Corpuscular Hemoglobin 31.6 pg (27.0-31.2); Mean Corpuscular Volume 100.6 fl (80-94); Mean Platelet Volume 8.5 fl (7.4-10.4); Monocytes # 0.8 K/mm3 (0.1-1.0); Monocytes % 6.7 % (1.7-9.3); Neutrophils # 10.2 K/mm3 (1.8-7.8); Neutrophils % 82.2 % (37.0-80.0); Platelet Count 185 K/mm3 (142-424); Potassium 3.8 mmoL/L (3.5-5.1); Red Blood Count 4.12 M/mm3 (4.60-6.20); Red Cell Distribution Width 13.1 % (11.5-17.5); Sodium 132 mmol/L (136-145); Total Protein,Serum 5.6 g/dl (6.3-8.2); White Blood Count 12.4 K/mm3 (4.8-10.8)
[2023-05-25 07:20] LABS: Anion Gap 6.8 mEq/L (5-15); Carbon Dioxide 39 mmol/L (22.0-30.0)
--- NOTE | 2023-05-25 07:45 | PC.NURSE ---
O2 sat 97%. O2 titrated from 4L NC to 3.5.
[2023-05-25 08:16] LABS: Blood Urea Nitrogen 26 mg/dl (9-20); Creatinine Clearance Estimated 65 mL/min (50-200); Estimated Glomerular Filt Rate 109 ml/min (>60); GFR (African American) 132 ML/MIN (>60)
[2023-05-25] MEDS: CLOPIDOGREL 75MG TAB 75 MG PO (09:05)
[2023-05-25] MEDS: BISOPROLOL 5MG TABLET 5 MG PO (09:05)
[2023-05-25] MEDS: APIXABAN 5MG TABLET 5 MG PO ×2 (09:05→20:48)
[2023-05-25] MEDS: POTASSIUM CHLORIDE 10MEQ CAPSULE.ER 10 MEQ PO (09:05)
[2023-05-25] MEDS: FUROSEMIDE 40 MG TABLET PO (09:06)
[2023-05-25] MEDS: ASPIRIN EC 81MG TABLET 81 MG PO (09:06)
[2023-05-25] MEDS: ACETAMINOPHEN 325MG TAB 650 MG PO (09:16)
--- NOTE | 2023-05-25 09:23 | PC.NURSE ---
Peyton Thakkar, student nurse will be providing care under my supervision.
--- NOTE | 2023-05-25 09:48 | XR_ITS ---
FINAL REPORT CLINICAL HISTORY: Pneumothorax COMPARISON: 05/23/2023 FINDINGS: A single portable view of the chest was obtained. A left pleural catheter remains in place. The heart size and pulmonary vascularity are within normal limits. The mediastinum is within normal limits. There is no pneumothorax. There is left chest wall air. There is mild bibasilar atelectasis. IMPRESSION: Mild bibasilar atelectasis. No pneumothorax. Reviewed, Interpreted and Dictated by Zion Wellington III, MD Transcribed by Rebeca Pompa Authenticated and [facility]
--- NOTE | 2023-05-25 09:48 | EXP.PULM.PN ---
Subjective *Date: 05/25/23 *Time: 11:01 Interval history: No acute respiratory events overnight. Patient denies any new respiratory complaints. Pulmonology Exam Inpatient Vital signs and Labs for Last 24 Hours: Temp Pulse Resp BP Pulse Ox O2 Del Method O2 Flow Rate 98 F 80 18 137/50 L 97 Nasal Cannula 3.5 05/25/23 08:00 05/25/23 08:00 05/25/23 06:00 05/25/23 06:00 05/25/23 07:59 05/25/23 07:59 05/25/23 07:59 FiO2 40 05/25/23 04:00 Laboratory Results - last 24 hr 05/24/23 06:38: Carbon Dioxide 39 H, Anion Gap 9.6, BUN 28 H, Creatinine 0.90, Estimated Creat Clear 64, Estimated GFR 81, Est GFR ( Amer) 98, AST 42, ALT 29 05/25/23 06:16: WBC 12.4 H, RBC 4.12 L, Hgb 13.0 L D, Hct 41.4 L, MCV 100.6 H, MCH 31.6 H, MCHC 31.5 L, RDW 13.1, Plt Count 185 D, MPV 8.5, Neut % (Auto) 82.2 H, Lymph % (Auto) 6.9 L, [place] % (Auto) 6.7, Eos % (Auto) 3.9, Baso % (Auto) 0.4, Neut # (Auto) 10.2 H, Lymph # (Auto) 0.9, [place] # (Auto) 0.8, Eos # (Auto) 0.5 H, Baso # (Auto) 0.1, Sodium 132 L, Potassium 3.8, Chloride 90 L, Carbon Dioxide 39 H, Anion Gap 6.8, BUN 26 H, Creatinine 0.70 D, Estimated Creat Clear 65, Estimated GFR 109, Est GFR ( Amer) 132 D, Glucose 111 H, Calcium 8.1 L, Magnesium 2.2, Total Bilirubin 0.6, AST 39, ALT 18 D, Alkaline Phosphatase 68, Total Protein 5.6 L, Albumin 3.2 L D, Globulin 2.4, Albumin/Globulin Ratio 1.3 I & O for Labs for Last 24 Hours: Intake & Output 05/22/23 05/23/23 05/24/23 05/25/23 23:59 23:59 23:59 23:59 Intake Total 1210 / 1210 960 / 960 Output Total 1450 / 1450 175 / 175 Balance -240 / -240 785 / 785 Weight 167 lb 8 oz 167 lb 8.01 oz 169 lb 12.8 oz Constitutional: Present moderate distress Head: Present normocephalic and atraumatic ENT: Present normal exam, normal oropharynx and mucous membranes moist Neck: Present normal inspection and full ROM Respiratory: Present respiratory distress, normal respiratory effort and able to speak in complete sentences; Absent prolonged expiratory phase, wheezes or diminished air movement Comment:: Left chest tube in place. Cardiac: Present S1/S2, Tachycardia and radial pulses present GI: Present soft and distention; Absent tenderness or guarding Skin: Present intact; Absent cyanosis or jaundice Neuro: Present alert, awake and oriented x 3 Extremities: Present normal inspection; Absent clubbing or cyanosis Psychiatric: Present normal affect and cooperative Assessment and Plan *Assessment and plan (1) Subcutaneous emphysema: Status: Acute Qualifiers: Encounter type: initial encounter Qualified Code(s): T79.7XXA - Traumatic subcutaneous emphysema, initial encounter Category: Medical Code(s): T79.7XXA - Traumatic subcutaneous emphysema, initial encounter (2) Chronic respiratory failure: Status: Acute Qualifiers: Respiratory failure complication: hypercapnia Qualified Code(s): J96.12 - Chronic respiratory failure with hypercapnia Category: Medical Code(s): J96.10 - Chronic respiratory failure, unspecified whether with hypoxia or hypercapnia (3) Pneumothorax on left: Status: Acute Category: Medical Code(s): J93.9 - Pneumothorax, unspecified Plan Mr. Miller 78-year-old male states for COPD recently admitted to the hospital status post management for COPD exacerbation pneumonia pneumothorax discharged home presented to the hospital again with worsening respiratory status found to have recurrence of pneumothorax on the left side status post chest tube placement pulmonary was called for further evaluation and management. Chest ray on admission showed recurrence of left pneumothorax along with subcutaneous emphysema not seen on his discharge chest x-ray recently. No acute airspace disease noted. VBG upon admission showed compensated hypercarbic respiratory failure. Chest x-ray from this morning personally reviewed, resolved pneumothorax. Worsening subcutaneous emphysema. Air leak with coughing concerned for BP fistula. No wheezing on auscultation Interval update: No acute respiratory events overnight. No evidence of pneumothorax on x-ray from this morning. Improving subcutaneous emphysema. Chest tube continued to remain on suction. Continue to have air leak with coughing. Plan: -Continue chest tube to suction at -20 cm H20 -Trelegy 100 inhaler along with DuoNebs every 6 hours on as-needed basis -Oxygen supplementation to maintain O2 saturation goal of 90-95. # Thank you for involving pulmonary in this patient care. Will continue to follow.
--- NOTE | 2023-05-25 15:52 | P.PN_ITS ---
Subjective *Date: 05/25/23 *Time: 15:52 Interval history: Stable overnight. No acute events overnight. On nasal cannula oxygen this morning, 3.5 L. Still having airleak, afebrile. No nausea or vomiting. Chest tender to palpation but otherwise no major chest pain. Medical Exam Vital signs and Labs for Last 24 Hours: Vital Signs Temp Pulse Pulse Resp BP Pulse Ox O2 Del Method 05/25/23 14:43 Nasal Cannula 05/25/23 14:00 52 L 16 115/54 L 98 Nasal Cannula 05/25/23 13:00 Nasal Cannula 05/25/23 12:00 53 L 16 117/60 98 Nasal Cannula 05/25/23 12:00 50 L 05/25/23 12:00 98.2 F 05/25/23 11:00 Nasal Cannula 05/25/23 10:00 67 19 135/75 Nasal Cannula 05/25/23 09:00 Nasal Cannula 05/25/23 08:00 75 19 116/57 L 97 Nasal Cannula 05/25/23 08:00 80 05/25/23 08:00 98 F 05/25/23 07:59 97 Nasal Cannula 05/25/23 07:44 96 Nasal Cannula 05/25/23 06:29 Venturi Mask 05/25/23 06:00 98.0 F 69 18 137/50 L 98 Venturi Mask 05/25/23 05:00 Venturi Mask 05/25/23 04:00 98.0 F 05/25/23 04:00 50 L 05/25/23 04:00 96 Venturi Mask 05/25/23 03:00 Nasal Cannula 05/25/23 02:00 98.2 F 52 L 18 107/52 L 98 Nasal Cannula 05/25/23 01:00 Nasal Cannula 05/25/23 00:00 98 Nasal Cannula 05/25/23 00:00 60 05/25/23 00:00 97.9 F 05/24/23 23:00 Room Air 05/24/23 22:08 68 05/24/23 22:08 74 05/24/23 22:00 97.8 F 75 18 140/61 97 Nasal Cannula 05/24/23 21:00 Nasal Cannula 05/24/23 20:00 60 05/24/23 20:00 98.5 F 05/24/23 20:00 97 Nasal Cannula 05/24/23 18:08 Nasal Cannula 05/24/23 18:00 78 16 116/64 98 Nasal Cannula 05/24/23 17:00 Nasal Cannula 05/24/23 16:00 97.5 F L 05/24/23 16:00 80 16 136/71 96 Nasal Cannula 05/24/23 16:00 95 Nasal Cannula O2 Flow Rate FiO2 05/25/23 14:43 2 05/25/23 14:00 2 05/25/23 13:00 2 05/25/23 12:00 2 05/25/23 12:00 05/25/23 12:00 05/25/23 11:00 2 05/25/23 10:00 2 05/25/23 09:00 3.5 05/25/23 08:00 3.5 05/25/23 08:00 05/25/23 08:00 05/25/23 07:59 3.5 05/25/23 07:44 3.5 05/25/23 06:29 10 05/25/23 06:00 10 05/25/23 05:00 10 05/25/23 04:00 05/25/23 04:00 05/25/23 04:00 10 40 05/25/23 03:00 3.5 05/25/23 02:00 3.5 05/25/23 01:00 3.5 05/25/23 00:00 3.5 100 05/25/23 00:00 05/25/23 00:00 05/24/23 23:00 05/24/23 22:08 05/24/23 22:08 05/24/23 22:00 3.5 05/24/23 21:00 3.5 05/24/23 20:00 05/24/23 20:00 05/24/23 20:00 3 05/24/23 18:08 2 05/24/23 18:00 4 05/24/23 17:00 2 05/24/23 16:00 05/24/23 16:00 2 05/24/23 16:00 2 Intake and Output 05/24/23 05/25/23 05/25/23 23:59 07:59 15:59 Intake Total 485 / 1210 720 / 1320 600 / 1320 Output Total 300 / 1450 175 / 545 370 / 545 Balance 185 / -240 545 / 775 230 / 775 Intake: Intake, Oral Amount 485 / 1210 720 / 1320 600 / 1320 Output: Output, Urine Amount 300 / 1450 175 / 545 370 / 545 Other: Number of Voids 0 Number of Unmeasured Voids 0 Number of Bowel Movements 0 Weight 77.02 kg 77 kg Patient Weight 05/25/23 23:59 Weight 77 kg Laboratory Results - last 24 hr 05/25/23 06:16: WBC 12.4 H, RBC 4.12 L, Hgb 13.0 L D, Hct 41.4 L, MCV 100.6 H, MCH 31.6 H, MCHC 31.5 L, RDW 13.1, Plt Count 185 D, MPV 8.5, Neut % (Auto) 82.2 H, Lymph % (Auto) 6.9 L, [place] % (Auto) 6.7, Eos % (Auto) 3.9, Baso % (Auto) 0.4, Neut # (Auto) 10.2 H, Lymph # (Auto) 0.9, [place] # (Auto) 0.8, Eos # (Auto) 0.5 H, Baso # (Auto) 0.1, Sodium 132 L, Potassium 3.8, Chloride 90 L, Carbon Dioxide 39 H, Anion Gap 6.8, BUN 26 H, Creatinine 0.70 D, Estimated Creat Clear 65, Estimated GFR 109, Est GFR ( Amer) 132 D, Glucose 111 H, Calcium 8.1 L, Magnesium 2.2, Total Bilirubin 0.6, AST 39, ALT 18 D, Alkaline Phosphatase 68, Total Protein 5.6 L, Albumin 3.2 L D, Globulin 2.4, Albumin/Globulin Ratio 1.3 I & O for Labs for Last 24 Hours: Intake & Output 05/22/23 05/23/23 05/24/23 05/25/23 23:59 23:59 23:59 23:59 Intake Total 1210 / 1210 1320 / 1320 Output Total 1450 / 1450 545 / 545 Balance -240 / -240 775 / 775 Weight 75.977 kg 75.977 kg 77 kg Constitutional: Present no acute distress, average body habitus, chronically ill appearing and cooperative Head: Present atraumatic and normocephalic ENT: Present normal exam Respiratory: Present prolonged expiratory phase, rhonchi, wheezes, diminished air movement and normal respiratory effort; Absent crackles Comment:: Leak noted in Pleur-evac with coughing Cardiac: Present Reg Rate and Rhythm GI: Present soft and normal bowel sounds; Absent distention or tenderness Extremities: Present normal inspection, full ROM and edema (Bilateral ankle edema) Skin: Present intact; Absent erythema Comment:: Subcutaneous emphysema along chest with palpation Neuro: Present Grossly Intact, alert, awake, oriented x 3 and moves all extr emities Assessment and Plan *Assessment and plan (1) Pneumothorax on left: Status: Acute Category: Medical Code(s): J93.9 - Pneumothorax, unspecified (2) Subcutaneous emphysema: Status: Acute Qualifiers: Encounter type: initial encounter Qualified Code(s): T79.7XXA - Traumatic subcutaneous emphysema, initial encounter Category: Medical Code(s): T79.7XXA - Traumatic subcutaneous emphysema, initial encounter (3) Acute hypercapnic respiratory failure: Status: Acute Category: Medical Code(s): J96.02 - Acute respiratory failure with hypercapnia (4) Chronic respiratory failure: Status: Acute Qualifiers: Respiratory failure complication: hypercapnia Qualified Code(s): J96.12 - Chronic respiratory failure with hypercapnia Category: Medical Code(s): J96.10 - Chronic respiratory failure, unspecified whether with hypoxia or hypercapnia (5) Pulmonary emphysema: Status: Chronic Qualifiers: Emphysema type: unspecified Qualified Code(s): J43.9 - Emphysema, unspecified Category: Medical Code(s): J43.9 - Emphysema, unspecified (6) History of atrial fibrillation: Status: Acute Category: Medical Code(s): Z86.79 - Personal history of other diseases of the circulatory system (7) Hypertension: Status: Acute Qualifiers: Hypertension type: unspecified Qualified Code(s): I10 - Essential (primary) hypertension Category: Medical Code(s): I10 - Essential (primary) hypertension (8) HLD (hyperlipidemia): Status: Acute Qualifiers: Hyperlipidemia type: unspecified Qualified Code(s): E78.5 - Hyperlipidemia, unspecified Category: Medical Code(s): E78.5 - Hyperlipidemia, unspecified (9) Ex-smoker: Status: Chronic Category: Social Hx Code(s): Z87.891 - Personal history of nicotine dependence Plan 78-year-old male with PMHx significant for GERD, atrial fibrillation s/p ablation, HLD, HTN, COPD/emphysema, 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 Patient had the chest tube pulled 2 days ag. discharged to SNF. Represented on 05/22 to the ER with worsening shortness of breath. X-ray found recurrence of pneumothorax. Daniel catheter/chest tube placed in the ER. Continues to require inpatient management. Pulmonology assisting with care. Problems addressed as follows: Acute hypoxemic respiratory failure: recurrent spontaneous pneumothorax subcutaneous emphysema,. Improved.. -Pulmonology consulted, discussed case this morning, continue chest tube to suction at -20 cm water. -Pulmonology recommends continuing Trelegy inhaler along with DuoNebs every 6 hours as needed. - Supplemental oxygen for goal saturation of 90 to 95% -Continue to hold on antibiotics at this time. -White cell count 12.4, improving. -CBC, CMP, magnesium ordered for the morning. Atrial fibrillation Hypertension Hyperlipidemia - monitor troponin; consulted cardiology last visit, recommend outpatient eval. - Currently in sinus rhythm. Continue aspirin 81 mg daily. - Continue Eliquis 5 mg twice daily. Continue bisoprolol 5 mg daily. Continue Plavix 75 mg daily. Continue Lasix 40 mg daily, Continue Lipitor 40 mg nightly Full code Eliquis Cardiac diet
--- NOTE | 2023-05-25 17:16 | PC.NURSE ---
Pt is currently sitting up on the side of the bed eating his dinner. Has c/o some discomfort to his (L) side or chest. Medicated with morphine. Pt stated that it has improved over the shift and declined morphine this evening. He is on 2L O2 NC. Chest tube to (L) side at low wall continuous suction. Call light within reach. Family in room.
--- NOTE | 2023-05-25 18:33 | PC.NURSE ---
ROOM AIR SAT 85% Pt placed on 2LNC satting 94%
[2023-05-25] MEDS: IPRATROPIUM/ALBUTEROL 3 ML NEB IH (18:35)
[2023-05-25] MEDS: ATORVASTATIN 40MG TABLET 40 MG PO (20:48)
--- NOTE | 2023-05-25 22:00 | PC.NURSE ---
took over care of pt. at this time. report received from Matt March RN
[2023-05-25] MEDS: SENNOSIDES 8.6MG/DOCUSATE 50MG TABLET 1 TAB PO (23:40)
[2023-05-26] VITALS (17 sets, daily range): BP systolic 91–162; BP diastolic 43–63; PULSE 50–90; RESP 12–20; TEMP 36.4–36.9; O2SAT 92–98; BMI 24.6
[2023-05-26] MEDS: MORPHINE 2MG/ML SYRINGE 2 MG IV ×3 (03:21→08:51)
--- NOTE | 2023-05-26 05:41 | PC.NURSE ---
pt has reported difficulty sleeping due to discomfort and has reported pain 7-8/10 through the shift, pt has been medicated with morphine per mar with some relief, O2 sats have remained >90% on 2L NC, chest tube is in place to left side, dressing is cdi, call button is in reach
[2023-05-26 07:25] LABS: Basophils % 0.3 % (0.1-2.0); Eosinophils # 0.4 K/mm3 (0.0-0.4); Eosinophils % 3.8 % (0.1-12.0); Hematocrit 37.7 % (42.0-52.0); Hemoglobin 12.1 g/dL (14.1-18.0); Lymphocytes # 0.9 K/mm3 (0.7-4.5); Lymphocytes % 9.6 % (10-50); Mean Corpuscular Hemoglobin 32.1 pg (27.0-31.2); Mean Corpuscular Volume 100.4 fl (80-94); Mean Platelet Volume 8.1 fl (7.4-10.4); Monocytes # 0.7 K/mm3 (0.1-1.0); Monocytes % 7.3 % (1.7-9.3); Neutrophils # 7.7 K/mm3 (1.8-7.8); Platelet Count 223 K/mm3 (142-424); Red Blood Count 3.76 M/mm3 (4.60-6.20); Red Cell Distribution Width 12.9 % (11.5-17.5); White Blood Count 9.7 K/mm3 (4.8-10.8)
[2023-05-26 07:34] LABS: Alanine Aminotransferase 18 U/L (12-78); Albumin/Globulin Ratio 1.3 (1.1-1.8); Alkaline Phosphatase 73 U/L (38-126); Aspartate Amino Transferase 29 U/L (17-59); Bilirubin,Total 0.5 mg/dl (0.2-1.3); Blood Urea Nitrogen 18 mg/dl (9-20); Calcium 8.2 mg/dl (8.4-10.2); Chloride 90 mmol/L (98-107); Creatinine Clearance Estimated 68 mL/min (50-200); Estimated Glomerular Filt Rate 130 ml/min (>60); GFR (African American) 157 ML/MIN (>60); Globulin 2.4 g/dL (1.3-3.2); Glucose 109 mg/dl (74-100); Potassium 3.6 mmoL/L (3.5-5.1); Sodium 131 mmol/L (136-145); Total Protein,Serum 5.4 g/dl (6.3-8.2)
--- NOTE | 2023-05-26 07:35 | PC.NURSE ---
Peyton JACK, will be providing care under my supervision.
[2023-05-26 08:22] LABS: Anion Gap -0.4 mEq/L (5-15); Carbon Dioxide 45 mmol/L (22.0-30.0)
[2023-05-26] MEDS: FLUTICASONE/UMECLIDIN/VILANTER 100/62.5/25MCG INHALER 1 PUFF IH (08:56)
[2023-05-26] MEDS: ASPIRIN EC 81MG TABLET 81 MG PO (09:45)
[2023-05-26] MEDS: BISOPROLOL 5MG TABLET 5 MG PO (09:45)
[2023-05-26] MEDS: APIXABAN 5MG TABLET 5 MG PO ×2 (09:45→20:44)
[2023-05-26] MEDS: FUROSEMIDE 40 MG TABLET PO (09:45)
[2023-05-26] MEDS: CLOPIDOGREL 75MG TAB 75 MG PO (09:45)
[2023-05-26] MEDS: POTASSIUM CHLORIDE 10MEQ CAPSULE.ER 10 MEQ PO (09:45)
[2023-05-26] MEDS: OXYCODONE 7.5MG W/APAP 325MG TABLET 2 EACH PO ×2 (12:06→20:44)
[2023-05-26] MEDS: SENNOSIDES 8.6MG/DOCUSATE 50MG TABLET 1 TAB PO ×2 (12:06→20:46)
--- NOTE | 2023-05-26 14:43 | EXP.PN ---
Subjective *Date: 05/26/23 *Time: 14:43 Interval history: patient was seen and evaluated at the bedside. No reported acute events overnight, CT connected to suction, denies shortness of breath, nausea, vomiting, abdominal pain. he is having pain at site of chest tube Exam Data for Last 24 hours Vital signs and Labs for Last 24 Hours: Temp Pulse Resp BP Pulse Ox O2 Del Method O2 Flow Rate 98.5 F 59 L 19 91/48 L 96 Nasal Cannula 2 05/26/23 12:00 05/26/23 13:52 05/26/23 13:52 05/26/23 13:52 05/26/23 13:52 05/26/23 13:52 05/26/23 13:52 FiO2 40 05/25/23 04:00 Laboratory Results - last 24 hr 05/26/23 06:35: WBC 9.7, RBC 3.76 L, Hgb 12.1 L, Hct 37.7 L, MCV 100.4 H, MCH 32.1 H, MCHC 32.0, RDW 12.9, Plt Count 223, MPV 8.1, Neut % (Auto) 79.0, Lymph % (Auto) 9.6 L, [place] % (Auto) 7.3, Eos % (Auto) 3.8, Baso % (Auto) 0.3, Neut # (Auto) 7.7, Lymph # (Auto) 0.9, [place] # (Auto) 0.7, Eos # (Auto) 0.4, Baso # (Auto) 0.0, Sodium 131 L, Potassium 3.6, Chloride 90 L, Carbon Dioxide 45 H*, Anion Gap -0.4 L, BUN 18 D, Creatinine 0.60 L, Estimated Creat Clear 68, Estimated GFR 130, Est GFR ( Amer) 157, Glucose 109 H, Calcium 8.2 L, Total Bilirubin 0.5, AST 29 D, ALT 18, Alkaline Phosphatase 73, Total Protein 5.4 L, Albumin 3.0 L, Globulin 2.4, Albumin/Globulin Ratio 1.3 I & O for Last 24 hours: Intake & Output 05/23/23 05/24/23 05/25/23 05/26/23 23:59 23:59 23:59 23:59 Intake Total 1210 / 1210 1680 / 1680 630 / 630 Output Total 1450 / 1450 795 / 795 615 / 615 Balance -240 / -240 885 / 885 Weight 75.977 kg 75.977 kg 77 kg 79.878 kg Constitutional Constitutional: no acute distress *Routine HEENT Exam Head: Present normocephalic Eye: Present EOMI and PERRL ENT: Present mucous membranes moist *Routine Neck Exam Neck: Present supple; Absent lymphadenopathy *Routine Respiratory Exam Respiratory: Present distant breath sounds and diminished air movement *Routine Cardiovascular Exam Cardiovascular: Present RRR *Routine Abdominal Exam Abdominal: Present soft and normoactive bowel sounds; Absent tenderness *Routine Extremities Exam Extremities: Absent cyanosis, clubbing or edema *Routine Skin Exam Skin: Present warm; Absent rash *Routine Neurological Exam Neurological: Present alert and oriented X3 Assessment and Plan *Assessment and plan (1) Pneumothorax on left: Status: Resolved Category: Medical Code(s): J93.9 - Pneumothorax, unspecified (2) Subcutaneous emphysema: Status: Acute Qualifiers: Encounter type: initial encounter Qualified Code(s): T79.7XXA - Traumatic subcutaneous emphysema, initial encounter Category: Medical Code(s): T79.7XXA - Traumatic subcutaneous emphysema, initial encounter (3) Acute hypercapnic respiratory failure: Status: Acute Category: Medical Code(s): J96.02 - Acute respiratory failure with hypercapnia (4) Chronic respiratory failure: Status: Acute Qualifiers: Respiratory failure complication: hypercapnia Qualified Code(s): J96.12 - Chronic respiratory failure with hypercapnia Category: Medical Code(s): J96.10 - Chronic respiratory failure, unspecified whether with hypoxia or hypercapnia (5) Pulmonary emphysema: Status: Chronic Qualifiers: Emphysema type: unspecified Qualified Code(s): J43.9 - Emphysema, unspecified Category: Medical Code(s): J43.9 - Emphysema, unspecified (6) History of atrial fibrillation: Status: Acute Category: Medical Code(s): Z86.79 - Personal history of other diseases of the circulatory system (7) Hypertension: Status: Acute Qualifiers: Hypertension type: unspecified Qualified Code(s): I10 - Essential (primary) hypertension Category: Medical Code(s): I10 - Essential (primary) hypertension (8) HLD (hyperlipidemia): Status: Acute Qualifiers: Hyperlipidemia type: unspecified Qualified Code(s): E78.5 - Hyperlipidemia, unspecified Category: Medical Code(s): E78.5 - Hyperlipidemia, unspecified (9) Ex-smoker: Status: Chronic Category: Social Hx Code(s): Z87.891 - Personal history of nicotine dependence Plan 78-year-old male with PMHx significant for GERD, atrial fibrillation s/p ablation, HLD, HTN, COPD/emphysema, 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 Patient had the chest tube pulled 2 days ag. discharged to SNF. presented on 05/22 to the ER with worsening shortness of breath. X-ray found recurrence of pneumothorax. Acute hypoxemic respiratory failure: recurrent spontaneous pneumothorax subcutaneous emphysema,. Improved.. -Pulmonology consulted, continue chest tube to suction at -20 cm water. -Pulmonology recommends continuing Trelegy inhaler along - DuoNebs every 6 hours as needed. - Supplemental oxygen for goal saturation of 90 to 95% -Continue to hold on antibiotics at this time. - serial CXRs Atrial fibrillation Hypertension Hyperlipidemia - monitor troponin; consulted cardiology last visit, recommend outpatient eval. - Currently in sinus rhythm. Continue aspirin 81 mg daily. - Continue Eliquis 5 mg twice daily. Continue bisoprolol 5 mg daily. Continue Plavix 75 mg daily. Continue Lasix 40 mg daily, Continue Lipitor 40 mg nightly Full code Eliquis Cardiac diet continue to monitor inpatient while on Chest tube, currently connected to suction
--- NOTE | 2023-05-26 16:16 | PC.NURSE ---
Pt has been up to side of the bed. Has been up to BSC. No BM. Has voided per urinal. Pt has c/o pain to (L) side of chest and side. Medicated per may. Call light within reach. Family at bedside.
[2023-05-26] MEDS: ATORVASTATIN 40MG TABLET 40 MG PO (20:44)
[2023-05-27] VITALS (14 sets, daily range): BP systolic 109–150; BP diastolic 53–65; PULSE 50–83; RESP 12–26; TEMP 36.3–37.1; O2SAT 90–98; BMI 24.9
[2023-05-27 07:47] LABS: Alanine Aminotransferase 16 U/L (12-78); Albumin Level 3.1 g/dl (3.5-5.0); Albumin/Globulin Ratio 1.3 (1.1-1.8); Alkaline Phosphatase 73 U/L (38-126); Aspartate Amino Transferase 29 U/L (17-59); Bilirubin,Total 0.4 mg/dl (0.2-1.3); Blood Urea Nitrogen 15 mg/dl (9-20); Calcium 8.4 mg/dl (8.4-10.2); Chloride 91 mmol/L (98-107); Creatinine Clearance Estimated 68 mL/min (50-200); Estimated Glomerular Filt Rate 130 ml/min (>60); GFR (African American) 157 ML/MIN (>60); Globulin 2.4 g/dL (1.3-3.2); Glucose 116 mg/dl (74-100); Potassium 3.7 mmoL/L (3.5-5.1); Sodium 131 mmol/L (136-145); Total Protein,Serum 5.5 g/dl (6.3-8.2)
[2023-05-27 08:01] LABS: Anion Gap 3.7 mEq/L (5-15); Carbon Dioxide 40 mmol/L (22.0-30.0)
[2023-05-27] MEDS: ASPIRIN EC 81MG TABLET 81 MG PO (08:26)
[2023-05-27] MEDS: APIXABAN 5MG TABLET 5 MG PO ×2 (08:26→20:23)
[2023-05-27] MEDS: BISOPROLOL 5MG TABLET 5 MG PO (08:26)
[2023-05-27] MEDS: POTASSIUM CHLORIDE 10MEQ CAPSULE.ER 10 MEQ PO (08:27)
[2023-05-27] MEDS: FUROSEMIDE 40 MG TABLET PO (08:27)
[2023-05-27] MEDS: CLOPIDOGREL 75MG TAB 75 MG PO (08:27)
[2023-05-27] MEDS: SENNOSIDES 8.6MG/DOCUSATE 50MG TABLET 1 TAB PO ×2 (09:01→20:23)
[2023-05-27] MEDS: FLUTICASONE/UMECLIDIN/VILANTER 100/62.5/25MCG INHALER 1 PUFF IH (09:04)
--- NOTE | 2023-05-27 09:04 | PC.NURSE ---
got pt up to bsc, pt passed flatus but no bowel movement, gave pt prn senokot-S tablet, asked pt if needed pain medication, pt stated wanted to hold off on pain medication for now
--- NOTE | 2023-05-27 12:06 | P.PN_ITS ---
Subjective *Date: 05/27/23 *Time: 12:06 Interval history: Patient was seen and evaluated at the bedside. No reported acute events overnight, CT connected to suction Denies shortness of breath, nausea, vomiting, abdominal pain. He is having pain at site of chest tube Exam Data for Last 24 hours Vital signs and Labs for Last 24 Hours: Temp Pulse Resp BP Pulse Ox O2 Del Method O2 Flow Rate 97.6 F 69 26 H 123/53 L 97 Nasal Cannula 2 05/27/23 08:00 05/27/23 10:00 05/27/23 10:00 05/27/23 10:00 05/27/23 10:00 05/27/23 10:00 05/27/23 10:00 FiO2 40 05/25/23 04:00 Laboratory Results - last 24 hr 05/27/23 07:20: Sodium 131 L, Potassium 3.7, Chloride 91 L, Carbon Dioxide 40 H, Anion Gap 3.7 L, BUN 15, Creatinine 0.60 L, Estimated Creat Clear 68, Estimated GFR 130, Est GFR ( Amer) 157, Glucose 116 H, Calcium 8.4, Total Bilirubin 0.4, AST 29, ALT 16, Alkaline Phosphatase 73, Total Protein 5.5 L, Albumin 3.1 L , Globulin 2.4, Albumin/Globulin Ratio 1.3 I & O for Last 24 hours: Intake & Output 05/24/23 05/25/23 05/26/23 05/27/23 23:59 23:59 23:59 23:59 Intake Total 1210 / 1210 1680 / 1680 990 / 990 270 / 270 Output Total 1450 / 1450 795 / 795 616 / 616 402 / 402 Balance -240 / -240 885 / 885 374 / 374 -132 / -132 Weight 75.977 kg 77 kg 79.878 kg 80.739 kg Constitutional Constitutional: no acute distress *Routine HEENT Exam Head: Present normocephalic Eye: Present EOMI and PERRL ENT: Present mucous membranes moist *Routine Neck Exam Neck: Present supple; Absent lymphadenopathy *Routine Respiratory Exam Respiratory: Present distant breath sounds and diminished air movement Comments: he has chest tube on left chest *Routine Cardiovascular Exam Cardiovascular: Present RRR *Routine Abdominal Exam Abdominal: Present soft and normoactive bowel sounds; Absent tenderness *Routine Extremities Exam Extremities: Absent cyanosis, clubbing or edema *Routine Skin Exam Skin: Present warm; Absent rash *Routine Neurological Exam Neurological: Present alert and oriented X3 Assessment and Plan *Assessment and plan (1) Pneumothorax on left: Status: Resolved Category: Medical Code(s): J93.9 - Pneumothorax, unspecified (2) Subcutaneous emphysema: Status: Acute Qualifiers: Encounter type: initial encounter Qualified Code(s): T79.7XXA - Traumatic subcutaneous emphysema, initial encounter Category: Medical Code(s): T79.7XXA - Traumatic subcutaneous emphysema, initial encounter (3) Acute hypercapnic respiratory failure: Status: Acute Category: Medical Code(s): J96.02 - Acute respiratory failure with hypercapnia (4) Chronic respiratory failure: Status: Acute Qualifiers: Respiratory failure complication: hypercapnia Qualified Code(s): J96.12 - Chronic respiratory failure with hypercapnia Category: Medical Code(s): J96.10 - Chronic respiratory failure, unspecified whether with hypoxia or hypercapnia (5) Pulmonary emphysema: Status: Chronic Qualifiers: Emphysema type: unspecified Qualified Code(s): J43.9 - Emphysema, unspecified Category: Medical Code(s): J43.9 - Emphysema, unspecified (6) History of atrial fibrillation: Status: Acute Category: Medical Code(s): Z86.79 - Personal history of other diseases of the circulatory system (7) Hypertension: Status: Acute Qualifiers: Hypertension type: unspecified Qualified Code(s): I10 - Essential (primary) hypertension Category: Medical Code(s): I10 - Essential (primary) hypertension (8) HLD (hyperlipidemia): Status: Acute Qualifiers: Hyperlipidemia type: unspecified Qualified Code(s): E78.5 - Hyperlipidemia, unspecified Category: Medical Code(s): E78.5 - Hyperlipidemia, unspecified (9) Ex-smoker: Status: Chronic Category: Social Hx Code(s): Z87.891 - Personal history of nicotine dependence Plan 78-year-old male with PMHx significant for GERD, atrial fibrillation s/p ablation, HLD, HTN, COPD/emphysema, 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 Patient had the chest tube pulled 2 days ag. discharged to SNF. presented on 3/20 to the ER with worsening shortness of breath. X-ray found recurrence of pneumothorax. Acute hypoxemic respiratory failure: Recurrent spontaneous pneumothorax subcutaneous emphysema,. Improved -Pulmonology consulted, continue chest tube to suction at -20 cm water. -Pulmonology recommends continuing Trelegy inhaler along -DuoNebs every 6 hours as needed. -Supplemental oxygen for goal saturation of 90 to 95% -Continue to hold on antibiotics at this time. -serial CXRs Atrial fibrillation Hypertension Hyperlipidemia - monitor troponin; consulted cardiology last visit, recommend outpatient eval. - Currently in sinus rhythm. Continue aspirin 81 mg daily. - Continue Eliquis 5 mg twice daily. Continue bisoprolol 5 mg daily. Continue Plavix 75 mg daily. Continue Lasix 40 mg daily, Continue Lipitor 40 mg nightly Full code Eliquis Cardiac diet continue to monitor inpatient while on Chest tube, currently connected to suction, serial xrays, f/u with pulm recommendations
[2023-05-27] MEDS: ATORVASTATIN 40MG TABLET 40 MG PO (20:23)
[2023-05-28] VITALS (11 sets, daily range): BP systolic 116–141; BP diastolic 59–82; PULSE 60–80; RESP 16–20; TEMP 36.4–37; O2SAT 85–98; BMI 23.2
[2023-05-28 07:06] LABS: Basophils % 0.3 % (0.1-2.0); Eosinophils # 0.3 K/mm3 (0.0-0.4); Eosinophils % 2.6 % (0.1-12.0); Hematocrit 38.3 % (42.0-52.0); Hemoglobin 12.5 g/dL (14.1-18.0); Lymphocytes # 1.1 K/mm3 (0.7-4.5); Lymphocytes % 9.6 % (10-50); Mean Corpuscular HGB Conc 32.6 g/dL (31.8-35.4); Mean Corpuscular Hemoglobin 32.1 pg (27.0-31.2); Mean Corpuscular Volume 98.6 fl (80-94); Mean Platelet Volume 7.8 fl (7.4-10.4); Monocytes # 0.7 K/mm3 (0.1-1.0); Neutrophils # 9.4 K/mm3 (1.8-7.8); Neutrophils % 81.4 % (37.0-80.0); Platelet Count 258 K/mm3 (142-424); Red Blood Count 3.89 M/mm3 (4.60-6.20); Red Cell Distribution Width 13.1 % (11.5-17.5); White Blood Count 11.5 K/mm3 (4.8-10.8)
[2023-05-28 07:16] LABS: Blood Urea Nitrogen 12 mg/dl (9-20); Calcium 8.9 mg/dl (8.4-10.2); Carbon Dioxide 39 mmol/L (22.0-30.0); Chloride 93 mmol/L (98-107); Creatinine Clearance Estimated 64 mL/min (50-200); Estimated Glomerular Filt Rate 130 ml/min (>60); GFR (African American) 157 ML/MIN (>60); Glucose 106 mg/dl (74-100); Sodium 134 mmol/L (136-145)
[2023-05-28 08:53] LABS: Anion Gap 5.8 mEq/L (5-15); Potassium 3.8 mmoL/L (3.5-5.1)
[2023-05-28] MEDS: PHENOL THROAT SPRAY 177 ML BOTTLE MM (09:03)
[2023-05-28] MEDS: CLOPIDOGREL 75MG TAB 75 MG PO (09:04)
[2023-05-28] MEDS: POTASSIUM CHLORIDE 10MEQ CAPSULE.ER 10 MEQ PO (09:04)
[2023-05-28] MEDS: BISOPROLOL 5MG TABLET 5 MG PO (09:04)
[2023-05-28] MEDS: FUROSEMIDE 40 MG TABLET PO (09:04)
[2023-05-28] MEDS: ASPIRIN EC 81MG TABLET 81 MG PO (09:04)
[2023-05-28] MEDS: APIXABAN 5MG TABLET 5 MG PO ×2 (09:04→20:24)
[2023-05-28] MEDS: SENNOSIDES 8.6MG/DOCUSATE 50MG TABLET 1 TAB PO (09:12)
--- NOTE | 2023-05-28 10:08 | XR_ITS ---
FINAL REPORT CLINICAL HISTORY: Pneumothorax COMPARISON: 05/25/2023 FINDINGS: A portable view of the chest was obtained. There has been no change in the small caliber left chest tube. Cardiac and mediastinal silhouettes are within normal limits. Left basilar opacity likely represents atelectasis. The right lung is clear.. There is likely a very small left apical pneumothorax. There is no pleural effusion IMPRESSION: Likely very small left apical pneumothorax. Left basilar opacity, likely atelectasis. Reviewed, Interpreted and Dictated by Cammy Merida MD Transcribed by Susan Chavira Authenticated and [facility]
--- NOTE | 2023-05-28 10:45 | P.PN_ITS ---
Subjective *Date: 05/28/23 *Time: 15:08 Interval history: No acute respiratory vents over the weekend. Pulmonology Exam Inpatient Vital signs and Labs for Last 24 Hours: Temp Pulse Resp BP Pulse Ox O2 Del Method O2 Flow Rate 97.9 F 72 20 124/73 85 L Room Air 2 05/28/23 08:00 05/28/23 08:00 05/28/23 08:00 05/28/23 08:00 05/28/23 09:29 05/28/23 09:29 05/28/23 09:00 FiO2 28 05/27/23 19:43 Laboratory Results - last 24 hr 05/28/23 06:31: WBC 11.5 H, RBC 3.89 L, Hgb 12.5 L, Hct 38.3 L, MCV 98.6 H, MCH 32.1 H, MCHC 32.6, RDW 13.1, Plt Count 258, MPV 7.8, Neut % (Auto) 81.4 H, Lymph % (Auto) 9.6 L, [place] % (Auto) 6.0, Eos % (Auto) 2.6, Baso % (Auto) 0.3, Neut # (Auto) 9.4 H, Lymph # (Auto) 1.1, [place] # (Auto) 0.7, Eos # (Auto) 0.3, Baso # (Auto) 0.0, Sodium 134 L, Potassium 3.8, Chloride 93 L, Carbon Dioxide 39 H, Anion Gap 5.8, BUN 12, Creatinine 0.60 L, Estimated Creat Clear 64, Estimated GFR 130, Est GFR ( Amer) 157, Glucose 106 H, Calcium 8.9 I & O for Labs for Last 24 Hours: Intake & Output 05/25/23 05/26/23 05/27/23 05/28/23 23:59 23:59 23:59 23:59 Intake Total 1680 / 1680 990 / 990 990 / 1230 480 / 480 Output Total 795 / 795 616 / 616 1602 / 1602 175 / 175 Balance 885 / 885 374 / 374 -612 / -372 305 / 305 Weight 169 lb 12.095 oz 176 lb 1.6 oz 178 lb 165 lb 12.8 oz Constitutional: Present mild distress Head: Present normocephalic and atraumatic ENT: Present normal exam, normal oropharynx and mucous membranes moist Neck: Present normal inspection and full ROM Respiratory: Present respiratory distress, normal respiratory effort and able to speak in complete sentences; Absent prolonged expiratory phase, wheezes or diminished air movement Comment:: Left chest tube in place. Cardiac: Present S1/S2, Tachycardia and radial pulses present GI: Present soft and distention; Absent tenderness or guarding Skin: Present intact; Absent cyanosis or jaundice Neuro: Present alert, awake and oriented x 3 Extremities: Present normal inspection; Absent clubbing or cyanosis Psychiatric: Present normal affect and cooperative Assessment and Plan *Assessment and plan (1) Subcutaneous emphysema: Status: Acute Qualifiers: Encounter type: initial encounter Qualified Code(s): T79.7XXA - Traumatic subcutaneous emphysema, initial encounter Category: Medical Code(s): T79.7XXA - Traumatic subcutaneous emphysema, initial encounter (2) Chronic respiratory failure: Status: Acute Qualifiers: Respiratory failure complication: hypercapnia Qualified Code(s): J96.12 - Chronic respiratory failure with hypercapnia Category: Medical Code(s): J96.10 - Chronic respiratory failure, unspecified whether with hypoxia or hypercapnia (3) Pneumothorax on left: Status: Acute Category: Medical Code(s): J93.9 - Pneumothorax, unspecified Plan Mr. Miller 78-year-old male states for COPD recently admitted to the hospital status post management for COPD exacerbation pneumonia pneumothorax discharged home presented to the hospital again with worsening respiratory status found to have recurrence of pneumothorax on the left side status post chest tube placement pulmonary was called for further evaluation and management. Chest ray on admission showed recurrence of left pneumothorax along with subcutaneous emphysema not seen on his discharge chest x-ray recently. No acute airspace disease noted. VBG upon admission showed compensated hypercarbic respiratory failure. Chest x-ray from this morning personally reviewed, resolved pneumothorax. Worsening subcutaneous emphysema. Air leak with coughing concerned for BP fistula. No wheezing on auscultation Interval update: No acute respiratory events over the weekend. Chest x-raythis mornign , Stable Plan: -Chest tube to waterseal -Trelegy 100 inhaler along with DuoNebs every 6 hours on as-needed basis -Oxygen supplementation to maintain O2 saturation goal of 90-95. # Thank you for involving pulmonary in this patient care. Will continue to follow.
[2023-05-28] MEDS: POLYETHYLENE GLYCOL 3350 17 GM PACKET PO (12:56)
--- NOTE | 2023-05-28 15:09 | XR_ITS ---
FINAL REPORT CLINICAL HISTORY: Pneumothorax COMPARISON: 05/28/2023 FINDINGS: A portable view of the chest was obtained. There is no change in a left chest tube. Cardiac and mediastinal silhouettes are within normal limits. There is no convincing pneumothorax on this exam. There continues to be subcutaneous air in the neck bilaterally and along the left chest wall. IMPRESSION: No pneumothorax on this exam. Persistent subcutaneous air in the neck and along the left chest wall. Reviewed, Interpreted and Dictated by Cammy Merida MD Transcribed by Rebeca Pompa Authenticated and [facility]
--- NOTE | 2023-05-28 17:10 | PC.NURSE ---
Pt is alert and oriented x4. Chest tube to left chest changed from lws to water seal, no drainage noted. He remains on 2L NC, 85% on RA. He has used the urinal and bsc with assist x1. He had a BM this shift. +2 edema to LLE, +1 to RLE. He's been NSR/sinus arrhythmia on tele. He's denied any complaints. Bed is locked and in the lowest position, call light is within reach.
--- NOTE | 2023-05-28 18:27 | P.PN_ITS ---
Subjective *Date: 05/28/23 *Time: 23:40 Interval history: Patient has no acute complaints today. Tolerating 2 L. Still having persistent chest discomfort in left chest. No nausea or vomiting. Afebrile. at bedside. Continues to have slight leak and Pleur-evac Medical Exam Vital signs and Labs for Last 24 Hours: Vital Signs Temp Pulse Pulse Pulse Resp BP Pulse Ox 05/28/23 17:00 05/28/23 16:00 98.4 F 70 17 124/70 95 05/28/23 16:00 80 05/28/23 16:00 98 05/28/23 15:00 05/28/23 13:00 05/28/23 12:24 68 16 116/63 94 L 05/28/23 12:00 60 05/28/23 11:26 97.8 F 05/28/23 11:00 05/28/23 09:29 85 L 05/28/23 09:00 05/28/23 08:00 60 05/28/23 08:00 72 20 124/73 96 05/28/23 08:00 96 05/28/23 08:00 97.9 F 05/28/23 06:49 05/28/23 06:17 93 L 05/28/23 05:00 05/28/23 04:00 97.6 F 63 18 141/82 H 97 05/28/23 04:00 60 05/28/23 03:00 05/28/23 01:00 05/28/23 00:00 60 05/28/23 00:00 98.5 F 65 16 137/59 L 96 05/27/23 23:00 05/27/23 21:00 05/27/23 20:00 60 05/27/23 20:00 98.7 F 83 14 120/62 93 L 05/27/23 20:00 05/27/23 19:43 05/27/23 18:32 O2 Del Method O2 Flow Rate FiO2 05/28/23 17:00 Nasal Cannula 2 05/28/23 16:00 Nasal Cannula 3 05/28/23 16:00 05/28/23 16:00 Nasal Cannula 2 05/28/23 15:00 Nasal Cannula 2 05/28/23 13:00 Nasal Cannula 05/28/23 12:24 Nasal Cannula 3 05/28/23 12:00 05/28/23 11:26 05/28/23 11:00 Nasal Cannula 2 05/28/23 09:29 Room Air 05/28/23 09:00 Nasal Cannula 2 05/28/23 08:00 05/28/23 08:00 Nasal Cannula 2 05/28/23 08:00 Nasal Cannula 2 05/28/23 08:00 05/28/23 06:49 Nasal Cannula 2 05/28/23 06:17 Nasal Cannula 2 05/28/23 05:00 Nasal Cannula 2 05/28/23 04:00 Nasal Cannula 2 05/28/23 04:00 05/28/23 03:00 Nasal Cannula 2 05/28/23 01:00 Nasal Cannula 2 05/28/23 00:00 05/28/23 00:00 Nasal Cannula 2 05/27/23 23:00 Nasal Cannula 2 05/27/23 21:00 Nasal Cannula 2 05/27/23 20:00 05/27/23 20:00 Nasal Cannula 2 05/27/23 20:00 Nasal Cannula 2 05/27/23 19:43 Nasal Cannula 2 28 05/27/23 18:32 Nasal Cannula 2 Intake and Output 05/28/23 05/28/23 05/28/23 07:59 15:59 23:59 Intake Total 240 / 960 480 / 960 240 / 960 Output Total 175 / 175 0 / 175 Balance 240 / 785 305 / 785 240 / 785 Intake: Intake, Oral Amount 240 / 960 480 / 960 240 / 960 Output: Output, Urine Amount 175 / 175 0 / 175 Other: Number of Unmeasured Voids 1 Number of Bowel Movements 1 Weight 75.206 kg Patient Weight 05/28/23 23:59 Weight 75.206 kg Laboratory Results - last 24 hr 05/28/23 06:31: WBC 11.5 H, RBC 3.89 L, Hgb 12.5 L, Hct 38.3 L, MCV 98.6 H, MCH 32.1 H, MCHC 32.6, RDW 13.1, Plt Count 258, MPV 7.8, Neut % (Auto) 81.4 H, Lymph % (Auto) 9.6 L, [place] % (Auto) 6.0, Eos % (Auto) 2.6, Baso % (Auto) 0.3, Neut # (Auto) 9.4 H, Lymph # (Auto) 1.1, [place] # (Auto) 0.7, Eos # (Auto) 0.3, Baso # (Auto) 0.0, Sodium 134 L, Potassium 3.8, Chloride 93 L, Carbon Dioxide 39 H, Anion Gap 5.8, BUN 12, Creatinine 0.60 L, Estimated Creat Clear 64, Estimated GFR 130, Est GFR ( Amer) 157, Glucose 106 H, Calcium 8.9 I & O for Labs for Last 24 Hours: Intake & Output 05/25/23 05/26/23 05/27/23 05/28/23 23:59 23:59 23:59 23:59 Intake Total 1680 / 1680 990 / 990 990 / 1230 960 / 960 Output Total 795 / 795 616 / 616 1602 / 1602 175 / 175 Balance 885 / 885 374 / 374 -612 / -372 785 / 785 Weight 77 kg 79.878 kg 80.739 kg 75.206 kg Constitutional: Present no acute distress, average body habitus, chronically ill appearing and cooperative Head: Present atraumatic and normocephalic ENT: Present normal exam Respiratory: Present prolonged expiratory phase, rhonchi, wheezes, diminished air movement and normal respiratory effort; Absent crackles Comment:: Leak noted in Pleur-evac with coughing Cardiac: Present Reg Rate and Rhythm GI: Present soft and normal bowel sounds; Absent distention or tenderness Extremities: Present normal inspection, full ROM and edema (Bilateral ankle edema) Skin: Present intact; Absent erythema Comment:: Subcutaneous emphysema along chest with palpation Neuro: Present Grossly Intact, alert, awake, oriented x 3 and moves all extremities Assessment and Plan *Assessment and plan (1) Pneumothorax on left: Status: Resolved Category: Medical Code(s): J93.9 - Pneumothorax, unspecified (2) Subcutaneous emphysema: Status: Acute Qualifiers: Encounter type: initial encounter Qualified Code(s): T79.7XXA - Traumatic subcutaneous emphysema, initial encounter Category: Medical Code(s): T79.7XXA - Traumatic subcutaneous emphysema, initial encounter (3) Acute hypercapnic respiratory failure: Status: Acute Category: Medical Code(s): J96.02 - Acute respiratory failure with hypercapnia (4) Chronic respiratory failure: Status: Acute Qualifiers: Respiratory failure complication: hypercapnia Qualified Code(s): J96.12 - Chronic respiratory failure with hypercapnia Category: Medical Code(s): J96.10 - Chronic respiratory failure, unspecified whether with hypoxia or hypercapnia (5) Pulmonary emphysema: Status: Chronic Qualifiers: Emphysema type: unspecified Qualified Code(s): J43.9 - Emphysema, unspecified Category: Medical Code(s): J43.9 - Emphysema, unspecified (6) History of atrial fibrillation: Status: Acute Category: Medical Code(s): Z86.79 - Personal history of other diseases of the circulatory system (7) Hypertension: Status: Acute Qualifiers: Hypertension type: unspecified Qualified Code(s): I10 - Essential (primary) hypertension Category: Medical Code(s): I10 - Essential (primary) hypertension (8) HLD (hyperlipidemia): Status: Acute Qualifiers: Hyperlipidemia type: unspecified Qualified Code(s): E78.5 - Hyperlipidemia, unspecified Category: Medical Code(s): E78.5 - Hyperlipidemia, unspecified (9) Ex-smoker: Status: Chronic Category: Social Hx Code(s): Z87.891 - Personal history of nicotine dependence Plan 78-year-old male with PMHx significant for GERD, atrial fibrillation s/p ablation, HLD, HTN, COPD/emphysema, 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 presented on 05/22 to the ER with worsening shortness of breath from SNF. X-ray found recurrence of pneumothorax. Pulmonology consulted and assisting with care. Continues to require inpatient management. Problems addressed as follows: Acute hypoxemic respiratory failure: Recurrent spontaneous pneumothorax subcutaneous emphysema,. Improved -Pulmonology consulted, continue chest tube to waterseal. Discussed case this morning, continue DuoNebs every 6 hours as needed, supplemental oxygen for goal saturation between 90 to 95%. -Continue Trelegy 100 inhaler. - continue current treatment with chest tube in place. Will consider removal if leak resolves and able to clamp tube with no recurrence of pneumothorax. - Chest x-ray reviewed this morning, no overt pneumothorax present. Still has subcu emphysema. -White cell count 11.5, kidney function stable with creatinine 1.6. Bicarb 39. Repeat CBC, CMP, magnesium ordered for the morning. Atrial fibrillation Hypertension Hyperlipidemia - Currently in sinus rhythm. Continue aspirin 81 mg daily. - Continue Eliquis 5 mg twice daily. Continue bisoprolol 5 mg daily. Continue Plavix 75 mg daily. Continue Lasix 40 mg daily, Continue Lipitor 40 mg nightly Full code Eliquis Cardiac diet continue to monitor inpatient while on Chest tube, serial xrays, f/u with pulm recommendations
[2023-05-28] MEDS: ATORVASTATIN 40MG TABLET 40 MG PO (20:24)
--- NOTE | 2023-05-28 23:40 | PC.NURSE ---
ROOM AIR SAT 85% Pt placed back on 2LNC with sats at 98%
[2023-05-29] VITALS (8 sets, daily range): BP systolic 100–136; BP diastolic 50–76; PULSE 50–75; RESP 17–20; TEMP 36.4–36.9; O2SAT 91–98; BMI 23.1
[2023-05-29] MEDS: OXYCODONE 7.5MG W/APAP 325MG TABLET 2 EACH PO ×2 (02:21→20:50)
--- NOTE | 2023-05-29 06:36 | PC.NURSE ---
pt a/o x 4. pt c/o pain in left lung 1x, PRN pain medication administered - see may. pt stated relief. Pt has had no output from chest tube t/o shift. RT attempted to wean pt to RA, pt dropped to 87 %. pt was placed back on 2 L nc, tolerating well with sat >90%.
[2023-05-29 07:54] LABS: Basophils % 0.3 % (0.1-2.0); Eosinophils # 0.3 K/mm3 (0.0-0.4); Hematocrit 37.6 % (42.0-52.0); Lymphocytes # 0.9 K/mm3 (0.7-4.5); Lymphocytes % 9.9 % (10-50); Mean Corpuscular Hemoglobin 31.8 pg (27.0-31.2); Mean Corpuscular Volume 99.4 fl (80-94); Mean Platelet Volume 7.4 fl (7.4-10.4); Monocytes # 0.6 K/mm3 (0.1-1.0); Monocytes % 6.7 % (1.7-9.3); Neutrophils # 7.6 K/mm3 (1.8-7.8); Neutrophils % 80.2 % (37.0-80.0); Platelet Count 246 K/mm3 (142-424); Red Blood Count 3.78 M/mm3 (4.60-6.20); Red Cell Distribution Width 13.2 % (11.5-17.5); White Blood Count 9.5 K/mm3 (4.8-10.8)
[2023-05-29 07:57] LABS: Alanine Aminotransferase 18 U/L (12-78); Albumin/Globulin Ratio 1.2 (1.1-1.8); Alkaline Phosphatase 78 U/L (38-126); Anion Gap 4.1 mEq/L (5-15); Aspartate Amino Transferase 29 U/L (17-59); Bilirubin,Total 0.5 mg/dl (0.2-1.3); Blood Urea Nitrogen 16 mg/dl (9-20); Calcium 8.6 mg/dl (8.4-10.2); Carbon Dioxide 38 mmol/L (22.0-30.0); Chloride 98 mmol/L (98-107); Creatinine Clearance Estimated 63 mL/min (50-200); Estimated Glomerular Filt Rate 93 ml/min (>60); GFR (African American) 113 ML/MIN (>60); Globulin 2.6 g/dL (1.3-3.2); Glucose 113 mg/dl (74-100); Magnesium 2.1 mg/dl (1.6-2.3); Potassium 4.1 mmoL/L (3.5-5.1); Sodium 136 mmol/L (136-145); Total Protein,Serum 5.6 g/dl (6.3-8.2)
[2023-05-29] MEDS: FUROSEMIDE 40 MG TABLET PO (08:08)
[2023-05-29] MEDS: BISOPROLOL 5MG TABLET 5 MG PO (08:08)
[2023-05-29] MEDS: CLOPIDOGREL 75MG TAB 75 MG PO (08:08)
[2023-05-29] MEDS: ASPIRIN EC 81MG TABLET 81 MG PO (08:08)
[2023-05-29] MEDS: POTASSIUM CHLORIDE 10MEQ CAPSULE.ER 10 MEQ PO (08:08)
[2023-05-29] MEDS: APIXABAN 5MG TABLET 5 MG PO ×2 (08:08→20:49)
--- NOTE | 2023-05-29 08:52 | XR_ITS ---
FINAL REPORT CLINICAL HISTORY: pneumothorax COMPARISON: 05/28/2023 FINDINGS: SINGLE-VIEW CHEST The heart size measures in the upper limits of normal in size. The mediastinum is normal. There is chronic scarring in the lungs. Subcutaneous emphysema is seen in the supraclavicular regions, improved since prior. There is no pneumothorax. IMPRESSION: No evidence of pneumothorax. Improved subcutaneous emphysema. Reviewed, Interpreted and Dictated by Elias Law MD Transcribed by Oneyda Otto Authenticated and [facility]
--- NOTE | 2023-05-29 08:55 | PC.NURSE ---
Rounded on patient, he denies any needs or concerns at this time. is at bedside.
--- NOTE | 2023-05-29 10:11 | EXP.PULM.PN ---
Subjective *Date: 05/29/23 *Time: 11:50 Interval history: No acute respiratory events overnight. Pulmonology Exam Inpatient Vital signs and Labs for Last 24 Hours: Temp Pulse Resp BP Pulse Ox O2 Del Method O2 Flow Rate 97.7 F 65 19 114/58 L 97 Nasal Cannula 2 05/29/23 08:00 05/29/23 08:00 05/29/23 08:00 05/29/23 08:00 05/29/23 08:00 05/29/23 08:00 05/29/23 08:00 FiO2 28 05/27/23 19:43 Laboratory Results - last 24 hr 05/29/23 06:55: WBC 9.5, RBC 3.78 L, Hgb 12.0 L, Hct 37.6 L, MCV 99.4 H, MCH 31.8 H, MCHC 32.0, RDW 13.2, Plt Count 246, MPV 7.4, Neut % (Auto) 80.2 H, Lymph % (Auto) 9.9 L, [place] % (Auto) 6.7, Eos % (Auto) 3.0, Baso % (Auto) 0.3, Neut # (Auto) 7.6, Lymph # (Auto) 0.9, [place] # (Auto) 0.6, Eos # (Auto) 0.3, Baso # (Auto) 0.0, Sodium 136, Potassium 4.1, Chloride 98, Carbon Dioxide 38 H, Anion Gap 4.1 L, BUN 16 D, Creatinine 0.80 D, Estimated Creat Clear 63, Estimated GFR 93, Est GFR ( Amer) 113 D, Glucose 113 H, Calcium 8.6, Magnesium 2.1, Total Bilirubin 0.5, AST 29, ALT 18, Alkaline Phosphatase 78, Total Protein 5.6 L, Albumin 3.0 L, Globulin 2.6, Albumin/Globulin Ratio 1.2 Temp Pulse Resp BP Pulse Ox O2 Del Method O2 Flow Rate 97.9 F 72 20 124/73 85 L Room Air 2 05/28/23 08:00 05/28/23 08:00 05/28/23 08:00 05/28/23 08:00 05/28/23 09:29 05/28/23 09:29 05/28/23 09:00 FiO2 28 05/27/23 19:43 Laboratory Results - last 24 hr 05/28/23 06:31: WBC 11.5 H, RBC 3.89 L, Hgb 12.5 L, Hct 38.3 L, MCV 98.6 H, MCH 32.1 H, MCHC 32.6, RDW 13.1, Plt Count 258, MPV 7.8, Neut % (Auto) 81.4 H, Lymph % (Auto) 9.6 L, [place] % (Auto) 6.0, Eos % (Auto) 2.6, Baso % (Auto) 0.3, Neut # (Auto) 9.4 H, Lymph # (Auto) 1.1, [place] # (Auto) 0.7, Eos # (Auto) 0.3, Baso # (Auto) 0.0, Sodium 134 L, Potassium 3.8, Chloride 93 L, Carbon Dioxide 39 H, Anion Gap 5.8, BUN 12, Creatinine 0.60 L, Estimated Creat Clear 64, Estimated GFR 130, Est GFR ( Amer) 157, Glucose 106 H, Calcium 8.9 I & O for Labs for Last 24 Hours: Intake & Output 05/26/23 05/27/23 05/28/23 05/29/23 23:59 23:59 23:59 23:59 Intake Total 990 / 990 990 / 1230 960 / 960 270 / 270 Output Total 616 / 616 1602 / 1602 175 / 575 500 / 500 Balance 374 / 374 -612 / -372 785 / 385 -230 / -230 Weight 176 lb 1.6 oz 178 lb 165 lb 12.8 oz 165 lb 3.2 oz Intake & Output 05/25/23 05/26/23 05/27/23 05/28/23 23:59 23:59 23:59 23:59 Intake Total 1680 / 1680 990 / 990 990 / 1230 480 / 480 Output Total 795 / 795 616 / 616 1602 / 1602 175 / 175 Balance 885 / 885 374 / 374 -612 / -372 305 / 305 Weight 169 lb 12.095 oz 176 lb 1.6 oz 178 lb 165 lb 12.8 oz Constitutional: Present mild distress Head: Present normocephalic and atraumatic ENT: Present normal exam, normal oropharynx and mucous membranes moist Neck: Present normal inspection and full ROM Respiratory: Present respiratory distress, normal respiratory effort and able to speak in complete sentences; Absent prolonged expiratory phase, wheezes or diminished air movement Comment:: Left chest tube in place. Cardiac: Present S1/S2, Tachycardia and radial pulses present GI: Present soft and distention; Absent tenderness or guarding Skin: Present intact; Absent cyanosis or jaundice Neuro: Present alert, awake and oriented x 3 Extremities: Present normal inspection; Absent clubbing or cyanosis Psychiatric: Present normal affect and cooperative Assessment and Plan *Assessment and plan (1) Subcutaneous emphysema: Status: Acute Qualifiers: Encounter type: initial encounter Qualified Code(s): T79.7XXA - Traumatic subcutaneous emphysema, initial encounter Category: Medical Code(s): T79.7XXA - Traumatic subcutaneous emphysema, initial encounter (2) Chronic respiratory failure: Status: Acute Qualifiers: Respiratory failure complication: hypercapnia Qualified Code(s): J96.12 - Chronic respiratory failure with hypercapnia Category: Medical Code(s): J96.10 - Chronic respiratory failure, unspecified whether with hypoxia or hypercapnia (3) Pneumothorax on left: Status: Acute Category: Medical Code(s): J93.9 - Pneumothorax, unspecified Plan Mr. Miller 78-year-old male states for COPD recently admitted to the hospital status post management for COPD exacerbation pneumonia pneumothorax discharged home presented to the hospital again with worsening respiratory status found to have recurrence of pneumothorax on the left side status post chest tube placement pulmonary was called for further evaluation and management. Chest ray on admission showed recurrence of left pneumothorax along with subcutaneous emphysema not seen on his discharge chest x-ray recently. No acute airspace disease noted. VBG upon admission showed compensated hypercarbic respiratory failure. Chest x-ray from this morning personally reviewed, resolved pneumothorax. Worsening subcutaneous emphysema. Air leak with coughing concerned for BP fistula. No wheezing on auscultation Interval update: No acute respiratory events over the weekend. On waterseal for the last 24 hours. Chest x-ray from this morning relatively stable. Continue to monitor. With cough Plan: -Clamp chest tube. F/U repeat CXR -Trelegy 100 inhaler along with DuoNebs every 6 hours on as-needed basis -Oxygen supplementation to maintain O2 saturation goal of 90-95. # Thank you for involving pulmonary in this patient care. Will continue to follow.
--- NOTE | 2023-05-29 15:00 | XR_ITS ---
FINAL REPORT CLINICAL HISTORY: Pneumothorax COMPARISON: 05/29/2023 FINDINGS: SINGLE-VIEW CHEST The heart size is normal. The mediastinum is normal. Left pigtail catheter is present. There is left apical pneumothorax with 1.6 cm of pleural separation. There is moderate subcutaneous emphysema in the left-lateral chest wall. IMPRESSION: Left apical pneumothorax. Reviewed, Interpreted and Dictated by Elias Law MD Transcribed by Oneyda Otto Authenticated and [facility]
--- NOTE | 2023-05-29 18:00 | PC.NURSE ---
PT IS AOX4, ABLE TO MAKE NEEDS KNOWN TO STAFF. CHEST TUBE CLAMPED BY DR SILVA THIS SHIFT. PT HAS DENIED PAIN THIS SHIFT. 2LNC FOR O2 SUPPORT. PT STATED THAT HE HAD A BM LAST NIGHT AND DOESN'T WANT TO TAKE MIRALAX.
[2023-05-29] MEDS: POLYETHYLENE GLYCOL 3350 17 GM PACKET PO (18:06)
--- NOTE | 2023-05-29 18:30 | EXP.ACUTE.PN ---
Subjective *Date: 05/29/23 *Time: 18:30 Interval history: Feeling better this morning. Chest pain improving. Still intermittent on the left side but better. No nausea or vomiting. Tolerating 2l nasal cannula at this time. Medical Exam Vital signs and Labs for Last 24 Hours: Vital Signs Temp Pulse Pulse Resp BP Pulse Ox O2 Del Method 05/29/23 18:16 Nasal Cannula 05/29/23 16:31 Nasal Cannula 05/29/23 16:00 97.9 F 66 18 135/69 98 Nasal Cannula 05/29/23 15:00 Nasal Cannula 05/29/23 13:00 Nasal Cannula 05/29/23 12:00 50 L 05/29/23 12:00 97.5 F L 54 L 20 126/56 L 95 Nasal Cannula 05/29/23 11:00 Nasal Cannula 05/29/23 09:00 Nasal Cannula 05/29/23 08:00 Nasal Cannula 05/29/23 08:00 70 05/29/23 08:00 97.7 F 65 19 114/58 L 97 Nasal Cannula 05/29/23 06:34 Nasal Cannula 05/29/23 06:11 95 Nasal Cannula 05/29/23 05:00 Nasal Cannula 05/29/23 04:00 98.4 F 50 L 17 100/50 L 97 Nasal Cannula 05/29/23 04:00 50 L 05/29/23 03:00 Nasal Cannula 05/29/23 01:00 Nasal Cannula 05/29/23 00:00 62 05/29/23 00:00 97.9 F 70 17 122/54 L 97 Nasal Cannula 05/28/23 23:40 98 Nasal Cannula 05/28/23 23:00 Nasal Cannula 05/28/23 21:00 Nasal Cannula 05/28/23 20:00 69 05/28/23 20:00 98.6 F 67 19 130/67 98 05/28/23 20:00 Nasal Cannula 05/28/23 19:00 Nasal Cannula O2 Flow Rate 05/29/23 18:16 2 05/29/23 16:31 2 05/29/23 16:00 2 05/29/23 15:00 2 05/29/23 13:00 2 05/29/23 12:00 05/29/23 12:00 2 05/29/23 11:00 2 05/29/23 09:00 2 05/29/23 08:00 2 05/29/23 08:00 05/29/23 08:00 2 05/29/23 06:34 2 05/29/23 06:11 2 05/29/23 05:00 05/29/23 04:00 05/29/23 04:00 05/29/23 03:00 05/29/23 01:00 05/29/23 00:00 05/29/23 00:00 2 05/28/23 23:40 2 05/28/23 23:00 2 05/28/23 21:00 2 05/28/23 20:00 05/28/23 20:00 05/28/23 20:00 2 05/28/23 19:00 2 Intake and Output 05/29/23 05/29/23 05/29/23 07:59 15:59 23:59 Intake Total 510 / 680 170 / 680 Output Total 500 / 500 Balance -500 / 180 510 / 180 170 / 180 Intake: Intake, Oral Amount 510 / 680 170 / 680 Output: Output, Urine Amount 500 / 500 Other: Number of Unmeasured Voids 0 Weight 74.933 kg Patient Weight 05/29/23 23:59 Weight 74.933 kg Laboratory Results - last 24 hr 05/29/23 06:55: WBC 9.5, RBC 3.78 L, Hgb 12.0 L, Hct 37.6 L, MCV 99.4 H, MCH 31.8 H, MCHC 32.0, RDW 13.2, Plt Count 246, MPV 7.4, Neut % (Auto) 80.2 H, Lymph % (Auto) 9.9 L, [place] % (Auto) 6.7, Eos % (Auto) 3.0, Baso % (Auto) 0.3, Neut # (Auto) 7.6, Lymph # (Auto) 0.9, [place] # (Auto) 0.6, Eos # (Auto) 0.3, Baso # (Auto) 0.0, Sodium 136, Potassium 4.1, Chloride 98, Carbon Dioxide 38 H, Anion Gap 4.1 L, BUN 16 D, Creatinine 0.80 D, Estimated Creat Clear 63, Estimated GFR 93, Est GFR ( Amer) 113 D, Glucose 113 H, Calcium 8.6, Magnesium 2.1, Total Bilirubin 0.5, AST 29, ALT 18, Alkaline Phosphatase 78, Total Protein 5.6 L, Albumin 3.0 L, Globulin 2.6, Albumin/Globulin Ratio 1.2 I & O for Labs for Last 24 Hours: Intake & Output 05/26/23 05/27/23 05/28/23 05/29/23 23:59 23:59 23:59 23:59 Intake Total 990 / 990 990 / 1230 960 / 960 680 / 680 Output Total 616 / 616 1602 / 1602 175 / 575 500 / 500 Balance 374 / 374 -612 / -372 785 / 385 180 / 180 Weight 79.878 kg 80.739 kg 75.206 kg 74.933 kg Constitutional: Present no acute distress, average body habitus, chronically ill appearing and cooperative Head: Present atraumatic and normocephalic ENT: Present normal exam Respiratory: Present prolonged expiratory phase, rhonchi, wheezes, diminished air movement and normal respiratory effort; Absent crackles Comment:: Leak noted in Pleur-evac with coughing Cardiac: Present Reg Rate and Rhythm GI: Present soft and normal bowel sounds; Absent distention or tenderness Extremities: Present normal inspection, full ROM and edema (Bilateral ankle edema) Skin: Present intact; Absent erythema Comment:: Subcutaneous emphysema along chest with palpation Neuro: Present Grossly Intact, alert, awake, oriented x 3 and moves all extremities Assessment and Plan *Assessment and plan (1) Pneumothorax on left: Status: Resolved Category: Medical Code(s): J93.9 - Pneumothorax, unspecified (2) Subcutaneous emphysema: Status: Acute Qualifiers: Encounter type: initial encounter Qualified Code(s): T79.7XXA - Traumatic subcutaneous emphysema, initial encounter Category: Medical Code(s): T79.7XXA - Traumatic subcutaneous emphysema, initial encounter (3) Acute hypercapnic respiratory failure: Status: Acute Category: Medical Code(s): J96.02 - Acute respiratory failure with hypercapnia (4) Chronic respiratory failure: Status: Acute Qualifiers: Respiratory failure complication: hypercapnia Qualified Code(s): J96.12 - Chronic respiratory failure with hypercapnia Category: Medical Code(s): J96.10 - Chronic respiratory failure, unspecified whether with hypoxia or hypercapnia (5) Pulmonary emphysema: Status: Chronic Qualifiers: Emphysema type: unspecified Qualified Code(s): J43.9 - Emphysema, unspecified Category: Medical Code(s): J43.9 - Emphysema, unspecified (6) History of atrial fibrillation: Status: Acute Category: Medical Code(s): Z86.79 - Personal history of other diseases of the circulatory system (7) Hypertension: Status: Acute Qualifiers: Hypertension type: unspecified Qualified Code(s): I10 - Essential (primary) hypertension Category: Medical Code(s): I10 - Essential (primary) hypertension (8) HLD (hyperlipidemia): Status: Acute Qualifiers: Hyperlipidemia type: unspecified Qualified Code(s): E78.5 - Hyperlipidemia, unspecified Category: Medical Code(s): E78.5 - Hyperlipidemia, unspecified (9) Ex-smoker: Status: Chronic Category: Social Hx Code(s): Z87.891 - Personal history of nicotine dependence Plan 78-year-old male with PMHx significant for GERD, atrial fibrillation s/p ablation, HLD, HTN, COPD/emphysema, 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 presented on 05/22 to the ER with worsening shortness of breath from SNF. X-ray found recurrence of pneumothorax. Pulmonology consulted and assisting with care. Continues to require inpatient management. Problems addressed as follows: Acute hypoxemic respiratory failure: Recurrent spontaneous pneumothorax subcutaneous emphysema,. Improved - Chest x-ray reviewed this morning, no overt pneumothorax present. Still has subcu emphysema. - White cell count normal at 9.5, hemoglobin 12.0. Kidney function electrolytes stable. Repeat CBC, CMP, magnesium ordered for the morning. - Discussed case with pulmonology today, concern the patient still having leak. Will proceed with clamping chest tube with follow-up chest x-ray. Continue Trelegy 100 inhaler with DuoNebs every 6 hours as needed. Continue supplemental oxygen for goal saturation greater 90%. Currently on 2 L. Atrial fibrillation Hypertension Hyperlipidemia - Currently in sinus rhythm. Continue aspirin 81 mg daily. - Continue Eliquis 5 mg twice daily. Continue bisoprolol 5 mg daily. Continue Plavix 75 mg daily. Continue Lasix 40 mg daily, Continue Lipitor 40 mg nightly Full code Eliquis Cardiac diet
--- NOTE | 2023-05-29 19:18 | XR_ITS ---
PROCEDURE INFORMATION: Exam: XR Chest Exam date and time: 05/29/2023 7:40 PM Age: 78 years old Clinical indication: Shortness of breath TECHNIQUE: Imaging protocol: Radiologic exam of the chest. Views: 1 view. COMPARISON: CR XR CHEST PORTABLE 05/29/2023 3:15 PM FINDINGS: Tubes, catheters and devices: Pigtail chest tube overlies the superolateral left thorax unchanged in position from prior exam. Lungs: There are moderate centrilobular emphysematous changes of the lungs with an apical gradient. Pleural spaces: Left apical pneumothorax with visceral pleura measuring 2.9 cm from the thoracic wall representing approximately 20% volume pneumothorax slightly worse from prior exam. Heart/Mediastinum: Unremarkable. No cardiomegaly. Bones/joints: Unremarkable. IMPRESSION: 1. Left apical pneumothorax with visceral pleura measuring 2.9 cm from the thoracic wall representing approximately 20% volume pneumothorax slightly worse from prior exam. 2. Pigtail chest tube overlies the superolateral left thorax unchanged in position from prior exam.
[2023-05-29] MEDS: IPRATROPIUM/ALBUTEROL 3 ML NEB IH (20:11)
[2023-05-29] MEDS: ATORVASTATIN 40MG TABLET 40 MG PO (20:49)
[2023-05-29] MEDS: VANCOMYCIN CONSULT REQUEST 1 EACH NOTAPPLIC (22:17)
[2023-05-29] MEDS: VANCOMYCIN/WATER FOR INJ (PEG) 1.5 GM/300 ML PIGGYBACK IV (22:28)
[2023-05-30] MEDS: MORPHINE 2MG/ML SYRINGE 2 MG IV (00:33)
[2023-05-30 04:00] VITALS: BP 122/60; PULSE 53; RESP 16; TEMP 36.6; O2SAT 100; BMI 23.0
[2023-05-30] MEDS: OXYCODONE 7.5MG W/APAP 325MG TABLET 2 EACH PO ×2 (06:41→13:03)
[2023-05-30 07:33] LABS: Chloride 97 mmol/L (98-107); Potassium 4.2 mmoL/L (3.5-5.1); Sodium 135 mmol/L (136-145)
[2023-05-30 07:34] LABS: Basophils % 0.4 % (0.1-2.0); Eosinophils # 0.3 K/mm3 (0.0-0.4); Eosinophils % 3.4 % (0.1-12.0); Hematocrit 37.7 % (42.0-52.0); Hemoglobin 11.9 g/dL (14.1-18.0); Lymphocytes # 0.8 K/mm3 (0.7-4.5); Lymphocytes % 8.7 % (10-50); Mean Corpuscular HGB Conc 31.5 g/dL (31.8-35.4); Mean Corpuscular Hemoglobin 31.7 pg (27.0-31.2); Mean Corpuscular Volume 100.6 fl (80-94); Mean Platelet Volume 7.2 fl (7.4-10.4); Monocytes # 0.6 K/mm3 (0.1-1.0); Monocytes % 5.9 % (1.7-9.3); Neutrophils # 7.9 K/mm3 (1.8-7.8); Neutrophils % 81.6 % (37.0-80.0); Platelet Count 257 K/mm3 (142-424); Red Blood Count 3.75 M/mm3 (4.60-6.20); Red Cell Distribution Width 13.1 % (11.5-17.5); White Blood Count 9.7 K/mm3 (4.8-10.8)
--- NOTE | 2023-05-30 07:35 | XR_ITS ---
FINAL REPORT CLINICAL HISTORY: eval for resolution of pneumothorax COMPARISON: 05/29/2023 FINDINGS: The heart size is mildly enlarged. The mediastinum is normal. There is subcutaneous edema over the left chest wall. Left pigtail chest tube is present. The previously noted left apical pneumothorax has resolved. There are no pleural effusions. There is no osseous abnormality. IMPRESSION: Interval resolution left apical pneumothorax. Reviewed, Interpreted and Dictated by Elias Law MD Transcribed by Susan Chavira Authenticated and [facility]
[2023-05-30 07:36] LABS: Albumin Level 2.9 g/dl (3.5-5.0); Albumin/Globulin Ratio 1.1 (1.1-1.8); Calcium 8.8 mg/dl (8.4-10.2); Globulin 2.7 g/dL (1.3-3.2); Glucose 103 mg/dl (74-100); Total Protein,Serum 5.6 g/dl (6.3-8.2)
[2023-05-30 07:43] LABS: Anion Gap 4.2 mEq/L (5-15); Carbon Dioxide 38 mmol/L (22.0-30.0)
[2023-05-30 07:46] LABS: Alanine Aminotransferase 15 U/L (12-78); Alkaline Phosphatase 88 U/L (38-126); Aspartate Amino Transferase 28 U/L (17-59); Bilirubin,Total 0.4 mg/dl (0.2-1.3); Blood Urea Nitrogen 11 mg/dl (9-20); Creatinine Clearance Estimated 63 mL/min (50-200); Estimated Glomerular Filt Rate 130 ml/min (>60); GFR (African American) 157 ML/MIN (>60)
--- NOTE | 2023-05-30 07:49 | EXP.PHA.CONS ---
Pharmacy Consult Date: 05/30/23 Time: 07:49 Referring provider: DR. SOOD Reason for Consult:: VANCOMYCIN Allergies Allergy/AdvReac Type Severity Reaction Status Date / Time No Known Allergies Allergy Verified 04/30/23 13:50 Home Medications Medication Instructions Recorded Confirmed Type hydrocortisone valerate 0.2 % 1 applic topical BID 10 days #60 12/05/22 05/23/23 Rx topical cream grams budesonide-formoterol HFA 160 2 puff inhalation BID 90 days 01/03/23 05/23/23 Rx mcg-4.5 mcg/actuation aerosol #10.2 grams inhaler azithromycin 250 mg tablet 250 mg PO MOWEFR 05/16/23 05/23/23 History furosemide 40 mg tablet 40 mg PO DAILY 05/16/23 05/23/23 History potassium chloride 10 mEq 10 meq PO DAILY 05/16/23 05/24/23 History capsule,extended release apixaban 5 mg tablet (Eliquis) 5 mg PO BID 30 days #60 tabs 05/22/23 05/23/23 Rx aspirin 81 mg tablet,delayed 81 mg PO DAILY 30 days #30 tabs 05/22/23 05/23/23 Rx release atorvastatin 40 mg tablet 40 mg PO HS 30 days #30 tabs 05/22/23 05/24/23 Rx bisoprolol fumarate 5 mg tablet 5 mg PO DAILY 30 days #30 tabs 05/22/23 05/24/23 Rx calcium carbonate 200 mg calcium 500 mg (2.5 x 200 mg calcium (500 05/22/23 05/23/23 Rx (500 mg) chewable tablet (Tums) mg)) PO QIDP PRN Heartburn 30 days #120 tabs clopidogrel 75 mg tablet 75 mg PO DAILY 30 days #30 tabs 05/22/23 05/23/23 Rx ipratropium bromide 0.02 % 0.5 mg (2.5 mL) inhalation Q6RT 30 05/22/23 05/23/23 Rx solution for inhalation days #300 mL levalbuterol HCl 1.25 mg/3 mL 1.25 mg (3 mL) inhalation Q6RT 30 05/22/23 05/24/23 Rx solution for nebulization days #360 mL nicotine 21 mg/24 hr daily 21 mg transdermal DAILYP PRN 03/19/24 03/21/24 Rx transdermal patch Nicotine Cravings 30 days #30 ea sennosides 8.6 mg-docusate sodium 1 tab PO BID PRN Constipation 30 05/22/23 05/24/23 Rx 50 mg tablet (Stimulant Laxative days #60 tabs Plus) omeprazole 20 mg capsule,delayed 20 mg PO DAILY 05/24/23 05/24/23 History release New Prescriptions to Start Prescriptions: Height: 1.8 m Weight: 74.707 kg Laboratory Results:: Laboratory Results - last 24 hr 05/29/23 06:55: WBC 9.5, RBC 3.78 L, Hgb 12.0 L, Hct 37.6 L, MCV 99.4 H, MCH 31.8 H, MCHC 32.0, RDW 13.2, Plt Count 246, MPV 7.4, Neut % (Auto) 80.2 H, Lymph % (Auto) 9.9 L, [place] % (Auto) 6.7, Eos % (Auto) 3.0, Baso % (Auto) 0.3, Neut # (Auto) 7.6, Lymph # (Auto) 0.9, [place] # (Auto) 0.6, Eos # (Auto) 0.3, Baso # (Auto) 0.0, Sodium 136, Potassium 4.1, Chloride 98, Carbon Dioxide 38 H, Anion Gap 4.1 L, BUN 16 D, Creatinine 0.80 D, Estimated Creat Clear 63, Estimated GFR 93, Est GFR ( Amer) 113 D, Glucose 113 H, Calcium 8.6, Magnesium 2.1, Total Bilirubin 0.5, AST 29, ALT 18, Alkaline Phosphatase 78, Total Protein 5.6 L, Albumin 3.0 L, Globulin 2.6, Albumin/Globulin Ratio 1.2 05/30/23 06:32: WBC 9.7, RBC 3.75 L, Hgb 11.9 L, Hct 37.7 L, MCV 100.6 H, MCH 31.7 H, MCHC 31.5 L, RDW 13.1, Plt Count 257, MPV 7.2 L, Neut % (Auto) 81.6 H, Lymph % (Auto) 8.7 L, [place] % (Auto) 5.9, Eos % (Auto) 3.4, Baso % (Auto) 0.4, Neut # (Auto) 7.9 H, Lymph # (Auto) 0.8, [place] # (Auto) 0.6, Eos # (Auto) 0.3, Baso # (Auto) 0.0, Sodium 135 L, Potassium 4.2, Chloride 97 L, Carbon Dioxide 38 H, Anion Gap 4.2 L, BUN 11 D, Creatinine 0.60 L D, Estimated Creat Clear 63, Estimated GFR 130, Est GFR ( Amer) 157 D, Glucose 103 H, Calcium 8.8, Total Bilirubin 0.4, AST 28, ALT 15, Alkaline Phosphatase 88, Total Protein 5.6 L, Albumin 2.9 L, Globulin 2.7, Albumin/Globulin Ratio 1.1 Medical History: Medical History (Updated 05/26/23 @ 00:00 by Background Adeola) Fistula, bronchopleural Acute hypercapnic respiratory failure Acute and chronic respiratory failure with hypoxia GERD (gastroesophageal reflux disease) A-fib HLD (hyperlipidemia) HTN (hypertension) Lung nodule Ex-smoker Chronic hypoxemic respiratory failure Dyspnea on exertion Encounter for screening for malignant neoplasm of lung in former smoker who quit in past 15 years with 30 pack year history or greater Stopped smoking with greater than 30 pack year history Pulmonary emphysema Acute respiratory failure with hypoxia Acute exacerbation of chronic obstructive airways disease COPD (chronic obstructive pulmonary disease) Assessment and Plan Assessment and plan all Dx Assessment and Plan for all problems:: Pharmacokinetic dosing service Objective: Patient: Floor: Age: 78 yo Serum creatinine: 1 mg/dL Height: 70.9 Inches Weight (kg): 74.7 Assessment: IBW (kg): 75.07 Dosing wt(kg): 74.7 Estimated Creatinine clearance (ml/min): 63.3 CRCL method: Cockcroft and Gault using ibw(default). Drug selected: Vancomycin Loading dose (mg): 0 Vd (liters): 59.8 (factor used: 0.8 L/kg) Walt (hr-1): 0.057 Half life (hrs): 12.16 Recommended dose: 1500 mg Interval: 18 hrs Infusion time (hrs): 2.0 Predicted peak (mcg/mL): 37.0 Predicted trough (mcg/mL): 14.86 Total body weight is being used for vancomycin dosing. Recommendations: Give Vancomycin 1500 mg q 18 hrs with an expected Cpeak of 37.0 mcg/ml and an expected Ctrough of 14.86 mcg/ml ----Vanco only - ignore for aminoglycosides----- CLvanco= 3.41 L/hr AUC 0-24 /ZULY Data: ZULY 0.5 mcg/mL: AUC/ZULY: 1173.0 ZULY 1.0 mcg/mL: AUC/ZULY: 586.5 --------- ZULY 1.5 mcg/mL: AUC/ZULY: 391.0 ZULY 2.0 mcg/mL: AUC/ZULY: 293.3
[2023-05-30 08:00] VITALS: BP 136/52; PULSE 76; RESP 17; TEMP 36.6; O2SAT 93
[2023-05-30] MEDS: FUROSEMIDE 40 MG TABLET PO (08:14)
[2023-05-30] MEDS: ASPIRIN EC 81MG TABLET 81 MG PO (08:14)
[2023-05-30] MEDS: POTASSIUM CHLORIDE 10MEQ CAPSULE.ER 10 MEQ PO (08:14)
[2023-05-30] MEDS: CLOPIDOGREL 75MG TAB 75 MG PO (08:14)
[2023-05-30] MEDS: BISOPROLOL 5MG TABLET 5 MG PO (08:14)
[2023-05-30] MEDS: APIXABAN 5MG TABLET 5 MG PO (08:14)
[2023-05-30] MEDS: POLYETHYLENE GLYCOL 3350 17 GM PACKET PO (08:16)
--- NOTE | 2023-05-30 09:50 | P.PN_ITS ---
Subjective *Date: 05/30/23 *Time: 10:47 Interval history: Recurrence of pneumothorax with chest tube clamping. Improved distress after chest tube was placed back to suction Pulmonology Exam Inpatient Vital signs and Labs for Last 24 Hours: Temp Pulse Resp BP Pulse Ox O2 Del Method O2 Flow Rate 97.8 F 76 17 136/52 L 93 L Nasal Cannula 2 05/30/23 08:00 05/30/23 08:00 05/30/23 08:00 05/30/23 08:00 05/30/23 08:00 05/30/23 08:00 05/30/23 08:00 FiO2 28 05/29/23 18:38 Laboratory Results - last 24 hr 05/30/23 06:32: WBC 9.7, RBC 3.75 L, Hgb 11.9 L, Hct 37.7 L, MCV 100.6 H, MCH 31.7 H, MCHC 31.5 L, RDW 13.1, Plt Count 257, MPV 7.2 L, Neut % (Auto) 81.6 H, Lymph % (Auto) 8.7 L, [place] % (Auto) 5.9, Eos % (Auto) 3.4, Baso % (Auto) 0.4, Neut # (Auto) 7.9 H, Lymph # (Auto) 0.8, [place] # (Auto) 0.6, Eos # (Auto) 0.3, Baso # (Auto) 0.0, Sodium 135 L, Potassium 4.2, Chloride 97 L, Carbon Dioxide 38 H, Anion Gap 4.2 L, BUN 11 D, Creatinine 0.60 L D, Estimated Creat Clear 63, Estimated GFR 130, Est GFR ( Amer) 157 D, Glucose 103 H, Calcium 8.8, Magnesium 2.0, Total Bilirubin 0.4, AST 28, ALT 15, Alkaline Phosphatase 88, Total Protein 5.6 L, Albumin 2.9 L, Globulin 2.7, Albumin/Globulin Ratio 1.1 Temp Pulse Resp BP Pulse Ox O2 Del Method O2 Flow Rate 97.9 F 72 20 124/73 85 L Room Air 2 05/28/23 08:00 05/28/23 08:00 05/28/23 08:00 05/28/23 08:00 05/28/23 09:29 05/28/23 09:29 05/28/23 09:00 FiO2 28 05/27/23 19:43 Laboratory Results - last 24 hr 05/28/23 06:31: WBC 11.5 H, RBC 3.89 L, Hgb 12.5 L, Hct 38.3 L, MCV 98.6 H, MCH 32.1 H, MCHC 32.6, RDW 13.1, Plt Count 258, MPV 7.8, Neut % (Auto) 81.4 H, Lymph % (Auto) 9.6 L, [place] % (Auto) 6.0, Eos % (Auto) 2.6, Baso % (Auto) 0.3, Neut # (Auto) 9.4 H, Lymph # (Auto) 1.1, [place] # (Auto) 0.7, Eos # (Auto) 0.3, Baso # (Auto) 0.0, Sodium 134 L, Potassium 3.8, Chloride 93 L, Carbon Dioxide 39 H, Anion Gap 5.8, BUN 12, Creatinine 0.60 L, Estimated Creat Clear 64, Estimated GFR 130, Est GFR ( Amer) 157, Glucose 106 H, Calcium 8.9 I & O for Labs for Last 24 Hours: Intake & Output 05/27/23 05/28/23 05/29/23 05/30/23 23:59 23:59 23:59 23:59 Intake Total 990 / 1230 960 / 960 680 / 680 240 / 240 Output Total 1602 / 1602 175 / 575 650 / 650 Balance -612 / -372 785 / 385 30 / 30 240 / 240 Weight 178 lb 165 lb 12.8 oz 165 lb 3.2 oz 164 lb 11.2 oz Intake & Output 05/25/23 05/26/23 05/27/23 05/28/23 23:59 23:59 23:59 23:59 Intake Total 1680 / 1680 990 / 990 990 / 1230 480 / 480 Output Total 795 / 795 616 / 616 1602 / 1602 175 / 175 Balance 885 / 885 374 / 374 -612 / -372 305 / 305 Weight 169 lb 12.095 oz 176 lb 1.6 oz 178 lb 165 lb 12.8 oz Constitutional: Present mild distress Head: Present normocephalic and atraumatic ENT: Present normal exam, normal oropharynx and mucous membranes moist Neck: Present normal inspection and full ROM Respiratory: Present respiratory distress, normal respiratory effort and able to speak in complete sentences; Absent prolonged expiratory phase, wheezes or diminished air movement Comment:: Left chest tube in place. Cardiac: Present S1/S2, Tachycardia and radial pulses present GI: Present soft and distention; Absent tenderness or guarding Skin: Present intact; Absent cyanosis or jaundice Neuro: Present alert, awake and oriented x 3 Extremities: Present normal inspection; Absent clubbing or cyanosis Psychiatric: Present normal affect and cooperative Assessment and Plan *Assessment and plan (1) Subcutaneous emphysema: Status: Acute Qualifiers: Encounter type: initial encounter Qualified Code(s): T79.7XXA - Traumatic subcutaneous emphysema, initial encounter Category: Medical Code(s): T79.7XXA - Traumatic subcutaneous emphysema, initial encounter (2) Chronic respiratory failure: Status: Acute Qualifiers: Respiratory failure complication: hypercapnia Qualified Code(s): J96.12 - Chronic respiratory failure with hypercapnia Category: Medical Code(s): J96.10 - Chronic respiratory failure, unspecified whether with hypoxia or hypercapnia (3) Pneumothorax on left: Status: Acute Category: Medical Code(s): J93.9 - Pneumothorax, unspecified (4) Recurrent pneumothorax: Status: Acute Category: Medical Code(s): J93.9 - Pneumothorax, unspecified (5) Fistula, bronchopleural: Status: Acute Category: Medical Code(s): J86.0 - Pyothorax with fistula Plan Mr. Miller 78-year-old male states for COPD recently admitted to the hospital status post management for COPD exacerbation pneumonia pneumothorax discharged home presented to the hospital again with worsening respiratory status found to have recurrence of pneumothorax on the left side status post chest tube placement pulmonary was called for further evaluation and management. Chest ray on admission showed recurrence of left pneumothorax along with subcutaneous emphysema not seen on his discharge chest x-ray recently. No acute airspace disease noted. VBG upon admission showed compensated hypercarbic respiratory failure. Chest x-ray from this morning personally reviewed, resolved pneumothorax. Worsening subcutaneous emphysema. Air leak with coughing concerned for BP fistula. No wheezing on auscultation Interval update: Tolerated waterseal well however clamping resulted in recurrence pneumothorax. Chest tube back to suction. Patient will be transferred to higher level of care for CT surgery evaluation for possible pleurodesis/bronchial valve placement. Continued air leak with cough Plan: -Chest tube to suction -Trelegy 100 inhaler along with DuoNebs every 6 hours on as-needed basis -Oxygen supplementation to maintain O2 saturation goal of 90-95. # Thank you for involving pulmonary in this patient care. Will continue to follow.
--- NOTE | 2023-05-30 10:09 | EXP.DC.SUM ---
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 Patient had the chest tube pulled 2 days prior to representation, was found to have no pneumothorax on chest x-ray yesterday, and was discharged to nursing facility per medical record review. Today, he became more short of air and started having pain in the left side of his chest and up into his neck. He also felt short of air. Given this, EMS was contacted by his nursing facility and the patient was brought back in. EMS noted the patient was hemodynamically stable en route. Admitted for further treatment. 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 presented on 05/22 to the ER with worsening shortness of breath from SNF. X-ray found recurrence of pneumothorax. Pulmonology consulted and assisting with care. Initially had resolution of pneumothorax with negative pressure Pleur-evac. Tube was clamped yesterday with unfortunate recurrence last night of small pneumothorax. At this point necessitates transfer to tertiary center for higher level of care with CT surgical services to evaluate for more definitive treatment. Hemodynamically stable. Graciously excepted by [facility] for further management. Problems addressed as follows: Acute hypoxemic respiratory failure: Recurrent spontaneous pneumothorax subcutaneous emphysema,. Improving Bullous emphysema -Pulmonology consulted during admission. Chest tube placed on admission. Tube is remained in place with initial airleak. Tube was clamped yesterday on 05/28. Had recurrence of pneumothorax. Placed back on Pleur-evac with negative pressure at this time. Unfortunately has not shown spontaneous resolution and continues to have air leak secondary to his bullous emphysema. Patient will transfer to [place] for further management. During admission, white cell count is normalized without antibiotics. Has no overt signs of infection/pneumonia. White cell count 9.7 at time of discharge. Kidney function and electrolytes normal. On 2 L nasal cannula oxygen with saturations above 90% consistently. -Recommend continuing DuoNebs as needed for shortness of breath. Atrial fibrillation Hypertension Hyperlipidemia - Currently in sinus rhythm. Continue aspirin 81 mg daily. - Continue Eliquis 5 mg twice daily. Continue bisoprolol 5 mg daily. Continue Plavix 75 mg daily. Continue Lasix 40 mg daily, Continue Lipitor 40 mg nightly Of note, developed bruising and slight swelling of his left ankle over the past 24 hours. No reported falls or trauma. Denies any fall prior to coming into the hospital. Patient does not recall hitting his ankle on anything. It is at the appropriate site for possible contact with bed rail overnight. X-ray obtained, preliminarily shows no overt fracture, just edema. Hematoma developed at site, likely secondary to his oral anticoagulation. Continue to monitor. Patient's images including chest imaging from this admission and the preceding admission have been Power-shared with [facility]. Total time spent on discharge 36 minutes in counseling, documentation, chart review, and direct care with patient. Exam Data for Last 24 hours Vital signs and Labs for Last 24 Hours: Temp Pulse Resp BP Pulse Ox O2 Del Method O2 Flow Rate 97.8 F 76 17 136/52 L 93 L Nasal Cannula 2 05/30/23 08:00 05/30/23 08:00 05/30/23 08:00 05/30/23 08:00 05/30/23 08:00 05/30/23 08:00 05/30/23 08:00 FiO2 28 05/29/23 18:38 Laboratory Results - last 24 hr 05/30/23 06:32: WBC 9.7, RBC 3.75 L, Hgb 11.9 L, Hct 37.7 L, MCV 100.6 H, MCH 31.7 H, MCHC 31.5 L, RDW 13.1, Plt Count 257, MPV 7.2 L, Neut % (Auto) 81.6 H, Lymph % (Auto) 8.7 L, [place] % (Auto) 5.9, Eos % (Auto) 3.4, Baso % (Auto) 0.4, Neut # (Auto) 7.9 H, Lymph # (Auto) 0.8, [place] # (Auto) 0.6, Eos # (Auto) 0.3, Baso # (Auto) 0.0, Sodium 135 L, Potassium 4.2, Chloride 97 L, Carbon Dioxide 38 H, Anion Gap 4.2 L, BUN 11 D, Creatinine 0.60 L D, Estimated Creat Clear 63, Estimated GFR 130, Est GFR ( Amer) 157 D, Glucose 103 H, Calcium 8.8, Magnesium 2.0, Total Bilirubin 0.4, AST 28, ALT 15, Alkaline Phosphatase 88, Total Protein 5.6 L, Albumin 2.9 L, Globulin 2.7, Albumin/Globulin Ratio 1.1 I & O for Last 24 hours: Intake & Output 05/27/23 05/28/23 05/29/23 05/30/23 23:59 23:59 23:59 23:59 Intake Total 990 / 1230 960 / 960 680 / 680 240 / 240 Output Total 1602 / 1602 175 / 575 650 / 650 Balance -612 / -372 785 / 385 30 / 30 240 / 240 Weight 80.739 kg 75.206 kg 74.933 kg 74.707 kg Constitutional Constitutional: no acute distress, average body habitus, chronically ill appearing and cooperative *Routine HEENT Exam Head: Present normocephalic Eye: Present EOMI and PERRL ENT: Present mucous membranes moist *Routine Neck Exam Neck: Present supple; Absent lymphadenopathy Routine Chest/Breast/Axilla Exam Chest wall: Present tenderness Comments: Tenderness mainly in the left chest. Palpable subcutaneous emphysema on exam; chest tube in the left chest with serosanguineous drainage *Routine Respiratory Exam Respiratory: Present prolonged expiratory phase, wheezes, crackles and diminished air movement; Absent rhonchi *Routine Cardiovascular Exam Cardiovascular: Present RRR *Routine Abdominal Exam Abdominal: Present soft and normoactive bowel sounds; Absent tenderness *Routine Rectal Exam Patient deferred: visual exam *Routine Exam Patient deferred: penile exam *Routine Extremities Exam Extremities: Present edema (Edema of left ankle); Absent cyanosis or clubbing Comments: Bruising and edema of left ankle. Tender to palpation *Routine Skin Exam Skin: Present warm; Absent rash *Routine Neurological Exam Neurological: Present alert, oriented X3 and moving all extremities; Absent altered mental status Results Data Completed and Pending Labs on day of discharge: Labs from last 24 hours 05/30/23 06:32 WBC 9.7 RBC 3.75 L Hgb 11.9 L Hct 37.7 L MCV 100.6 H MCH 31.7 H MCHC 31.5 L RDW 13.1 Plt Count 257 MPV 7.2 L Neut % (Auto) 81.6 H Lymph % (Auto) 8.7 L [place] % (Auto) 5.9 Eos % (Auto) 3.4 Baso % (Auto) 0.4 Neut # (Auto) 7.9 H Lymph # (Auto) 0.8 [place] # (Auto) 0.6 Eos # (Auto) 0.3 Baso # (Auto) 0.0 Sodium 135 L Potassium 4.2 Chloride 97 L Carbon Dioxide 38 H Anion Gap 4.2 L BUN 11 D Creatinine 0.60 L D Estimated Creat Clear 63 Estimated GFR 130 Est GFR ( Amer) 157 D Glucose 103 H Calcium 8.8 Magnesium 2.0 Total Bilirubin 0.4 AST 28 ALT 15 Alkaline Phosphatase 88 Total Protein 5.6 L Albumin 2.9 L Globulin 2.7 Albumin/Globulin Ratio 1.1 DS: Diagnosis Discharge Diagnosis (1) Subcutaneous emphysema: Status: Acute Code(s): T79.7XXA - Traumatic subcutaneous emphysema, initial encounter Qualifiers: Encounter type: initial encounter Qualified Code(s): T79.7XXA - Traumatic subcutaneous emphysema, initial encounter (2) Chronic respiratory failure: Status: Acute Code(s): J96.10 - Chronic respiratory failure, unspecified whether with hypoxia or hypercapnia Qualifiers: Respiratory failure complication: hypercapnia Qualified Code(s): J96.12 - Chronic respiratory failure with hypercapnia (3) Pneumothorax on left: Status: Acute Code(s): J93.9 - Pneumothorax, unspecified (4) Recurrent pneumothorax: Status: Acute Code(s): J93.9 - Pneumothorax, unspecified (5) Fistula, bronchopleural: Status: Acute Code(s): J86.0 - Pyothorax with fistula (6) COPD exacerbation: Status: Acute Code(s): J44.1 - Chronic obstructive pulmonary disease with (acute) exacerbation (7) HLD (hyperlipidemia): Status: Acute Code(s): E78.5 - Hyperlipidemia, unspecified Qualifiers: Hyperlipidemia type: unspecified Qualified Code(s): E78.5 - Hyperlipidemia, unspecified (8) Ex-smoker: Status: Chronic Code(s): Z87.891 - Personal history of nicotine dependence (9) Chronic hypoxemic respiratory failure: Status: Chronic Code(s): J96.11 - Chronic respiratory failure with hypoxia (10) HTN (hypertension): Status: Acute Code(s): I10 - Essential (primary) hypertension Meds Home Medications and Allergies Home Medications Medication Instructions Recorded Confirmed Type hydrocortisone valerate 0.2 % 1 applic topical BID 10 days #60 12/05/22 05/23/23 Rx topical cream grams azithromycin 250 mg tablet 250 mg PO MOWEFR 05/16/23 05/23/23 History furosemide 40 mg tablet 40 mg PO DAILY 05/16/23 05/23/23 History potassium chloride 10 mEq 10 meq PO DAILY 05/16/23 05/24/23 History capsule,extended release apixaban 5 mg tablet (Eliquis) 5 mg PO BID 30 days #60 tabs 05/22/23 05/23/23 Rx aspirin 81 mg tablet,delayed 81 mg PO DAILY 30 days #30 tabs 05/22/23 05/23/23 Rx release atorvastatin 40 mg tablet 40 mg PO HS 30 days #30 tabs 05/22/23 05/24/23 Rx bisoprolol fumarate 5 mg tablet 5 mg PO DAILY 30 days #30 tabs 05/22/23 05/24/23 Rx calcium carbonate 200 mg calcium 500 mg (2.5 x 200 mg calcium (500 05/22/23 05/23/23 Rx (500 mg) chewable tablet (Tums) mg)) PO QIDP PRN Heartburn 30 days #120 tabs clopidogrel 75 mg tablet 75 mg PO DAILY 30 days #30 tabs 05/22/23 05/23/23 Rx ipratropium bromide 0.02 % 0.5 mg (2.5 mL) inhalation Q6RT 30 05/22/23 05/23/23 Rx solution for inhalation days #300 mL levalbuterol HCl 1.25 mg/3 mL 1.25 mg (3 mL) inhalation Q6RT 30 05/22/23 05/24/23 Rx solution for nebulization days #360 mL nicotine 21 mg/24 hr daily 21 mg transdermal DAILYP PRN 05/22/23 05/24/23 Rx transdermal patch Nicotine Cravings 30 days #30 ea sennosides 8.6 mg-docusate sodium 1 tab PO BID PRN Constipation 30 05/22/23 05/24/23 Rx 50 mg tablet (Stimulant Laxative days #60 tabs Plus) omeprazole 20 mg capsule,delayed 20 mg PO DAILY 05/24/23 05/24/23 History release fluticasone fur. 100 mcg-umeclid 1 inh inhalation DAILY #0 ea 05/30/23 Rx 62.5 mcg-vilant 25 mcg inhalat.powder (Trelegy Ellipta) oxycodone-acetaminophen 7.5 mg-325 2 tab PO Q6HP PRN Severe Pain 05/30/23 Rx mg tablet (7-10) #0 tabs polyethylene glycol 3350 17 gram 17 g PO Q4H #0 ea 05/30/23 Rx oral powder packet (Miralax) New Prescriptions to Start Prescriptions: Allergies Allergy/AdvReac Type Severity Reaction Status Date / Time No Known Allergies Allergy Verified 04/30/23 13:50 Discharge Plan Disposition Patient Disposition: Xfer Short-Term Hosp Condition: Fair Discharge Order Discharge Orders: Discharge Order (Routine); Ordered 05/30/23 Ordered By: Johnny Stewart Follow up Plan Follow up with: Elvin Dickinson MD [Physician] - Enter time for follow up Prescriptions/Medication Reconciliation: New Trelegy Ellipta 100-62.5-25 mcg Blister With Device 1 inh inhalation DAILY Qty: 0 0RF polyethylene glycol 3350 [Miralax] 17 gram Powder In Packet 17 g PO Q4H Qty: 0 0RF oxycodone-acetaminophen 7.5-325 mg Tablet 2 tab PO Q6HP PRN (Reason: Severe Pain (7-10)) Qty: 0 0RF Continued hydrocortisone valerate 0.2 % cream 1 applic topical BID 10 Days Qty: 60 2RF furosemide 40 mg tablet 40 mg PO DAILY Patient Comments: TAKE 1 TABLET BY MOUTH EVERY DAY potassium chloride 10 mEq capsule, extended release 10 meq PO DAILY Patient Comments: TAKE 1 CAPSULE BY MOUTH EVERY DAY WITH FOOD azithromycin 250 mg tablet 250 mg PO MOWEFR Eliquis 5 mg Tablet 5 mg PO BID 30 Days Qty: 60 0RF atorvastatin 40 mg Tablet 40 mg PO HS 30 Days Qty: 30 0RF clopidogrel 75 mg Tablet 75 mg PO DAILY 30 Days Qty: 30 0RF aspirin 81 mg Tablet,Delayed Release (Dr/Ec) 81 mg PO DAILY 30 Days Qty: 30 0RF bisoprolol fumarate 5 mg Tablet 5 mg PO DAILY 30 Days Qty: 30 0RF calcium carbonate [Tums] 200 mg calcium (500 mg) Tablet,Chewable 500 mg PO QIDP PRN (Reason: Heartburn) 30 Days Qty: 120 0RF levalbuterol HCl 1.25 mg/3 mL Solution For Nebulization 1.25 mg inhalation Q6RT 30 Days Qty: 360 0RF ipratropium bromide 0.02 % Solution 0.5 mg inhalation Q6RT 30 Days Qty: 300 0RF sennosides-docusate sodium [Stimulant Laxative Plus] 8.6-50 mg Tablet 1 tab PO BID PRN (Reason: Constipation) 30 Days Qty: 60 0RF nicotine 21 mg/24 hr Patch 24 Hour 21 mg transdermal DAILYP PRN (Reason: Nicotine Cravings) 30 Days Qty: 30 0RF omeprazole 20 mg capsule,delayed release(DR/EC) 20 mg PO DAILY Patient Comments: TAKE 1 CAPSULE BY MOUTH DAILY FOR STOMACH ACID OR REFLUX Discontinued budesonide-formoterol 160-4.5 mcg/actuation HFA aerosol inhaler 2 puff INHALATION BID 90 Days Qty: 10.2 3RF Problem Reconciliation Problems Reviewed?: Yes Patient Discharge Instructions ACTIVITY: Continue current activity DIET: continue same diet Patient Instructions: DI for Pneumothorax, DI for Shortness of Breath, DI for Surgical Site Infection, DI for Chest Tube Insertion Providers Primary Care Provider: Carmen Lomas Admit Provider: Johnny Stewart Attending Provider: Johnny Stewart
--- NOTE | 2023-05-30 12:06 | XR_ITS ---
FINAL REPORT CLINICAL HISTORY: ankle pain and bruising tender to the touch COMPARISON: None FINDINGS: LEFT ANKLE: 2 views of the left ankle were obtained. There is no acute fracture or dislocation. The joint spaces are intact. Moderate soft tissue swelling is present. IMPRESSION: No acute fracture Moderate soft tissue swelling. Reviewed, Interpreted and Dictated by Elais Law MD Transcribed by Mireille Lopez Authenticated and [facility]
--- NOTE | 2023-05-30 20:52 | CA_ITS ---
FINAL REPORT TECHNIQUE: Ultrasound images of the deep venous system were obtained from the left groin to the calf veins. CLINICAL HISTORY: inflammation FINDINGS: The deep venous system is normally compressible. Normal flow is identified. IMPRESSION: No evidence of left lower extremity DVT. Reviewed, Interpreted and Dictated by Elias Law MD Transcribed by Oneyda Otto Authenticated and [facility]
== END 2023-05-30 14:25 | disposition short-term general hospital (02) | DRG 199 ==
LOC: ER 17:20 → 2ND 20:24
PROVIDERS: Nurse Practitioner Family; Admitting Provider Internal Medicine Adolescent Medicine; Emergency Provider Emergency Medicine; PCP Nurse Practitioner Family; Visit Provider Internal Medicine Adolescent Medicine
DX: J93.83 Other pneumothorax (principal); J96.01 Acute respiratory failure with hypoxia; J96.11 Chronic respiratory failure with hypoxia; T79.7XXA Traumatic subcutaneous emphysema, initial encounter; J96.12 Chronic respiratory failure with hypercapnia; I10 Essential (primary) hypertension; E78.5 Hyperlipidemia, unspecified; Z87.891 Personal history of nicotine dependence; Z99.81 Dependence on supplemental oxygen; K21.9 Gastro-esophageal reflux disease without esophagitis
CPT/HCPCS: 32551; 36415; 71045; 73600; 80048; 80053; 82803; 83735; 83880; 84484; 85025; 87636; 93005; 93971; 94640; 94761; 99285; J2405

== ENCOUNTER 2023-06-25 09:43 | Outpatient (CLI) | payer MEDICARE, BC, SELFPAY ==
[2023-06-26 10:26] LABS: Basophils # 0.1 K/mm3 (0-0.2); Basophils % 0.7 % (0.1-2.0); Eosinophils # 0.4 K/mm3 (0.0-0.4); Eosinophils % 4.7 % (0.1-12.0); Hematocrit 42.5 % (42.0-52.0); Lymphocytes # 0.8 K/mm3 (0.7-4.5); Lymphocytes % 10.1 % (10-50); Mean Corpuscular HGB Conc 30.6 g/dL (31.8-35.4); Mean Corpuscular Hemoglobin 30.9 pg (27.0-31.2); Mean Corpuscular Volume 101.1 fl (80-94); Mean Platelet Volume 9.5 fl (7.4-10.4); Monocytes # 0.5 K/mm3 (0.1-1.0); Monocytes % 6.7 % (1.7-9.3); Neutrophils # 5.9 K/mm3 (1.8-7.8); Neutrophils % 77.8 % (37.0-80.0); Platelet Count 330 K/mm3 (142-424); Red Cell Distribution Width 13.8 % (11.5-17.5); White Blood Count 7.5 K/mm3 (4.8-10.8)
== END 2023-06-25 23:59 | disposition home or self-care (01) ==
LOC: LAB.DROPOF 06-26 09:43
PROVIDERS: PCP Nurse Practitioner Family; Visit Provider Nurse Practitioner Family
DX: I10 Essential (primary) hypertension (principal)
CPT/HCPCS: 85025

== ENCOUNTER 2023-06-26 15:21 | Outpatient (CLI) | payer MEDICARE, BC, SELFPAY ==
[2023-06-26 20:16] LABS: Alanine Aminotransferase 17 U/L (12-78); Albumin Level 3.5 g/dl (3.5-5.0); Albumin/Globulin Ratio 1.3 (1.1-1.8); Alkaline Phosphatase 99 U/L (38-126); Anion Gap 7.9 mEq/L (5-15); Aspartate Amino Transferase 34 U/L (17-59); Bilirubin,Total 0.5 mg/dl (0.2-1.3); Blood Urea Nitrogen 13 mg/dl (9-20); Calcium 9.2 mg/dl (8.4-10.2); Carbon Dioxide 34 mmol/L (22.0-30.0); Chloride 103 mmol/L (98-107); Chol/HDL Ratio 3.8 (1-3.5); Cholesterol 144 mg/dl (140-200); Estimated Glomerular Filt Rate 160 ml/min (>60); GFR (African American) 194 ML/MIN (>60); Globulin 2.6 g/dL (1.3-3.2); Glucose 108 mg/dl (74-100); HDL Cholesterol 38 mg/dl (40-60); Potassium 4.9 mmoL/L (3.5-5.1); Sodium 140 mmol/L (136-145); Total Protein,Serum 6.1 g/dl (6.3-8.2); Triglycerides 215 mg/dl (30-150); VLDL Cholesterol 43 mg/dL (0-40)
[2023-06-26 20:33] LABS: Direct LDL Cholesterol 61.85 mg/dL (100-129)
[2023-06-26 20:47] LABS: Thyroid Stimulating Hormone 1.11 uIU/mL (0.465-4.68)
== END 2023-06-26 23:59 | disposition home or self-care (01) ==
LOC: RT 15:22 → LAB.DROPOF 18:38
PROVIDERS: PCP Nurse Practitioner Family; Visit Provider Nurse Practitioner Family
DX: I48.91 Unspecified atrial fibrillation (principal); R60.0 Localized edema; E78.5 Hyperlipidemia, unspecified; I10 Essential (primary) hypertension; Z87.891 Personal history of nicotine dependence
CPT/HCPCS: 80053; 80061; 84443; 93270

== ENCOUNTER 2023-07-06 09:08 | Outpatient (CLI) | payer MEDICARE, BC, SELFPAY ==
--- NOTE | 2023-07-06 09:08 | CA_ITS ---
FINAL REPORT CLINICAL HISTORY: dizziness, CAD, RAHUL H/o Left enterectomy COMPARISON: None FINDINGS: RIGHT CAROTID: CCA PSV - 44 cm/sec ICA PSV - 443 cm/sec ICA/CCA PSV ratio -10.5. Comments: Moderate plaque disease is noted. LEFTCAROTID: CCA PSV -103. cm/sec ICA PSV -151. cm/sec ICA/CCA PSV ratio -1.5. Comments: Moderate plaque disease is noted. Antegrade flow is seen within the vertebral arteries. IMPRESSION: Right carotid stenosis greater than 70%. Left carotid stenosis less than 50%. Reviewed, Interpreted and Dictated by Luis Alberto Adame MD Transcribed by Mireille Lopez Authenticated and [facility]
--- NOTE | 2023-07-06 09:08 | CA_ITS ---
APPROVED REPORT EXAM: Limited 2D Echocardiogram Fire Protection Engineer: Celena Wheeler CRT Ht: 6 ft 0 in Wt: 167lbs BSA: 1.97 BP: 113/51 mmHg Indications: AFIB, ablation, home O2, pericardial effusion on ECHO 05/15/23, HTN, HLD, edema, COPD, palp Recent pneumothorax M-Mode Dimensions RVDd 2.82 cm (0.9-2.6) LVDd 4.92 cm (3.5-5.7) LVDs 3.19 cm (3.5-5.7) IVSd 1.04 cm (0.6-1.1) PWd 0.64 cm (0.6-1.1) EF (Teich) 64.40% FS 35.20% EDV (Teich) 113.90 mL ESV (Teich) 40.60 mL Other Information Study Quality: Fair Conclusion This is a limited TTE to evaluate for pericardial effusion. Limited windows were obtained. There is a small sized, anterior pericardial effusion present the largest pocket measures 0.5 cm in diastole. The effusion has heterogeneous echogenicity, likely loculated in nature. There are no echo indications of tamponade or chamber collapse. Compared to prior study from 05/2023, the pericardial effusion appears slightly smaller in size Electronically signed by : Racheal Ontiveros MD 07/10/2023 12:49:51
== END 2023-07-06 23:59 | disposition home or self-care (01) ==
LOC: RT 09:08
PROVIDERS: PCP Nurse Practitioner Family; Visit Provider Nurse Practitioner
DX: R42 Dizziness and giddiness; R60.0 Localized edema
CPT/HCPCS: 93308; 93880

== ENCOUNTER 2023-08-13 23:31 | Emergency (ER) | payer MEDICARE, BC, SELFPAY ==
[2023-08-13 23:31] VITALS: BP 156/83; PULSE 97; RESP 20; TEMP 36.4; O2SAT 92; BMI 22.4
[2023-08-13 23:35] VITALS: BP 156/83; PULSE 97; O2SAT 96
--- NOTE | 2023-08-13 23:35 | ECG_ITS ---
APPROVED REPORT Exam: Resting ECG HR:95 bpm ECG Measurements Heart Rate 95 AXES QRSd 82 QRS 81 QT 324 T 77 QTc 377 Conclusion Nondiagnostic report Electronically signed by : JEANIE CH, 08/14/2023 05:30:50
--- NOTE | 2023-08-13 23:37 | XR_ITS ---
PROCEDURE INFORMATION: Exam: XR Chest Exam date and time: 08/13/2023 11:38 PM Age: 78 years old Clinical indication: Shortness of breath; Additional info: SOA, concern for pneumo L sided TECHNIQUE: Imaging protocol: Radiologic exam of the chest. Views: 1 view. COMPARISON: CR XR CHEST PORTABLE 05/30/2023 10:19 AM FINDINGS: Lungs: No consolidation. No mass. Pleural spaces: There is approximate 25% left pneumothorax. Heart/Mediastinum: Unremarkable. No cardiomegaly. Vasculature: Unremarkable. Bones/joints: Unremarkable. IMPRESSION: Approximate 25% left pneumothorax.
[2023-08-13 23:43] VITALS: BMI 28.7
[2023-08-13 23:47] LABS: Lactate Venous 2.5 mmol/L (0.4-2.0); VBG Base Excess 4.5 mmol/L (-2.4-2.3); VBG HCO3 31.1 mmol/L (23-30); VBG Oxygen Saturation 77.8 % (50-70); VBG PCO2 66.4 mmol/L (35-51); VBG PH 7.29 mmol/L (7.31-7.41); VBG PO2 44.6 mmol/L (28-40); VBG Total CO2 33.2 mmol/L (23-27)
--- NOTE | 2023-08-13 23:48 | CT_ITS ---
PROCEDURE INFORMATION: Exam: CT Chest Without Contrast; Diagnostic Exam date and time: 08/14/2023 12:06 AM Age: 78 years old Clinical indication: Shortness of breath; Additional info: Left sided pneumo, eval for cest tube placement TECHNIQUE: Imaging protocol: Diagnostic computed tomography of the chest without contrast. Radiation optimization: All CT scans at this facility use at least one of these dose optimization techniques: automated exposure control; mA and/or kV adjustment per patient size (includes targeted exams where dose is matched to clinical indication); or iterative reconstruction. COMPARISON: 1. CR XR CHEST PORTABLE 08/13/2023 11:[address] LUNG SCREENING 11/14/2022 2:23 PM FINDINGS: Lungs: There are moderate emphysematous changes. There are small areas of scarring in the right upper lobe. Interstitial disease is present most prominent at the bases. Pleural spaces: There is a moderate left pneumothorax. Calcified granulomas are noted. Heart: Unremarkable. No cardiomegaly. No pericardial effusion. Lymph nodes: Calcified mediastinal hilar lymph nodes are evident. No mediastinal lymphadenopathy. Vasculature: Unremarkable. No aortic aneurysm. Bones/joints: Unremarkable. No acute fracture. Soft tissues: Unremarkable. IMPRESSION: Moderate left pneumothorax. This was previously reported on the chest radiograph and called to the referring physician.
[2023-08-13 23:49] LABS: Basophils % 0.5 % (0.1-2.0); Eosinophils # 0.2 K/mm3 (0.0-0.4); Eosinophils % 2.6 % (0.1-12.0); Hematocrit 44.4 % (42.0-52.0); Hemoglobin 13.5 g/dL (14.1-18.0); Lymphocytes # 1.8 K/mm3 (0.7-4.5); Lymphocytes % 22.3 % (10-50); Mean Corpuscular HGB Conc 30.4 g/dL (31.8-35.4); Mean Corpuscular Hemoglobin 28.1 pg (27.0-31.2); Mean Corpuscular Volume 92.3 fl (80-94); Mean Platelet Volume 7.6 fl (7.4-10.4); Monocytes # 0.5 K/mm3 (0.1-1.0); Monocytes % 6.5 % (1.7-9.3); Neutrophils # 5.4 K/mm3 (1.8-7.8); Neutrophils % 68.2 % (37.0-80.0); Platelet Count 271 K/mm3 (142-424); Red Blood Count 4.81 M/mm3 (4.60-6.20); Red Cell Distribution Width 14.2 % (11.5-17.5); White Blood Count 7.9 K/mm3 (4.8-10.8)
[2023-08-13 23:52] LABS: Alanine Aminotransferase 23 U/L (12-78); Albumin Level 4.3 g/dl (3.5-5.0); Albumin/Globulin Ratio 1.3 (1.1-1.8); Alkaline Phosphatase 95 U/L (38-126); Anion Gap 11.9 mEq/L (5-15); Aspartate Amino Transferase 33 U/L (17-59); Bilirubin,Total 0.4 mg/dl (0.2-1.3); Blood Urea Nitrogen 23 mg/dl (9-20); Calcium 9.2 mg/dl (8.4-10.2); Carbon Dioxide 36 mmol/L (22.0-30.0); Chloride 97 mmol/L (98-107); Creatinine Clearance Estimated 77 mL/min (50-200); Estimated Glomerular Filt Rate 81 ml/min (>60); GFR (African American) 98 ML/MIN (>60); Globulin 3.3 g/dL (1.3-3.2); Glucose 144 mg/dl (74-100); Potassium 4.9 mmoL/L (3.5-5.1); Sodium 140 mmol/L (136-145); Total Protein,Serum 7.6 g/dl (6.3-8.2)
--- NOTE | 2023-08-13 23:52 | HMH.EDCP ---
Discharge Plan Disposition Patient Disposition: Xfer Short-Term Hosp Chief Complaint: Shortness of Breath/Dyspnea Prescriptions Prescriptions: No Action ipratropium-albuterol 0.5 mg-3 mg(2.5 mg base)/3 mL solution for nebulization 3 ml inhalation QID PRN (Reason: shortness of breath or wheezing) 90 Days Qty: 270 3RF simvastatin 20 mg tablet 20 mg PO HS Patient Comments: TAKE 1 TABLET BY MOUTH EVERY NIGHT AT BEDTIME FOR CHOLESTEROL bisoprolol fumarate 5 mg tablet 5 mg PO DAILY benzonatate 100 mg capsule 100 mg PO TID PRN (Reason: cough) Qty: 30 0RF prednisone 20 mg tablet 20 mg PO DAILY 7 Days Qty: 7 0RF levofloxacin 500 mg tablet 500 mg PO DAILY 10 Days Qty: 10 0RF sildenafil [Viagra] 25 mg tablet 25 mg PO DAILY PRN (Reason: sexual activity) Qty: 10 0RF Rx Instructions: administer 30 minutes to 4 hours before activity hydrocortisone valerate 0.2 % cream 1 applic topical BID 10 Days Qty: 60 2RF tiotropium bromide [Spiriva with HandiHaler] 18 mcg capsule, w/inhalation device 1 cap inhalation DAILY 90 Days Qty: 180 3RF Rx Instructions: puncture 1 cap using device; one dose = 2 inhalations azithromycin 250 mg tablet 250 mg PO QMWF Qty: 45 2RF furosemide 40 mg tablet 40 mg PO DAILY Qty: 90 0RF potassium chloride 10 mEq capsule, extended release 10 meq PO DAILY Qty: 90 0RF budesonide-formoterol 160-4.5 mcg/actuation HFA aerosol inhaler 2 puff inhalation BID 90 Days Qty: 10.2 2RF atorvastatin 40 mg Tablet 40 mg PO HS 30 Days Qty: 30 0RF aspirin 81 mg Tablet,Delayed Release (Dr/Ec) 81 mg PO DAILY 30 Days Qty: 30 0RF omeprazole 20 mg capsule,delayed release(DR/EC) 20 mg PO DAILY Patient Comments: TAKE 1 CAPSULE BY MOUTH DAILY FOR STOMACH ACID OR REFLUX Referrals Follow up/Referrals: Carmen Lomas APRN [Primary Care Provider] - See instructions Clinical Impressions Clinical Impression: Bullous emphysema with collapse, Primary spontaneous pneumothorax Stand Alone Forms Stand Alone Forms: Transfer Record - ED Discharge ED Provider: William Moody [facility] General Chief Complaint: Shortness of Breath/Dyspnea Stated Complaint: Dyspnea Time Seen by Provider: 08/13/23 23:37 Mode of Arrival: EMS Source of Information: Patient and EMS Limitations: very SOB Description of Symptoms (Recalled from ER Triage Doc. by RN): Pt. presents to the ED with c/o SOB, Pt. has hisotry of COPD and recent left sided lung collaspe. History of Present Illness HPI narrative: Please note that above description of symptoms, in this electronic medical record under categorization of recalled from ER triage doctor by RN are reflective of an initial nursing assessment, however, is not reflective of my full history and physical exam that was personally taken and clarified. Consequentially, this preceding description of symptoms, which may include the patient's categorized chief complaint in the EMR, do not reflect my personal clinical impression, and the ultimate description of history of present illness and patient stated complaints should be deferred to this section of the note. Unless stated otherwise or congruent with this section of the note, additional signs, symptoms, or incongruence should be interpreted as inaccurate with my clinical impression. Related Data Home Medications Medication Instructions Recorded Confirmed omeprazole 20 mg capsule,delayed 20 mg PO DAILY 05/24/23 07/26/23 release bisoprolol fumarate 5 mg tablet 5 mg PO DAILY 07/26/23 07/26/23 simvastatin 20 mg tablet 20 mg PO HS 07/26/23 07/26/23 Previous Rx's Medication Instructions Recorded hydrocortisone valerate 0.2 % 1 applic topical BID 10 days #60 12/05/22 topical cream grams aspirin 81 mg tablet,delayed 81 mg PO DAILY 30 days #30 tabs 05/22/23 release atorvastatin 40 mg tablet 40 mg PO HS 30 days #30 tabs 05/22/23 ipratropium 0.5 mg-albuterol 3 mg 3 ml inhalation QID PRN shortness 06/18/23 (2.5 mg base)/3 mL nebulization of breath or wheezing 90 days #270 soln mL tiotropium bromide 18 mcg capsule 1 cap inhalation DAILY 90 days 07/03/23 with inhalation device (Spiriva #180 puffs with HandiHaler) benzonatate 100 mg capsule 100 mg PO TID PRN cough #30 caps 07/06/23 levofloxacin 500 mg tablet 500 mg PO DAILY 10 days #10 tabs 07/06/23 prednisone 20 mg tablet 20 mg PO DAILY 7 days #7 tabs 07/06/23 sildenafil 25 mg tablet (Viagra) 25 mg PO DAILY PRN sexual activity 07/06/23 #10 tabs azithromycin 250 mg tablet 250 mg PO QMWF #45 tabs 07/24/23 furosemide 40 mg tablet 40 mg PO DAILY #90 tabs 07/24/23 potassium chloride 10 mEq 10 meq PO DAILY #90 caps 07/24/23 capsule,extended release budesonide-formoterol HFA 160 2 puff inhalation BID 90 days 08/08/23 mcg-4.5 mcg/actuation aerosol #10.2 grams inhaler Allergies Allergy/AdvReac Type Severity Reaction Status Date / Time Ativan AdvReac Unknown hallucinati Uncoded 07/26/23 13:17 on PFSH [facility] Disclaimer: The information contained in this section may have been updated after the patient was seen, as this information can be updated by other users. Medical History Left adrenal mass Tubular adenoma of colon Recurrent pneumothorax Fistula, bronchopleural Acute hypercapnic respiratory failure Acute and chronic respiratory failure with hypoxia GERD (gastroesophageal reflux disease) A-fib HLD (hyperlipidemia) HTN (hypertension) Lung nodule Ex-smoker Chronic hypoxemic respiratory failure Dyspnea on exertion Encounter for screening for malignant neoplasm of lung in former smoker who quit in past 15 years with 30 pack year history or greater Stopped smoking with greater than 30 pack year history Pulmonary emphysema Acute respiratory failure with hypoxia Acute exacerbation of chronic obstructive airways disease COPD (chronic obstructive pulmonary disease) Surgical History History of colonoscopy Hx of local excision of skin lesion History of carotid endarterectomy Hx of prior ablation treatment History of nasal surgery Family History Other Family history non-contributory Social History Smoking Status: Former smoker tobacco type: cigarettes packs per day: 2 second hand exposure: No alcohol intake: never substance use type: denies use current occupational status: retired Travel in the last 8 weeks: None household members: spouse housing: house current occupational exposures/hazards: No caffeine: No ROS Obtained: Yes All systems reviewed & no additional complaints except as documented Physical Exam General General appearance: alert and in distress Neck Neck exam: Present trachea midline Chest Chest inspection: Present normal inspection and symmetric chest wall rise Respiratory Respiratory exam: Present respiratory distress, wheezes, accessory muscle use, prolonged expiratory phase and other (No audible lung sounds on the left. Patient with subcostal and supraclavicular); Absent normal lung sounds bilaterally or stridor Cardiovascular Cardiovascular exam: Present normal rhythm and tachycardia Extremities Exam Extremities exam: Absent edema Neurological Exam Neurological exam: Present alert, oriented X3 and CN II-XII intact Skin Skin exam: Present warm and dry; Absent cyanosis, diaphoresis or pallor HEART Score HEART Score HEART Score assessment performed?: Yes HEART Score: 4 Procedures Limited Ultrasound Indication:: Limited lung ultrasound A focused ultrasound exam of the pleural spaces was performed to evaluate for pneumothorax, pulmonary edema, pleural effusion and/or consolidation. The ultrasound was performed with the following indications, as noted in the H&P: Shortness of breath, increased work of breathing, history of pneumothorax, decreased lung sounds on the left Identified structures: Bilateral thoracic cavities were examined. Findings: Lung sliding: -Absent on the left, present on the right B-lines: -Absent on left -Absent on right Pleural effusion: -Absent bilaterally Consolidation: -Absent left -Absent right Impression: - Pneumothorax left-sided - Pleural effusion absent - B-lines absent Images were saved to permanent archive The study was technically adequate CPT 16266-24 This study was performed by me, and I personally interpreted all images/videos. Based on my clinical judgement, these images were adequate to and did necessitate further imaging. Critical Care Critical Care Time Critical Care Time: Yes (pulm) Attestation: On 08/13/23, the high probability of a clinically significant, sudden or life threatening deterioration of the following system(s) required my full and direct attention, intervention and personal management. The time I documented below is in addition to time spent performing reported procedures but includes the following listed in this critical care notation. Total Time Total Critical Care Time: 45 Medical Decision Making Medical Records Medical records reviewed: Yes I reviewed the patient's medical records. Tonny Inquiry Pt receiving controlled substance: No Tonny was queried for this patient: No Vital Signs Vital Signs: 08/13/23 23:31 08/13/23 23:57 08/14/23 00:21 Temperature 97.6 F Temperature Source Oral Pulse Rate 88 96 H Pulse Rate [Right Radial] 97 H Respiratory Rate 20 Blood Pressure [Right Arm] 156/83 H Blood Pressure Mean [Right Arm] 107 02 Sat by Pulse Oximetry 92 L Oxygen Delivery Method Nasal Cannula Oxygen Flow Rate (LPM) 4 Lab Data Labs: Lab Results 08/13/23 23:32: WBC 7.9, RBC 4.81, Hgb 13.5 L, Hct 44.4, MCV 92.3, MCH 28.1, MCHC 30.4 L, RDW 14.2, Plt Count 271, MPV 7.6, Neut % (Auto) 68.2, Lymph % (Auto) 22.3, Nance % (Auto) 6.5, Eos % (Auto) 2.6, Baso % (Auto) 0.5, Neut # (Auto) 5.4, Lymph # (Auto) 1.8, Nance # (Auto) 0.5, Eos # (Auto) 0.2, Baso # (Auto) 0.0, PT 10.3, INR 0.95, APTT 26.3, Sodium 140, Potassium 4.9, Chloride 97 L, Carbon Dioxide 36 H, Anion Gap 11.9, BUN 23 H, Creatinine 0.90, Estimated Creat Clear 77, Estimated GFR 81, Est GFR ( Amer) 98, Glucose 144 H, Calcium 9.2, Total Bilirubin 0.4, AST 33, ALT 23, Alkaline Phosphatase 95, Troponin I < 0.01, NT-Pro-B Natriuret Pep 168, Total Protein 7.6, Albumin 4.3, Globulin 3.3 H, Albumin/Globulin Ratio 1.3, Procalcitonin 0.063 08/13/23 23:39: VBG pH 7.29 L, VBG pCO2 66.4 H, VBG pO2 44.6 H, VBG HCO3 31.1 H, VBG Total CO2 33.2 H, VBG O2 Saturation 77.8 H, VBG Base Excess 4.5 H, VBG Lactic Acid 2.5 H 08/14/23 00:25: Lactate 1.4 08/13/23 23:32 08/13/23 23:32 Response Orders (Tests/Meds): ED MEDICATIONS Discontinued Medications Generic Name Dose Route Start Last Admin Trade Name Freq PRN Reason Stop Dose Admin Albuterol/Ipratropium 6 ml 08/13/23 23:49 08/13/23 23:57 Ipratropium/Albuterol 3 Ml Neb IH 08/13/23 23:50 6 ml ONCE ONE Administration Methylprednisolone Sodium Succinate 125 mg 08/13/23 23:50 08/13/23 23:59 Methylprednisolone Sod Succ 125mg Vial IV 08/13/23 23:51 125 mg ONCE ONE Administration ORDERS Category Date Time Status CT chest wo con Stat Cat Scan 08/13/23 23:48 Taken CXR --portable [XR chest portable] Stat Exams 08/13/23 23:37 Completed POCUS Point of Care (ER Only) Stat Exams 08/13/23 23:38 Taken Complete Blood Count Auto Diff Stat Lab 08/13/23 23:32 Completed Comprehensive Metabolic Panel Stat Lab 08/13/23 23:32 Completed Lactic Acid Stat Lab 08/13/23 23:39 Completed NT Pro Brain Natriuretic Pep. Stat Lab 08/13/23 23:32 Completed PT INR [Prothrombin Time INR] Stat Lab 08/13/23 23:32 Completed PTT [Activated Partial Thrombo Time] Stat Lab 08/13/23 23:32 Completed Procalcitonin Stat Lab 08/13/23 23:32 Completed Troponin I Q3H Lab 08/14/23 02:45 Ordered Troponin I Q3H Lab 08/14/23 05:45 Ordered Troponin I Stat Lab 08/13/23 23:32 Completed Blood Culture Stat Micro 08/13/23 23:39 Ordered Venous Blood Gas Stat RT 08/13/23 23:39 Completed MDM Narrative Medical Decision Narrative: 78-year-old male history of bullous emphysema not currently smoking, on 2 L nasal cannula baseline complicated by pneumothorax in May 2023 necessitating multiple chest tube placements and transfer to tertiary care facility, hypertension presenting with shortness of breath. Patient states that around 7 or 8 PM on 08/12, had acute shortness of breath while he was at rest. States that this feels exactly like the last time he had a pneumothorax back in May. No chest pain, nausea or vomiting, fevers or chills, recent illness, syncope, neurologic deficits, abdominal pain, or any other complaints. Turned his nasal cannula oxygen he has at home from 2 to 6 L, this had minimal effect. Called EMS. EMS arrived, had minimal breath sounds bilaterally, given 2 DuoNebs and brought him here to the emergency department. History was obtained via conversation with patient and EMS. On arrival, patient hemodynamically stable, alert, [oriented x4, ][appropriate, ]GCS [15], moving all extremities spontaneously, pupils equal and reactive to light. Full physical exam performed and significant for patient saturating appropriately on 6 L nasal cannula with EMS around 90, but breathing 25-30 times a minute. Placed on nonrebreather, respiratory rate decreased 15 to 20 breaths/min. No breath sounds on the left side, minimal breath sounds on the right with diffuse wheezing concerning for severe COPD exacerbation in the setting of pneumothorax. Patient has increased work of breathing and is in moderate respiratory distress with supraclavicular and subcostal retractions. Tachycardic, no lower extremity edema. No JVD. Cardiac exam otherwise within normal limits. Differential includes bleb rupture, simple pneumothorax, tension pneumothorax, pneumonia, bronchitis, severe COPD exacerbation, PE, parapneumonic effusion, among others. Patient was given 3 DuoNebs, Solu-Medrol, nonrebreather mask oxygen for symptomatic management[ and correction of underlying abnormalities]. Bedside [id number] ultrasound with no lung sliding on the left, but appropriate lung sliding on the right. Cardiac windows difficult to appreciate given the amount of air in the chest. Chest x-ray was ordered and patient has large, 25 to 30% pneumothorax on the left, but appears to have parenchyma scarred to the wall and typical anatomy for chest tube placement. EKG independently interpreted, but difficult exam to appreciate and largely nondiagnostic. Due to patient increased work of breathing and moderate distress, wandering baseline. Appears to be sinus rhythm about 95 beats a minute with no ST or T wave changes concerning for acute ischemia grossly. PA intervals, QRS and QT intervals appear to be within normal limits grossly. Chest tube placement was deferred at this time given patient's improvement in comfort with nonrebreather mask until CT imaging was obtained. Independent interpretation of CT imaging of the chest without contrast demonstrated large left-sided pneumothorax as expected, but patient does have lung parenchyma scarred to the parietal wall between third and sixth rib spaces. Independent rotation of hematologic labs without leukocytosis. Coags normal. VBG largely nonactionable, but appears to be chronic compensated respiratory acidosis with acute mild lactic acidosis: pH 7.29, CO2 elevated at 66, oxygen normal at 44, bicarb high at 31, lactic acid mildly elevated at 2.5. Chemistry nonactionable with normal kidney function BUN 23, creatinine 0.9. Troponin negative, procalcitonin negative. After conversation with patient, patient opting to not have chest tube placed here if not necessary. He states he had to get sent to [place] to go to [facility] to have other procedures done, he is unsure of what they were. [facility] was contacted and case was discussed at length, they do not have any beds available. [facility] was contacted and case was discussed at length given high risk chest tube placement, possible need for thoracic surgery/pleurodesis, and high risk for decompensation. Annabelle excepted transfer under Dr. Henry. 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 Electronic bath solution maker of the spoken language may permit errors. Although I have reviewed the note, some errors may still exist.
[2023-08-13 23:54] LABS: Activated Partial Thrombo Time 26.3 seconds (22.8-30.6); INR 0.95 (0.9-1.1); Prothrombin Time 10.3 seconds (10.1-12.5)
[2023-08-13 23:57] VITALS: PULSE 88
[2023-08-13] MEDS: IPRATROPIUM/ALBUTEROL 3 ML NEB 6 ML IH (23:57)
[2023-08-13] MEDS: METHYLPREDNISOLONE SOD SUCC 125MG VIAL 125 MG IV (23:59)
[2023-08-14] VITALS: BP 191/89; PULSE 87; O2SAT 100
[2023-08-14 00:04] LABS: NT Pro Brain Natriuretic Pep. 168 pg/mL (0-450)
--- NOTE | 2023-08-14 00:04 | PC.NURSE ---
Pt transported to CT via stretcher
[2023-08-14 00:10] LABS: Procalcitonin 0.063 ng/mL (0.0-2.0)
[2023-08-14 00:12] LABS: Troponin I < 0.01 ng/ml (0.00-0.034)
--- NOTE | 2023-08-14 00:15 | PC.NURSE ---
Called [facility] but no available beds at this time.
[2023-08-14 00:21] VITALS: PULSE 96
--- NOTE | 2023-08-14 00:27 | PC.NURSE ---
Called [facility] about transfer. Gave information and will call us back once they speak to a provider. CARLOS
[2023-08-14 00:30] VITALS: BP 192/87; PULSE 98; RESP 15; O2SAT 100
[2023-08-14 00:42] LABS: Lactic Acid 1.4 mmol/L (0.7-2.1)
[2023-08-14 01:00] VITALS: BP 160/67; PULSE 100; RESP 13; O2SAT 100
[2023-08-14 01:15] VITALS: BP 155/82; PULSE 108; RESP 14; O2SAT 100
--- NOTE | 2023-08-14 01:16 | PC.NURSE ---
Report called to Delicia RIVAS at adult ED.
[2023-08-14 01:29] VITALS: BP 124/75; PULSE 75; RESP 12; TEMP 36.4; O2SAT 96
== END 2023-08-14 01:32 | disposition short-term general hospital (02) ==
PROVIDERS: Emergency Provider Emergency Medicine; PCP Nurse Practitioner Family
DX: J93.11 Primary spontaneous pneumothorax (principal); J43.8 Other emphysema; R06.02 Shortness of breath; J44.9 Chronic obstructive pulmonary disease, unspecified; K21.9 Gastro-esophageal reflux disease without esophagitis; E78.5 Hyperlipidemia, unspecified; I10 Essential (primary) hypertension; Z87.891 Personal history of nicotine dependence
CPT/HCPCS: 71045; 71250; 80053; 82803; 83605; 83880; 84145; 84484; 85025; 85610; 85730; 87040; 93005; 96374; 99291; J2930; J7620

== ENCOUNTER 2024-02-06 12:51 | Outpatient (CLI) | payer MEDICARE, BC, SELFPAY ==
[2024-02-06 13:48] LABS: Blood Urea Nitrogen 23 mg/dl (9-20); Estimated Glomerular Filt Rate 109 ml/min (>60); GFR (African American) 131 ML/MIN (>60)
== END 2024-02-06 23:59 | disposition home or self-care (01) ==
LOC: LAB 12:53
PROVIDERS: PCP Nurse Practitioner Family; Visit Provider Nurse Practitioner Family
DX: R19.00 Intra-abdominal and pelvic swelling, mass and lump, unspecified site (principal); R10.9 Unspecified abdominal pain
CPT/HCPCS: 36415; 82565; 84520

== ENCOUNTER 2024-02-11 06:14 | Outpatient (CLI) | payer MEDICARE, BC, SELFPAY ==
--- NOTE | 2024-02-11 06:22 | CT_ITS ---
FINAL REPORT TECHNIQUE: Thin section axial images were obtained from the lung apices to the upper abdomen by computed tomography. Reformatted images were obtained and reviewed. This study was performed with techniques to keep radiation doses al low as reasonably achievable (ALARA). Individualized dose reduction techniques using automated exposure control or adjustment of mA and/or kV according to the patient's size were employed. CLINICAL HISTORY: lung cancer screening FORMER SMOKER QUIT 15 YEARS AGO, 2PPD X50 YEARS COMPARISON: 11/14/[address] chest 08/14/2023 FINDINGS: CHEST CT LOW DOSE CTDI vol (mGy): 2.90 DLP (mGy-cm): 113.07 There is no axillary adenopathy. There is no mediastinal or hilar mass or adenopathy. The heart is normal in size. There are mild coronary artery calcifications. There is no pericardial or pleural effusion. There is moderate emphysema and moderate pulmonary scarring. Lung window images demonstrate stable pulmonary nodules including a 4 mm lateral right upper lobe nodule on series 3 image 24 and an 8 mm nodule in the left lower lobe on series 3 image 71. Several other small nodules are also stable. There is diffuse bronchial wall thickening consistent with bronchitis. Calcified granulomas are seen in the left lower lobe. IMPRESSION: Stable pulmonary nodules. Lung-RADS category 2. Recommend 12 month follow up low dose chest CT. Reviewed, Interpreted and Dictated by Zion Wellington III, MD Transcribed by Susan Chavira Authenticated and [facility]
--- NOTE | 2024-02-11 06:37 | CT_ITS ---
FINAL REPORT CLINICAL HISTORY: Right sided abdominal pain. Abdominal wall bulge COMPARISON: None FINDINGS: CT OF THE ABDOMEN AND PELVIS WITH CONTRAST Axial CT images of the abdomen and pelvis were obtained after the administration of IV contrast. Coronal and sagittal reformatted images were also obtained and reviewed. This study was performed with techniques to keep radiation doses as low as reasonably achievable (ALARA). Individualized dose reduction techniques using automated exposure control or adjustment of mA and/or kV according to the patient's size were employed. Abdomen: The liver has an unremarkable appearance, without evidence of mass or biliary ductal dilatation. The spleen is unremarkable. No adrenal mass is present. The pancreas has an unremarkable appearance. There is an 8 mm mass in the anterior left kidney with peripheral calcifications favored represent a complex cyst. There is a 4 mm stone in the mid left kidney. Moderate plaque and mural thrombus is noted at the abdominal aorta with an irregular patent lumen. There is no free fluid or adenopathy. No mass or abnormal fluid collection is seen. No abdominal wall hernia identified. Pelvis: The appendix is normal. Mild bladder wall thickening is likely inflammatory. The prostate is enlarged. There is a small left inguinal hernia containing fat. There is no evidence of mass or adenopathy. There is no evidence of bowel obstruction. IMPRESSION: No abdominal wall hernia identified. 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 4 mm left kidney stone. Mild bladder wall thickening, likely inflammatory. Reviewed, Interpreted and Dictated by Zion Wellington III, MD Transcribed by Susan Chavira Authenticated and [facility]
[2024-02-11] MEDS: IOPAMIDOL-370 (76%);100ML BOTTLE 75 ML IV (07:20)
[2024-02-11] MEDS: SODIUM CHLORIDE 0.9% 10ML SYR (RAD ONLY) 10 ML IV (07:20)
== END 2024-02-11 23:59 | disposition home or self-care (01) ==
LOC: RAD 06:15
PROVIDERS: PCP Nurse Practitioner Family; Visit Provider Internal Medicine Pulmonary Disease
DX: F17.210 Nicotine dependence, cigarettes, uncomplicated (principal); R10.9 Unspecified abdominal pain; R19.00 Intra-abdominal and pelvic swelling, mass and lump, unspecified site
CPT/HCPCS: 71271; 74177; Q9967

== ENCOUNTER 2024-02-13 13:27 | Outpatient (CLI) | payer MEDICARE, BC, SELFPAY ==
--- NOTE | 2024-02-13 13:32 | CA_ITS ---
FINAL REPORT TECHNIQUE: Color Doppler, duplex Doppler and randolph scale sonography of the bilateral neck arterial vasculature was performed. Velocities were measured in the carotid arteries. Stenosis evaluation based on the validated velocity criteria. CLINICAL HISTORY: RAHUL, Bruit, CAD, H/o left carotid endarterectomy, shortness of breath COMPARISON: 07/06/2023 FINDINGS: The peak systolic velocity of the right common carotid artery is 48 cm/s. The peak systolic velocity of the right internal carotid artery is 363 cm/s and end diastolic velocity 81 cm/s. A moderate to large amount of plaque is present. The right external carotid artery is patent. The right vertebral artery is patent with antegrade flow. The peak systolic velocity of the left common carotid artery is 83 cm/s. The peak systolic velocity of the left internal carotid artery is 117 cm/s and end diastolic velocity 32 cm/s. A mild amount of plaque is present. The left external carotid artery is patent.The left vertebral artery is patent with antegrade flow. IMPRESSION: Greater than 70% carotid stenosis on the right and less than 50% carotid stenosis on the left, similar to the prior exam. Recommend correlation with catheter angiogram. Bilateral patent vertebral arteries with antegrade flow. Reviewed, Interpreted and Dictated by Zion Wellington III, MD Transcribed by Ghazala Conrad Authenticated and [facility]
== END 2024-02-13 23:59 | disposition home or self-care (01) ==
LOC: RT 13:28
PROVIDERS: PCP Nurse Practitioner Family; Visit Provider Specialist
DX: R42 Dizziness and giddiness (principal)
CPT/HCPCS: 93880

== ENCOUNTER 2024-02-28 12:39 | Outpatient (CLI) | payer MEDICARE, BC, SELFPAY ==
--- NOTE | 2024-02-28 12:41 | CT_ITS ---
FINAL REPORT TECHNIQUE: Pre-and postcontrast images of the abdomen were performed by computed tomography. Extensive 3-D reconstruction images were performed. A CTA was performed. This study was performed with techniques to keep radiation doses as low as reasonably achievable (ALARA). Individualized dose reduction techniques using automated exposure control or adjustment of mA and/or kV according to the patient''s size were employed. CLINICAL HISTORY: abnoral CT scan plaque or mural thrombus of the abdominal aorta right sided abdomen pain COMPARISON: CT abdomen and pelvis dated 02/11/2024 FINDINGS: ABDOMEN: There are advanced changes of centrilobular emphysema. Mild chronic scarring is seen in the left lung base. The liver parenchyma is homogeneous. The gallbladder is present. The spleen, pancreas, adrenal glands are unremarkable. There is a partially calcified 8 mm cyst in the anterior left kidney. A nonobstructing left renal stone measures 4 mm. The right kidney is unremarkable. The appendix is unremarkable. CTA: There is moderate focal stenosis at the origin of the celiac axis. There is moderate stenosis of the proximal SMA measuring approximately 50%. This is located approximately 2 cm distal to the origin of the SMA. There is early bifurcation of the right renal artery. Dual left renal arteries are noted. The renal arteries appear adequately patent. There is a moderate, complex mural thrombus within the distal abdominal aorta which appears similar to the previous exam. There appears to be an intimal flap in the lumen of the distal abdominal aorta. This is best seen images 37 through 40 of series 3 and is stable. There is moderate stenosis at the origin of the right common iliac artery. 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 50% stenosis of the proximal SMA. Nonobstructing left renal stone. Reviewed, Interpreted and Dictated by Elias Law MD Transcribed by Rebeca Pompa Authenticated and [facility]
[2024-02-28] MEDS: SODIUM CHLORIDE 0.9% 10ML SYR (RAD ONLY) 10 ML IV (13:37)
[2024-02-28] MEDS: IOPAMIDOL-370 (76%);100ML BOTTLE 100 ML IV (13:37)
[2024-02-28] MEDS: 0.9 % SODIUM CHLORIDE 50 ML VIAL IV (13:37)
== END 2024-02-28 23:59 | disposition home or self-care (01) ==
LOC: RAD 12:41
PROVIDERS: PCP Nurse Practitioner Family; Visit Provider Nurse Practitioner Family
DX: R93.89 Abnormal findings on diagnostic imaging of other specified body structures (principal)
CPT/HCPCS: 74175; Q9967

== ENCOUNTER 2024-04-29 18:34 | Outpatient (CLI) | payer MEDICARE, BC, SELFPAY ==
[2024-04-29 16:50] LABS: Coronavirus 19, PCR Not Detected (NotDetected); Human Rhinovirus Not Detected (NotDetected); Influenza A, PCR Not Detected (NotDetected); Influenza B, PCR Not Detected (NotDetected); Respiratory Syncytial Virus Not Detected (NotDetected)
== END 2024-04-29 23:59 | disposition home or self-care (01) ==
LOC: LAB.DROPOF 18:35
PROVIDERS: PCP Nurse Practitioner Family; Visit Provider Nurse Practitioner Family
DX: R06.02 Shortness of breath (principal); R05.9 Cough, unspecified
CPT/HCPCS: 87631

== ENCOUNTER 2024-12-25 11:14 | Outpatient (CLI) | payer MEDICARE, BC, SELFPAY ==
--- NOTE | 2024-12-25 11:17 | XR_ITS ---
FINAL REPORT CLINICAL HISTORY: sob, cough x 2 weeks COMPARISON: 05/30/2023 FINDINGS: There is emphysema and scattered scarring. There is mild increased markings in the left perihilar region suspicious for a small area of pneumonia. There is no evidence of effusion or other pleural disease. The mediastinum has a normal appearance. The cardiac silhouette is unremarkable. IMPRESSION: Mild left perihilar pneumonia suspected. Emphysema with chronic change. Reviewed, Interpreted and Dictated by Luis Alberto Adame MD Transcribed by Oneyda Otto Authenticated and [facility]
--- OUTSIDE RECORDS SUMMARY | 2024-12-25 11:36 | XMS_ITS | Clinical Summary ---
[facility] Address [address] [place] [address] Care Team Providers Care Medical Technologist Clinical Name Role Phone Carmen Lomas PIGMENT PROCESSOR Primary Care Provider + [phone] Social History Tobacco Use Types Packs/Day Years Used Date Smoking Tobacco: Never Assessed Abuse Screen Answer Date Recorded Unsafe at Home or Work/School Not on file Feels Threatened by Someone? Not on file 11/2022 Does Anyone Keep You from Co ntacting Others or Doint Things Outside the Home? Not on file 12/11/2022 Physical Sign of Abuse Present Not on file 1 Housing Stability Answer Date Recorded Current Living Arrangements Not on file 11/2022 Potentially Unsafe Housing Conditions Not on eloise e 12/11/2022 Family and Community Support Answer Edward e Recorded Help with Day-to-Day Activities Not on file 12/11/2022 Lonely or Isolated Not on file 12/11/2022 Employment Answer Date Recorded Do you want help finding or keeping work or a shea b? Not on file 12/11/2022 Disabilities Answer Date Recorded Concentrating, Remembering, or Making Decisions Difficulty Not on file 12/11/2022 Doing Errands Independently Difficulty Not on fi le 12/11/2022 Education Answer Date Recorded Help with school or training? Not on file Preferred Language Not on file 12/11/2022 Sex and Gender Information Value Date Recorded Sex Assigned at Not on file Legal Sex Male 1:03 PM EDT Gender Identity Not on file Sexual Orientation Not on file Last Filed Vital Signs Vital Sign Reading Time Taken Comments Blood Pressure 103/68 11/12/2012 9:30 AM EDT Pulse 100 11/12/2012 9:30 AM EDT Temperature 36.6 C (97.8 F) 11/12/2012 9:30 AM EDT Respiratory Rate - - Oxygen Saturation 92% 11/12/2012 9:30 AM EDT Inhaled Oxygen Concentration - - Weight 83.9 kg (185 lb 0.2 oz) 11/12/2012 9:30 A M EDT Height 180.3 cm (5' 11 ) 11/12/2012 9:30 AM EDT Body Mass Index 25.8 11/12/2012 9:30 AM EDT Plan of Treatment Health Maintenance Due Date Last Done Comments ANNUAL PHYSICAL 1945 TDAP/TD VACCINES (1 - Tdap) 01/24/1963 Pneumococcal Vaccine 50+ (1 of 1 - PCV) 01/24/1994 ZOSTER VACCINE (1 of 2) 01/24/1994 RSV Vaccine - Adults (1 - 1-dose 75+ series) 9 INFLUENZA VACCINE 10/03/2024 COVID-19 Vaccine (1 - 2023- season) 2024 Care Teams Medical Technologist Clinical Relationship Specialty Start Date End Date Carmen Lomas APRN [address] [place], [place] [id number] PCP - General Internal Medicine 02/12/24
--- OUTSIDE RECORDS SUMMARY | 2024-12-25 11:37 | XMS_ITS | Clinical Summary ---
Author Organization Healthcare Address [address] [place] [address] Care Team Providers Care Telecom Analyst Name Role Phone AbebeCarmen Scott SINHA Primary Care Provider [phone] Allergies Active Allergy Reactions Criticality Noted Date Comments Lorazepam Hallucinations Medium 08/14/2023 Medications tiotropium (Spiriva) [address] 1 capsule (18 mcg) into inhaler and inhale 1 (one) time each day. Active simvastatin (Zocor) 20 MG tablet Take 1 tablet (20 mg) by mouth every night. Active sildenafil (Viagra) 25 MG tablet Take 1 tablet (25 mg) by mouth 1 (one) time each day if needed for erectile dysfunction. Active potassium chloride CR (Klor-Con) 10 MEQ ER tablet Take 1 tablet (10 mEq) by mouth 1 (one) time each day. Do not crush, chew, or split. Active omeprazole (PriLOSEC) [address] capsule Take 1 capsule (20 mg) by mouth 1 (one) time each day. Do not crush or chew. Active furosemide (Lasix) 40 MG tablet Take 1 tablet (40 mg) by mouth 1 (one) time each day. Active bisoprolol (Zebeta) 5 MG tablet Take 0.5 tablets (2.5 mg) by mouth 1 (one) time each day. Active budesonide-form oterol (Symbicort) 160-4.5 MCG/ACT inhaler Inhale 2 puffs 2 (two) times a day. Rinse mouth with water after use to reduce aftertaste and incidence of candidiasis. Do not swallow. Active aspirin 81 MG EC tablet Take 1 tablet (81 mg) by mouth 1 (one) time each day. Active azithromycin (Zithromax) 250 MG tablet Take 1 tablet (250 mg) by mouth 3 (three) times a week. On Sunday - Sunday and Sunday for chronic bronchitis . Active oxyCODONE (Roxicodone) 5 MG immediate release tablet Take 1 tablet (5 mg) by mouth every 6 (six) hours if needed for severe pain. 28 tablet 4 Active methocarbamol (Robaxin) 750 MG tablet Take 1 tablet (750 mg) by mouth every 6 (six) hours for 7 days. 28 tablet 4 Active Active Problems Problem Noted Date Diagnosed Date Hypercarbia 08/17/2023 Overview (08/17/2023): Likely chronic CO2 retention from COPD Atrial fibrillation 08/15/2023 Overview (08/17/2023): Resume home meds when appropriate Chronic obstructive pulmonary disease 08/15/2023 Overview (08/17/2023): Resume home meds when appropriate On home O2 HTN (hypertension) 08/15/2023 Overview (08/17/2023): Resume home meds when appropriate Gastroesophageal reflux disease 08/15/2023 Overview (08/17/2023): Resume home meds when appropriate Recurrent pneumothorax 08/14/2023 Overview (08/17/2023): S/p L VATS talc pleurodesis on 08/14 Immunizations Immunization Administration Dates Next Due Influenza, Unspecified 12/12/2016 Influenza, seasonal, injectable 12/03/2014,01/03,01/03/2013 Family History Medical History Relation Name Comments Lung cancer Brother 1 Suicide Brother 2 Conversions - Other Brother 3 GSW (gun shot wound) Conversions - Other Brother 4 MVA (mot or vehicle accident) Conversions - Other Daughter Metastas is from malignant melanoma of skin Hypertension Other 1 Lung cancer Other 2 Breast cancer Other 3 Relation Name Status Comments Brother 1 Brother 2 Brother 3 Brother 4 Daughter Other 1 Other 2 Other 3 Social History Tobacco Use Types Packs/Day Years Used Date Smoking Tobacco: Former Smokeless Tobacco: Former Tobacco Cessation:Counseling Given: No Humiliation, Afraid, Rape, and Kick questionnair e Answer Date Recorded Within the last year, have y ou been afraid of your partner or ex-partner? No 08/15/2023 Within the last year, have y ou been humiliated or emotionally abused in other ways by your partner or ex-partner? No Within the last year, have y ou been kicked, hit, slapped, or otherwise physically hurt by your partner or ex-partner? No 08/15/2023 Within the last year, have y ou been raped or forced to have any kind of sexual activity by your partner or ex-partner? No 08/15/2023 Overall Financial Resource Strain (CARDIA) Answe r Date Recorded How hard is it for you to pa y for the very basics like food, housing, medical care, and heating? Not hard at all 08/15/2023 Hunger Vital Sign Answer Date Recorded Within the past 12 months, y ou worried that your food would run out before you got the money to buy more. Never true 08/15/19 24 Within the past 12 months, t he food you bought just didn't last and you didn't have money to get more. Never true 08/15/2023 PRAPARE - Transportation Answer Date Re corded In the past 12 months, has l ack of transportation kept you from medical appointments or from getting medications? No 08/03 In the past 12 months, has l ack of transportation kept you from meetings, work, or from getting things needed for daily living? No 08/15/2023 Housing Stability Vital Sign Answer Edward e Recorded In the last 12 months, was t here a time when you were not able to pay the mortgage or rent on time? No 08/15/2023 In the last 12 months, how many places have you lived? 1 08/15/2023 In the last 12 months, was t here a time when you did not have a steady place to sleep or slept in a halfway (including now)? No 08/15/2023 CAGE ASSESSMENT Answer Date Recorded Cage unable to access Not on file 08/18/2023 Cage max number of drinks Not on file 2023 Cage Beverages a week Not on file 08/18/2023 Have you ever felt you should CUT down on your d rinking? 0 08/18/2023 Have you been ANNOYED by people criticizing your drinking? 0 08/18/2023 Have you felt GUILTY about your drinking? 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 0 08/18/2023 CAGE Questionnaire Score 0 024 Utilities Answer Date Recorded In the past 12 months has th [employer], gas, oil, or water [employer] threatened to shut off services in your home? No 08/15/2023 Sex and Gender Information Value Date Recorded Sex Assigned at Not on file Legal Sex Male 5:57 PM EDT Gender Identity Not on file Sexual Orientation Not on file Last Filed Vital Signs Vital Sign Reading Time Taken Comments Blood Pressure 138/76 09/03/2023 10:14 AM EDT Pulse 62 09/03/2023 10:14 AM EDT Temperature 36.6 C (97.8 F) 09/03/2023 10:14 AM EDT Respiratory Rate 18 09/03/2023 10:14 AM EDT Oxygen Saturation 96% 09/03/2023 10:14 AM EDT 2L O2 Inhaled Oxygen Concentration - - Weight 72 kg (158 lb 11.7 oz) 09/03/2023 10:14 A M EDT Height 182.9 cm (6') 08/18/2023 8:54 PM EDT Body Mass Index 21.53 08/18/2023 8:54 PM EDT Plan of Treatment Health Maintenance Due Date Last Done Comments [facility]-Depression Screening 1945 [facility]-Medicare Annual Wellness (AWV) 1945 [facility]-/Child/Adol SDOH Screenings 1945 [facility]- SDOH Screenings 01/24/1962 [facility]-Adult SDOH Screenings 01/24/1962 [facility]-DTaP,Tdap,and Td Vaccines (1 - Tdap) 01/24/1963 [facility]-Zoster Vaccines (1 of 2) 01/24/1994 [facility]-Pneumococcal Vaccine: 50+ Years (2 of 2 - PCV20 or PCV21) 03/05/2022 03/05/2021 [id number] Vaccine (5 - 2024- season) 2024 10/31/2021, 01/04/2021, 05/12/2020, Additional history exists [facility]-Influenza Vaccine (#1) 11/03/202412/05, 12/12/2016, 11/23/2016, Additional history exists [facility]-RSV Vaccine: 60+ Years or Completed 12/20/2022 HPV Vaccines Aged Out No longer eligi ble based on patient's age to complete this topic [facility]-HIB Vaccines Aged Out No longer e ligible based on patient's age to complete this topic [facility]-Hepatitis A Vaccines Aged Out No longer eligible based on patient's age to complete this topic [facility]-IPV Vaccines Aged Out No longer e ligible based on patient's age to complete this topic [facility]-Rotavirus Vaccines Aged Out No lo nger eligible based on patient's age to complete this topic Insurance MEDICARE [facility] Advance Directives * Full Code (Latest Code Status on File) Date Activated Date Inactivated Comments 08/14/2023 7:29 AM 08/19/2023 6:50 PM Question Answer Comments Patient has decision-making capacity? Yes Care Teams Telecom Analyst Relationship Specialty Start Date End Date Carmen Lomas APRN [address] [place] [address] PCP - General 09/03/23
== END 2024-12-25 23:59 | disposition home or self-care (01) ==
PROVIDERS: PCP Nurse Practitioner Family; Visit Provider Internal Medicine Pulmonary Disease
DX: J43.9 Emphysema, unspecified (principal); R91.8 Other nonspecific abnormal finding of lung field
CPT/HCPCS: 71046

== ENCOUNTER 2025-01-28 08:48 | Inpatient (IN) | payer MEDICARE, BC, SELFPAY ==
[2025-01-28] VITALS (12 sets, daily range): BP systolic 113–167; BP diastolic 54–78; PULSE 80–105; RESP 12–21; TEMP 36.6–37.1; O2SAT 96–99; BMI 22.4; BMI 20.7
--- NOTE | 2025-01-28 08:53 | XR_ITS ---
FINAL REPORT CLINICAL HISTORY: shortness of breath COMPARISON: 12/25/2024 FINDINGS: A portable view of the chest was obtained. Cardiac and mediastinal silhouettes are within normal limits. There has been interval development of left infrahilar and left basilar opacity, favor pneumonia. Pleural thickening is noted. There is a very small left pleural effusion. There is no pneumothorax.. IMPRESSION: Findings favor pneumonia. Recommend follow-up to resolution. Reviewed, Interpreted and Dictated by Cammy Merida MD Transcribed by Susan Chavira Authenticated and [facility]
--- NOTE | 2025-01-28 08:54 | PC.NURSE ---
Notified RT of VBG sent
--- NOTE | 2025-01-28 08:57 | ECG_ITS ---
APPROVED REPORT Exam: Resting ECG HR:103 bpm ECG Measurements Heart Rate 103 AXES NE 140 P 88 QRSd 78 QRS 73 QT 317 T 71 QTc 376 Conclusion SINUS TACHYCARDIA WITH OCCASIONAL VENTRICULAR PREMATURE COMPLEXES MODERATE ST DEPRESSION [0.05+ mV ST DEPRESSION] ABNORMAL ECG Electronically signed by : KEZIA FRANCISCO, 01/29/2025 14:08:14
--- NOTE | 2025-01-28 08:58 | HMH.EDGENADL ---
Discharge Plan Disposition Patient Disposition: Admitted Condition: Good Clinical Impressions Clinical Impression: Pneumonia Discharge ED Provider: Charlotte Salamanca General Adult HPI General Chief complaint: Shortness of Breath/Dyspnea Stated complaint: SOA Time Seen by Provider: 01/28/25 08:53 History of Present Illness HPI narrative: Patient is an 80-year-old gentleman with a past medical history of COPD who presented to the emergency department with shortness of breath. Patient states that he has been feeling short of breath over the last month but got worse over the last week and worsened over the last 3 days. Patient states that he was previously seen at the end of December and had pneumonia. Patient completed a course of antibiotics at that time. Patient states that he has felt too weak to get up and out of bed. Patient states that he has had fevers the last couple nights and has felt cold sweats at night. Patient denies any chest pain but does report shortness of breath. Patient denies any abdominal pain nausea vomiting or diarrhea. Patient denies any urinary symptoms. Patient states that he does have albuterol treatments at home for his COPD but did not use them today. States that he typically is on 3 L nasal cannula at baseline, patient has had to increase his oxygen to 4 L given his shortness of breath. Related Data Home Medications ?Medication ?Instructions ?Recorded ?Confirmed azithromycin 250 mg tablet 250 mg PO MOWEFR 01/28/25 01/28/25 bisoprolol fumarate 5 mg tablet 2.5 mg PO DAILY 01/28/25 01/28/25 furosemide 40 mg tablet 40 mg PO DAILY 01/28/25 01/28/25 omeprazole 20 mg capsule,delayed 20 mg PO DAILY 01/28/25 01/28/25 release potassium chloride 10 mEq 10 meq PO DAILY 01/28/25 01/28/25 capsule,extended release simvastatin 20 mg tablet 20 mg PO HS 01/28/25 01/28/25 Previous Rx's ?Medication ?Instructions ?Recorded aspirin 81 mg tablet,delayed 81 mg PO DAILY 30 days #30 tabs 05/22/23 release clopidogrel 75 mg tablet (Plavix) 75 mg PO DAILY #30 tabs 11/06/24 budesonide-formoterol HFA 160 2 puff inhalation BID 90 days 12/25/24 mcg-4.5 mcg/actuation aerosol #10.2 grams inhaler tiotropium bromide 2.5 2 inh inhalation DAILY 90 days #4 12/25/24 mcg/actuation mist for inhalation grams (Spiriva Respimat) Allergies Allergy/AdvReac Type Severity Reaction Status Date / Time lorazepam (From Ativan) Allergy Mild Hallucinati Verified 12/25/24 10:46 ng [facility] Disclaimer: The information contained in this section may have been updated after the patient was seen, as this information can be updated by other users. Medical History (Updated 01/28/25 @ 11:55 by Nancy Leal APRN) Acute and chronic respiratory failure with hypoxia COPD (chronic obstructive pulmonary disease) Acute exacerbation of chronic obstructive airways disease Left adrenal mass Tubular adenoma of colon Recurrent pneumothorax Fistula, bronchopleural Acute hypercapnic respiratory failure GERD (gastroesophageal reflux disease) A-fib HLD (hyperlipidemia) HTN (hypertension) Lung nodule Ex-smoker Chronic hypoxemic respiratory failure Dyspnea on exertion Encounter for screening for malignant neoplasm of lung in former smoker who quit in past 15 years with 30 pack year history or greater Stopped smoking with greater than 30 pack year history Pulmonary emphysema Acute respiratory failure with hypoxia Surgical History History of colonoscopy Hx of local excision of skin lesion History of carotid endarterectomy Hx of prior ablation treatment History of nasal surgery Family History Other Cancer Coronary artery disease Diabetes Social History Smoking Status: Former smoker tobacco type: cigarettes packs per day: 2 second hand exposure: No alcohol intake: never substance use type: denies use current occupational status: retired Travel in the last 8 weeks?: None household members: spouse housing: house current occupational exposures/hazards: No caffeine: No Have you lived/traveled outside US in past 30 days?: No Contact w/someone who lives/traveled outside US past 30 days?: No Exposure to someone with infectious disease in past 14 days?: No Do you have a fever (greater than 100.4 F or 38 C)?: No Have you tested positive for COVID-19?: No Exposed to someone with COVID-19 in past 14 days?: No Do you have a sore throat?: No Do you have a cough?: No Do you have any weakness?: No Do you have any diarrhea?: No Are you experiencing any unusual bleeding?: No Do you have any muscle aches/pain?: No Do you have any abdominal pain?: No Are you experiencing loss of taste or smell?: No Other Medical History Have you received the Flu Vaccine for this season: No Have you received the Pneumonia Vaccine: Yes ROS Obtained: Yes All systems reviewed & no additional complaints except as documented and Yes Systems reviewed as appropriate & no additional complaints except as documented Physical Exam General General appearance: alert and in no apparent distress Head Head exam: atraumatic, normocephalic and normal inspection Eye Eye exam: Present normal appearance, PERRL and EOMI; Absent scleral icterus ENT ENT exam: Present normal exam and normal external ear exam Neck Neck exam: Present normal inspection and full ROM Chest Chest inspection: Present normal inspection and symmetric chest wall rise Respiratory Respiratory exam: Present wheezes (wheezing on the L ) and other (decreased breath sounds on the L with wheezing and rhonchi ); Absent respiratory distress Cardiovascular Cardiovascular exam: Present regular rate, normal rhythm and normal heart sounds Abdominal Exam Abdominal exam: Present soft and distention; Absent tenderness, guarding or rebound Extremities Exam Extremities exam: Present normal inspection and full ROM Back Exam Back exam: Present normal inspection and full ROM Neurological Exam Neurological exam: Present alert and oriented X3 Psychiatric Psychiatric exam: Present normal affect and normal mood Skin Skin exam: Present warm and dry Medical Decision Making Medical Records Medical records reviewed: Yes I reviewed the patient's medical records. Screening: Per USPSTF and CDC recommendations, given the prevalence of disease in our region, it is our hospital?s policy to screen for HIV and viral Hepatitis for all patients aged 18 and over and those with ongoing risk factors. Tonny Inquiry Pt receiving controlled substance: No Vital Signs: 01/28/25 09:14 01/28/25 09:30 01/28/25 09:30 Temperature 98.5 F Temperature Source Oral Pulse Rate 95 H Pulse Rate [Left Radial] 105 H Respiratory Rate 20 21 Blood Pressure 113/57 L Blood Pressure [Right Arm] 167/78 H Blood Pressure Mean [Right Arm] 107 Blood Pressure Source [Right Arm] Blood Pressure Position [Right Arm] 02 Sat by Pulse Oximetry 96 98 99 Oxygen Delivery Method Nasal Cannula Nasal Cannula Room Air Oxygen Flow Rate (LPM) 4 4 01/28/25 10:00 01/28/25 10:30 01/28/25 11:00 Temperature Temperature Source Pulse Rate 102 H 99 H 97 H Pulse Rate [Left Radial] Respiratory Rate 12 20 16 Blood Pressure 140/59 L 141/64 H 162/71 H Blood Pressure [Right Arm] Blood Pressure Mean [Right Arm] Blood Pressure Source [Right Arm] Blood Pressure Position [Right Arm] 02 Sat by Pulse Oximetry 99 99 99 Oxygen Delivery Method Oxygen Flow Rate (LPM) 01/28/25 11:13 01/28/25 11:41 Temperature 98.4 F Temperature Source Oral Pulse Rate Pulse Rate [Left Radial] 98 H Respiratory Rate 18 Blood Pressure Blood Pressure [Right Arm] 131/58 L Blood Pressure Mean [Right Arm] 82 Blood Pressure Source [Right Arm] Automatic Cuff Blood Pressure Position [Right Arm] Supine 02 Sat by Pulse Oximetry 97 98 Oxygen Delivery Method Nasal Cannula Nasal Cannula Oxygen Flow Rate (LPM) 3 4 Lab Data Lab results reviewed: Yes I reviewed the patient's lab results. Lab Results 01/28/25 08:50: WBC 14.5 H, RBC 4.16 L, Hgb 12.8 L, Hct 40.8 L, MCV 98.1 H, MCH 30.8, MCHC 31.4 L, RDW 13.4, Plt Count 443 H, MPV 8.3, Neut % (Auto) 80.0, Lymph % (Auto) 6.7 L, Frio % (Auto) 8.2, Eos % (Auto) 2.9, Baso % (Auto) 0.2, Neut # (Auto) 11.6 H, Lymph # (Auto) 1.0, Frio # (Auto) 1.2 H, Eos # (Auto) 0.4, Baso # (Auto) 0.0, D-Dimer 1.46 H, Sodium 130 L, Potassium 4.3, Chloride 91 L, Carbon Dioxide 34 H, Anion Gap 9.3, BUN 16, Creatinine 0.70, Estimated GFR 108, Est GFR ( Amer) 131, Glucose 122 H, Calcium 9.2, Magnesium 2.1, Total Bilirubin 0.6, AST 34, ALT 23, Alkaline Phosphatase 117, Troponin I < 0.01, NT-Pro-B Natriuret Pep 180, Total Protein 7.5, Albumin 4.0, Globulin 3.5 H, Albumin/Globulin Ratio 1.1, HCV Ab TIARA w/Rflx PCR Qn Negative, HIV Ag/Ab Combo Qual Negative 01/28/25 09:00: VBG pH 7.30 L, VBG pCO2 70.9 H, VBG pO2 34.3, VBG HCO3 34.2 H, VBG Total CO2 36.4 H, VBG O2 Saturation 62.4, VBG Base Excess 7.8 H, VBG Lactic Acid 2.0 01/28/25 10:36: SARS-CoV-2 (PCR) Not detected, Influenza Type A (PCR) Not detected, Influenza Type B (PCR) Not detected, RSV (PCR) Not detected, Rhinovirus (PCR) Not detected 01/28/25 08:50 01/28/25 08:50 Orders (Tests/Meds): ED MEDICATIONS Generic Name Dose Route Start Last Admin Trade Name Freq PRN Reason Stop Dose Admin Acetaminophen 650 mg 01/28/25 11:25 Acetaminophen 325mg Tab PO 02/27/25 11:24 Q4HP PRN Fever or Mild Pain (1-3) Hydrocodone Bitart/Acetaminophen 1 tab 01/28/25 11:25 Hydrocodone/Apap 5/325 Mg Tablet PO 02/27/25 11:24 Q4HP PRN Moderate Pain (4-6) Albuterol/Ipratropium 3 ml 01/28/25 12:00 01/28/25 13:04 Ipratropium/Albuterol 3 Ml Neb IH 02/27/25 11:59 3 ml Q6RT OCTAVIANO Administration Aspirin 81 mg 01/29/25 09:00 Aspirin Ec 81mg Tablet PO 02/28/25 08:59 DAILY [facility] Bisoprolol Fumarate 2.5 mg 01/29/25 09:00 Bisoprolol 5mg Tablet PO 02/28/25 08:59 DAILY [facility] Clopidogrel Bisulfate 75 mg 01/29/25 09:00 Clopidogrel 75mg Tab PO 02/28/25 08:59 DAILY [facility] Enoxaparin Sodium 40 mg 01/29/25 09:00 Enoxaparin 40mg/0.4ml Syringe SUBCUT 02/28/25 08:59 DAILY [facility] Furosemide 40 mg 01/29/25 09:00 Furosemide 40 Mg Tablet PO 02/28/25 08:59 DAILY [facility] Azithromycin 500 mg/ Sodium 250 mls @ 250 mls/hr 01/28/25 10:15 01/28/25 13:52 Chloride IV 02/07/25 10:14 Infused Q24H OCTAVIANO Infusion Ceftriaxone Sodium 2 gm/ 100 mls @ 200 mls/hr 01/28/25 10:15 01/28/25 11:35 Sodium Chloride IV 02/07/25 10:14 Infused Q24H [facility] Infusion Ondansetron HCl 4 mg 01/28/25 11:25 Ondansetron 4mg/2ml Vial IV 02/27/25 11:24 Q8HP PRN Nausea Pantoprazole Sodium 40 mg 01/28/25 21:00 Pantoprazole 40mg Tablet PO 02/27/25 20:59 HS OCTAVIANO Pravastatin Sodium 40 mg 01/28/25 21:00 Pravastatin 40mg Tab PO 02/27/25 20:59 HS OCTAV[facility] Fluticasone/Salmeterol 1 puff 01/28/25 18:00 Fluticasone/Salmeterol 250/50mcg Diskus IH 02/27/25 17:59 BIDRT OCTAVIANO Sodium Chloride 3 ml 01/28/25 12:01 01/28/25 13:05 Sodium Chloride 3% 15ml Neb 02/27/25 12:00 3 ml ONCE PRN Administration [employer]CE [employer] Sodium Chloride 10 ml 01/28/25 14:24 Sodium Chloride 0.9% 10ml Flush Syringe IV 02/27/25 14:23 NEEDED PRN Maintain IV Site Tamsulosin HCl 0.4 mg 01/28/25 21:00 Tamsulosin 0.4mg Capsule PO 02/27/25 20:59 HS [facility] Discontinued Medications Generic Name Dose Route Start Last Admin Trade Name Freq PRN Reason Stop Dose Admin Albuterol/Ipratropium 9 ml 01/28/25 08:56 01/28/25 09:07 Ipratropium/Albuterol 3 Ml Neb 01/28/25 08:57 9 ml ONCE ONE Administration Magnesium Sulfate 2 gm in 50 mls @ 100 mls/hr 01/28/25 08:56 01/28/25 09:42 Magnesium Sulfate 2gm/50ml Premix IV 01/28/25 09:25 Infused ONCE ONE Infusion Sodium Chloride 500 mls @ 250 mls/hr 01/28/25 14:09 01/28/25 16:45 Sod Chlor 0.9% 1000ml Bag IV 01/28/25 16:08 Infused .Q2H ONE Infusion Iopamidol 85 ml 01/28/25 10:50 01/28/25 10:51 Iopamidol-370 (76%);100ml Bottle IV 01/28/25 10:51 85 ml ONCE ONE Administration Methylprednisolone Sodium Succinate 125 mg 01/28/25 08:56 01/28/25 09:13 Methylprednisolone Sod Succ 125mg Vial IV 01/28/25 08:57 125 mg ONCE ONE Administration Sodium Chloride 50 ml 01/28/25 10:50 01/28/25 10:50 0.9 % Sodium Chloride 50 Ml Vial IV 01/28/25 10:51 50 ml ONCE ONE Administration Sodium Chloride 10 ml 01/28/25 10:50 01/28/25 10:50 Sodium Chloride 0.9% 10ml Syr (Rad Only) IV 01/28/25 10:51 10 ml ONCE ONE Administration ORDERS Category Date Time Status CT angio chest PE protocol Stat Cat Scan 01/28/25 10:01 Completed CXR --portable [XR chest portable] Stat Exams 01/28/25 08:53 Completed CBC w/Auto Diff [Complete Blood Count Auto Diff] Stat Lab 01/28/25 08:50 Completed CMP [Comprehensive Metabolic Panel] Stat Lab 01/28/25 08:50 Completed D-Dimer Stat Lab 01/28/25 08:50 Completed HIV Combo Routine Lab 01/28/25 08:50 Completed Hepatitis C Ab Qual. W/ RFX Routine Lab 01/28/25 08:50 Completed MAG [Magnesium] Stat Lab 01/28/25 08:50 Completed Mini Respiratory Panel Stat Lab 01/28/25 10:36 Completed Trop I [Troponin I] Stat Lab 01/28/25 08:50 Completed Troponin I Q3H Lab 01/28/25 12:00 Completed Blood Culture Stat Micro 01/28/25 10:30 Received Venous Blood Gas Routine RT 01/28/25 09:00 Completed Medical Decision Narrative: Patient is an 80-year-old gentleman with a past medical history of COPD who presented to the emergency department with shortness of breath. On arrival, patient was hemodynamically stable with unremarkable vital signs. Differential includes but not limited to: COPD exacerbation, pneumonia, heart failure, electrolyte abnormalities, pulmonary embolism, amongst others. Patient's labs were reviewed and interpreted by myself: CBC showed a mild leukocytosis of 14, hemoglobin was stable. D-dimer was elevated at 1.46. VBG showed mild acidosis of 7.3, mild hypercapnia of 70. CMP unremarkable. Initial troponin less than 0.01, second troponin less than 0.01. Respiratory panel negative. Chest x-ray was obtained which was reviewed and interpreted by myself and showed left-sided pneumonia. Patient's EKG was reviewed and interpreted by myself and showed sinus tachycardia without acute ST or T wave changes concerning for ischemia. Patient was given medications for concern for COPD exacerbation with Solu-Medrol, DuoNebs magnesium on arrival. Given chest x-ray which showed left-sided pneumonia, patient was treated for community-acquired pneumonia with azithromycin and Rocephin. At this time, patient was requiring 4 L nasal cannula which was then increased from his baseline of 3 L, patient was feeling significantly weak given his symptoms. I felt the patient warranted admission. CT PE was obtained given patient's elevated D-dimer. Patient's PE showed left-sided pneumonia without evidence of pulmonary embolism. I discussed the case with hospital medicine and patient was ultimately admitted to their service for further evaluation workup. Critical Care Critical Care Time Critical Care Time: No
[2025-01-28 09:02] LABS: Hematocrit 40.8 % (42.0-52.0); Hemoglobin 12.8 g/dL (14.1-18.0); Immature Granulocytes % 2.0 %; Mean Corpuscular HGB Conc 31.4 g/dL (31.8-35.4); Mean Corpuscular Hemoglobin 30.8 pg (27.0-31.2); Mean Corpuscular Volume 98.1 fl (80-94); Nucleated Red Blood Cells % 0 %; Platelet Count 443 K/mm3 (142-424); Red Blood Count 4.16 M/mm3 (4.60-6.20); Red Cell Distribution Width-SD 48.8 fL; White Blood Count 14.5 K/mm3 (4.8-10.8)
--- OUTSIDE RECORDS SUMMARY | 2025-01-28 09:06 | XMS_ITS | Clinical Summary ---
[facility] Address [address] [place] [address] Care Team Providers Care Manager Of Merchandising Name Role Phone Carmen Lomas MARINE DIESEL MECHANIC Primary Care Provider [phone] Social History Tobacco Use Types Packs/Day Years [...] (1 - 2023- season) 2024 Care Teams Manager Of Merchandising Relationship Specialty Start Date End Date Carmen Lomas APRN [address] [place], [place] [id number] PCP - General Internal Medicine 02/12/24
--- OUTSIDE RECORDS SUMMARY | 2025-01-28 09:06 | XMS_ITS | Clinical Summary ---
Author Organization [employer] ([place], [place], [place], [place], [place]) Address [address] [place] [address] Care Team Providers Care Woods Rider Name Role Phone [facility], Provider Not In The System MD Primary Care Provider Unavailable Allergies Active Allergy Reactions Criticality Noted Date Comments Lorazepam Other (See Comments) 05/30/2023 Delirium Medications aspirin 81 MG EC tablet Take 1 tablet (81 mg total) by mouth daily. Active AZITHROmycin (ZITHROMAX) 250 MG tablet Take 1 tablet (250 mg total) by mouth 3 (three) times a week MON/WED/FRI Take by mouth as directed.. Active budesonide-form oteroL (SYMBICORT) 160-4.5 mcg/actuation inhaler Inhale 2 puffs by mouth via inhaler 2 (two) times daily. Active furosemide (LASIX) 40 MG tablet Take 1 tablet (40 mg total) by mouth daily Takes as needed. Active hydrocortisone (WESTCORT) 0.2 % cream Apply topically 2 (two) times daily. Active potassium chloride SA (K-DUR,KLOR-CON -M) 10 MEQ tablet Take 1 tablet (10 mEq total) by mouth daily. Active senna-docusate (SENOKOT S) 8.6-50 mg per tablet Take 1 tablet by mouth 2 (two) times daily as needed for Constipation. Active calcium carbonate (TUMS) 500 mg chewable tablet Take 1 tablet (500 mg total) by mouth 4 (four) times daily as needed for Heartburn. Active omeprazole (PriLOSEC) 20 MG capsule Take 1 capsule (20 mg total) by mouth daily. Active ipratropium-alb uteroL (DUO-NEB) 0.5 mg-3 mg(2.5 mg base)/3 mL nebulizer solution Take 3 mLs by nebulization 2 (two) times daily. Active Active Problems Problem Noted Date Diagnosed Date Pneumothorax 05/30/2023 Recurrent pneumothorax 05/30/2023 Social History Tobacco Use Types Packs/Day Years Used Date Smoking Tobacco: Former Cigarettes Q uit: 1959 Smokeless Tobacco: Never Alcohol Use Standard Drinks/Week Comments Never 0 (1 standard drink = 0.6 oz pur e alcohol) Utilities Answer Date Recorded In the past 12 months, has t he [employer], gas, oil, or water [employer] threatened to shut off services in your home? No 05/30/2023 Food Insecurity Answer Date Recorded Within the past 12 months, y ou worried that your food would run out before you got money to buy more. Never true 05/30/2023 Within the past 12 months, t he food you bought just didn't last and you didn't have money to get more. Never true 05/30/2023 Transportation Needs Answer Date Record ed In the past 12 months, has l ack of reliable transportation kept you from medical appointments, meetings, work or from getting things needed for daily living? No 05/30/2023 Financial Resource Strain Answer Date R ecorded How hard is it for you to pa y for the very basics like food, housing, medical care, and heating? Would you say it is: Not hard at all 05/30/2023 Employment Answer Date Recorded Do you want help finding or keeping work or a job? I do not need or want help 05/30/2023 Family and Community Support Answer Edward e Recorded If for any reason you need h elp with day-to-day activities such as bathing, preparing meals, shopping, managing finances, etc., do you get the help you need? I get all the help I need 05/30/2023 Feeling Lonely or Isolated 0 05/29 Educational Attainment Answer Date Adriano rded Do you speak a language other than Bermudian at [facility]? No 05/30/2023 Do you want help with school or training? For example, starting or completing job training or getting a high school diploma, GED or equivalent. No 05/30/2023 Physical Activity Answer Date Recorded Number of minutes of exercise per week 20 05/30/2023 Substance Use Answer Date Recorded How many times in the past y ear have you used prescription drugs for non-medical reasons? Never 05/30/2023 How many times in the past year have you used [place] legal drugs? Never 05/30/2023 Sex and Gender Information Value Date Recorded Sex Assigned at Not on file Legal Sex Male 3:34 PM CDT Gender Identity Not on file Sexual Orientation Not on file Last Filed Vital Signs Vital Sign Reading Time Taken Comments Blood Pressure 128/77 06/06/2023 8:23 AM EDT Pulse 86 06/06/2023 8:23 AM EDT Temperature 36.2 C (97.2 F) 06/06/2023 8:23 AM EDT Respiratory Rate 20 06/06/2023 8:23 AM EDT Oxygen Saturation 93% 06/06/2023 11:10 AM EDT Inhaled Oxygen Concentration 28% 06/04/2023 7 :48 PM EDT Weight - - Height - - Body Mass Index - - Plan of Treatment Health Maintenance Due Date Last Done Comments Depression Screening (12+) 1957 Tobacco Cessation Counseling and Screening (12+) 1957 DTAP/TDAP/TD VACCINES (1 - Tdap) 01/24/1963 Pneumococcal 50+ years (1 of 1 - PCV) 01/24/1994 Shingles Vaccine (Zoster) (1 of 2) 01/24/1994 Medicare Initial AWV [id number] 01/04/2010 Respiratory Syncytial Virus (RSV) Adult or (1 - 1-dose 75+ series) 01/24/2019 Falls Risk Screening 03/05/2024 COVID-19 VACCINE (5 - 2024-2 6 season) 2024 10/31/2021, 01/04/2021, 05/12/2020, Additional history exists Influenza Vaccine (#1) 2024 3, 11/23/2016, 11/30/2015, Additional history exists Insurance MEDICARE PART A B SUPP Advance Directives For more information, please contact: [phone] * Full Code (Latest Code Status on File) Date Activated Date Inactivated Comments 05/30/2023 3:22 PM 06/06/2023 3:53 PM Care Teams Woods Rider Relationship Specialty Start Date End Date [facility], Provider Not In The System, [place] [address] PCP - General 05/30/23
--- OUTSIDE RECORDS SUMMARY | 2025-01-28 09:06 | XMS_ITS | Referral Summary ---
Author Organization [employer] ([place], [place], [place], [place], [place]) Address [address] [place] [address] Care Team Providers Care Occupational Therapist Per Diem Name Role Phone [facility], Provider Not In The System MD Primary [...] the past 12 months, has t he [employer], gas, oil, or water [employer] threatened to shut off services in your [...] Do you speak a language other than Georgian at [facility]? No 05/30/2023 Do you want help with [...] Mass Index - - Plan of Treatment Not on file Insurance MEDICARE PART [place] [address] [address] [address] Advance Directives For more information, please contact: [phone] * Full Code (Latest Code Status on File) Date Activated Date Inactivated Comments 05/30/2023 3:22 PM 06/06/2023 3:53 PM Care Teams Occupational Therapist Per Diem Relationship Specialty Start Date End Date [facility], Provider Not In The System, [place] [address] PCP - General 05/30/23
--- OUTSIDE RECORDS SUMMARY | 2025-01-28 09:06 | XMS_ITS | Clinical Summary ---
Author Organization Healthcare Address [address] [place] [address] Care Team Providers Care Returned Goods Inspector Name Role Phone AbebeCarmen Scott SIHNA Primary Care Provider [phone] Allergies Active Allergy Reactions Criticality Noted Date [...] place to sleep or slept in a detention (including now)? No 08/15/2023 CAGE ASSESSMENT Answer [...] drink first t nany in the morning ([facility] LPN) to steady your nerves or to get rid of a hangover? 0 08/18/2023 CAGE Questionnaire Score 0 024 Utilities Answer Date Recorded In the past 12 months has th [employer], gas, oil, or water [employer] threatened to shut off services in your [...] 2 - PCV20 or PCV21) 03/05/2022 03/05/2021 [id number] Vaccine (5 - 2024- season) 2024 10/31/2021, [...] age to complete this topic Insurance [facility]ARE [facility] Advance Directives * Full Code (Latest Code Status on File) Date Activated Date Inactivated Comments 08/14/2023 7:29 AM 08/19/2023 6:50 PM Question Answer Comments Patient has decision-making capacity? Yes Care Teams Returned Goods Inspector Relationship Specialty Start Date End Date Carmen Lomas APRN [address] [place] [address] PCP - General 09/03/23
[2025-01-28] MEDS: MAGNESIUM SULFATE IN WATER 2 GM/50 ML PIGGYBACK IV (09:07)
[2025-01-28] MEDS: IPRATROPIUM/ALBUTEROL 3 ML NEB 9 ML IH (09:07)
[2025-01-28 09:11] LABS: Alanine Aminotransferase 23 U/L (12-78); Albumin Level 4.0 g/dl (3.5-5.0); Albumin/Globulin Ratio 1.1 (1.1-1.8); Alkaline Phosphatase 117 U/L (38-126); Anion Gap 9.3 mEq/L (5-15); Aspartate Amino Transferase 34 U/L (17-59); Bilirubin,Total 0.6 mg/dl (0.2-1.3); Blood Urea Nitrogen 16 mg/dl (9-20); Calcium 9.2 mg/dl (8.4-10.2); Carbon Dioxide 34 mmol/L (22.0-30.0); Chloride 91 mmol/L (98-107); Creatinine,Serum 0.70 mg/dl (0.66-1.25); Estimated Glomerular Filt Rate 108 ml/min (>60); GFR (African American) 131 ML/MIN (>60); Globulin 3.5 g/dL (1.3-3.2); Glucose 122 mg/dl (74-100); Potassium 4.3 mmoL/L (3.5-5.1); Sodium 130 mmol/L (136-145); Total Protein,Serum 7.5 g/dl (6.3-8.2)
[2025-01-28 09:12] LABS: Magnesium 2.1 mg/dl (1.6-2.3)
[2025-01-28] MEDS: METHYLPREDNISOLONE SOD SUCC 125MG VIAL 125 MG IV (09:13)
[2025-01-28 09:17] LABS: D-Dimer 1.46 ug/mL (0.0-0.5)
[2025-01-28 09:23] LABS: Troponin I < 0.01 ng/ml (0.00-0.034)
[2025-01-28 09:49] LABS: Lactate Venous 2.0 mmol/L (0.4-2.0); VBG HCO3 34.2 mmol/L (23-30); VBG PCO2 70.9 mmol/L (35-51); VBG PH 7.30 mmol/L (7.31-7.41); VBG PO2 34.3 mmol/L (28-40)
--- NOTE | 2025-01-28 10:01 | CT_ITS ---
FINAL REPORT TECHNIQUE: Axial imaging of the chest is obtained after the administration of contrast. 3-D MIP reformatted images were also obtained and reviewed per PE protocol. CLINICAL HISTORY: shortness of breath COMPARISON: 02/11/2024 CT low-dose FINDINGS: The pulmonary arteries are well filled. There is no evidence of pulmonary embolus. There is no aortic dissection. Heart size is normal. There is no axillary lymphadenopathy. Subcarinal lymphadenopathy has increased now measuring 30 mm and was 22 mm. There are mildly enlarged left hilar lymph nodes. There are changes of severe emphysema. There has been interval development of lingular airspace disease most consistent with pneumonia. New slightly nodular opacity in the right upper lobe is also favored to represent infectious or inflammatory process. Scattered bilateral pulmonary nodules are stable. There is no pleural or pericardial effusion. Limited evaluation of the upper abdomen is without acute abnormality. No acute osseous abnormality. IMPRESSION: No evidence of pulmonary embolism or aortic dissection. New airspace opacities in the lingula and right upper lobe favored to be infectious or inflammatory. Recommend 2 to 3-month follow-up chest CT to ensure resolution. Stable pulmonary nodules. Lymphadenopathy is likely reactive. Reviewed, Interpreted and Dictated by Cammy Merida MD Transcribed by Susan Chavira Authenticated and [facility][1]
[2025-01-28 10:39] LABS: Coronavirus 19, PCR Not Detected (NotDetected); Influenza A, PCR Not Detected (NotDetected); Influenza B, PCR Not Detected (NotDetected)
[2025-01-28 10:45] LABS: Hepatitis C Ab Qual. W/ RFX NEGATIVE (Negative)
[2025-01-28] MEDS: SODIUM CHLORIDE 0.9% 10ML SYR (RAD ONLY) 10 ML IV (10:50)
[2025-01-28] MEDS: 0.9 % SODIUM CHLORIDE 50 ML VIAL IV (10:50)
[2025-01-28] MEDS: IOPAMIDOL-370 (76%);100ML BOTTLE 85 ML IV (10:51)
--- NOTE | 2025-01-28 11:19 | PC.NURSE ---
report called to jordyn
--- NOTE | 2025-01-28 11:20 | HMH.PHAINT1 ---
Pharmacy Intervention Comments: MEDICATION RECONCILIATION COMPLETED ON PATIENT USING EXTERNAL FILL HISTORY FROM PHARMACY. -STANLEY GONZALEZ, JAZLYND
--- NOTE | 2025-01-28 11:35 | P.HP_ITS ---
<Statement entered by Johnny Stewart MD - 01/28/25 15:18> Rounded on patient after nurse practitioner. Personally examined and interviewed patient. Agree with exam findings and care plan as documented. History of Present Illness *Admission Date: 01/28/25 *Reason for visit:: Shortness of breath, weakness *History of present illness: Mr. Miller is a 80-year-old male who presented today to the emergency department with increased weakness and shortness of breath over the past month, but worsening over the past few days. He has a primary medical history of chronic hypoxic respiratory failure with baseline 3 L nasal cannula, pulmonary emphysema, COPD, hypertension, hyperlipidemia, A-fib with history of cardiac ablation, neuropathy, and carotid stenosis. Patient currently follows with outpatient pulmonology and cardiology. He states that he has been to both his debeaker and PCP over the past month, diagnosed with pneumonia and been put on antibiotics. He has been on doxycycline, cefdinir, and Levaquin plus prednisone. He states he feels he gets better for short time but then it gets worse again. He reports subjective fevers/chills and waking up diaphoretic. He endorses productive cough, wheezing, and intermittent worsening shortness of willy ath. He denies chest pain, abdominal pain, nausea, vomiting, diarrhea, dysuria. He is prescribed Lasix which he states he takes intermittently. He denies history of BPH or prostate issues, but does endorse straining with urination and urinating small amounts frequently. [facility] Disclaimer: The information contained in this section may have been updated after the patient was seen, as this information can be updated by other users. Medical History (Updated 01/28/25 @ 11:55 by Nancy Leal APRN) Acute and chronic respiratory failure with hypoxia COPD (chronic obstructive pulmonary disease) Acute exacerbation of chronic obstructive airways disease Left adrenal mass Tubular adenoma of colon Recurrent pneumothorax Fistula, bronchopleural Acute hypercapnic respiratory failure GERD (gastroesophageal reflux disease) A-fib HLD (hyperlipidemia) HTN (hypertension) Lung nodule Ex-smoker Chronic hypoxemic respiratory failure Dyspnea on exertion Encounter for screening for malignant neoplasm of lung in former smoker who quit in past 15 years with 30 pack year history or greater Stopped smoking with greater than 30 pack year history Pulmonary emphysema Acute respiratory failure with hypoxia Surgical History History of colonoscopy Hx of local excision of skin lesion History of carotid endarterectomy Hx of prior ablation treatment History of nasal surgery Family History Other Cancer Coronary artery disease Diabetes Social History Smoking Status: Former smoker tobacco type: cigarettes packs per day: 2 second hand exposure: No alcohol intake: never substance use type: denies use current occupational status: retired Travel in the last 8 weeks?: None household members: spouse housing: house current occupational exposures/hazards: No caffeine: No Have you lived/traveled outside [place] in past 30 days?: No Contact w/someone who lives/traveled outside US past 30 days?: No Exposure to someone with infectious disease in past 14 days?: No Do you have a fever (greater than 100.4 F or 38 C)?: No Have you tested positive for COVID-19?: No Exposed to someone with COVID-19 in past 14 days?: No Do you have a sore throat?: No Do you have a cough?: No Do you have any weakness?: No Do you have any diarrhea?: No Are you experiencing any unusual bleeding?: No Do you have any muscle aches/pain?: No Do you have any abdominal pain?: No Are you experiencing loss of taste or smell?: No Other Medical History Have you received the Flu Vaccine for this season: No Have you received the Pneumonia Vaccine: Yes Review of Systems Constitutional Constitutional: Reports body ache(s), Reports chills, Reports excessive sweating, Reports fatigue, Reports fever(s) (Subjective), Reports headache(s), Reports poor appetite, Reports lethargy, Reports malaise and Reports weakness ENT Ears, Nose, Mouth, and Throat: Reports dizziness and Reports headache(s) *Cardiovascular Cardiovascular: Denies chest pain, Reports dyspnea, Reports leg edema, Denies leg ulcers and Denies palpitations *Respiratory Respiratory: Reports chest congestion, Reports cough, Reports dyspnea, Denies hemoptysis and Reports wheezing *Gastrointestinal Gastrointestinal: Denies abdominal pain, Denies coffee ground emesis, Denies heartburn and Denies vomiting *Genitourinary Genitourinary: Reports difficulty urinating, Denies dysuria, Reports urinary hesitancy and Denies urinary incontinence *Neurologic Neurologic: Reports dizziness, Reports headache(s) and Reports weakness Endocrine Endocrine: Reports excessive sweating, Reports fatigue and Denies palpitations Allergic/Immunologic Allergic/Immunologic: Reports wheezing Meds Home Medications and Allergies Home Medications ?Medication ?Instructions ?Recorded ?Confirmed ?Type aspirin 81 mg tablet,delayed 81 mg PO DAILY 30 days #3 0 tabs 05/22/23 01/28/25 Rx release clopidogrel 75 mg tablet (Plavix) 75 mg PO DAILY #30 t abs 11/06/24 01/28/25 Rx budesonide-formoterol HFA 160 2 puff inhalation BID 90 days 12/25/24 01/28/25 Rx mcg-4.5 mcg/actuation aerosol #10.2 grams inhaler tiotropium bromide 2.5 2 inh inhalation DAILY 90 da ys #4 12/25/24 01/28/25 Rx mcg/actuation mist for inhalation grams (Spiriva Respimat) azithromycin 250 mg tablet 250 mg PO MOWEFR 01/28/25 1 03/30/24 History bisoprolol fumarate 5 mg tablet 2.5 mg PO DAILY 01/28/25 History furosemide 40 mg tablet 40 mg PO DAILY 01/28/2501/04 History omeprazole 20 mg capsule,delayed 20 mg PO DAILY 01/28/25 History release potassium chloride 10 mEq 10 meq PO DAILY 01/28/25 History capsule,extended release simvastatin 20 mg tablet 20 mg PO HS 01/28/25 5 History New Prescriptions to Start Prescriptions: Allergies Allergy/AdvReac Type Severity Reaction Status Date / Time lorazepam (From Ativan) Allergy Mild Hallucinati Verified 12/25/24 10:46 ng Exam Data for Last 24 hours Vital signs and Labs for Last 24 Hours: Temp Pulse Resp BP Pulse Ox O2 Del Method O2 Flow Rate 98.5 F 97 H 16 162/71 H 99 Nasal Cannula 4 01/28/25 09:14 01/28/25 11:00 01/28/25 11:00 01/28/25 11:00 01/28/25 11:00 01/28/25 09:30 01/28/25 09:30 Laboratory Results - last 24 hr 01/28/25 08:50: WBC 14.5 H, RBC 4.16 L, Hgb 12.8 L, Hct 40.8 L, MCV 98.1 H, MCH 30.8, MCHC 31.4 L, RDW 13.4, Plt Count 443 H, MPV 8.3, Neut % (Auto) 80.0, Lymph % (Auto) 6.7 L, [place] % (Auto) 8.2, Eos % (Auto) 2.9, Baso % (Auto) 0.2, Neut # (Auto) 11.6 H, Lymph # (Auto) 1.0, [place] # (Auto) 1.2 H, Eos # (Auto) 0.4, Baso # (Auto) 0.0, D-Dimer 1.46 H, Sodium 130 L, Potassium 4.3, Chloride 91 L, Carbon Dioxide 34 H, Anion Gap 9.3, BUN 16, Creatinine 0.70, Estimated GFR 108, Est GFR ( Amer) 131, Glucose 122 H, Calcium 9.2, Magnesium 2.1, Total Bilirubin 0.6, AST 34, ALT 23, Alkaline Phosphatase 117, Troponin I < 0.01, Total Protein 7.5, Albumin 4.0, Globulin 3.5 H, Albumin/Globulin Ratio 1.1, HCV Ab TIARA w/Rflx PCR Qn Negative, HIV Ag/Ab Combo Qual Negative 01/28/25 09:00: VBG pH 7.30 L, VBG pCO2 70.9 H, VBG pO2 34.3, VBG HCO3 34.2 H, VBG Total CO2 36.4 H, VBG O2 Saturation 62.4, VBG Base Excess 7.8 H, VBG Lactic Acid 2.0 Temp Pulse Resp BP Pulse Ox O2 Del Method O2 Flow Rate 98.5 F 61 15 126/58 L 98 Nasal Cannula 3 05/23/23 16:53 05/23/23 19:32 05/23/23 16:53 05/23/23 19:32 05/23/23 19:32 05/23/23 16:53 05/23/23 16:53 Laboratory Results - last 24 hr 05/23/23 16:56: VBG pH 7.40, VBG pCO2 61.9 H, VBG pO2 32.3, VBG HCO3 37.2 H, VBG Total CO2 39.1 H, VBG O2 Saturation 63.4, VBG Base Excess 12.4 H, VBG Lactic Acid 1.7 05/23/23 17:02: SARS-CoV-2 (PCR) Not detected, Influenza A Untype (PCR) Not detected, Influenza Type B (PCR) Not detected 05/23/23 17:11: WBC 13.0 H, RBC 4.72, Hgb 15.0, Hct 46.5, MCV 98.4 H, MCH 31.8 H , MCHC 32.3, RDW 13.1, Plt Count 249, MPV 7.7, Neut % (Auto) 84.7 H, Lymph % (Auto) 7.0 L, [place] % (Auto) 5.6, Eos % (Auto) 2.3, Baso % (Auto) 0.3, Neut # (Auto) 11.0 H, Lymph # (Auto) 0.9, [place] # (Auto) 0.7, Eos # (Auto) 0.3, Baso # (Auto) 0.0, Sodium 131 L, Potassium 3.7, Chloride 90 L, Carbon Dioxide 38 H, Anion Gap 6.7, BUN 29 H, Creatinine 0.90, Estimated Creat Clear 58, Estimated GFR 81, Est GFR ( Amer) 98, Glucose 121 H, Calcium 8.8, Total Bilirubin 0.7, AST 47, ALT 31, Alkaline Phosphatase 81, Troponin I 0.02, NT-Pro-B Natriuret Pep 198, Total Protein 6.2 L, Albumin 3.7, Globulin 2.5, Albumin/Globulin Ratio 1.5 I & O for Last 24 hours: Intake & Output 01/25/25 01/26/25 01/27/25 01/28/25 23:59 23:59 23:59 23:59 Intake Total 50 / 50 Balance 50 / 50 Weight 74.843 kg Intake & Output 05/20/23 05/21/23 05/22/23 05/23/23 23:59 23:59 23:59 23:59 Weight 68.039 kg Constitutional Constitutional: mild distress, chronically ill appearing and cooperative *Routine HEENT Exam Head: Present normocephalic and atraumatic Eye: Present EOMI, PERRL and normal accommodation ENT: Present mucous membranes dry *Routine Neck Exam Neck: Present supple, full ROM and trachea midline *Routine Respiratory Exam Respiratory: Present CTA bilaterally, prolonged expiratory phase, respiratory distress, wheezes, diminished air movement and symmetric chest movement *Routine Cardiovascular Exam Cardiovascular: Present RRR, Normal S1 and tachycardia *Routine Abdominal Exam Abdominal: Present soft and normoactive bowel sounds; Absent tenderness or distended *Routine Rectal Exam Rectal:: deferred *Routine Genitalia Exam Genitalia:: deferred *Routine Extremities Exam Extremities: Present edema (1+), full ROM and pulses intact; Absent cyanosis or clubbing *Routine Skin Exam Skin: Present intact and pallor; Absent cyanosis, erythema or rash *Routine Neurological Exam Neurological: Present alert, normal reflexes, moving all extremities and normal speech Routine Psychiatric Exam Psychiatric: Present normal affect and cooperative Assessment and Plan *Assessment and plan (1) Sepsis: Status: Acute Category: Medical Code(s): A41.9 - Sepsis, unspecified organism (2) Acute and chronic respiratory failure with hypoxia: Status: Acute Category: Medical Code(s): J96.21 - Acute and chronic respiratory failure with hypoxia (3) Pneumonia: Status: Acute Category: Medical Code(s): J18.9 - Pneumonia, unspecified organism (4) Pulmonary emphysema: Status: Chronic Category: Medical Code(s): J43.9 - Emphysema, unspecified (5) COPD (chronic obstructive pulmonary disease): Status: Acute Qualifiers: COPD type: emphysema Emphysema type: unspecified Qualified Code(s): J43.9 - Emphysema, unspecified Category: Medical Code(s): J44.9 - Chronic obstructive pulmonary disease, unspecified (6) Hypertension: Status: Acute Qualifiers: Hypertension type: unspecified Qualified Code(s): I10 - Essential (primary) hypertension Category: Medical Code(s): I10 - Essential (primary) hypertension (7) HLD (hyperlipidemia): Status: Acute Qualifiers: Hyperlipidemia type: unspecified Qualified Code(s): E78.5 - Hyperlipidemia, unspecified Category: Medical Code(s): E78.5 - Hyperlipidemia, unspecified (8) CAD (coronary artery disease): Status: Acute Category: Medical Code(s): I25.10 - Atherosclerotic heart disease of nikolai coronary artery without angina pectoris Plan Mr. Miller is an 80-year-old male who was admitted to the medical surgical floor for acute on chronic respiratory failure with increased oxygen requirement, sepsis, and community-acquired pneumonia. Hospital medicine was consulted for admission, I agreed to admit the patient. Plan of care as follows: #Sepsis #Acute on chronic respiratory failure with hypoxia #Community-acquired pneumonia ?Patient admitted with acute on chronic respiratory failure with hypoxia, baseline O2 requirement of 3 L, increased to 4 L. I personally reviewed the patient's chest x-ray that showed left lobe pneumonia, CT showed no PE or aortic dissection noted. Patient met sepsis criteria due to tachycardia, tachypnea, WBC of 14.6 and community-acquired left lung pneumonia. Patient has diagnosed COPD and emphysema. Follows with Dr. Dickinson in the outpatient clinic. He endorses being sick for approximately 1 month and has had multiple rounds of oral antibiotics. ?Initiated on azithromycin and Rocephin IV, DuoNebs every 6 hours scheduled. Continue daily Spiriva inhaler. Patient was given Solu-Medrol 125 IV, magnesium 2 g IV, and DuoNeb in the ED prior to admission. ?Patient was not given sepsis bolus in the ED, will give gentle hydration of 500 mL over 2 hours. Patient does have a history of CHF. ?Pulmonology consulted for further recommendations. ?Initial lab work notable for WBC 14.5, hemoglobin 12.8, sodium 130, potassium 4.3, normal kidney function, negative troponins, respiratory panel negative. Blood cultures pending. #Generalized weakness ? Patient states he has been progressively weak over the past month worse in the last few days. PT/OT ordered for evaluation. he does state he lives alone and does ADLs independently. #HTN/HLD/CAD: Continue home medication of aspirin 81 mg daily, Plavix 75 mg daily, bisoprolol 2.5 mg daily, simvastatin 20 mg at bedtime, furosemide 40 mg daily. Echo in 2023 showed EF of 55%. #Urinary hesitancy/frequency: Patient endorses urinating small amounts frequently, additionally occasional straining to urinate. Patient states he has no diagnosis of enlarged prostate or BPH. Will start him on tamsulosin 0.4 mg at bedtime. PSA pending. Full code VTE?Lovenox Ambulate as tolerated Regular diet
--- NOTE | 2025-01-28 11:41 | PC.NURSE ---
arrived by stretcher from ED
[2025-01-28 11:50] LABS: NT Pro Brain Natriuretic Pep. 180 pg/mL (0-450)
[2025-01-28 12:31] LABS: Troponin I 0.01 ng/ml (0.00-0.034)
[2025-01-28] MEDS: AZITHROMYCIN 500 MG in 0.9 % SODIUM CHLORIDE 250 ML 250 MG IV (12:47)
[2025-01-28] MEDS: IPRATROPIUM/ALBUTEROL 3 ML NEB IH ×2 (13:04→18:25)
[2025-01-28] MEDS: SODIUM CHLORIDE 3% 15ML NEB 3 ML IH (13:05)
--- NOTE | 2025-01-28 13:52 | HMH.OTEV ---
OT Evaluation Rehab OT IP Evaluation Start: 01/28/25 11:32 Freq: ONCE Status: Active Protocol: Document 01/28/25 13:47 [facility] (Rec: 01/28/25 13:52 [facility] [id number]) Rehab OT IP Assessment Subjective History Pt oriented x 3 on arrival. Pt agreeable to engage in therapy evaluation. Pt admitted on 01/28/25 due to SOB and PNA. History and physical: Mr. Miller is a 80-year-old male who presented today to the emergency department with increased weakness and shortness of breath over the past month, but worsening over the past few days. He has a primary medical history of chronic hypoxic respiratory failure with baseline 3 L nasal cannula, pulmonary emphysema, COPD, hypertension, hyperlipidemia, A-fib with history of cardiac ablation, neuropathy, and carotid stenosis. Patient currently follows with outpatient pulmonology and cardiology. He states that he has been to both his brush filler hand and PCP over the past month, diagnosed with pneumonia and been put on antibiotics. He has been on doxycycline, cefdinir, and Levaquin plus prednisone. He states he feels he gets better for short time but then it gets worse again. He reports subjective fevers/chills and waking up diaphoretic. He endorses productive cough, wheezing, and intermittent worsening shortness of breath. He denies chest pain, abdominal pain, nausea, vomiting, diarrhea, dysuria. He is prescribed Lasix which he states he takes intermittently. He denies history of BPH or prostate issues, but does endorse straining with urination and urinating small amounts frequently. Subjective Prior to being in the hospital pt lived at home with his . Pt claims normally he is independent with his ADLs. He is on 3L of o2 at all times. He reports he is able to complete short distance transfers independently and without AE, but for longer distance he uses a wheelchair due to difficulty breathing. His completes all IADLs. He does still drive as needed. Objective Patient Orientation Person,Place,Birthday Right Upper WFL Extremity Gross ROM Left Upper Extremity WFL Gross ROM Bed Mobility bed mobility-scooting,bed mobility - supine/sit Assist Level Supervision/Stand by Transfer Training Sit/Stand Transfer Assist Level Contact Guard/Hand Hold Rehab OT IP prob,goals,plan Problems Date of Evaluation: 11/26/25 OT IP Problems Bed Mobility,Transfers,Balance,Self care,Safety Rehab Potential Rehab Potential Good Equipment Needs Assistive Devices Rolling / Wheeled Walker Plan OT intervention Plan Bed Mobility,Transfers,Balance,Self care,Safety, Therapeutic Exercise OT Plan Frequency Daily Duration LOS Discharge Goals Bed Mobility Ability Standby Assistance Sit to Stand Chair Supervision/Stand by Transfer Ability Chair Transfer Supervision/Stand by Ability Chair Transfer Sit to/from Ambulatory Technique Chair Transfer Rolling Walker Assistive Devices Lower Body Dressing Minimal Assistance Ability Upper Body Dressing Standby Assistance Ability Overall Commode/ Standby Assistance,Contact Guard Toilet Transfer Ability Commode/Toilet Sit to/from Ambulatory Transfer Technique Discharge Plan OT Discharge Plan Pt will continue to be seen for OT services while at [facility]. Pt can return home with once he is medically stable per physician. Therapist does recommend OT evaluation upon returning home for continued skilled therapy services. Skilled therapy is important in order for patient to improve strength, safety, endurance, ADL independence, and functional transfers to reach PLOF. Eval Complexity Eval Charge Codes 25208 - Moderate Complexity PHYSICIAN CERTIFICATION: I certify the specified therapy services for Brian Miller are required, authorized, and reviewed every 30 days.
--- NOTE | 2025-01-28 14:22 | HMH.PTEV ---
Physical Therapy Evaluation Rehab PT IP Evaluation Start: 01/28/25 11:32 Freq: ONCE Status: Active Protocol: Document 01/28/25 14:18 [facility] (Rec: 01/28/25 14:21 [facility] [id number]) Subjective/History History History Per H&P: Mr. Miller is a 80-year-old male who presented today to the emergency department with increased weakness and shortness of breath over the past month, but worsening over the past few days. He has a primary medical history of chronic hypoxic respiratory failure with baseline 3 L nasal cannula, pulmonary emphysema, COPD, hypertension, hyperlipidemia , A-fib with history of cardiac ablation, neuropathy, and carotid stenosis. Patient currently follows with outpatient pulmonology and cardiology. He states that he has been to both his computer language coder and PCP over the past month, diagnosed with pneumonia and been put on antibiotics. He has been on doxycycline, cefdinir, and Levaquin plus prednisone. He states he feels he gets better for short time but then it gets worse again. He reports subjective fevers/chills and waking up diaphoretic. He endorses productive cough, wheezing, and intermittent worsening shortness of breath. He denies chest pain, abdominal pain, nausea, vomiting, diarrhea, dysuria. He is prescribed Lasix which he states he takes intermittently. He denies history of BPH or prostate issues, but does endorse straining with urination and urinating small amounts frequently. Subjective Subjective Prior to being in the hospital pt lived at home with his . Pt claims normally he is independent with his ADLs. He is on 3L of o2 at all times. He reports he is able to complete short distance transfers independently and without AE, but for longer distance he uses a wheelchair due to difficulty breathing. His completes all IADLs. He does still drive as needed . [facility] How much help from another person do you currently need... Turning from your None back to your side while in a flat bed without using bedrails? Moving from lying on None back to sitting on the side of a flat bed without using bedrails? Moving to and from a None bed to a chair ( including a wheelchair)? Standing up from a None chair using your arms? (e.g., wheelchair, bedside chair) Walking in hospital None room? Climbing 3-5 steps A little with a railing? Mobility Score 23 Mobility Level [facility] Mobility 7 Walk 25 feet or more Mobility Calculator Rehab PT IP Eval Objective Appearance Patient Behavior Appropriate,Cooperative Patient Orientation Person Difficulty following none instructions Ambulation Patient Able to Yes Ambulate Ambulation Observation IP General Gait No Deviations/Normal Pattern Observation Ambulation Distance 10 (feet) Ambulation Assistive None Device Ambulation Ability Supervision/Stand by Balance Ability to Arise Able, uses arms to help Sitting Balance Steady, safe Standing Balance Steady, wide stance Dynamic Sitting Good Balance Ability Dynamic Standing Good Balance Ability Transfers Bed Transfer Ability Supervision/Stand by Sit to Stand Bed Supervision/Stand by Transfer Ability Rehab PT IP prob,goals,plan Problems Date of Evaluation: 01/28/25 PT IP Problems Transfers,Gait,Balance,Self care Rehab Potential Rehab Potential Good Plan PT Intervention Plan Transfers,Gait,Balance,Self care,Safety,Therapeutic Exercise PT Plan Frequency Daily Duration Goals Met Discharge Goals Bed Transfer Ability Independent Sit to Stand Chair Independent Transfer Ability Ambulation Distance 150 (feet) Discharge Plan PT Discharge Plan Pt presents below his baseline in endurance and would benefit from PT while at [facility] to address deficits and prevent further functional decline. Pt's mobility primarily limited by SOB. Pt most appropriate to d/c home when deemed medically appropriate with care by family with HH or OP PT services. Eval Complexity Eval Charge Codes 03421 - Moderate Complexity PHYSICIAN CERTIFICATION: I certify the specified therapy services for Brian Miller are required, authorized, and reviewed every 30 days.
[2025-01-28] MEDS: 0.9 % SODIUM CHLORIDE 1000ML 500 ML 250 ML IV (14:42)
--- NOTE | 2025-01-28 17:18 | PC.NURSE ---
new admit this shift. abx and fluids administered per may. pt has not complained of pain this shift. requiring 3LNC to maintain sats >90%. pt aware of need for sputum sample. specimen cup left and bedside. incentive spirometer provided to pt. uses urinal independently. no needs at this time. call light within reach.
[2025-01-28] MEDS: PANTOPRAZOLE 40MG TABLET 40 MG PO (20:07)
[2025-01-28] MEDS: TAMSULOSIN 0.4MG CAPSULE 0.4 MG PO (20:07)
[2025-01-28] MEDS: PRAVASTATIN 40MG TAB 40 MG PO (20:07)
[2025-01-29] VITALS (10 sets, daily range): BP systolic 125–159; BP diastolic 57–90; PULSE 74–95; RESP 16–18; TEMP 36.4–36.5; O2SAT 91–99; BMI 21.0
--- NOTE | 2025-01-29 06:33 | PC.NURSE ---
Pt AOx4, pleasant. Tolerating 3L o2, which is reported baseline. Pt has diminished lung sounds upon auscultation. Denies pain or any additional needs. Sitting upright in bed with eyes open, respirations even and unlabored. Bed is low, locked and call light is in reach.
[2025-01-29] MEDS: IPRATROPIUM/ALBUTEROL 3 ML NEB IH ×4 (06:55→23:23)
[2025-01-29 07:36] LABS: Hematocrit 36.1 % (42.0-52.0); Immature Granulocytes % 1.5 %; Mean Corpuscular HGB Conc 30.7 g/dL (31.8-35.4); Mean Corpuscular Hemoglobin 29.6 pg (27.0-31.2); Mean Corpuscular Volume 96.3 fl (80-94); Nucleated Red Blood Cells % 0 %; Platelet Count 340 K/mm3 (142-424); Red Blood Count 3.75 M/mm3 (4.60-6.20); Red Cell Distribution Width-SD 47.0 fL; White Blood Count 6.0 K/mm3 (4.8-10.8)
[2025-01-29 07:50] LABS: Anion Gap 6.0 mEq/L (5-15); Blood Urea Nitrogen 11 mg/dl (9-20); Calcium 8.8 mg/dl (8.4-10.2); Carbon Dioxide 32 mmol/L (22.0-30.0); Chloride 96 mmol/L (98-107); Creatinine Clearance Estimated 58 mL/min (50-200); Creatinine,Serum 0.50 mg/dl (0.66-1.25); Estimated Glomerular Filt Rate 160 ml/min (>60); GFR (African American) 193 ML/MIN (>60); Glucose 170 mg/dl (74-100); Magnesium 2.4 mg/dl (1.6-2.3); Potassium 4.0 mmoL/L (3.5-5.1); Sodium 130 mmol/L (136-145)
[2025-01-29] MEDS: ASPIRIN EC 81MG TABLET 81 MG PO (08:27)
[2025-01-29] MEDS: CLOPIDOGREL 75MG TAB 75 MG PO (08:27)
[2025-01-29] MEDS: BISOPROLOL 5MG TABLET 2.5 MG PO (08:27)
[2025-01-29] MEDS: FUROSEMIDE 40 MG TABLET PO (08:27)
--- NOTE | 2025-01-29 08:37 | PC.NURSE ---
O2 titrated from 3L to 2L NC. O2 sat currently 94%
[2025-01-29 09:14] LABS: Hemoglobin 11.2 g/dL (14.1-18.0)
--- NOTE | 2025-01-29 09:29 | HMH.PHAAMS2 ---
- Antimicrobial Stewardship Review culture & sensitivity review Stewardship interventions: culture & sensitivity review, reviewed - no change Comments: CULTURES PENDING, EMPRIC THERAPY CONTINUED
[2025-01-29 10:03] LABS: RBC Morphology Normal; Total Cells Counted 100
--- NOTE | 2025-01-29 10:30 | P.PN_ITS ---
Subjective *Date: 01/29/25 *Time: 15:07 Interval history: Patient is doing well this morning, sitting up in bed. States he rested intermittently throughout the night. Able to obtain sputum this morning. Continuing antibiotic course, azithromycin and Rocephin IV. Anticipate possible discharge home tomorrow. Medical Exam Vital signs and Labs for Last 24 Hours: Vital Signs Temp Pulse Pulse Resp BP BP Pulse Ox 01/29/25 09:00 01/29/25 08:00 01/29/25 08:00 97.6 F 94 H 18 132/65 99 01/29/25 06:56 75 01/29/25 06:56 78 01/29/25 06:56 98 01/29/25 06:40 01/29/25 05:00 01/29/25 04:00 97.7 F 80 18 143/90 H 98 01/29/25 03:00 01/29/25 01:00 01/29/25 00:00 97.6 F 85 16 130/57 L 98 01/28/25 23:00 01/28/25 21:00 01/28/25 20:00 97.8 F 96 H 18 165/75 H 96 01/28/25 20:00 01/28/25 18:44 01/28/25 18:28 85 01/28/25 18:28 84 01/28/25 18:28 98 01/28/25 17:00 01/28/25 16:00 98.0 F 82 18 134/54 L 98 01/28/25 15:00 01/28/25 13:07 80 18 01/28/25 13:07 80 01/28/25 13:07 80 01/28/25 13:00 01/28/25 11:44 98.7 F 97 H 16 167/71 H 01/28/25 11:41 98.4 F 98 H 18 131/58 L 98 01/28/25 11:13 97 01/28/25 11:00 97 H 16 162/71 H 99 O2 Del Method O2 Flow Rate 01/29/25 09:00 Nasal Cannula 2 01/29/25 08:00 Nasal Cannula 2 01/29/25 08:00 Nasal Cannula 3 01/29/25 06:56 01/29/25 06:56 01/29/25 06:56 Nasal Cannula 3 01/29/25 06:40 Nasal Cannula 3 01/29/25 05:00 Nasal Cannula 3 01/29/25 04:00 Nasal Cannula 3 01/29/25 03:00 Nasal Cannula 3 01/29/25 01:00 Nasal Cannula 3 01/29/25 00:00 Nasal Cannula 3 01/28/25 23:00 Nasal Cannula 3 01/28/25 21:00 Nasal Cannula 3 01/28/25 20:00 Nasal Cannula 3 01/28/25 20:00 Nasal Cannula 3 01/28/25 18:44 Nasal Cannula 3 01/28/25 18:28 01/28/25 18:28 01/28/25 18:28 Nasal Cannula 3 01/28/25 17:00 Nasal Cannula 3 01/28/25 16:00 Nasal Cannula 3 01/28/25 15:00 Nasal Cannula 3 01/28/25 13:07 01/28/25 13:07 01/28/25 13:07 01/28/25 13:00 Nasal Cannula 3 01/28/25 11:44 Nasal Cannula 4 01/28/25 11:41 Nasal Cannula 4 01/28/25 11:13 Nasal Cannula 3 01/28/25 11:00 Intake and Output 01/28/25 01/29/25 01/29/25 23:59 07:59 15:59 Intake Total 740 / 1620 360 / 360 Output Total 150 / 675 725 / 875 150 / 875 Balance 590 / 945 -725 / -515 210 / -515 Intake: Intake, Oral Amount 240 / 720 360 / 360 Intake, Total IV Amount 500 / 900 0.9 % Sodium Chloride 1000ML 500 / 500 500 ml @ 250 mls/hr IV .Q2H ONE Rx#:[id number] Output: Output, Urine Amount 150 / 675 725 / 875 150 / 875 Other: Number of Unmeasured Voids 0 0 Weight 70.534 kg Patient Weight 01/29/25 23:59 Weight 70.534 kg Laboratory Results - last 24 hr 01/28/25 08:50: NT-Pro-B Natriuret Pep 180, HCV Ab TIARA w/Rflx PCR Qn Negative, HIV Ag/Ab Combo Qual Negative 01/28/25 10:36: SARS-CoV-2 (PCR) Not detected, Influenza Type A (PCR) Not detected, Influenza Type B (PCR) Not detected, RSV (PCR) Not detected, Rhinovirus (PCR) Not detected 01/28/25 12:00: Troponin I 0.01, PSA Screen 4.3 H 01/29/25 07:01: WBC 6.0 D, RBC 3.75 L, Hgb 11.2 L D, Hct 36.1 L, MCV 96.3 H, MCH 29.6, MCHC 30.7 L, RDW 13.2, Plt Count 340, MPV 8.3, Neut % (Auto) 87.2 H, Lymph % (Auto) 4.5 L, [place] % (Auto) 6.6, Eos % (Auto) 0.0 L, Baso % (Auto) 0.2, Neut # (Auto) 5.3, Lymph # (Auto) 0.3 L, [place] # (Auto) 0.4, Eos # (Auto) 0.0, Baso # (Auto) 0.0, Total Counted 100, Neutrophils % (Manual) 87 H, Lymphocytes % (Manual) 6 L, Monocytes % (Manual) 7, Platelet Estimate Normal, RBC Morphology Normal, Sodium 130 L, Potassium 4.0, Chloride 96 L, Carbon Dioxide 32 H, Anion Gap 6.0, BUN 11 D, Creatinine 0.50 L D, Estimated Creat Clear 58, Estimated GFR 160, Est GFR ( Amer) 193 D, Glucose 170 H D, Calcium 8.8, Magnesium 2.4 H D I & O for Labs for Last 24 Hours: Intake & Output 01/26/25 01/27/25 01/28/25 01/29/25 23:59 23:59 23:59 23:59 Intake Total 1620 / 1620 360 / 360 Output Total 300 / 675 875 / 875 Balance 1320 / 945 -515 / -515 Weight 69.144 kg 70.534 kg Constitutional: Present no acute distress, average body habitus, chronically ill appearing and cooperative Head: Present atraumatic and normocephalic Eyes: Present as per HPI ENT: Present normal exam Neck: Present normal inspection Respiratory: Present prolonged expiratory phase, rhonchi, wheezes, diminished air movement and normal respiratory effort Cardiac: Present Reg Rate and Rhythm and No Murmur GI: Present soft and normal bowel sounds; Absent distention or tenderness Rectal (male): Present deferred (male): Present deferred Extremities: Present normal inspection, full ROM and edema (Bilateral ankle edema) Skin: Present intact; Absent erythema Neuro: Present Grossly Intact, alert, awake, oriented x 3 and moves all extremities Assessment and Plan *Assessment and plan (1) Sepsis: Status: Acute Category: Medical Code(s): A41.9 - Sepsis, unspecified organism (2) Acute and chronic respiratory failure with hypoxia: Status: Acute Category: Medical Code(s): J96.21 - Acute and chronic respiratory failure with hypoxia (3) Pneumonia: Status: Acute Category: Medical Code(s): J18.9 - Pneumonia, unspecified organism (4) Pulmonary emphysema: Status: Chronic Category: Medical Code(s): J43.9 - Emphysema, unspecified (5) COPD (chronic obstructive pulmonary disease): Status: Acute Qualifiers: COPD type: emphysema Emphysema type: unspecified Qualified Code(s): J43.9 - Emphysema, unspecified Category: Medical Code(s): J44.9 - Chronic obstructive pulmonary disease, unspecified (6) Hypertension: Status: Acute Qualifiers: Hypertension type: unspecified Qualified Code(s): I10 - Essential (primary) hypertension Category: Medical Code(s): I10 - Essential (primary) hypertension (7) HLD (hyperlipidemia): Status: Acute Qualifiers: Hyperlipidemia type: unspecified Qualified Code(s): E78.5 - Hyperlipidemia, unspecified Category: Medical Code(s): E78.5 - Hyperlipidemia, unspecified (8) CAD (coronary artery disease): Status: Acute Category: Medical Code(s): I25.10 - Atherosclerotic heart disease of [place] coronary artery without angina pectoris Plan Mr. Miller is an 80-year-old male who was admitted to the medical surgical floor for acute on chronic respiratory failure with increased oxygen requirement, sepsis, and community-acquired pneumonia. Hospital medicine was consulted for admission, I agreed to admit the patient. Plan of care as follows: #Sepsis #Acute on chronic respiratory failure with hypoxia #Community-acquired pneumonia ?Patient admitted with acute on chronic respiratory failure with hypoxia, baseline O2 requirement of 3 L, initially had increased O2 requirement of 4 L. Patient has been weaned to 2-3 L nasal cannula O2 saturation greater than 90%. I personally reviewed the patient's chest x-ray that showed left lobe pneumonia, CT showed no PE or aortic dissection noted. Patient met sepsis criteria due to tachycardia, tachypnea, WBC of 14.6 and community-acquired left lung pneumonia. Patient has diagnosed COPD and emphysema. Follows with Dr. Dickinson in the outpatient clinic. He endorses being sick for approximately 1 month and has had multiple rounds of oral antibiotics. ?Initiated on azithromycin and Rocephin IV, DuoNebs every 6 hours scheduled. Continue daily Spiriva inhaler. Additionally added prednisone 40 mg daily. Patient was given Solu-Medrol 125 IV, magnesium 2 g IV, and DuoNeb in the ED prior to admission. ? Patient was given gentle hydration with 500 cc bolus upon admission, patient appears euvolemic at this time. Will continue to monitor. ?Pulmonology consulted for further recommendations. ?Initial lab work notable for WBC 14.5, hemoglobin 12.8, sodium 130, potassium 4.3, normal kidney function, negative troponins, respiratory panel negative. White count trended down to 6.0, sodium stable at 130. ?CBC, CMP ordered for the a.m. #Generalized weakness ? Patient states he has been progressively weak over the past month worse in the last few days. PT/OT ordered for evaluation. PT evaluation states patient is below baseline for endurance primarily related to his shortness of breath. Patient will continue to work with PT/OT during admission, recommendations for home health or outpatient services at discharge. #HTN/HLD/CAD: Continue home medication of aspirin 81 mg daily, Plavix 75 mg daily, bisoprolol 2.5 mg daily, simvastatin 20 mg at bedtime, furosemide 40 mg daily. Echo in 2023 showed EF of 55%. #Urinary hesitancy/frequency: Patient endorses urinating small amounts frequently, additionally occasional straining to urinate. Patient states he has no diagnosis of enlarged prostate or BPH. Will start him on tamsulosin 0.4 mg at bedtime. PSA 4.03. Full code VTE?Lovenox Ambulate as tolerated Regular diet
[2025-01-29 10:43] LABS: C-Reactive Protein 205.7 mg/L (0-4)
[2025-01-29 10:55] LABS: Procalcitonin 0.094 ng/mL (0.0-2.0)
[2025-01-29] MEDS: AZITHROMYCIN 500 MG in 0.9 % SODIUM CHLORIDE 250 ML 250 MG IV (12:57)
--- NOTE | 2025-01-29 17:26 | PC.NURSE ---
Pt is A&O x4. Has c/o soa with exertion today. 2L when at rest and up to 4L during ambulation and exertion. Has ambulated to the BR with assistance and walker. Tolerated fair. Medications administered per mar. No other concerns at this time. Call light within reach.
--- OUTSIDE RECORDS SUMMARY | 2025-01-29 18:25 | XMS_ITS | Clinical Summary ---
Author Organization Healthcare Address [address] [place] [address] Care Team Providers Care Flight Manager Name Role Phone AbebeCarmen Scott SINHA Primary Care Provider [phone] Allergies Active Allergy Reactions Criticality Noted Date [...] place to sleep or slept in a intermediate (including now)? No 08/15/2023 CAGE ASSESSMENT Answer [...] drink first t nany in the morning (EYE-FINANCIAL PLANNING ADVISER) to steady your nerves or to get rid of a hangover? 0 08/18/2023 CAGE Questionnaire Score 0 024 Utilities Answer Date Recorded In the past 12 months has th [employer], gas, oil, or water [employer] threatened to shut off services in your [...] 2 - PCV20 or PCV21) 03/05/2022 03/05/2021 [id number] Vaccine (5 - 2024- season) 2024 10/31/2021, [...] age to complete this topic Insurance MEDICARE [facility] Advance Directives * Full Code (Latest Code Status on File) Date Activated Date Inactivated Comments 08/14/2023 7:29 AM 08/19/2023 6:50 PM Question Answer Comments Patient has decision-making capacity? Yes Care Teams Flight Manager Relationship Specialty Start Date End Date Carmen Lomas APRN [address] [place] [address] PCP - General 09/03/23
--- OUTSIDE RECORDS SUMMARY | 2025-01-29 18:25 | XMS_ITS | Clinical Summary ---
Author Organization [facility] Address [address] [place] [address] Care Team Providers Care Marketing Segment Manager Name Role Phone Carmen Lomas ICT TRAINER Primary Care Provider + [phone] Social History Tobacco Use Types Packs/Day Years [...] (1 - 2023- season) 2024 Care Teams Marketing Segment Manager Relationship Specialty Start Date End Date Carmen Lomas APRN [address] [place], [place] [id number] PCP - General Internal Medicine 02/12/24
--- OUTSIDE RECORDS SUMMARY | 2025-01-29 18:25 | XMS_ITS | Referral Summary ---
Author Organization [employer] ([place], [place], [place], [place], [place]) Address [address] [place] [address] Care Team Providers Care Calculating Machine Mechanic Name Role Phone [facility], Provider Not In The System MD [...] the past 12 months, has t he [employer], gas, oil, or water [employer] threatened to shut off services in your [...] Do you speak a language other than [place] at [facility]? No 05/30/2023 Do you want help with [...] on file Insurance [place]IC[place] [address] [place] [address] Advance Directives For more information, please contact: [phone] * Full Code (Latest Code Status on File) Date Activated Date Inactivated Comments 05/30/2023 3:22 PM 06/06/2023 3:53 PM Care Teams Calculating Machine Mechanic Relationship Specialty Start Date End Date [facility], Provider Not In The System, [place] [address] PCP - General 05/30/23
--- OUTSIDE RECORDS SUMMARY | 2025-01-29 18:25 | XMS_ITS | Clinical Summary ---
Author Organization [employer] ([place], [place], [place], [place], [place]) Address [address] [place] [address] Care Team Providers Care Whale Trainer Name Role Phone [facility], Provider Not In The System MD Primary [...] the past 12 months, has t he [employer], gas, oil, or water [employer] threatened to shut off services in your [...] Do you speak a language other than [place] at [facility]? No 05/30/2023 Do you want help with [...] Advance Directives For more information, please contact: [phone] * Full Code (Latest Code Status on File) Date Activated Date Inactivated Comments 05/30/2023 3:22 PM 06/06/2023 3:53 PM Care Teams Whale Trainer Relationship Specialty Start Date End Date [facility], Provider Not In The System, [place] [address] PCP - General 05/30/23
[2025-01-29] MEDS: PANTOPRAZOLE 40MG TABLET 40 MG PO (20:04)
[2025-01-29] MEDS: PRAVASTATIN 40MG TAB 40 MG PO (20:04)
[2025-01-29] MEDS: TAMSULOSIN 0.4MG CAPSULE 0.4 MG PO (20:04)
[2025-01-30] VITALS: BP 154/78; PULSE 94; RESP 16; TEMP 36.4; O2SAT 96
[2025-01-30] MEDS: MELATONIN 5MG TABLET 5 MG PO (01:10)
[2025-01-30 04:00] VITALS: BP 122/60; PULSE 72; RESP 16; TEMP 36.4; O2SAT 91; BMI 21.1
[2025-01-30 05:45] LABS: Hematocrit 35.2 % (42.0-52.0); Hemoglobin 11.0 g/dL (14.1-18.0); Immature Granulocytes % 0.7 %; Mean Corpuscular HGB Conc 31.3 g/dL (31.8-35.4); Mean Corpuscular Hemoglobin 30.1 pg (27.0-31.2); Mean Corpuscular Volume 96.2 fl (80-94); Nucleated Red Blood Cells % 0 %; Platelet Count 347 K/mm3 (142-424); Red Blood Count 3.66 M/mm3 (4.60-6.20); Red Cell Distribution Width-SD 47.0 fL; White Blood Count 8.0 K/mm3 (4.8-10.8)
[2025-01-30 05:47] LABS: Anion Gap 6.0 mEq/L (5-15); Blood Urea Nitrogen 12 mg/dl (9-20); Calcium 8.8 mg/dl (8.4-10.2); Carbon Dioxide 32 mmol/L (22.0-30.0); Chloride 98 mmol/L (98-107); Creatinine Clearance Estimated 58 mL/min (50-200); Creatinine,Serum 0.60 mg/dl (0.66-1.25); Estimated Glomerular Filt Rate 129 ml/min (>60); GFR (African American) 156 ML/MIN (>60); Glucose 150 mg/dl (74-100); Magnesium 2.2 mg/dl (1.6-2.3); Potassium 4.0 mmoL/L (3.5-5.1); Sodium 132 mmol/L (136-145)
[2025-01-30] MEDS: IPRATROPIUM/ALBUTEROL 3 ML NEB IH (05:59)
[2025-01-30 06:00] VITALS: PULSE 92; PULSE 96; O2SAT 92
[2025-01-30 08:00] VITALS: BP 128/70; PULSE 103; RESP 14; TEMP 36.5; O2SAT 97
[2025-01-30 08:05] LABS: Total Cells Counted 100
[2025-01-30 08:06] LABS: RBC Morphology Normal
[2025-01-30 08:33] LABS: C-Reactive Protein 85.0 mg/L (0-4)
[2025-01-30] MEDS: ASPIRIN EC 81MG TABLET 81 MG PO (08:59)
[2025-01-30] MEDS: CLOPIDOGREL 75MG TAB 75 MG PO (08:59)
--- NOTE | 2025-01-30 08:59 | P.DS_ITS ---
<Statement entered by Johnny Stewart MD - 01/30/25 10:06> Rounded on patient after nurse practitioner. Personally examined and interviewed patient. Agree with exam findings and care plan as documented. General Admission date:: 01/28/25 Discharge date: 01/30/25 HPI HPI HPI: Mr. Miller is a 80-year-old male who presented today to the emergency department with increased weakness and shortness of breath over the past month, but worsening over the past few days. He has a primary medical history of chronic hypoxic respiratory failure with baseline 3 L nasal cannula, pulmonary emphysema, COPD, hypertension, hyperlipidemia, A-fib with history of cardiac ablation, neuropathy, and carotid stenosis. Patient currently follows with outpatient pulmonology and cardiology. 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 He has been on doxycycline, cefdinir, and Levaquin plus prednisone. He states he feels he gets better for short time but then it gets worse again. He reports subjective fevers/chills and waking up diaphoretic. He endorses productive cough, wheezing, and intermittent worsening shortness of breath. He denies chest pain, abdominal pain, nausea, vomiting, diarrhea, dysuria. He is prescribed Lasix which he states he takes intermittently. He denies history of BPH or prostate issues, but does endorse straining with urination and urinating small amounts frequently. Hospital Course Hospital Course Hospital Course: Mr. Miller is an 80-year-old male who was admitted to the medical surgical floor for acute on chronic respiratory failure with increased oxygen requirement, sepsis, and community-acquired pneumonia. Hospital medicine was consulted for admission, I agreed to admit the patient. Hospital course as follows: #Sepsis #Acute on chronic respiratory failure with hypoxia #Community-acquired pneumonia ?Patient admitted with acute on chronic respiratory failure with hypoxia, baseline O2 requirement of 3 L, initially had increased O2 requirement of 4 L. Patient has been weaned to 2-3 L nasal cannula O2 saturation greater than 90%. I personally reviewed the patient's chest x-ray that showed left lobe pneumonia, CT showed no PE or aortic dissection noted. Patient met sepsis criteria due to tachycardia, tachypnea, WBC of 14.6 and community-acquired left lung pneumonia. Patient has diagnosed COPD and emphysema. Follows with Dr. Dickinson in the outpatient clinic. He endorses being sick for approximately 1 month and has had multiple rounds of oral antibiotics. ?Initiated on azithromycin and Rocephin IV, DuoNebs every 6 hours scheduled. Continue daily Spiriva inhaler. Additionally added prednisone 40 mg daily. Patient was given Solu-Medrol 125 IV, magnesium 2 g IV, and DuoNeb in the ED prior to admission. Patient received azithromycin 500 mg x 3 days and Rocephin IV daily during admission, will transition to cefdinir 300 mg twice daily to complete a 7-day total course. Consulted with Dr. Dickinson prior to discharge who agreed with the above plan. Patient will follow-up with pulmonology on of next week for reassessment. ?Initial lab work notable for WBC 14.5, hemoglobin 12.8, sodium 130, potassium 4.3, normal kidney function, negative troponins, respiratory panel negative. White count remained stable during admission, 8.0-day of discharge. Hemoglobin stable at 11.0, sodium 132, potassium 4.0, kidney function within normal range. CRP yesterday 205, repeat today 85. #Generalized weakness ? Patient states he has been progressively weak over the past month worse in the last few days. PT/OT ordered for evaluation. PT evaluation states patient is below baseline for endurance primarily related to his shortness of breath. Patient will continue to work with PT/OT during admission, recommendations for home health or outpatient services at discharge. Consult placed to care management for follow-up on Sunday. #HTN/HLD/CAD: Continue home medication of aspirin 81 mg daily, Plavix 75 mg daily, bisoprolol 2.5 mg daily, simvastatin 20 mg at bedtime, furosemide 40 mg daily. Echo in 2023 showed EF of 55%. #Urinary hesitancy/frequency: Patient endorses urinating small amounts frequently, additionally occasional straining to urinate. Patient states he has no diagnosis of enlarged prostate or BPH. Will start him on tamsulosin 0.4 mg at bedtime. PSA 4.03. Continue tamsulosin 0.4 mg at bedtime, follow-up with PCP for further evaluation or needs Total time spent on discharge 35 minutes in counseling, documentation, chart review, and direct care with patient. Exam Data for Last 24 hours Vital signs and Labs for Last 24 Hours: Temp Pulse Resp BP Pulse Ox O2 Del Method O2 Flow Rate 97.7 F 103 H 14 128/70 97 Nasal Cannula 3 01/30/25 08:00 01/30/25 08:00 01/30/25 08:00 01/30/25 08:00 01/30/25 08:00 01/30/25 08:00 01/30/25 08:00 Laboratory Results - last 24 hr 01/29/25 07:01: WBC 6.0 D, RBC 3.75 L, Hgb 11.2 L D, Hct 36.1 L, MCV 96.3 H, MCH 29.6, MCHC 30.7 L, RDW 13.2, Plt Count 340, MPV 8.3, Neut % (Auto) 87.2 H, Lymph % (Auto) 4.5 L, Bay % (Auto) 6.6, Eos % (Auto) 0.0 L, Baso % (Auto) 0.2, Neut # (Auto) 5.3, Lymph # (Auto) 0.3 L, Bay # (Auto) 0.4, Eos # (Auto) 0.0, Baso # (Auto) 0.0, Total Counted 100, Neutrophils % (Manual) 87 H, Lymphocytes % (Manual) 6 L, Monocytes % (Manual) 7, Platelet Estimate Normal, RBC Morphology Normal, C-Reactive Protein 205.7 H, Procalcitonin 0.094 01/30/25 05:13: WBC 8.0 D, RBC 3.66 L, Hgb 11.0 L, Hct 35.2 L, MCV 96.2 H, MCH 30.1, MCHC 31.3 L, RDW 13.2, Plt Count 347, MPV 8.3, Neut % (Auto) 87.9 H, Lymph % (Auto) 4.5 L, Bay % (Auto) 6.8, Eos % (Auto) 0.0 L, Baso % (Auto) 0.1, Neut # (Auto) 7.1, Lymph # (Auto) 0.4 L, Bay # (Auto) 0.6, Eos # (Auto) 0.0, Baso # (Auto) 0.0, Total Counted 100, Neutrophils % (Manual) 89 H, Lymphocytes % (Manual) 8 L, Monocytes % (Manual) 3, Platelet Estimate Normal, RBC Morphology Normal, Sodium 132 L, Potassium 4.0, Chloride 98, Carbon Dioxide 32 H, Anion Gap 6.0, BUN 12, Creatinine 0.60 L, Estimated Creat Clear 58, Estimated GFR 129, Est GFR ( Amer) 156, Glucose 150 H, Calcium 8.8, Magnesium 2.2, C-Reactive Protein 85.0 H D I & O for Last 24 hours: Intake & Output 01/27/25 01/28/25 01/29/25 01/30/25 23:59 23:59 23:59 23:59 Intake Total 1620 / 1620 1070 / 1250 530 / 530 Output Total 300 / 675 1225 / 1375 300 / 300 Balance 1320 / 945 -155 / -125 230 / 230 Weight 69.144 kg 70.534 kg 70.76 kg Microbiology Reports for the Last 24 Hours: Microbiology 01/28/25 09:44 Sputum - Expectorated Sputum Gram Stain - Final 01/28/25 09:44 Sputum - Expectorated Sputum Sputum Culture - Preliminary 01/28/25 10:30 Blood Blood Culture - Preliminary NO GROWTH AFTER 24 HOURS 01/28/25 10:41 Blood Blood Culture - Preliminary NO GROWTH AFTER 24 HOURS Constitutional Constitutional: no acute distress, average body habitus, chronically ill appearing and cooperative *Routine HEENT Exam Head: Present normocephalic Eye: Present EOMI and PERRL ENT: Present mucous membranes moist *Routine Neck Exam Neck: Present supple; Absent lymphadenopathy *Routine Respiratory Exam Respiratory: Present CTA bilaterally, prolonged expiratory phase and diminished air movement; Absent rhonchi *Routine Cardiovascular Exam Cardiovascular: Present RRR *Routine Abdominal Exam Abdominal: Present soft and normoactive bowel sounds; Absent tenderness *Routine Rectal Exam Patient deferred: visual exam *Routine Exam Patient deferred: penile exam *Routine Extremities Exam Extremities: Absent cyanosis, clubbing or edema *Routine Skin Exam Skin: Present intact, dry and warm; Absent rash *Routine Neurological Exam Neurological: Present alert, oriented X3 and moving all extremities; Absent altered mental status Routine Psychiatric Exam Psychiatric: Present normal affect and cooperative Results Data Completed and Pending Labs on day of discharge: Labs from last 24 hours 01/30/25 01/29/25 05:13 07:01 WBC 8.0 D 6.0 D RBC 3.66 L 3.75 L Hgb 11.0 L 11.2 L D Hct 35.2 L 36.1 L MCV 96.2 H 96.3 H MCH 30.1 29.6 MCHC 31.3 L 30.7 L RDW 13.2 13.2 Plt Count 347 340 MPV 8.3 8.3 Neut % (Auto) 87.9 H 87.2 H Lymph % (Auto) 4.5 L 4.5 L Bay % (Auto) 6.8 6.6 Eos % (Auto) 0.0 L 0.0 L Baso % (Auto) 0.1 0.2 Neut # (Auto) 7.1 5.3 Lymph # (Auto) 0.4 L 0.3 L Bay # (Auto) 0.6 0.4 Eos # (Auto) 0.0 0.0 Baso # (Auto) 0.0 0.0 Total Counted 100 100 Neutrophils % (Manual) 89 H 87 H Lymphocytes % (Manual) 8 L 6 L Monocytes % (Manual) 3 7 Platelet Estimate Normal Normal RBC Morphology Normal Normal Sodium 132 L Potassium 4.0 Chloride 98 Carbon Dioxide 32 H Anion Gap 6.0 BUN 12 Creatinine 0.60 L Estimated Creat Clear 58 Estimated GFR 129 Est GFR ( Amer) 156 Glucose 150 H Calcium 8.8 Magnesium 2.2 C-Reactive Protein 85.0 H D 205.7 H Procalcitonin 0.094 Preliminary micro results at discharge 01/28/25 09:44 Sputum Culture - Preliminary Sputum - Expectorated Sputum 01/28/25 10:30 Blood Culture - Preliminary Blood NO GROWTH AFTER 24 HOURS 01/28/25 10:41 Blood Culture - Preliminary Blood NO GROWTH AFTER 24 HOURS DS: Diagnosis Discharge Diagnosis (1) Sepsis: Status: Acute Code(s): A41.9 - Sepsis, unspecified organism (2) Acute and chronic respiratory failure with hypoxia: Status: Acute Code(s): J96.21 - Acute and chronic respiratory failure with hypoxia (3) Pneumonia: Status: Acute Code(s): J18.9 - Pneumonia, unspecified organism (4) Pulmonary emphysema: Status: Chronic Code(s): J43.9 - Emphysema, unspecified (5) COPD (chronic obstructive pulmonary disease): Status: Acute Code(s): J44.9 - Chronic obstructive pulmonary disease, unspecified Qualifiers: COPD type: emphysema Emphysema type: unspecified Qualified Code(s): J43.9 - Emphysema, unspecified (6) Hypertension: Status: Acute Code(s): I10 - Essential (primary) hypertension Qualifiers: Hypertension type: unspecified Qualified Code(s): I10 - Essential (primary) hypertension (7) HLD (hyperlipidemia): Status: Acute Code(s): E78.5 - Hyperlipidemia, unspecified Qualifiers: Hyperlipidemia type: unspecified Qualified Code(s): E78.5 - Hyperlipidemia, unspecified (8) CAD (coronary artery disease): Status: Acute Code(s): I25.10 - Atherosclerotic heart disease of [place] coronary artery without angina pectoris Meds Home Medications and Allergies Home Medications ?Medication ?Instructions ?Recorded ?Confirmed ?Type aspirin 81 mg tablet,delayed 81 mg PO DAILY 30 days #3 0 tabs 05/22/23 01/28/25 Rx release clopidogrel 75 mg tablet (Plavix) 75 mg PO DAILY #30 t abs 11/06/24 01/28/25 Rx budesonide-formoterol HFA 160 2 puff inhalation BID 90 days 12/25/24 01/28/25 Rx mcg-4.5 mcg/actuation aerosol #10.2 grams inhaler tiotropium bromide 2.5 2 inh inhalation DAILY 90 da ys #4 12/25/24 01/28/25 Rx mcg/actuation mist for inhalation grams (Spiriva Respimat) azithromycin 250 mg tablet 250 mg PO MOWEFR 01/28/25 1 03/30/24 History Held on 01/30/25. Instructions: until cefdinir Rx complete bisoprolol fumarate 5 mg tablet 2.5 mg PO DAILY 01/28/25 History furosemide 40 mg tablet 40 mg PO DAILY 01/28/2501/04 History omeprazole 20 mg capsule,delayed 20 mg PO DAILY 01/28/25 History release potassium chloride 10 mEq 10 meq PO DAILY 01/28/25 History capsule,extended release simvastatin 20 mg tablet 20 mg PO HS 01/28/25 5 History cefdinir 300 mg capsule 300 mg PO BID #8 caps Rx tamsulosin 0.4 mg capsule 0.4 mg PO HS 30 days #30 cap s 01/30/25 Rx New Prescriptions to Start Prescriptions: cefdinir Hill,NancyNancy Randolph Allergy/AdvReac Type Severity Reaction Status Date / Time lorazepam (From Ativan) Allergy Mild Hallucinati Verified 12/25/24 10:46 ng Discharge Plan Disposition Patient Disposition: Home Health Service Condition: Good Discharge Order Discharge Orders: Discharge Order (Routine); Ordered 01/30/25 Ordered By: Nancy Leal Follow up Plan Follow up with: Carmen Lomas APRN [Primary Care Provider, Medical] - Enter time for follow up Referral Note: call for follow up Elvin Dickinson MD [Physician, Pulmonology] - 02/05/25 Referral Note: call for follow up Prescriptions/Medication Reconciliation: New cefdinir 300 mg capsule 300 mg PO BID Qty: 8 0RF tamsulosin 0.4 mg Capsule 0.4 mg PO HS 30 Days Qty: 30 0RF Continued budesonide-formoterol 160-4.5 mcg/actuation HFA aerosol inhaler 2 puff inhalation BID 90 Days Qty: 10.2 2RF Spiriva Respimat 2.5 mcg/actuation mist 2 inh inhalation DAILY 90 Days Qty: 4 3RF clopidogrel [Plavix] 75 mg tablet 75 mg PO DAILY Qty: 30 5RF aspirin 81 mg Tablet,Delayed Release (Dr/Ec) 81 mg PO DAILY 30 Days Qty: 30 0RF furosemide 40 mg tablet 40 mg PO DAILY potassium chloride 10 mEq capsule, extended release 10 meq PO DAILY bisoprolol fumarate 5 mg tablet 2.5 mg PO DAILY simvastatin 20 mg tablet 20 mg PO HS omeprazole 20 mg capsule,delayed release(DR/EC) 20 mg PO DAILY Held azithromycin 250 mg tablet 250 mg PO MOWEFR Hold Instructions: until cefdinir Rx complete Problem Reconciliation Problems Reviewed?: Yes Patient Discharge Instructions ACTIVITY: Continue current activity DIET: continue same diet Patient Instructions: Sepsis, DI for Pneumonia in Adults, Respiratory Failure, Stop Light Pneumonia, Stop Light COPD, Stop Light Infection Print Language: Citizen Of [place] Providers Primary Care Provider: Carmen Lomas Admit Provider: Johnny Stewart Attending Provider: Johnny Stewart
[2025-01-30] MEDS: FUROSEMIDE 40 MG TABLET PO (09:00)
[2025-01-30] MEDS: AZITHROMYCIN 250MG TABLET 500 MG PO (09:00)
[2025-01-30] MEDS: BISOPROLOL 5MG TABLET 2.5 MG PO (09:00)
--- NOTE | 2025-01-30 09:05 | HMH.PHAAMS2 ---
- Antimicrobial Stewardship Review culture & sensitivity review Stewardship interventions: culture & sensitivity review (PATIENT CURRENTLY ON AZITHROMYCIN/ROCEPHIN, WBC DECREASED, AFEBRILE.)
--- NOTE | 2025-02-02 11:26 | SW/DCPLANNER ---
Spoke with patient on the phone. Patient stated that he is doing well. Patient stated that he is aware of his upcoming appointments. Patient stated that he was able to bulk picker his new medicine. Patient stated that he is having trouble to get to his appointments. Patient stated that he is interested in home health services and that he does not have a preference in what agency i send his information to. Bernice Stack
--- NOTE | 2025-02-02 11:33 | SW/DCPLANNER ---
Addendum entered by Mary Parrish 02/02/25 12:02: [facility] is able to accept patient. Bernice Stack Original Note: Spoke with patient regarding home health services and patient is interested in home health and does not have a preference in what agency i send his information to. I faxed patient information to [facility]. I will update once i hear if they can accept or not. Bernice Stack
== END 2025-01-30 11:26 | disposition home health service (06) | DRG 871 ==
LOC: ER 11:03 → 2ND 11:14
PROVIDERS: Admitting Provider Internal Medicine Adolescent Medicine; Emergency Provider Student in an Organized Health Care Education/Training Program; PCP Nurse Practitioner Family; Visit Provider Internal Medicine Adolescent Medicine
DX: A41.9 Sepsis, unspecified organism (principal); J15.212 Pneumonia due to Methicillin resistant Staphylococcus aureus; J96.21 Acute and chronic respiratory failure with hypoxia; J44.0 Chronic obstructive pulmonary disease with (acute) lower respiratory infection; J43.9 Emphysema, unspecified; I10 Essential (primary) hypertension; E78.5 Hyperlipidemia, unspecified; I25.10 Atherosclerotic heart disease of native coronary artery without angina pectoris; R53.1 Weakness; R39.11 Hesitancy of micturition; R35.0 Frequency of micturition; Z88.8 Allergy status to other drugs, medicaments and biological substances; Z87.891 Personal history of nicotine dependence; Z79.82 Long term (current) use of aspirin; Z79.02 Long term (current) use of antithrombotics/antiplatelets; Z79.51 Long term (current) use of inhaled steroids; Z79.899 Other long term (current) drug therapy
CPT/HCPCS: 36415; 71045; 71275; 80048; 80053; 82803; 83735; 83880; 84145; 84484; 85007; 85025; 85378; 86140; 86803; 87040; 87070; 87077; 87186; 87205; 87389; 87631; 89220; 93005; 94640; 94760; 94761; 97162; 97166; 99285; G0103; J0456; J0696; J1650; J2919; J3475; J7030; J7050; Q9967